=== PATIENT | male | born 1940 | race Asian ===

== ENCOUNTER → 2017-04-11 13:26 | Emergency (ER) | payer MEDICARE, OTHER ==
[~2017-04-11 13:26] MED LIST: Iohexol 300* (CONTRAST) 10 ML SDV IV ONE; Midazolam* 1 MG/ML 10 ML VIAL (10 MG) ONE; NS 0.9% 1000 ML* 2,000 ML IV ONE; fentaNYL* 50 MCG/ML 2 ML VIAL (100 MCG VIAL) ONE
[2017-04-11 14:53] LABS: Hematocrit 52 % (42-52); Hemoglobin 17.5 g/dl (14.0-18.0); Mean Corpuscular HGB Conc 34 g/dl (31-36); Mean Corpuscular Hemoglobin 32 pg (27-31); Mean Corpuscular Volume 94 fL (80-94); Mean Platelet Volume 7 um3 (7.4-10.4); Red Cell Distribution Width 14 % (10.5-15); White Blood Count 5.5 10^3/ul (3.5-10.8)
--- NOTE | 2017-04-11 15:01 | ED ---
Abdominal Pain/Male - HPI Summary HPI Summary: 76M w/ PMH of dementia present with abdominal pain today. Pain started in middle of the night in bilateral lower quadrants. He states that he had two normal BM last night. He states he felt constipated this morning and had small BM with an edema. He denies any nausea or vomiting. He denies any fever. He states feel similar to pain with constipation. He states the pain is sharp. Nothing makes it better or worst. no dysuria, hematuria, flank pain. He states he is not passing much gas. unable to give a surgical history. History is limited due to dementia. He is a resident of [facility] emergency department. He has hypertension and COPD. According to EMS note his pain started last night while lying in bed. He thought it was do to eating peanut butter last night. According to record from [facility] he take senna, miralax, simethicone. - History of Current Complaint Chief Complaint: EDAbdPain Stated Complaint: ABD PAIN Time Seen by Provider: 04/11/17 14:02 Pain Intensity: 5 - Allergies/Home Medications Allergies/Adverse Reactions: Allergies Allergy/AdvReac Type Severity Reaction Status Date / Time Penicillins Allergy Severe Rash Verified 04/11/17 13:38 Home Medications: Home Medications Acetaminophen TAB* [Tylenol TAB*] 650 mg PO Q6H PRN 04/11/17 [History Confirmed 04/11/17] Citalopram TAB* [CeleXA TAB*] 10 mg PO DAILY 04/11/17 [History Confirmed ] Cyanocobalamin INJ * [Vitamin B12 INJ *] 1,000 mcg IM MONTHLY 04/11/17 [History Confirmed 04/11/17] Fexofenadine (NF) [Rosanne (NF)] 60 mg PO DAILY 04/11/17 [History Confirmed ] Furosemide TAB* [Lasix TAB*] 40 mg PO DAILY 04/11/17 [History Confirmed 04/11/17 ] Hemorrhoidal OINT* [Preparation H*] 1 applic MO Q3HR PRN 04/11/17 [History Confirmed 04/11/17] Omeprazole CAP* [Prilosec CAP* 20 MG] 20 mg PO DAILY 04/11/17 [History Confirmed 04/11/17] Senna TAB* [Senokot TAB*] 1 tab PO DAILY 04/11/17 [History Confirmed 04/11/17] Simethicone TAB* [Mylicon TAB*] 80 mg PO AC PRN 04/11/17 [History Confirmed ] tiZANidine TAB* [Zanaflex TAB*] 1 mg PO BID PRN MDD 2mg 04/11/17 [History Confirmed 04/11/17] PMH/Surg Hx/FS Hx/Imm Hx Endocrine/Hematology History: Reports: Other Endocrine/Hematological Disorders - hypogonadism Denies: Hx Anticoagulant Therapy, Hx Blood Disorders, Hx Blood Transfusions, Hx Bone Marrow Disease, Hx Diabetes, Hx Systemic Lupus Erythematosus, Hx Sickle Cell Disease, Hx Thyroid Disease, Hx Anemia, Hx Unexplained Bleeding Cardiovascular History: Reports: Hx Hypertension Denies: Hx Aneurysm, Hx Angina, Hx Angioplasty, Hx Auto Implanted Cardiovert Defib, Hx Cardiac Arrest, Hx Cardiomegaly, Hx Congenital Heart Disease, Hx Congestive Heart Failure, Hx Coronary Artery Disease, Hx Deep Vein Thrombosis, Hx Embolism, Hx Hypercholesterolemia, Hx Hypotension, Hx Pacemaker/ICD, Hx Peripheral Vascular Disease, Hx Rheumatic Fever, Hx Syncope, Hx Valvular Heart Disease, Other Cardiovascular Problems/Disorders Respiratory History: Reports: Hx Asthma, Hx Chronic Bronchitis Denies: Hx Chronic Obstructive Pulmonary Disease (COPD), Hx Cystic Fibrosis, Hx Lung Cancer, Hx Pleural Effusion, Hx Pneumonia, Hx Pulmonary Edema, Hx Pulmonary Embolism, Hx Seasonal Allergies, Hx Sleep Apnea, Other Respiratory Problems/Disorders GI History: Reports: Other GI Disorders - constipation Denies: Hx Cirrhosis, Hx Crohn's Disease, Hx Diverticulosis, Hx Gall Bladder Disease, Hx Gastroesophageal Reflux Disease, Hx Gastrointestinal Bleed, Hx Hiatal Hernia, Hx Irritable Bowel, Hx Jaundice, Hx Obstructive Bowel, Hx Ileostomy, Hx Pyloric Stenosis, Hx Ulcer History: Reports: Hx Benign Prostatic Hyperplasia Denies: Hx Acute Renal Failure, Hx Chronic Renal Failure, Hx Dialysis, Hx Kidney Infection, Hx Kidney Stones, Hx Renal Disease, Other Problems/ Disorders Musculoskeletal History: Reports: Hx Arthritis, Other Musculoskeletal History - MUSCULAR DYSTROPHY Denies: Hx Back Problems, Hx Bursitis, Hx Congenital Bone Abnormalities, Hx Fibromyalgia, Hx Gout, Hx Orthopedic Injury, Hx Osteoporosis, Hx Scoliosis, Hx Tendonitis Sensory History: Reports: Hx Cataracts - l eye cataract, Hx Contacts or Glasses - reading glasses at home Denies: Hx Eye Injury, Hx Eye Prosthesis, Hx Glaucoma, Hx Legally Blind, Hx Macular Degeneration, Hx Vision Problem, Hx Deafness, Hx Hearing Aid, Hx Hearing Problem, Other Sensory Impairments Opthamlomology History: Reports: Hx Cataracts - l eye cataract, Hx Contacts or Glasses - reading glasses at home Denies: Hx Eye Injury, Hx Eye Prosthesis, Hx Glaucoma, Hx Legally Blind, Hx Macular Degeneration, Hx Vision Problem, Other Sensory Impairments Neurological History: Reports: Other Neuro Impairments/Disorders - parkinsons, facioscapulohum muscular dystrophy Denies: Hx Dementia, Hx Developmental Delay, Hx Headaches, Hx Migraine, Hx Nerve Disease, Hx Seizures, Hx Spinal Cord Injury, Hx Transient Ischemic Attacks (TIA) Psychiatric History: Reports: Hx Depression - suicide attempts x2, Hx Inpatient Treatment - 2010, Hx Suicide Attempt Denies: Hx Anxiety, Hx Attention Deficit Hyperactivity Disorder, Hx Eating Disorder, Hx Panic Disorder, Hx Post Traumatic Stress Disorder, Hx Community Mental Health Tx, Hx Schizophrenia, Hx Bipolar Disorder, Hx of Violent Episodes Against Others, Hx Substance Abuse, Other Psychiatric Issues/Disorders - Surgical History Surgery Procedure, Year, and Place: left eye cataract surgery Hx Anesthesia Reactions: No - Immunization History Date of Tetanus Vaccine: unknown Date of Influenza Vaccine: 2011 Infectious Disease History: No Infectious Disease History: Denies: Hx Clostridium Difficile, Hx Hepatitis, Hx Human Immunodeficiency Virus (HIV), Hx of Known/Suspected MRSA, Hx Shingles, Hx Tuberculosis, Hx Known/ Suspected VRE, Hx Known/Suspected VRSA, History Other Infectious Disease, Traveled Outside the [place] in Last 30 Days - Family History Known Family History: Positive: None - reviewed & noncontributory - Social History Alcohol Use: None Hx Substance Use: No Substance Use Type: Reports: None Hx Tobacco Use: No Smoking Status (MU): Never Smoked Tobacco Review of Systems Negative: Fever Negative: Chest Pain Negative: Shortness Of Breath Positive: Abdominal Pain, Other - constipation. Negative: Vomiting, Diarrhea, Nausea All Other Systems Reviewed And Are Negative: Yes Physical Exam Triage Information Reviewed: Yes Vital Signs On Initial Exam: Initial Vitals Temp Pulse Resp BP Pulse Ox 97.8 F 80 16 158/73 96 04/11/17 13:37 04/11/17 13:37 04/11/17 13:37 04/11/17 13:37 04/11/17 13:37 Vital Signs Reviewed: Yes Completion Of Physical Exam Limited Due To: Dementia Appearance: Positive: Well-Appearing Skin: Positive: Warm, Dry Head/Face: Positive: Normal Head/Face Inspection Eyes: Positive: Normal, EOMI, YOMI, Conjunctiva Clear ENT: Positive: Normal ENT inspection, Pharynx normal, TMs normal Respiratory/Lung Sounds: Positive: Clear to Auscultation, Breath Sounds Present Cardiovascular: Positive: Normal, RRR Abdomen Description: Positive: Distended, Other: - hyperactive bowel sounds, mild tenderness in bilateral lower quadrants Bowel Sounds: Positive: Present Musculoskeletal: Positive: Normal Psychiatric: Positive: Normal - [place] Coma Scale Coma Scale Total: 15 Diagnostics - Vital Signs Vital Signs Temp Pulse Resp BP Pulse Ox 04/11/17 14:51 78 148/75 98 04/11/17 14:09 79 98 04/11/17 13:37 97.8 F 80 16 158/73 96 - Laboratory Lab Results: Lab Results 04/11/17 Range/Units 14:29 WBC 5.5 (3.5-10.8) 10^3/ul RBC 5.50 H (4.0-5.4) 10^6/ul Hgb 17.5 (14.0-18.0) g/dl Hct 52 (42-52) % MCV 94 (80-94) fL MCH 32 H (27-31) pg MCHC 34 (31-36) g/dl RDW 14 (10.5-15) % Plt Count 195 (150-450) 10^3/ul MPV 7 L (7.4-10.4) um3 Neut % (Auto) 78.2 (38-83) % Lymph % (Auto) 12.3 L (25-47) % Green % (Auto) 7.9 (1-9) % Eos % (Auto) 1.2 (0-6) % Baso % (Auto) 0.4 (0-2) % Absolute Neuts (auto) 4.3 (1.5-7.7) 10^3/ul Absolute Lymphs (auto) 0.7 L (1.0-4.8) 10^3/ul Absolute Monos (auto) 0.4 (0-0.8) 10^3/ul Absolute Eos (auto) 0.1 (0-0.6) 10^3/ul Absolute Basos (auto) 0 (0-0.2) 10^3/ul Absolute Nucleated RBC 0.01 10^3/ul Nucleated RBC % 0.2 Result Diagrams: 04/11/17 14:29 04/11/17 14:29 Lab Statement: Any lab studies that have been ordered have been reviewed, and results considered in the medical decision making process. Abdominal Pain Fem Course/Dx - Course Course Of Treatment: 76M w/ PMH of dementia present with abdominal pain today. He states that he had two normal BM last night. He states he felt constipated this morning and had small BM with an edema. He denies any nausea or vomiting. He denies any fever. He states he has a history of this. He states the pain is sharp. Nothing makes it better or worst. no dysuria, hematuria, flank pain. He states he is not passing much gas. unable to give a surgical history. History is limited due to dementia. He is a resident of [facility] emergency department. on exam abdomen is distend. hyperactive bowel sounds, mild tenderness in bilateral lower quadrants. CT shows sigmoid volvus. dr casillas will see in ED. dr casillas scoped patient to resolve volvulus. patient will be sent back to [facility] emergency department with instruction to follow clear liquid diet for next 24 hours. - Diagnoses Differential Diagnosis/HQI/PQRI: Bowel Obstruction, Constipation, Diverticulitis Provider Diagnoses: Sigmoid volvulus - Provider Notifications Discussed Care Of Patient With: dr casillas Time Discussed With Above Provider: 17:28 - will see in ED Discharge - Discharge Plan Condition: Good Disposition: HOME Patient Education Materials: Procedural Sedation (ED) Referrals: Nahum Casillas MD [Medical Doctor] - Jonathan Parikh MD [Primary Care Provider] - Additional Instructions: Take Tylenol for pain every 6 hours Clear liquid diet for 24 hours Follow up with primary within 5 days Return to ED if develop any new or worsening symptoms
[2017-04-11 15:09] LABS: Albumin 4.6 g/dL (3.2-5.2); BUN/Creatinine Ratio 32.9 (8-20); Calcium 9.6 mg/dL (8.6-10.3); EGFR African American 128.9 (>60); EGFR Non-African American 100.3 (>60); Globulin 3.2 g/dL (2-4); Potassium 4.1 mmol/L (3.5-5.0); Total Bilirubin 0.8 mg/dL (0.2-1.0); Total Protein 7.8 g/dL (6.4-8.9)
[2017-04-11 16:43] LABS: Urine Bilirubin Negative (Negative); Urine Glucose Negative (Negative); Urine Nitrite Negative (Negative)
--- NOTE | 2017-04-11 17:06 | RAD ---
INDICATION: Bilateral lower abdominal pain. COMPARISON: No relevant prior exams available on the [facility] PACS for comparison. TECHNIQUE: Multidetector CT images were obtained from the lung bases to the ischial tuberosities with 91 mL Omnipaque 300 IV and oral contrast. Multiplanar reformation. REPORT: Images through the inferior thorax remarkable for rarefaction of interstitial markings favoring emphysema. Small hiatal hernia. Negative for cardiomegaly. Negative for CT abnormality of the liver, gallbladder, pancreas, spleen. Enteric contrast extends to the ileum but not the colon. Negative for dilated small bowel loops. Unremarkable retrocecal appendix. Moderate stool in the nondilated RIGHT, transverse, and descending colon. Sigmoid volvulus extending to the cephalad RIGHT upper quadrant with the sigmoid colon dilated up to 12 cm diameter. Negative for perienteric inflammatory change. Negative for free air. Negative for ventral or groin hernias. Normal adrenal glands. Unremarkable kidneys with symmetric nephrograms and pyelograms. Unremarkable nondilated ureters and largely decompressed urinary bladder. Symmetric seminal vesicles. Negative for lymphadenopathy. Normal diameter abdominal aorta and iliac arteries. Physiologic distention of the IVC. Lumbar sacral spine degenerative spondylosis and facet joint osteoarthritis with associated grade 1 degenerative anterolisthesis at L4-L5. Negative for suspicious focal osseous lesions. IMPRESSION: Closed loop obstruction of the sigmoid colon due to sigmoid volvulus. Results discussed with Coty Conner 04/11/2017 5:01 PM EST
[2017-04-11 22:34] VITALS: BP 140/72
--- NOTE | 2017-04-12 00:56 | CONS ---
CC: Jonathan Parikh MD * CONSULTATION REPORT: DATE OF CONSULT: 04/11/17 REQUESTING PHYSICIAN: Emergency Room. INDICATION: Sigmoid volvulus. NARRATIVE: Mr. Nava is a pleasant 76-year-old gentleman with the history of Parkinson's, hypertension, asthma, constipation, BPH, muscular dystrophy, cataracts, depression, hypogonadism, and pseudo colonic obstruction, who presents to the emergency room with worsening abdominal distention. The patient began having abdominal pain last night. He was brought in from his intermediate. He had a bowel movement today; however, his abdomen is very distended. He had a CT in the emergency room, which showed a sigmoid volvulus. The patient continues to have pain. PAST MEDICAL HISTORY: Please see the HPI. PAST SURGICAL HISTORY: Includes cataract. MEDICATIONS: Include: 1. Acetaminophen. 2. Testosterone. 3. Sinemet. 4. Tizanidine. 5. MiraLax. 6. Losartan. 7. Rosanne. 8. Celexa. 9. Advair. 10. Albuterol. 11. Symmetrel. ALLERGIES: To PENICILLIN. FAMILY HISTORY: No GI malignancies. SOCIAL HISTORY: Denies any alcohol or tobacco. He lives in a intermediate and his lives here in [place]. REVIEW OF SYSTEMS: Twelve systems are reviewed, other than that mentioned in the HPI were unremarkable. PHYSICAL EXAM: Temperature is 97.8, blood pressure is 158/73, pulse is 80. General: Elderly appearing male, lying flat in bed, alert and pleasant. HEENT : Mucous membranes are moist without lesions, ulcers or exudate. Neck: Supple. Trachea is midline. Head is normocephalic and atraumatic. Heart: Regular rate and rhythm. Lungs: Clear to auscultation bilaterally. No wheezes , rales, or rhonchi. Abdomen: Very distended. Slightly taut. Hyperactive bowel sounds with high pitched sounds. No rebound, no guarding. Diffusely tender. Skin is warm and dry. No rashes or ulcers. DIAGNOSTIC STUDIES/LAB DATA: Labs of note, white count is 5.5, hemoglobin 17.5 , platelets of 195,000. BUN is 25, creatinine is 0.76. CT shows a sigmoid volvulus. ASSESSMENT AND PLAN: This is a 76-year-old male with sigmoid volvulus. I had a long discussion with the patient and . He does need urgent colonoscopic decompression. I will make arrangements for that immediately. We discussed risk for perforation. We discussed the risk for re-volvulus. If that is the case, he will need surgery. [id number]/[facility] #: [id number] MTDD
--- NOTE | 2017-04-12 14:22 | PRO ---
PROCEDURE REPORT: DATE OF PROCEDURE: 04/11/17 - EMERGENCY DEPT PROCEDURE PERFORMED: Decompressive colonoscopy. INDICATION: Sigmoid volvulus. PROCEDURE: After the colonoscopy procedure, including the risks benefits and alternatives, not limited to perforation, surgery, and/or were explained to the patient, written consent was then obtained. IV medication was given and a rectal exam was performed; it was unremarkable. An Olympus colonoscope was then inserted into the patient's rectum. CT had revealed a previous sigmoid volvulus. Immediately, upon entering the rectum there was a large amount of liquid stool. I did suction and washed this as much as this as I could. I was able to gently and carefully advanced the scope through the lumen, into what appeared to be the distal sigmoid colon just past what I anticipated was the rectosigmoid junction. At that point, it was extremely dilated. I could not tell if I had already gone through the rectosigmoid volvulus or not. I was able to easily advance the scope. Through the remainder of the sigmoid colon, it was extremely dilated. I insufflated absolutely, no air at all, but I did suction out all of the air. I only used water for insufflation. I was able to navigate around the splenic flexure and up into the transverse colon. It again was very dilated in this area. 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 I was able to decompress the colon fairly dramatically. The scope was starting to loop at this point and I did not feel comfortable in advancing any further. I terminated the procedure in the transverse colon and then slowly withdrew the scope all the while withdrawing air, and the mucosa did not appear dusky or compromised at all. The scope was withdrawn from the patient. He tolerated the procedure well. He was returned to the care of the ED staff. IMPRESSION: 1. Decompressive colonoscopy. 2. Sigmoid volvulus. 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 [id number]/[facility] #: [id number] JOVAN
== END | disposition home or self-care (01) ==
LOC: ED 13:26
DX: K56.2 Volvulus (principal); R10.9 Unspecified abdominal pain; Z86.79 Personal history of other diseases of the circulatory system; K59.00 Constipation, unspecified
CPT/HCPCS: 36415; 74177; 80053; 81003; 83605; 83690; 85025; 86141; 96374; 99156; 99157; 99284; J2250; J3010; Q9967

== ENCOUNTER 2018-03-26 11:17 | Inpatient (IN) | payer MEDICARE, OTHER ==
--- OUTSIDE RECORDS SUMMARY | 2018-03-26 11:33 | XMS REPORT ---
:1940 External Reference #:[id number] Author Organization [facility] Address [address] [place] [address] [place] [address] Phone [phone] Care Team Providers Name Role Phone Other Physician Practices Primary Care Physician Unavailable Payers Type Date Identification Numbers Payment Provider Subscriber Medicare Primary Effective: Policy Number: [id number] Medicare [place] 2012 PayID: [id number] [address] [place] [address] Medigap Part B Policy Number: [id number] [employer] [place] PayID: [id number] [address] [place] [address] Commercial Expires: 2014 Policy Number: [id number] [employer] [place] PayID: [id number] [address] [place] [address] Medigap Part B Effective: 2016 Policy Number: [id number] Medicaid [employer] Name: 1 1 [address] PayID: [id number] [place] [address] Problems Date Description Provider Status Onset: 01/10/2011 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 Active Onset: 09/21/2011 Extrinsic asthma without status Antonio Bah M.D., FACP Active asthmaticus Onset: 03/17/2012 Secondary parkinsonism Jonathan Parikh M.D. Active Onset: 03/17/2013 Essential hypertension Jonathan Parikh M.D. Active Onset: 03/17/2013 Parkinson's disease Jonathan Parikh M.D. Active Onset: 04/19/2014 Cervical spondylosis with Foster Reyes M.D. 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 For Currently Working Cigarette Use Never Smoked Cigarettes ETOH Use 11/28/2012 Denies alcohol use Smoking Patient has never smoked Recreational Drug Use Denies Drug Use Allergies, Adverse Reactions, Alerts Date Description Reaction Status Severity Comments 02/05/2007 PCN active Medications Medication Date Status Form Strength Qnty SIG Indications Ordering Provider Cervical Collar 03/05 Active Misc use prn M47.12 Foster Koch Adjustable/Soft /2017 for neck [place], Touch/One Size discomfort M.Rick Citalopram 08/21 Active Tablets 10mg 1 by mouth Jonathan Richardson Hydrobromide /2016 every day Yani Parikh Wrist Splint 11/02 Active Misc 2unit neutral or Luz Herrera (Left And Right) /2014 s 20 chanel Schwartz M.D. wear at night for 1 month dx:354.0 Social Work 11/13 Active Luz Herrera /2012 Yani Schwartz Elevated Toilet 06/18 Active 359.21 Jonathan Richardson Seat With Arm /2011 Chen Parikh M.D. Losartan 05/14 Active Tablets 50mg 90tab Take 1 R03.0 Jonathan Richardson Potassium s Tablet Melinda Parikh M.D. Manual Wheelchair 09/12 Active 1unit use as G71.0 s directed Pachikara dx 359.1 , Yani Rollating Walker 09/12 Active 1unit use as G71.0 s directed Pachikara dx 359.1 , MWill Carbidopa/Levodop Active Tablets 25-100mg 90tab 2.5 tabs Unknown a / s by mouth once daily 2. 0 tabs three times a day Amantadine HCL Active Capsules 100mg 180ca 1 capsule Luz M. /0000 ps by mouth Stackman, twice a M.D. day Furosemide Active Tablets 40mg 1 by mouth Unknown every day Acetaminophen Active Tablets 325mg 2 tablets Unknown by mouth every 6 hours as needed for pain/fever Omeprazole Active Capsules DR 20mg 1 by mouth Unknown every day Sennosides-Docusa Active Tablets 8.6-50mg 1 by mouth Unknown te Sodium every day Polyethylene Active Granules 3350 17gm mix Unknown Glycol 3350 /0000 with 8 oz of fluids daily Artificial Tears Active Ointment one drop Unknown in each eye twice daily Cyanocobalamin Active Solution 1000mcg/M 1 Unknown L milliliter s intramuscu lar [id number] Testosterone Active Solution 200mg/ml As Unknown Cypionate / directed Tramadol HCL Active Tablets 50mg 1-2 Unknown tablets by mouth every 6 hours as needed pain Prednisone 09/03 Hx Tablets 20mg 10tab 1 by mouth 466.0 Jonathan ECat /2014 s every day Ludwig Parikh M.DCat 09/27 Benzonatate 09/03 Hx Capsules 200mg 15cap one by 466.0 Jonathan ECat /2014 s mouth Kati, - three M.D. 09/27 times daily as needed for cough Proair HFA 08/30 Hx Aerosol 108(90Bas 1unit take 1-2 465.9 Pete e) s puffs FRANCESCA Lopez - mcg/Act every 4-6 03/04 hours needed for shortness of breath. Azithromycin 08/30 Hx Tablets 250mg 6tabs 2 tabs by 465.9 Pete mouth FRANCESCA Lopez - every day 09/04 x1 day, tab by mouth every day x 4 days Advair Diskus 08/30 Hx Aerosol 100-50mcg 3unit Use One 465.9 Pete /2014 /Dose s Inhalation FRANCESCA Lopez - Two Times 09/16 A Citalopram 05/03 Hx Tablets 20mg 90tab 1 By Mouth Jonathan Wetzelbromide s Every Day Ludwig Parikh M.D. 08/21 Multi For Him 50+ 06/23 Hx Tablets 1 po qd Jonathan Richardson Ludwig Parikh M.D. 10/28 Trazodone HCL 06/23 Hx Tablets 100mg 30tab 1 tablet s at bedtime Ordering - as needed Provider 10/28 Citalopram 06/23 Hx Tablets 40mg 90tab / PO qd Jonathan Wetzelbromid s Ludwig Parikh M.D. 05/03 Xopenex HFA 11/19 Hx Aerosol 45mcg/Act 1unit 2 puffs Jonathan Richardson s qid prn Ludwig Parikh M.D. 03/17 Citalopram 01/19 Hx Tablets 40mg 90tab Take 1 Jonathan Wetzelbrodeonte s Tablet Kati, - Daily M.DCat 03/17 Advair Diskus 09/20 Hx Aerosol 100-50mcg 3unit Use One 493.00 Jonathan Richardson /2011 /Dose s Inhalation Kati, - Two Times M.D. 05/28 A Day prn Rosanne 09/17 Hx Tablets 180mg 180ta 1 po qd Antonio bs prn Ludwig Parnell M.D.,FACP 09/16 [place] 05/07 Hx Aerosol 160mcg/Ac 6.100 inhaled Jonathan Richardson t gm bid Ludwig Parikh M.D. 03/17 Hydrochlorothiazi 04/23 Hx Tablets 12.5mg 90tab 1 po qd Jonathan Richardson s Ludwig Parikh M.D. 05/14 [place] 04/09 Hx Aerosol 80mcg/Act 1mon 1 puff Jonathan Richardson inhaled Kati - bid M.DCat 05/07 Fexofenadine HCL 04/06 Hx Tablets 180mg 90tab Take 1 Jonathan Richardson s Tablet Kati, - Daily as M.DCat 05/14 Lisinopril 03/26 Hx Tablets 20mg 30tab 1 po qd 796.2 Jonathan Richardson Ludwig Saab M.D. 05/14 Prilosec 03/[address] 20mg 30cap 1 po qd . Ludwig Saab M.D. 04/23 Miralax 03/19 Hx Packet [id number] 1mon 17 gm qd . prLudwig Mullins M.D. 11/24 Medrol 01/11 Hx Tablets 4mg 21tab medrol Jonathan E. s Ludwig Sotelo as Yani 03/19 [place] 01/10 Hx Aerosol 80mcg/Act 1mon 1 puff Jonathan E. inhaled Kati - kailey Lomeli 03/19 Advair Diskus 12/08 Hx Misc 100/50 3unit 1 puff bid Ludwig Murry M.D.,[facility] 01/10 Rosanne 12/08 Hx Tablets 180mg 180ta 1 po qd bs prn Ludwig Parnell M.D.,[facility] 01/10 Citalopram 09/07 Hx Tablets 20mg 30tab 1 po qd 311 Jonathan E. Hydrobromide Ludwig Saab M.D. 01/10 Mycelex Troches 09/07 Hx 10mg 70uni dissolve 1 311 . ts tab in Kati - mouth 5 M.DCat 12/08 times daily for 2 weeks Testosterone 05/23 Hx 2.5mg/Day 30uni once daily Jonathan Richardson Patch Ludwig Hall M.D. 09/07 Androgel 05/17 Hx Gel 50mg/5GM 30day apply 5 gm [place] sup daily Pachikara Ludwig M.D. 05/23 Zolpidem Tartrate 05/08 Hx Tablets 10mg 30tab 1 tab qhs 359.1 Luz Herrera s Ludwig Mason M.D. 05/28 [place] 02/10 Hx Aerosol 160mcg/Ac 1unit 1 puff bid Jonathan E. t Ludwig Saab M.D. 09/07 [place] 01/10 Hx Aerosol 80mcg/Act 1unit 1 puff bid Jonathan ECat /2009 Ludwig Saab M.D. 02/10 Flovent HFA 07/06 Hx Aerosol 110mcg/Ac 3unit 2 puff bid Jonathan ECat /2008 t Ludwig Saab M.D. 01/10 Advair Diskus 02/02 Hx Misc 100/50 1unit 1 puff bid Jonathan Richardson /2007 Ludwig Saab M.D. 07/06 Physical Therapy 02/02 Hx PT Jonathan Richardson /2007 evaluation Kati, - - muscular Yani 02/10 dystrophy; /2009 eval. for general conditioni ng Rosanne 02/02 Hx Tablets 180mg 90tab 1 po qd Jonathan Richardson Ludwig Fletcher M.D. 09/07 Rosanne Hx Tablets 180mg 180ta 1 po qd Jonathan E. / Ludwig Burnett M.D. 02/02 Testosterone Hx Oil 100mg/ml 24ml 0.75 ml im Unknown Cypionate / q other - week code 05/31 Sinemet Hx Tablets 25-100mg 765ta 2 tabs by Luz Herrera / susie mouth Aronman, - every M.D. 09/16 morning, 2.5 tablets every noon, 2 tablets every afternoon and 2 tablets every evening as directed Celexa Hx Tablets 40mg 90tab 1 po qd Jonathan E. Ludwig Saab M.D. 01/19 Tizanidine HCL Hx Tablets 2mg 90tab 1/2 tab by Beata / s mouth Gnadt, RN [facility] - every day 09/16 and 05/28 tab PO at bedtime Advair Diskus Hx Aerosol 100-50mcg 60uni 1 Unknown /0000 /Dose ts inhalation - twice 05/14 Mineral Oil Hx Enema Enema prn Unknown /0000 - 09/16 Citalopram Hx Tablets 40mg 30tab 1 po qd Unknown Hydrobromide /0000 s - 05/14 Zolpidem Tartrate Hx Tablets 10mg 30tab 1/2 tab po Jonathan E. /0000 s qhs prn Ludwig Parikh M.D. 03/17 Metaxalone Hx Tablets 800mg 90tab 1/2 po q Unknown /0000 s hs - 05/14 Levodopa Hx Powder 50mg 2 pills Unknown /0000 qid. - 09/25 Aspirin Ec Hx Tablets DR 81mg 90tab 1 tablet Unknown Lo-Dose /0000 s daily. - 10/16 Citalopram Hx Tablets 40mg 90tab 1 po qd Jonathan ECat Hydrobromide /0000 s Ludwig Parikh M.D. 05/28 Wellbutrin Hx 1 PO qd Unknown /0000 - 06/23 [place] Hx Aerosol 80mcg/Act 180un 1 puff Jonathan E. /0000 its inhaled Kati, - twice a M.D. /2014 Mylanta Hx Suspension 200-200-2 prn Unknown /0000 0mg/5ML - 10/28 Ciprofloxacin HCL Hx Tablets 250mg 14tab one by Jonathan E. /0000 s mouth Kati, - twice a M.D. 04/30 day for days Tamsulosin HCL Hx Capsules 0.4mg 90cap 1 by mouth Unknown /0000 s every day - 08/30 Cyanocobalamin Hx Solution 1000mcg/M 1 Unknown /0000 L milliliter - s 09/16 intramuscu lar [id number] Testosterone Hx Solution 200mg/ml 1 Unknown Cypionate /0000 injection - q2 weeks 09/15 Vitamin D Hx Tablets 2000Unit 1 by mouth Unknown /0000 every day - 09/16 Vitamin B-12 Hx Liquid 1000mcg/1 inject Unknown /0000 5ML 1000 mcg - monthly 09/16 Medications Administered in Office Medication Date Status Form Strength Qnty SIG Indications Ordering Provider Testosterone Pt Administered Injection Nurse Provided Vac 016 Visit C Testosterone Pt Administered Injection Nurse Provided Vac 015 Visit C Testosterone Pt Administered Injection Nurse Provided Vac 015 Visit C Testosterone Pt Administered Injection Nurse Provided Vac 015 Visit C Testosterone Pt Administered Injection Nurse Provided Vac 015 Visit C Testosterone Pt Administered Injection Nurse Provided Vac 015 Visit C Testosterone Pt Administered Injection Nurse Provided Vac 015 Visit C Testosterone Pt Administered Injection Nurse Provided Vac 015 Visit C Immunizations CPT Code Status Date Vaccine Lot # [id number] Given 03/04/2015 Influenza Virus Vaccine, Quadrivalent, Split, [id number] Preservative Free 36244 Given 03/04/2015 Influenza Virus Vaccine, Quadrivalent, Split, [id number] Preservative Free 00499 Given 03/12/2014 Flu Vaccine Split Virus Preservative Free For Indiv 3Yr Older 53105 Given 03/12/2014 Flu Vaccine Split Virus Preservative Free For [id number] Indiv 3Yr Older 17795 Given 10/28/2013 Tdap - Tetanus/Diptheria/Acellular Pertussis [id number] 50097 Given 03/17/2013 Flu Vaccine Split Virus Preservative Free For [id number] Indiv 3Yr Older Q2037 Given 03/17/2012 Fluvirin Im 3Yrs And Older [id number] 77026 Given 03/17/2012 Pneumonia Vaccine [id number] 20251 Given 03/14/2004 Td (History By Patient) Vital Signs Date Vital Result Comment 03/05/2018 Weight 151.00 lb Heart Rate 96 /min BP Systolic 140 mmHg BP Diastolic 70 mmHg Respiratory Rate 20 /min 01/20/2018 BP Systolic Sitting 142 mmHg BP Diastolic Sitting 80 mmHg Pain Level 0 10/22/2017 BP Systolic Sitting 124 mmHg BP Diastolic Sitting 60 mmHg Pain Level 4 09/17/2017 Height 79 inches 6'7" pt in wheelchair Weight 152.00 lb Heart Rate 80 /min BP Systolic Sitting 126 mmHg BP Diastolic Sitting 58 mmHg Respiratory Rate 16 /min BMI (Body Mass Index) 17.1 kg/m2 07/01/2017 Height 79 inches 6'7" pt in wheelchair Weight 153.00 lb Heart Rate 62 /min BP Systolic Sitting 118 mmHg BP Diastolic Sitting 68 mmHg Pain Level 7 BMI (Body Mass Index) 17.2 kg/m2 06/10/2017 Height 79 inches 6'7" pt in wheelchair Heart Rate 66 /min BP Systolic Sitting 158 mmHg BP Diastolic Sitting 88 mmHg Pain Level 4 01/15/2017 Height 79 inches 6'7" pt in wheelchair Weight 153.00 lb BP Systolic Sitting 128 mmHg BP Diastolic Sitting 76 mmHg Respiratory Rate 17 /min BMI (Body Mass Index) 17.2 kg/m2 08/21/2016 Heart Rate 80 /min BP Systolic Sitting 102 mmHg BP Diastolic Sitting 62 mmHg Respiratory Rate 17 /min 04/17/2016 Heart Rate 80 /min BP Systolic Sitting 146 mmHg BP Diastolic Sitting 72 mmHg 01/12/2016 Heart Rate 68 /min BP Systolic Sitting 130 mmHg BP Diastolic Sitting 76 mmHg Respiratory Rate 14 /min 10/21/2015 Heart Rate 82 /min BP Systolic Sitting 124 mmHg BP Diastolic Sitting 82 mmHg Body Temperature 98.2 F O2 % BldC Oximetry 97 % 06/14/2015 Heart Rate 72 /min BP Systolic Sitting 138 mmHg BP Diastolic Sitting 84 mmHg Respiratory Rate 14 /min 06/14/2015 Heart Rate 68 /min Respiratory Rate 14 /min 05/02/2015 Heart Rate 76 /min BP Systolic Sitting 122 mmHg BP Diastolic Sitting 78 mmHg Pain Level 0 04/13/2015 Heart Rate 66 /min BP Systolic Sitting 130 mmHg BP Diastolic Sitting 70 mmHg Pain Level 0 03/01/2015 Heart Rate 72 /min BP Systolic Sitting 134 mmHg BP Diastolic Sitting 68 mmHg Respiratory Rate 16 /min 11/02/2014 Heart Rate 68 /min BP Systolic Sitting 122 mmHg BP Diastolic Sitting 70 mmHg Respiratory Rate 16 /min 09/27/2014 Heart Rate 98 /min BP Systolic Sitting 130 mmHg BP Diastolic Sitting 82 mmHg Respiratory Rate 12 /min Body Temperature 98.7 F O2 % BldC Oximetry 97 % 09/03/2014 Heart Rate 85 /min BP Systolic Sitting 112 mmHg BP Diastolic Sitting 64 mmHg Respiratory Rate 16 /min Body Temperature 97.6 F O2 % BldC Oximetry 96 % 08/30/2014 Height 62 inches 5'2" Weight 145.00 lb Heart Rate 80 /min BP Systolic 120 mmHg BP Diastolic 78 mmHg Body Temperature 97.6 F BMI (Body Mass Index) 26.5 kg/m2 06/01/2014 Heart Rate 76 /min BP Systolic Sitting 128 mmHg BP Diastolic Sitting 80 mmHg Respiratory Rate 16 /min 05/03/2014 Heart Rate 81 /min BP Systolic Sitting 105 mmHg BP Diastolic Sitting 57 mmHg Body Temperature 96.9 F O2 % BldC Oximetry 96 % 04/19/2014 Heart Rate 80 /min BP Systolic Sitting 140 mmHg BP Diastolic Sitting 80 mmHg Pain Level 3 neck/head 04/16/2014 Heart Rate 88 /min BP Systolic Sitting 116 mmHg BP Diastolic Sitting 68 mmHg Body Temperature 96.8 F 03/24/2014 Heart Rate 80 /min BP Systolic Sitting 130 mmHg BP Diastolic Sitting 66 mmHg 11/26/2013 Height 62 inches 5'2" Weight 144.00 lb Heart Rate 84 /min BP Systolic Sitting 146 mmHg BP Diastolic Sitting 78 mmHg Respiratory Rate 20 /min BMI (Body Mass Index) 26.3 kg/m2 10/28/2013 Height 62 inches 5'2" Weight 144.25 lb Heart Rate 92 /min BP Systolic Sitting 144 mmHg BP Diastolic Sitting 80 mmHg Body Temperature 98.1 F BMI (Body Mass Index) 26.4 kg/m2 05/28/2013 Heart Rate 82 /min BP Systolic Sitting 130 mmHg BP Diastolic Sitting 130 mmHg Respiratory Rate 17 /min 03/17/2013 Height 62.25 inches 5'2.25" Weight 156.00 lb Heart Rate 88 /min BP Systolic Sitting 138 mmHg BP Diastolic Sitting 80 mmHg BMI (Body Mass Index) 28.3 kg/m2 02/17/2013 Heart Rate 92 /min BP Systolic Sitting 124 mmHg BP Diastolic Sitting 70 mmHg Respiratory Rate 16 /min 11/28/2012 Height 66.25 inches 5'6.25" Weight 146.75 lb Heart Rate 92 /min BP Systolic Sitting 168 mmHg BP Diastolic Sitting 76 mmHg BMI (Body Mass Index) 23.5 kg/m2 11/21/2012 Weight 155.00 lb per pt Heart Rate 88 /min BP Systolic Sitting 150 mmHg BP Diastolic Sitting 82 mmHg Respiratory Rate 16 /min 09/25/2012 Heart Rate 90 /min BP Systolic Sitting 130 mmHg BP Diastolic Sitting 70 mmHg Respiratory Rate 18 /min 09/22/2012 Heart Rate 92 /min BP Systolic Sitting 128 mmHg BP Diastolic Sitting 64 mmHg 09/15/2012 Weight 150.75 lb Heart Rate 88 /min BP Systolic Sitting 148 mmHg intial BP 158/84 BP Diastolic Sitting 80 mmHg intial BP 158/84 08/19/2012 Heart Rate 77 /min BP Systolic Sitting 136 mmHg BP Diastolic Sitting 70 mmHg Respiratory Rate 15 /min 03/17/2012 Height 64 inches 5'4" unable to stand for height Weight 153.00 lb Heart Rate 80 /min BP Systolic Sitting 148 mmHg BP Diastolic Sitting 82 mmHg BMI (Body Mass Index) 26.3 kg/m2 09/17/2011 Height 64 inches 5'4" unable to stand for height Weight 152.00 lb Heart Rate 84 /min BP Systolic Sitting 148 mmHg BP Diastolic Sitting 90 mmHg BMI (Body Mass Index) 26.1 kg/m2 06/18/2011 Weight 145.00 lb Heart Rate 84 /min BP Systolic Sitting 126 mmHg BP Diastolic Sitting 70 mmHg 05/14/2011 Weight 147.00 lb Heart Rate 80 /min BP Systolic Sitting 140 mmHg BP Diastolic Sitting 84 mmHg 04/23/2011 Weight 151.00 lb Heart Rate 88 /min BP Systolic Sitting 145 mmHg BP Diastolic Sitting 88 mmHg 03/19/2011 Weight 148.00 lb Heart Rate 92 /min BP Systolic Sitting 154 mmHg BP Diastolic Sitting 88 mmHg 01/10/2011 Weight 151.00 lb Heart Rate 80 /min BP Systolic Sitting 152 mmHg 142/84 R arm BP Diastolic Sitting 98 mmHg 142/84 R arm 12/08/2010 Weight 206.00 lb Heart Rate 88 /min BP Systolic Sitting 158 mmHg BP Diastolic Sitting 78 mmHg 09/07/2010 Weight 155.00 lb Heart Rate 78 /min BP Systolic Sitting 130 mmHg BP Diastolic Sitting 68 mmHg 06/27/2010 Heart Rate 84 /min BP Systolic 130 mmHg BP Diastolic 72 mmHg Body Temperature 98.2 F 06/15/2010 Heart Rate 84 /min BP Systolic Sitting 122 mmHg BP Diastolic Sitting 74 mmHg 05/08/2010 Weight 145.00 lb Heart Rate 88 /min BP Systolic Sitting 160 mmHg BP Diastolic Sitting 84 mmHg 02/10/2010 BP Systolic Sitting 136 mmHg BP Diastolic Sitting 76 mmHg 02/10/2010 Weight 150.00 lb Heart Rate 98 /min BP Systolic Sitting 180 mmHg went down to 142/84 BP Diastolic Sitting 78 mmHg went down to 142/84 02/10/2010 BP Systolic Sitting 142 mmHg went down after 1/2 hour BP Diastolic Sitting 84 mmHg went down after 1/2 hour 01/10/2010 Weight 150.00 lb Heart Rate 82 /min BP Systolic Sitting 170 mmHg BP Diastolic Sitting 90 mmHg 07/06/2008 Weight 149.00 lb Heart Rate 84 /min BP Systolic Sitting 130 mmHg BP Diastolic Sitting 80 mmHg 02/03/2008 Height 64 inches 5'4" Weight 141.00 lb Heart Rate 92 /min BP Systolic Sitting 140 mmHg BP Diastolic Sitting 70 mmHg BMI (Body Mass Index) 24.2 kg/m2 02/05/2007 Height 65 inches 5'5" Weight 134.00 lb Heart Rate 74 /min BP Systolic Sitting 134 mmHg BP Diastolic Sitting 80 mmHg BMI (Body Mass Index) 22.3 kg/m2 Results Test Date Test Result H/L Range Note Urinalysis Profile 04/11/2017 Urine Color Straw Urine Appearance Clear Urine Specific [place] 1.011 1.010-1.030 Urine pH 5.0 5-9 Urine Urobilinogen Negative Negative Urine Ketones Negative Negative Urine Protein Negative Negative Urine Leukocytes Negative Negative Urine Blood Negative Negative Urine Nitrite Negative Negative Urine Bilirubin Negative Negative Urine Glucose Negative Negative Comp Metabolic Panel 04/11/2017 Sodium 136 mmol/L 133-145 Potassium 4.1 mmol/L 3.5-5.0 Chloride 101 mmol/L 101-111 Co2 Carbon Dioxide 30 mmol/L 22-32 Anion Gap 5 mmol/L 2-11 Glucose 101 mg/dL High 70-100 Blood Urea Nitrogen 25 mg/dL High 6-24 Creatinine 0.76 mg/dL 0.67-1.17 BUN/Creatinine Ratio 32.9 High 8-20 Calcium 9.6 mg/dL 8.6-10.3 Total Protein 7.8 g/dL 6.4-8.9 Albumin 4.6 g/dL 3.2-5.2 Globulin 3.2 g/dL 2-4 Albumin/Globulin Ratio 1.4 1-3 Total Bilirubin 0.80 mg/dL 0.2-1.0 Alkaline Phosphatase 85 U/L 34-104 Alt 3 U/L Low 7-52 Ast 24 U/L 13-39 Egfr Non- 100.3 >60 Egfr 128.9 >60 1 Laboratory test finding 04/11/2017 Lipase 20 U/L 11.0-82.0 CRP High Sensitivity 4.25 mg/L 2 Lactic Acid 1.4 mmol/L 0.5-2.0 3 CBC Auto Diff 04/11/2017 White Blood Count 5.5 10^3/uL 3.5-10.8 Red Blood Count 5.50 10^6/uL High 4.0-5.4 Hemoglobin 17.5 g/dL 14.0-18.0 Hematocrit 52 % 42-52 Mean Corpuscular Volume 94 fL 80-94 Mean Corpuscular Hemoglobin 32 pg High 27-31 Mean Corpuscular HGB Conc 34 g/dL 31-36 Red Cell Distribution Width 14 % 10.5-15 Platelet Count 195 10^3/uL 150-450 Mean Platelet Volume 7 um3 Low 7.4-10.4 Abs Neutrophils 4.3 10^3/uL 1.5-7.7 Abs Lymphocytes 0.7 10^3/uL Low 1.0-4.8 Abs Monocytes 0.4 10^3/uL 0-0.8 Abs Eosinophils 0.1 10^3/uL 0-0.6 Abs Basophils 0 10^3/uL 0-0.2 Abs Nucleated RBC 0.01 10^3/uL Granulocyte % 78.2 % 38-83 Lymphocyte % 12.3 % Low 25-47 Monocyte % 7.9 % 1-9 Eosinophil % 1.2 % 0-6 Basophil % 0.4 % 0-2 Nucleated Red Blood Cells % 0.2 Laboratory test finding 11/08/2015 Lactic Acid 0.8 mmol/L 0.5-2.0 4 Laboratory test finding 11/08/2015 Troponin-I (TnI) 0.01 ng/mL <0.03 5 Urinalysis Profile 08/15/2015 Urine Color Yellow Urine Appearance Clear Urine Specific [place] 1.024 1.010-1.030 Urine pH 5.0 5-9 Urine Urobilinogen Negative Negative Urine Ketones Trace Negative Urine Protein Negative Negative Urine Leukocytes Negative Negative Urine Blood Negative Negative Urine Nitrite Negative Negative Urine Bilirubin Negative Negative Urine Glucose Negative Negative CBC Auto Diff 08/15/2015 White Blood Count 5.5 10^3/uL 3.5-10.8 Red Blood Count 5.42 10^6/uL High 4.0-5.4 Hemoglobin 16.4 g/dL 14.0-18.0 Hematocrit 49 % 42-52 Mean Corpuscular Volume 91 fL 80-94 Mean Corpuscular Hemoglobin 30 pg 27-31 Mean Corpuscular HGB Conc 33 g/dL 31-36 Red Cell Distribution Width 14 % 10.5-15 Platelet Count 253 10^3/uL 150-450 Mean Platelet Volume 7 um3 Low 7.4-10.4 Abs Neutrophils 4.2 10^3/uL 1.5-7.7 Abs Lymphocytes 0.8 10^3/uL Low 1.0-4.8 Abs Monocytes 0.4 10^3/uL 0-0.8 Abs Eosinophils 0 10^3/uL 0-0.6 Abs Basophils 0 10^3/uL 0-0.2 Abs Nucleated RBC 0 10^3/uL Granulocyte % 76.7 % 38-83 Lymphocyte % 14.5 % Low 25-47 Monocyte % 8.0 % 1-9 Eosinophil % 0.6 % 0-6 Basophil % 0.2 % 0-2 Nucleated Red Blood Cells % 0 Laboratory test finding 08/15/2015 Lactic Acid 1.5 mmol/L 0.5-2.0 6 Troponin-I (TnI) 0.01 ng/mL <0.03 7 Comp Metabolic Panel 08/15/2015 Sodium 134 mmol/L 133-145 Potassium 4.2 mmol/L 3.5-5.0 Chloride 102 mmol/L 101-111 Co2 Carbon Dioxide 26 mmol/L 22-32 Anion Gap 6 mmol/L 2-11 Glucose 132 mg/dL High 70-100 Blood Urea Nitrogen 33 mg/dL High 6-24 Creatinine 0.76 mg/dL 0.67-1.17 BUN/Creatinine Ratio 43.4 High 8-20 Calcium 9.2 mg/dL 8.6-10.3 Total Protein 7.5 g/dL 6.4-8.9 Albumin 4.3 g/dL 3.2-5.2 Globulin 3.2 g/dL 2-4 Albumin/Globulin Ratio 1.3 1-3 Total Bilirubin 0.50 mg/dL 0.2-1.0 Alkaline Phosphatase 102 U/L 34-104 Alt 7 U/L 7-52 Ast 25 U/L 13-39 Egfr Non- 100.8 >60 Egfr 129.7 >60 8 Laboratory test finding 08/15/2015 Magnesium 2.2 mg/dL 1.9-2.7 TSH (Thyroid Stim Horm) 2.42 ?IU/mL 0.34-5.60 CBC Auto Diff 04/01/2015 White Blood Count 5.4 10^3/uL 4.8-10.8 Red Blood Count 5.06 10^6/uL 4.0-5.4 Hemoglobin 15.8 g/dL 14.0-18.0 Hematocrit 48 % 42-52 Mean Corpuscular Volume 94 fL 80-94 Mean Corpuscular Hemoglobin 31 pg 27-31 Mean Corpuscular HGB Conc 33 g/dL 31-36 Red Cell Distribution Width 14 % 10.5-15 Platelet Count 234 10^3/uL 150-450 Mean Platelet Volume 7 um3 Low 7.4-10.4 Abs Neutrophils 4.0 10^3/uL 1.5-7.7 Abs Lymphocytes 0.8 10^3/uL Low 1.0-4.8 Abs Monocytes 0.4 10^3/uL 0-0.8 Abs Eosinophils 0.1 10^3/uL 0-0.6 Abs Basophils 0 10^3/uL 0-0.2 Abs Nucleated RBC 0.01 10^3/uL Granulocyte % 75.1 % 38-83 Lymphocyte % 15.7 % Low 25-47 Monocyte % 6.9 % 1-9 Eosinophil % 1.8 % 0-6 Basophil % 0.5 % 0-2 Nucleated Red Blood Cells % 0.2 Laboratory test 04/01/2015 PSA Screening 7.107 ng/mL High 0-4.000 9 finding Laboratory test 11/15/2014 PSA Diagnostic 3.514 ng/mL 0-4.000 10 finding Laboratory test 10/01/2014 Surgical Interface SEE RESULT BELOW 11 finding Order Laboratory test 08/30/2014 Throat Culture (SEE NOTE) 12 finding Laboratory test 08/30/2014 Rapid Strep A negative finding Laboratory test 07/06/2014 PSA Diagnostic 4.744 ng/mL High 0-4.000 13 finding CBC No Diff 06/22/2014 White Blood Count 5.4 10^3/uL 4.8-10.8 Red Blood Count 4.88 10^6/uL 4.0-5.4 Hemoglobin 15.1 g/dL 14.0-18.0 Hematocrit 45 % 42-52 Mean Corpuscular Volume 92 fL 80-94 Mean Corpuscular Hemoglobin 31 pg 27-31 Mean Corpuscular HGB Conc 34 g/dL 31-36 Red Cell Distribution Width 14 % 10.5-15 Platelet Count 209 10^3/uL 150-450 Mean Platelet Volume 7 um3 Low 7.4-10.4 Laboratory test finding 06/22/2014 Testosterone 141.96 ng/dL Low 240-950 CBC No Diff 06/15/2014 White Blood Count 5.1 10^3/uL 4.8-10.8 Red Blood Count 4.96 10^6/uL 4.0-5.4 Hemoglobin 15.4 g/dL 14.0-18.0 Hematocrit 46 % 42-52 Mean Corpuscular Volume 93 fL 80-94 Mean Corpuscular Hemoglobin 31 pg 27-31 Mean Corpuscular HGB Conc 34 g/dL 31-36 Red Cell Distribution Width 14 % 10.5-15 Platelet Count 211 10^3/uL 150-450 Mean Platelet Volume 7 um3 Low 7.4-10.4 Laboratory test finding 06/15/2014 Testosterone 134.97 ng/dL Low 240-950 Laboratory test finding 05/10/2014 PSA Diagnostic 13.305 ng/mL High 0- 4.000 14 Urinalysis Profile 04/19/2014 Urine Color Yellow Urine Appearance Clear Urine Specific [place] 1.024 1.010-1.030 Urine pH 5.0 5-9 Urine Urobilinogen Negative Negative Urine Ketones Trace Negative Urine Protein Negative Negative Urine Leukocytes Negative Negative Urine Blood Negative Negative Urine Nitrite Negative Negative Urine Bilirubin Negative Negative Urine Glucose Negative Negative Laboratory test finding 04/17/2014 PSA Screening 43.784 ng/mL High 0- 4.000 15 CBC No Diff 11/20/2013 White Blood Count 6.7 10^3/uL 4.8-10.8 Red Blood Count 5.69 10^6/uL High 4.0-5.4 Hemoglobin 18.3 g/dL High 14.0-18.0 Hematocrit 53 % High 42-52 Mean Corpuscular Volume 93 fL 80-94 Mean Corpuscular Hemoglobin 32 pg High 27-31 Mean Corpuscular HGB Conc 35 g/dL 31-36 Red Cell Distribution Width 14 % 10.5-15 Platelet Count 233 10^3/uL 150-450 Mean Platelet Volume 7 um3 Low 7.4-10.4 CBC No Diff 10/30/2013 White Blood Count 5.9 10^3/uL 4.8-10.8 Red Blood Count 5.76 10^6/uL High 4.0-5.4 Hemoglobin 18.5 g/dL High 14.0-18.0 Hematocrit 53 % High 42-52 Mean Corpuscular Volume 93 fL 80-94 Mean Corpuscular Hemoglobin 32 pg High 27-31 Mean Corpuscular HGB Conc 35 g/dL 31-36 Red Cell Distribution Width 14 % 10.5-15 Platelet Count 219 10^3/uL 150-450 Mean Platelet Volume 7 um3 Low 7.4-10.4 Laboratory test finding 10/30/2013 PSA Screening 3.615 ng/mL 0-4.000 16 Testosterone Free & Total 10/30/2013 Free Testosterone ng/dl 40 ng/dL 9- 30 17 Testosterone 919 ng/dL 240-950 18 Lipid Profile (Trig/Chol/HDL) 10/26/2013 Triglycerides 76 mg/dL 19 Cholesterol 109 mg/dL 20 HDL Cholesterol 26.2 mg/dL 21 LDL Cholesterol 68 mg/dL 22 Comp Metabolic Panel 10/26/2013 Sodium 135 mmol/L 133-145 Potassium 4.7 mmol/L 3.7-5.6 Chloride 101 mmol/L 101-111 Co2 Carbon Dioxide 31 mmol/L 22-32 Anion Gap 3 mmol/L 2-11 Glucose 88 mg/dL 70-100 Blood Urea Nitrogen 29 mg/dL High 6-24 Creatinine 0.80 mg/dL 0.67-1.17 BUN/Creatinine Ratio 36.3 High 8-20 Calcium 9.3 mg/dL 8.6-10.3 Total Protein 7.3 g/dL 6.4-8.9 Albumin 4.5 g/dL 3.2-5.2 Globulin 2.8 g/dL 2-4 Albumin/Globulin Ratio 1.6 1-3 Total Bilirubin 0.90 mg/dL 0.2-1.0 Alkaline Phosphatase 87 U/L 34-104 Alt 3 U/L Low 7-52 Ast 25 U/L 13-39 Egfr Non- 95.6 >60 Egfr 122.9 >60 23 CBC No Diff 06/03/2013 White Blood Count 5.9 10^3/uL 4.8-10.8 Red Blood Count 5.95 10^6/uL High 4.0-5.4 Hemoglobin 19.0 g/dL High 14.0-18.0 Hematocrit 55 % High 42-52 Mean Corpuscular Volume 93 fL 80-94 Mean Corpuscular Hemoglobin 32 pg High 27-31 Mean Corpuscular HGB Conc 34 g/dL 31-36 Red Cell Distribution Width 14 % 10.5-15 Platelet Count 239 10^3/uL 150-450 Mean Platelet Volume 8 um3 7.4-10.4 Testosterone Free & Total 06/03/2013 Free Testosterone ng/dl 13 ng/dL 24 Testosterone 344 ng/dL 240-950 25 Testosterone Free & Total 01/23/2013 Free Testosterone ng/dl 39 ng/dL 26 Testosterone 801 ng/dL 240-950 27 Testosterone Free & Total 12/19/2012 Free Testosterone ng/dl 8.4 ng/dL 9- 30 28 Testosterone 199 ng/dL 240-950 29 Testosterone Free & Total 12/12/2012 Free Testosterone ng/dl 48 ng/dL 9- 30 30 Testosterone 918 ng/dL 240-950 31 Urinalysis W/Microscopic 11/28/2012 Urine Color Prerna Urine Appearance Clear Urine Specific [place] 1.035 High 1.010-1.030 Urine Esterase Trace Negative Urine Nitrate Negative Negative Urine Urobilinogen Negative E.U./dL Negative Urine Protein Trace mg/dL Negative Urine pH 5.5 5-9 Urine Blood Negative Negative Urine Ketones Trace mg/dL Negative Urine Bilirubin 1+ Negative Urine Glucose 1+ mg/dL Negative Urine Mucus Present /lpf Absent Urine Epithelial Cells 2+ Squamous /hpf None Seen Bacteria Urine 1+ None Seen Urine Culture And Sensitivities 11/28/2012 Urine Culture (SEE NOTE) 32 Comp Metabolic Panel 11/21/2012 Sodium 138 mmol/L 133-145 Potassium 3.8 mmol/L 3.5-5.0 Chloride 106 mmol/L 101-111 Co2 Carbon Dioxide 26.0 mmol/L 22-32 Anion Gap 6.0 mmol/L 2-11 Glucose 149 mg/dL High 70-100 Blood Urea Nitrogen 30 mg/dL High 6-24 Creatinine 0.70 mg/dL 0.50-1.40 BUN/Creatinine Ratio 42.9 High 8-20 Calcium 9.1 mg/dL 8.1-9.9 Total Protein 6.9 g/dL 6.2-8.1 Albumin 4.0 g/dL 3.2-5.2 Globulin 2.9 g/dL 2-4 Albumin/Globulin Ratio 1.4 1-3 Total Bilirubin 1.0 mg/dL 0.4-1.5 Alkaline Phosphatase 102 U/L 30-110 Alt 7 U/L Low 14-54 Ast 30 U/L 12-42 Egfr Non- 111.8 >60 Egfr 143.8 >60 33 Laboratory test finding 11/21/2012 Creatine Kinase 472 U/L High 0-200 Free T4 0.83 ng/mL 0.61-1.24 TSH (Thyroid Stimulating Horm) 1.26 miu/mL 0.34-5.60 C Reactive Protein 0.6 mg/dL High Less than 0.5 Erythrocyte Sed Rate 2 mm/Hr 0-40 Laboratory test finding 10/10/2012 Testosterone 274.6 ng/dL 175-781 CBC Auto Diff 09/19/2012 White Blood Count 9.7 10^3/uL 4.8-10.8 Red Blood Count 5.70 10^6/uL High 4.0-5.4 Hemoglobin 18.0 g/dL 14.0-18.0 Hematocrit 54 % High 42-52 Mean Corpuscular Volume 94 fL 80-94 Mean Corpuscular Hemoglobin 32 pg High 27-31 Mean Corpuscular HGB Conc 34 g/dL 31-36 Red Cell Distribution Width 14 % 10.5-15 Platelet Count 239 10^3/uL 150-450 Mean Platelet Volume 8 um3 7.4-10.4 Abs Neutrophils 7.9 10^3/uL High 1.5-7.7 Abs Lymphocytes 1.2 10^3/uL 1.0-4.8 Abs Monocytes 0.6 10^3/uL 0-0.8 Abs Eosinophils 0 10^3/uL 0-0.6 Abs Basophils 0 10^3/uL 0-0.2 Abs Nucleated RBC 0.01 10^3/uL Granulocyte % 81.6 % 38-83 Lymphocyte % 12.3 % Low 25-47 Monocyte % 5.8 % 1-9 Eosinophil % 0.1 % 0-6 Basophil % 0.2 % 0-2 Nucleated Red Blood Cells % 0.1 Comp Metabolic Panel 09/19/2012 Sodium 138 mmol/L 133-145 Potassium 4.6 mmol/L 3.5-5.0 Chloride 104 mmol/L 101-111 Co2 Carbon Dioxide 26.0 mmol/L 22-32 Anion Gap 8.0 mmol/L 2-11 Glucose 134 mg/dL High 70-100 Blood Urea Nitrogen 33 mg/dL High 6-24 Creatinine 0.90 mg/dL 0.50-1.40 BUN/Creatinine Ratio 36.7 High 8-20 Calcium 9.5 mg/dL 8.1-9.9 Total Protein 7.2 g/dL 6.2-8.1 Albumin 4.1 g/dL 3.2-5.2 Globulin 3.1 g/dL 2-4 Albumin/Globulin Ratio 1.3 1-3 Total Bilirubin 1.0 mg/dL 0.4-1.5 Alkaline Phosphatase 92 U/L 30-110 Alt 15 U/L 14-54 Ast 43 U/L High 12-42 Egfr Non- 83.7 >60 Egfr 107.6 >60 34 Laboratory test finding 09/19/2012 Troponin I 0.01 ng/mL 0-0.06 35 TSH (Thyroid Stimulating Horm) 1.76 miu/mL 0.34-5.60 Activated Partial Thrombo Time 36.5 seconds 22.18-37.18 36 D Dimer Quantitative 271 ng/mL High Less Than [address] Parikh's Lab Panel 09/10/2012 TSH (Thyroid Stimulating 2.79 miu/mL 0.34-5.60 38 Horm) Comp Metabolic Panel 09/10/2012 Sodium 139 mmol/L 133-145 Potassium 4.7 mmol/L 3.5-5.0 Chloride 103 mmol/L 101-111 Co2 Carbon Dioxide 31.0 mmol/L 22-32 Anion Gap 5.0 mmol/L 2-11 Glucose 88 mg/dL 70-100 Blood Urea Nitrogen 19 mg/dL 6-24 Creatinine 0.90 mg/dL 0.50-1.40 BUN/Creatinine Ratio 21.1 High 8-20 Calcium 9.4 mg/dL 8.1-9.9 Total Protein 6.6 g/dL 6.2-8.1 Albumin 4.2 g/dL 3.2-5.2 Globulin 2.4 g/dL 2-4 Albumin/Globulin Ratio 1.8 1-3 Total Bilirubin 1.1 mg/dL 0.4-1.5 Alkaline Phosphatase 99 U/L 30-110 Alt 7 U/L Low 14-54 Ast 35 U/L 12-42 Egfr Non- 83.7 >60 Egfr 107.6 >60 39 Lipid Profile (Trig/Chol/HDL) 09/10/2012 Triglycerides 126 mg/dL 40-200 Cholesterol 129 mg/dL Less than 200 HDL Cholesterol 28 mg/dL Low 40-60 40 Cholesterol/HDL Ratio 4.6 Average High 1-4.44 LDL Cholesterol 75.8 mg/dL Less Than 100 41 CBC Auto Diff 09/10/2012 White Blood Count 5.7 10^3/uL 4.8-10.8 Red Blood Count 5.87 10^6/uL High 4.0-5.4 Hemoglobin 18.4 g/dL High 14.0-18.0 Hematocrit 55 % High 42-52 Mean Corpuscular Volume 94 fL 80-94 Mean Corpuscular Hemoglobin 31 pg 27-31 Mean Corpuscular HGB Conc 33 g/dL 31-36 Red Cell Distribution Width 14 % 10.5-15 Platelet Count 207 10^3/uL 150-450 Mean Platelet Volume 8 um3 7.4-10.4 Abs Neutrophils 3.4 10^3/uL 1.5-7.7 Abs Lymphocytes 1.7 10^3/uL 1.0-4.8 Abs Monocytes 0.5 10^3/uL 0-0.8 Abs Eosinophils 0.1 10^3/uL 0-0.6 Abs Basophils 0 10^3/uL 0-0.2 Abs Nucleated RBC 0.01 10^3/uL Granulocyte % 59.6 % 38-83 Lymphocyte % 29.7 % 25-47 Monocyte % 8.7 % 1-9 Eosinophil % 1.6 % 0-6 Basophil % 0.4 % 0-2 Nucleated Red Blood Cells % 0.2 Laboratory test finding 06/20/2012 Testosterone 102.5 ng/dL Low 175-781 Laboratory test finding 06/12/2012 Testosterone 227.1 ng/dL 175-781 Laboratory test finding 04/22/2012 Testosterone 836.4 ng/dL High 175-781 CBC No Diff 09/17/2011 White Blood Count 5.0 CUMM 4.8-10.8 Red Cell Count 5.31 CUMM 4.6-6.2 Hemoglobin 17.5 g/dL 14.0-18.0 Hematocrit 50 % 42-52 Mean Corpuscular Volume 94 um3 80-94 Mean Corpuscular Hemoglob 33 pg High 27-31 Mean Corpuscular HGB Cone 35 g/dL 32-36 Redcell Distribution WDTH 13 % 10.5-15 Platelet Count 210 CUMM 150-450 Mean Platelet Volume 7.2 um3 Low 7.4-10.4 Laboratory test finding 09/17/2011 Testosterone Total 624.8 ng/dL 175- 781 42 Comp Metabolic Panel 06/18/2011 Sodium 136 mmol/L 135-145 Potassium 4.3 mmol/L 3.5-5.0 Chloride 99 mmol/L Low 101-111 Co2 (Carbon Dioxide) 29.0 mmol/L 22-32 Anion Gap 8.0 mmol/L 2-11 43 Glucose 125 mg/dL High 70-100 BUN 16 mg/dL 6-24 Creatinine 0.8 mg/dL 0.50-1.40 One Over Creatinine 1.25 BUN/Creatinine Ratio 20.0 8-20 Calcium 8.9 mg/dL 8.1-9.9 Total Protein 6.9 GM/DL 6.2-8.1 Albumin 4.1 GM/DL 3.2-5.2 Globulin 2.8 GM/DL 2-4 Albumin/Globulin Ratio 1.5 1-3 Bilirubin Total 0.9 mg/dL 0.4-1.5 44 Alkaline Phosphatase 110 U/L 39-117 Alt (SGPT) 20 U/L 17-63 Ast (Sgot) 33 U/L 12-42 eGFR Non- 96.1 > 60 eGFR 123.6 > 60 45 Basic Metabolic Panel 05/14/2011 Sodium 138 mmol/L 135-145 Potassium 4.6 mmol/L 3.5-5.0 Chloride 99 mmol/L Low 101-111 Co2 (Carbon Dioxide) 30.0 mmol/L 22-32 Anion Gap 9.0 mmol/L 2-11 46 Glucose 56 mg/dL Low 70-100 BUN 15 mg/dL 6-24 Creatinine 0.7 mg/dL 0.50-1.40 One Over Creatinine 1.42 BUN/Creatinine Ratio 21.4 High 8-20 Calcium 8.8 mg/dL 8.1-9.9 eGFR Non- 112.1 > 60 eGFR 144.2 > 60 47 Paraneoplastic Autoab Evaluation 03/27/2011 Ashlie-1 Negative titer <1:240 Ashlie-2 Negative titer <1:240 Ashlie-3 Negative titer <1:240 Agna-1 Negative titer <1:240 Coverage Specialist-1 Negative titer <1:240 Coverage Specialist-2 Negative titer <1:240 Coverage Specialist-Tr Negative titer <1:240 Amphiphysin AB Negative titer <1:240 [id number] Negative titer () 48 Striational AB Negative titer <1:60 49 P/Q-Type Calcium Channel AB 0.00 nmol/L <=0.02 50 N-Type Calcium Channel AB 0.00 nmol/L <=0.03 51 Ach Receptor Binding AB 0.00 nmol/L <=0.02 52 Achr Ganglionic Neuronal AB 0.00 nmol/L <=0.02 53 VGKC AB, Serum 0.00 nmol/L <=0.02 54 CBC No Diff 01/25/2011 White Blood Count 4.8 CUMM 4.8-10.8 Red Cell Count 5.05 CUMM 4.6-6.2 Hemoglobin 15.7 g/dL 14.0-18.0 Hematocrit 46 % 42-52 Mean Corpuscular Volume 91 um3 80-94 Mean Corpuscular Hemoglob 31 pg 27-31 Mean Corpuscular HGB Cone 34 g/dL 32-36 Redcell Distribution WDTH 14 % 10.5-15 Platelet Count 217 CUMM 150-450 Mean Platelet Volume 7.4 um3 7.4-10.4 Comp Metabolic Panel 01/25/2011 Sodium 136 mmol/L 135-145 Potassium 3.5 mmol/L 3.5-5.0 Chloride 105 mmol/L 101-111 Co2 (Carbon Dioxide) 26.0 mmol/L 22-32 Anion Gap 5.0 mmol/L 2-11 55 Glucose 132 mg/dL High 70-100 BUN 26 mg/dL High 6-24 Creatinine 0.7 mg/dL 0.50-1.40 One Over Creatinine 1.42 BUN/Creatinine Ratio 37.1 High 8-20 Calcium 8.2 mg/dL 8.1-9.9 Total Protein 5.5 GM/DL Low 6.2-8.1 Albumin 3.4 GM/DL 3.2-5.2 Globulin 2.1 GM/DL 2-4 Albumin/Globulin Ratio 1.6 1-3 Bilirubin Total 0.8 mg/dL 0.4-1.5 56 Alkaline Phosphatase 66 U/L 39-117 Alt (SGPT) 24 U/L 17-63 Ast (Sgot) 31 U/L 12-42 eGFR Non- 112.1 > 60 eGFR 144.2 > 60 57 Laboratory test finding 01/25/2011 Acetaminophen < 10 g/mL Low 10-30 58 Alcohol < 10.0 mg/dL None Detected 59 Salicylate < 4.0 mg/dL Less Than 30 60 Urine Drug SCR ED & 01/25/2011 Amphetamines Urine NONE DETECTED None Detect Pain Clinic Screen Barbituates Urine Screen NONE DETECTED None Detect Benzodiazepine Ur Screen NONE DETECTED None Detect Cannabinoid Urine Screen NONE DETECTED None Detect Cocaine Metabolites Urine NONE DETECTED None Detect Opiates Urine Screen NONE DETECTED None Detect PCP Urine Screen NONE DETECTED None Detect 61 Comp Metabolic Panel 01/10/2011 Sodium 139 mmol/L 135-145 Potassium 4.1 mmol/L 3.5-5.0 Chloride 107 mmol/L 101-111 Co2 (Carbon Dioxide) 26.0 mmol/L 22-32 Anion Gap 6.0 mmol/L 2-11 62 Glucose 139 mg/dL High 70-100 BUN 21 mg/dL 6-24 Creatinine 0.60 mg/dL 0.50-1.40 One Over Creatinine 1.60 BUN/Creatinine Ratio 35.0 High 8-20 Calcium 8.9 mg/dL 8.1-9.9 Total Protein 6.2 GM/DL 6.2-8.1 Albumin 4.0 GM/DL 3.2-5.2 Globulin 2.2 GM/DL 2-4 Albumin/Globulin Ratio 1.8 1-3 Bilirubin Total 0.7 mg/dL 0.4-1.5 63 Alkaline Phosphatase 69 U/L 39-117 Alt (SGPT) 22 U/L 17-63 Ast (Sgot) 30 U/L 12-42 eGFR Non- 134.0 > 60 eGFR 172.3 > 60 64 CBC Auto Diff 01/10/2011 White Blood Count 5.7 CUMM 4.8-10.8 Red Cell Count 5.34 CUMM 4.6-6.2 Hemoglobin 16.5 g/dL 14.0-18.0 Hematocrit 49 % 42-52 Mean Corpuscular Volume 91 um3 80-94 Mean Corpuscular Hemoglob 31 pg 27-31 Mean Corpuscular HGB Cone 34 g/dL 32-36 Redcell Distribution WDTH 14 % 10.5-15 Platelet Count 217 CUMM 150-450 Mean Platelet Volume 7.9 um3 7.4-10.4 Gran % 75.7 % 38-83 Lymph % 15.6 % Low 25-47 Mononuclear % 8.0 % 1-9 Eosinophil % 0.4 % 0-6 Basophil % 0.3 % 0-2 Abs Lymphs 0.9 Low 1.0-4.8 Abs Mononuclear 0.5 0-0.8 Absolute Neutrophil Count 4.3 1.5-7.7 Abs Eosinophils 0 0-0.6 Abs Basophils 0 0-0.2 65 Laboratory test finding 01/10/2011 Erythrocyte Sed Rate 2 MM/HR 0-40 C Reactive Protein 0.9 mg/dL High Less Than 0.5 CPK (Creatine Kinase) 473 U/L High 0-200 Aldolase 7.7 U/L <7.7 66 Laboratory test finding 09/12/2010 Lactic Acid 1.3 mmol/L 0.5-1.6 CBC Auto Diff 09/11/2010 White Blood Count 6.6 CUMM 4.8-10.8 Red Cell Count 5.08 CUMM 4.6-6.2 Hemoglobin 15.9 g/dL 14.0-18.0 Hematocrit 47 % 42-52 Mean Corpuscular Volume 92 um3 80-94 Mean Corpuscular Hemoglob 31 pg 27-31 Mean Corpuscular HGB Cone 34 g/dL 32-36 Redcell Distribution WDTH 13 % 10.5-15 Platelet Count 229 CUMM 150-450 Mean Platelet Volume 7.5 um3 7.4-10.4 Gran % 70.5 % 38-83 Lymph % 18.6 % Low 25-47 Mononuclear % 10.1 % High 1-9 Eosinophil % 0.6 % 0-6 Basophil % 0.2 % 0-2 Abs Lymphs 1.2 1.0-4.8 Abs Mononuclear 0.7 0-0.8 Absolute Neutrophil Count 4.7 1.5-7.7 Abs Eosinophils 0 0-0.6 Abs Basophils 0 0-0.2 Comp Metabolic Panel 09/11/2010 Sodium 137 mmol/L 135-145 Potassium 3.3 mmol/L Low 3.5-5.0 Chloride 104 mmol/L 101-111 Co2 (Carbon Dioxide) 27.0 mmol/L 22-32 Anion Gap 6.0 mmol/L 2-11 67 Glucose 114 mg/dL High 70-100 BUN 27 mg/dL High 6-24 Creatinine 0.72 mg/dL 0.50-1.40 One Over Creatinine 1.30 BUN/Creatinine Ratio 37.5 High 8-20 Calcium 8.5 mg/dL 8.1-9.9 Total Protein 7.1 GM/DL 6.2-8.1 Albumin 4.2 GM/DL 3.2-5.2 Globulin 2.9 GM/DL 2-4 Albumin/Globulin Ratio 1.4 1-3 Bilirubin Total 0.5 mg/dL 0.4-1.5 68 Alkaline Phosphatase 96 U/L 39-117 Alt (SGPT) 31 U/L 17-63 Ast (Sgot) 35 U/L 12-42 eGFR Non- 108.9 > 60 eGFR 140.0 > 60 69 Laboratory test finding 09/11/2010 CPK (Creatine Kinase) 669 U/L High 0- 200 CKMB 09/11/2010 CKMB In NG/ML 25.1 NG/ML High 0.3-4.0 % CKMB 4 %MB 0-9 70 Laboratory test 09/11/2010 Troponin-I 0.02 NG/ML 0-0.06 71 finding Laboratory test 09/11/2010 [place] C/Ins Growth 242 ng/mL 67-195 72 finding Fact Laboratory test 08/24/2010 Testosterone Total 793.6 ng/dL High 175-781 finding Comp Metabolic Panel 08/08/2010 Sodium 137 mmol/L 135-145 Potassium 3.7 mmol/L 3.5-5.0 Chloride 106 mmol/L 101-111 Co2 (Carbon Dioxide) 25.0 mmol/L 22-32 Anion Gap 6.0 mmol/L 2-11 73 Glucose 141 mg/dL High 70-100 BUN 24 mg/dL 6-24 Creatinine 0.80 mg/dL 0.50-1.40 One Over Creatinine 1.20 BUN/Creatinine Ratio 30.0 High 8-20 Calcium 9.2 mg/dL 8.1-9.9 Total Protein 6.6 GM/DL 6.2-8.1 Albumin 4.2 GM/DL 3.2-5.2 Globulin 2.4 GM/DL 2-4 Albumin/Globulin Ratio 1.8 1-3 Bilirubin Total 0.8 mg/dL 0.4-1.5 74 Alkaline Phosphatase 96 U/L 39-117 Alt (SGPT) 32 U/L 17-63 Ast (Sgot) 36 U/L 12-42 eGFR Non- 96.4 > 60 eGFR 124.0 > 60 75 Laboratory test finding 08/08/2010 Thyroxine Free 0.82 ng/dL 0.61-1.24 T3 Total 1.12 NG/ML 0.5-1.7 T3 Free 3.43 pg/mL 2.39-6.79 TSH 1.59 MIU/ML 0.34-5.60 Lutenizing Hormone 4.92 MIU/ML 76 Prolactin 13.82 NG/ML 1.0-20.0 Cortisol 15.3 g/dL 77 Acth 35 pg/mL () 78 Aldosterone <4.0 ng/dL <=21 79 Dhea Sulfate 296 g/dL 25-131 80 Growth Hormone 0.03 ng/mL 0.01-0.97 81 [place] C/Ins Growth Fact 254 ng/mL 67-195 82 Renin 0.8 ng/mL/h () 83 Sex Hormone Binding Globulin 24 nmol/L 10-57 84 Testosterone Free & Total 08/08/2010 Free Testosterone 5.4 ng/dL - 85 Total Testosterone 164 ng/dL 240-950 86 Testosterone Free & Total 06/27/2010 Free Testosterone 10.0 ng/dL 02-23 87 Total Testosterone 312 ng/dL 240-950 88 FSH And LH 05/16/2010 FSH 7.47 MIU/ML 89 Lutenizing Hormone 4.73 MIU/ML 90 CBC With Electronic Diff 05/08/2010 White Blood Count 5.3 CUMM 4.8-10.8 Red Cell Count 4.65 CUMM 4.6-6.2 Hemoglobin 14.4 g/dL 14.0-18.0 Hematocrit 43 % 42-52 Mean Corpuscular Volume 92 um3 80-94 Mean Corpuscular Hemoglob 31 pg 27-31 Mean Corpuscular HGB Cone 34 g/dL 32-36 Redcell Distribution WDTH 13 % 10.5-15 Platelet Count 247 CUMM 150-450 Mean Platelet Volume 7.2 um3 Low 7.4-10.4 Gran % 75.0 % 38-83 Lymph % 16.6 % Low 25-47 Mononuclear % 7.3 % 1-9 Eosinophil % 0.8 % 0-6 Basophil % 0.3 % 0-2 Abs Lymphs 0.9 Low 1.0-4.8 Abs Mononuclear 0.4 0-0.8 Absolute Neutrophil Count 4.0 1.5-7.7 Abs Eosinophils 0 0-0.6 Abs Basophils 0 0-0.2 91 Testosterone Free & Total 05/08/2010 Free Testosterone 8.6 ng/dL - 92 Total Testosterone 254 ng/dL 240-950 93 Comp Metabolic Panel 05/08/2010 Sodium 138 mmol/L 135-145 Potassium 3.7 mmol/L 3.5-5.0 Chloride 106 mmol/L 101-111 Co2 (Carbon Dioxide) 26.0 mmol/L 22-32 Anion Gap 6.0 mmol/L 2-11 94 Glucose 122 mg/dL High 70-100 95 BUN 33 mg/dL High 6-24 Creatinine 0.80 mg/dL 0.50-1.40 One Over Creatinine 1.20 BUN/Creatinine Ratio 41.3 High 8-20 Calcium 9.1 mg/dL 8.1-9.9 Total Protein 6.9 GM/DL 6.2-8.1 Albumin 4.2 GM/DL 3.2-5.2 Globulin 2.7 GM/DL 2-4 Albumin/Globulin Ratio 1.6 1-3 Bilirubin Total 0.9 mg/dL 0.4-1.5 96 Alkaline Phosphatase 73 U/L 39-117 Alt (SGPT) 27 U/L 17-63 Ast (Sgot) 34 U/L 12-42 eGFR Non- 102.5 > 60 eGFR 124.0 > 60 97 Laboratory test finding 05/08/2010 TSH 1.06 MIU/ML 0.34-5.60 Lipid Profile (Trig/Chol/HDL) 12/21/2009 Triglyceride 137 mg/dL 40-200 Cholesterol 143 mg/dL Less Than 200 98 High Density Lipoprotein 27 mg/dL Low 40-60 99 Cholesterol/HDL Ratio 5.30 AVERAGE High 1-4.97 Low Density Lipoprotein 89 mg/dL Less Than 100 100 CBC With Electronic Diff 12/21/2009 White Blood Count 4.7 CUMM Low 4.8- 10.8 Red Cell Count 5.01 CUMM 4.6-6.2 Hemoglobin 15.4 g/dL 14.0-18.0 Hematocrit 45 % 42-52 Mean Corpuscular Volume 89 um3 80-94 Mean Corpuscular Hemoglob 31 pg 27-31 Mean Corpuscular HGB Cone 34 g/dL 32-36 Redcell Distribution WDTH 12 % 10.5-15 Platelet Count 246 CUMM 150-450 Mean Platelet Volume 7.1 um3 Low 7.4-10.4 Gran % 64.5 % 38-83 Lymph % 26.7 % 25-47 Mononuclear % 7.3 % 1-9 Eosinophil % 1.2 % 0-6 Basophil % 0.3 % 0-2 Abs Lymphs 1.3 1.0-4.8 Abs Mononuclear 0.3 0-0.8 Absolute Neutrophil Count 3.0 1.5-7.7 Abs Eosinophils 0.1 0-0.6 Abs Basophils 0 0-0.2 Laboratory test finding 12/21/2009 PSA Screening 1.41 NG/ML 0-[address] Parikh's Lab Panel 12/21/2009 TSH 1.59 MIU/ML 0.34-5.60 Comp Metabolic Panel 12/21/2009 Sodium 138 mmol/L 135-145 Potassium 3.8 mmol/L 3.5-5.0 Chloride 103 mmol/L 101-111 Co2 (Carbon Dioxide) 27.0 mmol/L 22-32 Anion Gap 8.0 mmol/L 2-11 102 Glucose 94 mg/dL 70-100 103 BUN 18 mg/dL 6-24 Creatinine 0.80 mg/dL 0.50-1.40 One Over Creatinine 1.20 BUN/Creatinine Ratio 22.5 High 8-20 Calcium 9.3 mg/dL 8.1-9.9 104 Total Protein 7.2 GM/DL 6.2-8.1 Albumin 4.4 GM/DL 3.2-5.2 Globulin 2.8 GM/DL 2-4 Albumin/Globulin Ratio 1.6 1-3 Bilirubin Total 1.0 mg/dL 0.4-1.5 105 Alkaline Phosphatase 89 U/L 39-117 Alt (SGPT) 26 U/L 17-63 Ast (Sgot) 33 U/L 12-42 eGFR Non- 102.8 > 60 eGFR 124.4 > 60 106 Laboratory test finding 12/08/2008 Troponin-I (TnI) 0.01 NG/ML 107 Laboratory test finding 12/08/2008 Troponin-I (TnI) 0.01 NG/ML 108 CBC With Electronic Diff Stat 12/08/2008 White Blood Count 5.2 CUMM 4.8- 10.8 Red Cell Count 4.73 CUMM 4.6-6.2 Hemoglobin 14.3 g/dL 14.0-18.0 Hematocrit 42 % 42-52 Mean Corpuscular Volume 89 um3 80-94 Mean Corpuscular Hemoglob 30 pg 27-31 Mean Corpuscular HGB Cone 34 g/dL 32-36 Redcell Distribution WDTH 13 % 10.5-15 Platelet Count 253 CUMM 150-450 Mean Platelet Volume 6.4 um3 Low 7.4-10.4 Gran % 65.9 % 38-83 Lymph % 22.4 % Low 25-47 Mononuclear % 9.5 % High 1-9 Eosinophil % 1.8 % 0-6 Basophil % 0.4 % 0-2 Abs Lymphs 1.2 1.0-4.8 Abs Mononuclear 0.5 0-0.8 Absolute Neutrophil Count 3.4 1.5-7.7 Abs Eosinophils 0.1 0-0.6 Abs Basophils 0 0-0.2 Protime Stat 12/08/2008 Inr 1.10 0.86-1.13 109 Protime 13.3 SEC 10.67-13.64 110 PTT (Aptt) Stat 12/08/2008 PTT (Aptt) 27.4 20.1-28.2 111 CMP Panel Stat 12/08/2008 Sodium 137 mmol/L 135-145 Potassium 3.9 mmol/L 3.5-5.0 Chloride 103 mmol/L 101-111 Co2 (Carbon Dioxide) 29.0 mmol/L 22-32 Anion Gap 5.0 mmol/L 2-11 112 Glucose 104 mg/dL High 70-100 113 BUN 28 mg/dL High 6-24 Creatinine 0.90 mg/dL 0.50-1.40 One Over Creatinine 1.10 BUN/Creatinine Ratio 31.1 High 8-20 Calcium 9.0 mg/dL 8.1-9.9 114 Total Protein 7.1 GM/DL 6.2-8.1 Albumin 4.0 GM/DL 3.2-5.2 Globulin 3.1 GM/DL 2-4 Albumin/Globulin Ratio 1.3 1-3 Bilirubin Total 0.5 mg/dL 0.4-1.5 115 Alkaline Phosphatase 96 U/L 39-117 Alt (SGPT) 31 U/L 17-63 Ast (Sgot) 38 U/L 12-42 eGFR Non- 90.0 > 60 eGFR 108.9 > 60 116 CBC With Electronic Diff 02/10/2008 White Blood Count 4.7 CUMM Low 4.8- 10.8 Red Cell Count 4.90 CUMM 4.6-6.2 Hemoglobin 15.1 g/dL 14.0-18.0 Hematocrit 43 % 42-52 Mean Corpuscular Volume 87 um3 80-94 Mean Corpuscular Hemoglob 31 pg 27-31 Mean Corpuscular HGB Cone 35 g/dL 32-36 Redcell Distribution WDTH 13 % 10.5-15 Platelet Count 249 CUMM 150-450 Mean Platelet Volume 6.9 um3 Low 7.4-10.4 Gran % 56.3 % 38-83 Lymph % 32.8 % 20-45 Mononuclear % 8.7 % 1-9 Eosinophil % 1.8 % 0-6 Basophil % 0.4 % 0-2 Abs Lymphs 1.5 1.0-4.8 Abs Mononuclear 0.4 0-0.8 Absolute Neutrophil Count 2.6 1.5-7.7 Abs Eosinophils 0.1 0-0.6 Abs Basophils 0 0-0.2 Comp Metabolic Panel 02/10/2008 Sodium 138 mmol/L 135-145 Potassium 4.3 mmol/L 3.5-5.0 Chloride 105 mmol/L 101-111 Co2 (Carbon Dioxide) 28.0 mmol/L 22-32 Anion Gap 5.0 mmol/L 2-11 117 Glucose 95 mg/dL 70-100 118 BUN 20 mg/dL 6-24 Creatinine 0.9 mg/dL 0.5-1.4 One Over Creatinine 1.11 BUN/Creatinine Ratio 22.2 High 8-20 Calcium 9.4 mg/dL 8.1-9.9 119 Total Protein 7.2 GM/DL 6.2-8.1 Albumin 4.2 GM/DL 3.2-5.2 Globulin 3.0 GM/DL 2-4 Albumin/Globulin Ratio 1.4 1-3 Bilirubin Total 1.0 mg/dL 0.4-1.5 Alkaline Phosphatase 79 U/L 39-117 Alt (SGPT) 34 U/L 17-63 Ast (Sgot) 44 U/L High 12-42 Lipid Profile (Trig/Chol/HDL) 02/10/2008 Triglyceride 144 mg/dL 40-200 Cholesterol 153 mg/dL Less Than 200 120 High Density Lipoprotein 30 mg/dL Low 40-60 121 Cholesterol/HDL Ratio 5.10 AVERAGE High 1-4.97 Low Density Lipoprotein 94 mg/dL Less Than 100 122 Laboratory test finding 02/10/2008 TSH 2.45 MIU/ML 0.34-5.60 PSA Screening 1.35 NG/ML 0-4 123 Liver Function Panel 05/24/2007 Albumin/Globulin Ratio 1.4 1-3 Albumin 3.9 GM/DL 3.2-5.2 Alkaline Phosphatase 79 U/L 39-117 Alt (SGPT) 33 U/L 17-63 Ast (Sgot) 45 U/L High 12-42 Bilirubin Direct 0.1 mg/dL 0.1-0.5 Globulin 2.7 GM/DL 2-4 Indirect Bilirubin 0.8 mg/dL High 0.1-0.75 Bilirubin Total 0.9 mg/dL 0.4-1.5 Total Protein 6.6 GM/DL 6.2-8.1 CBC With Manual Diff 05/24/2007 RBC Morphology NORMAL White Blood Count 4.2 CUMM Low 4.8-10.8 Absolute Neutrophil Count 2.8 Atypical Lymph 1 % 0-6 Hematocrit 42 % 42-52 Hemoglobin 14.6 g/dL 14.0-18.0 Eosenophil 2 % 0-6 Lymphocyte 22 % 5-47 Mean Corpuscular HGB Cone 34 g/dL 32-36 Mean Corpuscular Hemoglob 31 pg 27-31 Mean Corpuscular Volume 89 um3 80-94 Monocyte 7 % 0-13 Mean Platelet Volume 7.2 um3 Low 7.4-10.4 Platelet Count 257 CUMM 150-450 Polysegmented Neutrophil 68 % 38-83 Red Cell Count 4.76 CUMM 4.6-6.2 Redcell Distribution WDTH 13 % 10.5-15 Hepatitis Acute Panel 05/24/2007 Hepatitis A AB Igm NEGATIVE Negative Hepatitis B Surface Ag NEGATIVE Negative Hepatitis B Core Igm NEGATIVE Negative Hepatitis C Antibody NEGATIVE Negative Liver Function Panel 04/04/2007 Albumin/Globulin Ratio 1.4 1-3 Albumin 4.0 GM/DL 3.2-5.2 Alkaline Phosphatase 79 U/L 39-117 Alt (SGPT) 37 U/L 17-63 Ast (Sgot) 47 U/L High 12-42 Bilirubin Direct 0.1 mg/dL 0.1-0.5 Globulin 2.8 GM/DL 2-4 Indirect Bilirubin 0.7 mg/dL 0.1-0.75 Bilirubin Total 0.8 mg/dL 0.4-1.5 Total Protein 6.8 GM/DL 6.2-8.1 Laboratory test finding 04/04/2007 Erythrocyte Sed Rate 3 MM/HR 0-20 Mygre 04/04/2007 Achr Binding AB < 0.25 nmol/L <0.25 124 Achr Blocking AB 19 % High <15 Achr Modulating AB < 1 % <20 125 Striational AB <1:40 TITER < 1:40 126 CBC W/ Electronic Diff 04/04/2007 White Blood Count 3.7 CUMM Low 4.8-10.8 Abs Basophils 0 0-0.2 Abs Eosinophils 0 0-0.6 Absolute Neutrophil Count 2.5 1.5-7.7 Abs Lymphs 0.8 Low 1.0-4.8 Abs Mononuclear 0.3 0-0.8 Basophil % 0.4 % 0-2 Hematocrit 43 % 42-52 Hemoglobin 14.7 g/dL 14.0-18.0 Eosinophil % 1.3 % 0-6 Gran % 67.7 % 38-83 Lymph % 21.6 % 20-45 Mean Corpuscular HGB Cone 34 g/dL 32-36 Mean Corpuscular Hemoglob 31 pg 27-31 Mean Corpuscular Volume 89 um3 80-94 Mean Platelet Volume 7.2 um3 Low 7.4-10.4 Mononuclear % 9.0 % 1-9 Platelet Count 261 CUMM 150-450 Red Cell Count 4.79 CUMM 4.6-6.2 Redcell Distribution WDTH 12 % 10.5-15 Laboratory test finding 04/04/2007 Anti Acetylcholine < 0.25 nmol/L < 0.25 127 Receptor Complement CH50 49 U/ML 22.0-60.00 128 Skeletal (Striated) Muscle AB <1:40 TITER <1:40 129 Laboratory test finding 04/04/2007 Rheumatoid Factor < 20.0 IU/mL Less Than 20 T3 Total 1.09 NG/ML 0.5-1.7 TSH 1.96 MIU/ML 0.34-5.60 Antinuclear AB NEGATIVE Negative Complement C3 86 mg/dL 82.0-235 130 Complement C4 24 mg/dL 16.0-70.0 131 Immunofixation (Electro) Serum 03/05/2007 A/G Ratio 1.1 0.9-2 Alpha 1 % 3.3 % 1.2-5.3 Alpha 1 0.22 GM/DL 0.09-0.33 Alpha 2 % 10.2 % 9-17 Alpha 2 0.67 GM/DL 0.59-1.18 Albumin % 53.2 % 46-63 Albumin 3.51 GM/DL 3.0-4.35 Beta % 11.1 % 10-16 Beta 0.73 GM/DL 0.68-1.02 Gamma % 22.3 % High 12-22 Gamma 1.47 GM/DL 0.76-1.60 Total Protein 6.6 GM/DL 6.2-8.1 Laboratory test 03/05/2007 Vitamin B12 481 pg/mL 180-914 finding Laboratory test 02/09/2007 TSH 1.76 MIU/ML 0.34-5.60 finding Laboratory test 02/09/2007 Anti Acetylcholine < 0.25 nmol/L <0.25 132 finding Receptor Comp Metabolic Panel 02/09/2007 One Over Creatinine 1.11 Anion Gap 5.0 mmol/L 2-11 133 Albumin/Globulin Ratio 1.6 1-3 Albumin 4.0 GM/DL 3.2-5.2 Alkaline Phosphatase 71 U/L 39-117 Alt (SGPT) 34 U/L 17-63 Ast (Sgot) 50 U/L High 12-42 BUN 20 mg/dL 6-24 Calcium 9.1 mg/dL 8.7-10.2 Chloride 105 mmol/L 101-111 Co2 (Carbon Dioxide) 30.0 mmol/L 22-32 Globulin 2.5 GM/DL 2-4 Glucose 84 mg/dL 70-105 Potassium 4.3 mmol/L 3.5-5.0 Sodium 140 mmol/L 135-145 Bilirubin Total 1.1 mg/dL 0.4-1.5 Total Protein 6.5 GM/DL 6.2-8.1 BUN/Creatinine Ratio 22.2 High 8-20 Creatinine 0.9 mg/dL 0.5-1.4 Lyme Screen 02/09/2007 Borrelia Burgdorferi Igg < 0.80 INDEX <0.8 Borrelia Burgdorferi Igm < 0.80 INDEX <0.8 134 Laboratory test finding 02/09/2007 CPK (Creatine Kinase) 897 U/L High 0- 200 C Reactive Protein < 0.5 mg/dL Less Than 0.5 Free Thyroxine 0.74 NG/ML 0.61-1.24 135 Laboratory test finding 02/09/2007 Erythrocyte Sed Rate 8 MM/HR 0-20 CBC With Electronic Diff 02/09/2007 White Blood Count 3.8 CUMM Low 4.8- 10.8 Abs Basophils 0 0-0.2 Abs Eosinophils 0.1 0-0.6 Absolute Neutrophil Count 2.2 1.5-7.7 Abs Lymphs 1.2 1.0-4.8 Abs Mononuclear 0.3 0-0.8 Basophil % 0.5 % 0-2 Hematocrit 43 % 42-52 Hemoglobin 14.6 g/dL 14.0-18.0 Eosinophil % 1.7 % 0-6 Gran % 57.3 % 38-83 Lymph % 31.3 % 20-45 Mean Corpuscular HGB Cone 34 g/dL 32-36 Mean Corpuscular Hemoglob 30 pg 27-31 Mean Corpuscular Volume 89 um3 80-94 Mean Platelet Volume 8.1 um3 7.4-10.4 Mononuclear % 9.2 % High 1-9 Platelet Count 245 CUMM 150-450 Red Cell Count 4.85 CUMM 4.6-6.2 Redcell Distribution WDTH 13 % 10.5-15 1 Because ethnic data is not always readily available, this report includes an eGFR for both -Americans and non- Americans. The National Kidney Disease Education Program (NKDEP) does not endorse the use of the MDRD equation for patients that are not between the ages of 18 and 70, are , have extremes of body size, muscle mass, or nutritional status, or are non- or non-. According to the National Kidney Foundation, irrespective of diagnosis, the stage of the disease is based on the level of kidney function: Stage Description GFR(mL/min/1.73 m(2)) 1 Kidney damage with normal or decreased GFR 90 2 Kidney damage with mild decrease in GFR 60-89 3 Moderate decrease in GFR 30-59 4 Severe decrease in GFR 15-29 5 Kidney failure <15 (or dialysis) 2 Low risk: <1.00 Average risk: 1.00-3.00 High risk: >3.[address] [facility] Severe Sepsis and Septic Shock Management Bundle Measure requires all lactic acids initially measuring >2.0 mmol/L be repeated. 4 [facility] Severe Sepsis and Septic Shock Management Bundle Measure requires all lactic acids initially measuring >2.0 mmol/L be repeated. 5 Reference Range and Interpretation: TnI (ng/mL) Interpretation Less Than 0.03 ng/mL Not supportive of diagnosis of AL 0.03 - 0.50 ng/mL Indeterminate: suggest serial studies if clinically indicated. Greater than 0.5 ng/mL Consistent with diagnosis of AL [address] [facility] Severe Sepsis and Septic Shock Management Bundle Measure requires all lactic acids initially measuring >2.0mmol/L be repeated. 7 Reference Range and Interpretation: TnI (ng/mL) Interpretation Less Than 0.03 ng/mL Not supportive of diagnosis of AL 0.03 - 0.50 ng/mL Indeterminate: suggest serial studies if clinically indicated. Greater than 0.5 ng/mL Consistent with diagnosis of AL 8 Because ethnic data is not always readily available, this report includes an eGFR for both -Americans and non- Americans. The National Kidney Disease Education Program (NKDEP) does not endorse the use of the MDRD equation for patients that are not between the ages of 18 and 70, are , have extremes of body size, muscle mass, or nutritional status, or are non- or non-. According to the National Kidney Foundation, irrespective of diagnosis, the stage of the disease is based on the level of kidney function: Stage Description GFR(mL/min/1.73 m(2)) 1 Kidney damage with normal or decreased GFR 90 2 Kidney damage with mild decrease in GFR 60-89 3 Moderate decrease in GFR 30-59 4 Severe decrease in GFR 15-29 5 Kidney failure <15 (or dialysis) 9 Serum levels of PSA measured using the Lauren Za DXI Hybritech immunoassay should not be interpreted as absolute evidence of the presence or absence of disease. The PSA value should be used in conjunction with other pertinent clinical diagnostic procedures. The values obtained with different assay methods or kits cannot be used interchangeably. 10 Serum levels of PSA measured using the Lauren Za DXI Hybritech immunoassay should not be interpreted as absolute evidence of the presence or absence of disease. The PSA value should be used in conjunction with other pertinent clinical diagnostic procedures. The values obtained with different assay methods or kits cannot be used interchangeably. 11 SEE RESULT BELOW Name: DEANA LÓPEZ : [address]: Dain Ram MD Acct: [id number] Unit: [id number] AGE: 73 Location: [facility] Re10/01/14 SEX: M Status: REG REF SPEC: [id number] GUILLERMO: 10/01/14-1230 [facility] DR: Dain Ram MD REQ: [id number] RECD: 10/01/14 STATUS: ZORA STEVENS DR: Jonathan Parikh III, MD _ ORDERED: LEVEL IV FINAL DIAGNOSIS Skin, upper chest lesion, excision: -- Verrucous seborrheic keratosis. PRE-OPERATIVE DIAGNOSIS Abnormal skin lesion. GROSS DESCRIPTION The specimen is received in formalin labeled, Upper Chest Lesion, and consists of a 1.2 x 0.8 cm wang-white unoriented skin ellipse with a central 0.8 x 0.7 x 0.4 cm wang friable nodule. The specimen is inked, trisected and submitted entirely in one cassette. Signed (signature on file) Ronni Garcia MD [id number] END OF REPORT * ML=Testing performed at Main Lab DEPARTMENT OF PATHOLOGY, [address] [place] [address] Ronni Garcia M.D. Director [facility] # [id number] 12 RUN DATE: 09/01/14 [facility] LAB LIVE PAGE 1 RUN TIME: [address] [place] [id number] Specimen Inquiry Name: DEANA LÓPEZ : [address]: Pete Lopez NP Acct: [id number] Unit: [id number] AGE: 73 Location: [facility] Re08/30/14 SEX: M Status: REG REF SPEC: [id number] GUILLERMO: 08/30/14-[address] [facility] [address]: Ptee Lopez NP REQ: [id number] RECD: 08/30/14 STATUS: COMP _ SOURCE: THROAT SPDESC: ORDERED: Throat Culture QUERIES: Provider Requisition # [id number] Procedure Result Verified Site Throat Culture Final 09/01/14- 0820 ML Organism 1 NORMAL RAN Quantity 2+ Throat cultures are clinically indicated to detect the presence of group A strep, arcanobacterium and yeast. In certain cases, predominating organisms will be reported. * ML - MAIN LAB ([facility]) . END OF REPORT * ML=Testing performed at Main Lab DEPARTMENT OF PATHOLOGY, [address] [place] [address] Ronni Garcia M.D. Director [facility] # [id number] 13 Serum levels of PSA measured using the Sanaexpert DXI Hybritech immunoassay should not be interpreted as absolute evidence of the presence or absence of disease. The PSA value should be used in conjunction with other pertinent clinical diagnostic procedures. The values obtained with different assay methods or kits cannot be used interchangeably. 14 Serum levels of PSA measured using the Lauren Zonder DXI Hybritech immunoassay should not be interpreted as absolute evidence of the presence or absence of disease. The PSA value should be used in conjunction with other pertinent clinical diagnostic procedures. The values obtained with different assay methods or kits cannot be used interchangeably. 15 Serum levels of PSA measured using the Lauren Za DXI Hybritech immunoassay should not be interpreted as absolute evidence of the presence or absence of disease. The PSA value should be used in conjunction with other pertinent clinical diagnostic procedures. The values obtained with different assay methods or kits cannot be used interchangeably. 16 Serum levels of PSA measured using the Lauren Za DXI Hybritech immunoassay should not be interpreted as absolute evidence of the presence or absence of disease. The PSA value should be used in conjunction with other pertinent clinical diagnostic procedures. The values obtained with different assay methods or kits cannot be used interchangeably. 17 Testing performed by [facility]. 18 Testing performed by Liquid Chromatography-Tandem Mass Spectrometry (LC-MS/MS). Test Performed by: [place] [address] Physician Surgeon: Anish Silver III, M.D. 19 Desirable <150 Borderline high 150-199 High 200-499 Very High >500 20 Desirable <200 Borderline high 200-239 High >239 21 Low <40 Desirable: 40-60 High: >60 22 Desirable <100 Near Optimal 100-129 Borderline high 130-159 High 160-189 Very High >189 23 Because ethnic data is not always readily available, this report includes an eGFR for both -Americans and non- Americans. The National Kidney Disease Education Program (NKDEP) does not endorse the use of the MDRD equation for patients that are not between the ages of 18 and 70, are , have extremes of body size, muscle mass, or nutritional status, or are non- or non-. According to the National Kidney Foundation, irrespective of diagnosis, the stage of the disease is based on the level of kidney function: Stage Description GFR(mL/min/1.73 m(2)) 1 Kidney damage with normal or decreased GFR 90 2 Kidney damage with mild decrease in GFR 60-89 3 Moderate decrease in GFR 30-59 4 Severe decrease in GFR 15-29 5 Kidney failure <15 (or dialysis) 24 Testing performed by [facility]. 25 Testing performed by Liquid Chromatography-Tandem Mass Spectrometry (LC-MS/MS). Test Performed by: [place] [address] Physician Surgeon: Anish Silver III, M.D. 26 Testing performed by [facility]. 27 Testing performed by Liquid Chromatography-Tandem Mass Spectrometry (LC-MS/MS). Test Performed by: [place] [address] Physician Surgeon: Anish Silver III, M.D. 28 Testing performed by [facility]. 29 Testing performed by Liquid Chromatography-Tandem Mass Spectrometry (LC-MS/MS). Test Performed by: [place] [address] Physician Surgeon: Anish Silver III, M.D. 30 Testing performed by [facility]. 31 Testing performed by Liquid Chromatography-Tandem Mass Spectrometry (LC-MS/MS). Test Performed by: [facility] - [address] [address] Physician Surgeon: Anish Silver III, M.D. 32 RUN DATE: 11/30/12 [facility] LAB LIVE PAGE 1 RUN TIME: [address] [place] [id number] Specimen Inquiry Name: DEANA LÓPEZ : [address]: Jonathan Parikh III, MD Acct: [id number] Unit: [id number] AGE: 71 [facility] SEX: M Status: REG REF SPEC: [id number] GUILLERMO: 11/28/12 [facility] DR: Jonathan Parikh III, MD REQ: [id number] RECD: 11/28/12 STATUS: COMP _ SOURCE: URINE SPDESC: ORDERED: Urine Culture QUERIES: Medent Number [id number] Urine Source: Clean Catch Procedure Result Verified Site Urine Culture Final 11/30/12- 0901 ML Organism 1 NORMAL RAN Gordon Count 1-10,000 (Few) CFU/ML END OF REPORT * ML=Testing performed at Main Lab DEPARTMENT OF PATHOLOGY, [address] [place] [address] Ronni Garcia M.D. Director [facility] Permit #[id number] 33 Because ethnic data is not always readily available, this report includes an eGFR for both -Americans and non- Americans. The National Kidney Disease Education Program (NKDEP) does not endorse the use of the MDRD equation for patients that are not between the ages of 18 and 70, are , have extremes of body size, muscle mass, or nutritional status, or are non- or non-. According to the National Kidney Foundation, irrespective of diagnosis, the stage of the disease is based on the level of kidney function: Stage Description GFR(mL/min/1.73 m(2)) 1 Kidney damage with normal or decreased GFR 90 2 Kidney damage with mild decrease in GFR 60-89 3 Moderate decrease in GFR 30-59 4 Severe decrease in GFR 15-29 5 Kidney failure <15 (or dialysis) 34 Because ethnic data is not always readily available, this report includes an eGFR for both -Americans and non- Americans. The National Kidney Disease Education Program (NKDEP) does not endorse the use of the MDRD equation for patients that are not between the ages of 18 and 70, are , have extremes of body size, muscle mass, or nutritional status, or are non- or non-. According to the National Kidney Foundation, irrespective of diagnosis, the stage of the disease is based on the level of kidney function: Stage Description GFR(mL/min/1.73 m(2)) 1 Kidney damage with normal or decreased GFR 90 2 Kidney damage with mild decrease in GFR 60-89 3 Moderate decrease in GFR 30-59 4 Severe decrease in GFR 15-29 5 Kidney failure <15 (or dialysis) 35 Reference Range and Interpretation: TnI (ng/ml) Interpretation Less Than 0.06 ng/mL Not supportive of diagnosis of AL 0.06 - 0.50 ng/ml Indeterminate: suggest serial studies if clinically indicated. Greater than 0.5 ng/mL Consistent with diagnosis of AL 36 Verbal to QUIANA SARGENT by [id number] at 1632 on 09/19/12. Results read back accurately. 37 Please note: The following may produce a false positive D Dimer test: - Rheumatoid factor greater than 60 IU/ml - Plasma hemoglobin greater than 0.05 gm/dl - Bilirubin greater than 50 mg/dl - Lipids greater than 1000 mg/dl - FDP greater than 20 ug/ml 38 FASTING 39 Because ethnic data is not always readily available, this report includes an eGFR for both -Americans and non- Americans. The National Kidney Disease Education Program (NKDEP) does not endorse the use of the MDRD equation for patients that are not between the ages of 18 and 70, are , have extremes of body size, muscle mass, or nutritional status, or are non- or non-. According to the National Kidney Foundation, irrespective of diagnosis, the stage of the disease is based on the level of kidney function: Stage Description GFR(mL/min/1.73 m(2)) 1 Kidney damage with normal or decreased GFR 90 2 Kidney damage with mild decrease in GFR 60-89 3 Moderate decrease in GFR 30-59 4 Severe decrease in GFR 15-29 5 Kidney failure <15 (or dialysis) 40 HDL Interpretation: Undesirable: High Risk: Less than 40 MG/DL Desirable: Low Risk: Greater than 60 MG/DL 41 LDL Interpretation: Low Risk Optimal Level: LDL Less than 100 MG/DL Near or Above Optimal: LDL 100-129 MG/DL Borderline High Risk: LDL 130-159 MG/DL High Risk: LDL 160-189 MG/DL Very High Risk: LDL Greater than 189 MG/DL 42 REFERENCE RANGE ADULT MALES 175-781 NG/DL ADULT FEMALES 10-75 NG/DL NOTE: PEDIATRIC REFERENCE RANGES HAVE NOT BEEN ESTABLISHED FOR THIS ASSAY. PLEASE REFER TO AN EXTERNAL SOURCE FOR AN ACCURATE REFERENCE RANGE. . 43 Anion gap measurement may be of limited value in the presence of any alkalosis, especially in a combined acid base disorder. . 44 A metabolite of Naproxen, O-desmethylnaproxen, has been shown to interfere with the Jendrassik-Matheus method for measuring total bilirubin. Samples from patients who have taken Naproxen have shown spurious elevation in total bilirubin levels. 45 Because ethnic data is not always readily available, this report includes an eGFR for both -Americans and non- Americans. The National Kidney Disease Education Program (NKDEP) does not endorse the use of the MDRD equation for patients that are not between the ages of 18 and 70, are , have extremes of body size, muscle mass, or nutritional status, or are non- or non-. According to the National Kidney Foundation, irrespective of diagnosis, the stage of the disease is based on the level of kidney function: Stage Description GFR(mL/min/1.73 m(2)) 1 Kidney damage with normal or decreased GFR 90 2 Kidney damage with mild decrease in GFR 60-89 3 Moderate decrease in GFR 30-59 4 Severe decrease in GFR 15-29 5 Kidney failure <15 (or dialysis) 46 Anion gap measurement may be of limited value in the presence of any alkalosis, especially in a combined acid base disorder. . 47 Because ethnic data is not always readily available, this report includes an eGFR for both -Americans and non- Americans. The National Kidney Disease Education Program (NKDEP) does not endorse the use of the MDRD equation for patients that are not between the ages of 18 and 70, are , have extremes of body size, muscle mass, or nutritional status, or are non- or non-. According to the National Kidney Foundation, irrespective of diagnosis, the stage of the disease is based on the level of kidney function: Stage Description GFR(mL/min/1.73 m(2)) 1 Kidney damage with normal or decreased GFR 90 2 Kidney damage with mild decrease in GFR 60-89 3 Moderate decrease in GFR 30-59 4 Severe decrease in GFR 15-29 5 Kidney failure <15 (or dialysis) 48 -- REFERENCE VALUE -- Negative at <1:240 Titers lower than 1:240 may be detectable by recombinant CRMP-5 western blot analysis. CRMP-5 western blot analysis will be done by request on stored serum (held 4 weeks). This supplemental testing is recommended in cases of chorea, vision loss, cranial neuropathy and myelopathy. Contact [facility] Inquiry at [phone] ([phone])to add-on CRMP-5-IgG Western Blot, S. Test Performed by: [facility] Path[facility] [address] [place] [address] Physician Surgeon: Anish Silver III, M.D. 49 Test Performed by: [facility] [address] [place] [address] Physician Surgeon: Anish Silver III, M.D. 50 Test Performed by: [facility] [address] [place] [address] Physician Surgeon: Anish Silver III, M.D. 51 Test Performed by: [facility] [address] [place] [address] Physician Surgeon: Anish Silver III, M.D. 52 Test Performed by: [facility] [address] [place] [address] Physician Surgeon: Anish Silver III, M.D. 53 Test Performed by: [facility] [address] [place] [address] Physician Surgeon: Anish Silver III, M.D. 54 Test Performed by: [facility] [address] [place] [address] Physician Surgeon: Anish Silver III, M.D. 55 Anion gap measurement may be of limited value in the presence of any alkalosis, especially in a combined acid base disorder. . 56 A metabolite of Naproxen, O-desmethylnaproxen, has been shown to interfere with the Jendrrimaik-Scenic method for measuring total bilirubin. Samples from patients who have taken Naproxen have shown spurious elevation in total bilirubin levels. 57 Because ethnic data is not always readily available, this report includes an eGFR for both -Americans and non- Americans. The National Kidney Disease Education Program (NKDEP) does not endorse the use of the MDRD equation for patients that are not between the ages of 18 and 70, are , have extremes of body size, muscle mass, or nutritional status, or are non- or non-. According to the National Kidney Foundation, irrespective of diagnosis, the stage of the disease is based on the level of kidney function: Stage Description GFR(mL/min/1.73 m(2)) 1 Kidney damage with normal or decreased GFR 90 2 Kidney damage with mild decrease in GFR 60-89 3 Moderate decrease in GFR 30-59 4 Severe decrease in GFR 15-29 5 Kidney failure <15 (or dialysis) 58 TOXIC LEVELS: GREATER THAN 150 MCG/ML @ 4HR POST INGEST GREATER THAN 50 MCG/ML @ 12HR POST INGEST The detection limit for ACETAMINOPHEN is 10.0 mcg/ml . Values less than 10.0 mcg/ml cannot be accurately measured. . 59 The detection limit for ETHANOL is 10.0 mg/dl . Values less than 10.0 mg/dl cannot be accurately measured. . 60 The detection limit for SALICYLATE is 4.0 mg/dl. Values less than 4.0 mg/dl cannot be accurately measured. . 61 THE URINE SPECIMEN WAS TESTED AT THE LISTED CUTOFFS: DRUG CLASS TEST LEVEL (NG/ML) AMPHETAMINES 300 BARBITUATES 200 BENZODIAZEPINE METABOLITES 200 COCAINE METABOLITES 300 CANNABINOIDS 25 OPIATES 200 PCP 25 THIS IS A SCREENING PROCEDURE. POSITIVE RESULTS ARE NOT CONFIRMED. SPECIMEN WAS RECEIVED WITHOUT CHAIN OF CUSTODY. RESULTS SHOULD BE USED FOR MEDICAL PURPOSES ONLY. . 62 Anion gap measurement may be of limited value in the presence of any alkalosis, especially in a combined acid base disorder. . 63 A metabolite of Naproxen, O-desmethylnaproxen, has been shown to interfere with the [place]-Scenic method for measuring total bilirubin. Samples from patients who have taken Naproxen have shown spurious elevation in total bilirubin levels. 64 Because ethnic data is not always readily available, this report includes an eGFR for both -Americans and non- Americans. The National Kidney Disease Education Program (NKDEP) does not endorse the use of the MDRD equation for patients that are not between the ages of 18 and 70, are , have extremes of body size, muscle mass, or nutritional status, or are non- or non-. According to the National Kidney Foundation, irrespective of diagnosis, the stage of the disease is based on the level of kidney function: Stage Description GFR(mL/min/1.73 m(2)) 1 Kidney damage with normal or decreased GFR 90 2 Kidney damage with mild decrease in GFR 60-89 3 Moderate decrease in GFR 30-59 4 Severe decrease in GFR 15-29 5 Kidney failure <15 (or dialysis) 65 Lymphopenia % 66 Test Performed by: [facility] [address] [place] [address] Physician Surgeon: Anish Silver III, M.D. 67 Anion gap measurement may be of limited value in the presence of any alkalosis, especially in a combined acid base disorder. . 68 A metabolite of Naproxen, O-desmethylnaproxen, has been shown to interfere with the Jendrassik-Scenic method for measuring total bilirubin. Samples from patients who have taken Naproxen have shown spurious elevation in total bilirubin levels. 69 Because ethnic data is not always readily available, this report includes an eGFR for both -Americans and non- Americans. The National Kidney Disease Education Program (NKDEP) does not endorse the use of the MDRD equation for patients that are not between the ages of 18 and 70, are , have extremes of body size, muscle mass, or nutritional status, or are non- or non-. According to the National Kidney Foundation, irrespective of diagnosis, the stage of the disease is based on the level of kidney function: Stage Description GFR(mL/min/1.73 m(2)) 1 Kidney damage with normal or decreased GFR 90 2 Kidney damage with mild decrease in GFR 60-89 3 Moderate decrease in GFR 30-59 4 Severe decrease in GFR 15-29 5 Kidney failure <15 (or dialysis) 70 INTERPRETATION %CK-MB < 5% NOT SUPPORTIVE OF DIAGNOSIS OF AL 5 - <10% INDETERMINATE; SUGGEST SERIAL STUDIES IF CLINICALLY INDICATED 10% OR > CONSISTENT WITH DIAGNOSIS OF AL . 71 New Reference Range and Interpretation effective 02/27/2002 TnI (ng/ml) INTERPRETATION Less Than 0.06 ng/mL NOT SUPPORTIVE OF DIAGNOSIS OF AL 0.06 - 0.50 ng/ml INDETERMINATE: SUGGEST SERIAL STUDIES IF CLINICALLY INDICATED. Greater than 0.5 ng/mL CONSISTENT WITH DIAGNOSIS OF AL . 72 Test Performed by: [facility] [address] [place] [address] Physician Surgeon: Anish Silver III, M.D. 73 Anion gap measurement may be of limited value in the presence of any alkalosis, especially in a combined acid base disorder. . 74 A metabolite of Naproxen, O-desmethylnaproxen, has been shown to interfere with the Jendrassik-Matheus method for measuring total bilirubin. Samples from patients who have taken Naproxen have shown spurious elevation in total bilirubin levels. 75 Because ethnic data is not always readily available, this report includes an eGFR for both -Americans and non- Americans. The National Kidney Disease Education Program (NKDEP) does not endorse the use of the MDRD equation for patients that are not between the ages of 18 and 70, are , have extremes of body size, muscle mass, or nutritional status, or are non- or non-. According to the National Kidney Foundation, irrespective of diagnosis, the stage of the disease is based on the level of kidney function: Stage Description GFR(mL/min/1.73 m(2)) 1 Kidney damage with normal or decreased GFR 90 2 Kidney damage with mild decrease in GFR 60-89 3 Moderate decrease in GFR 30-59 4 Severe decrease in GFR 15-29 5 Kidney failure <15 (or dialysis) 76 NORMAL RANGE MALES 2 - 12 NORMALLY MENSTRUATING FEMALES - Follicular Phase 1 - 18 - Mid-Cycle Peak 24 - 105 - Luteal Phase 0.6 - 20 POSTMENOPAUSAL FEMALES 15 - 62 . 77 REFERENCE RANGE: AM 8.7-22.4 PM LESS THAN 10 . 78 -- REFERENCE VALUE -- 10-60 (a.m. draw) Test Performed by: [facility] [address] [place] [address] Physician Surgeon: Anish Silver III, M.D. 79 Reference range based on upright A.M. collection from subjects on ad ag sodium uptake. Test Performed by: [facility] [address] [place] [address] Physician Surgeon: Anish Silver III, M.D. 80 Test Performed by: [facility] [address] [place] [address] Physician Surgeon: Anish Silver III, M.D. 81 Test Performed by: [facility] [address] [place] [address] Physician Surgeon: Anish Silver III, M.D. 82 Test Performed by: [facility] [address] [place] [address] Physician Surgeon: Anihs Silver III, M.D. 83 -- REFERENCE VALUE -- (Peripheral vein specimen) Na-deplete, upright: Mean: 5.9 Range: 2.9-10.8 Na-replete, upright: Mean: 1.0 Range: <=0.6-3.0 Test Performed by: [facility] [address] [place] [address] Physician Surgeon: Anish Silver III, M.D. 84 Test Performed by: [facility] [address] [place] [address] Physician Surgeon: Anish Silver III, M.D. 85 Test Performed by: [facility] [address] [place] [address] Physician Surgeon: Anish Silver III, M.D. 86 Test Performed by: [facility] [address] [place] [address] Physician Surgeon: Anish Silver III, M.D. 87 Test Performed by: [facility] [address] [place] [address] Physician Surgeon: Anish Silver III, M.D. 88 Test Performed by: [facility] [address] [place] [address] Physician Surgeon: Anish Silver III, M.D. 89 NORMAL RANGE MALES 1 - 20 NORMALLY MENSTRUATING FEMALES - Follicular Phase 3 - 9 - Mid-Cycle Peak 4 - 23 - Luteal Phase 1 - 6 POSTMENOPAUSAL FEMALES 16 - 114 . 90 NORMAL RANGE MALES 2 - 12 NORMALLY MENSTRUATING FEMALES - Follicular Phase 1 - 18 - Mid-Cycle Peak 24 - 105 - Luteal Phase 0.6 - 20 POSTMENOPAUSAL FEMALES 15 - 62 . 91 Lymphopenia % 92 Test Performed by: [facility] [address] [place] [address] Physician Surgeon: Anish Silver III, M.D. 93 Test Performed by: [facility] [address] [place] [address] Physician Surgeon: Anish Silver III, M.D. 94 Anion gap measurement may be of limited value in the presence of any alkalosis, especially in a combined acid base disorder. . 95 Note change in reference range as of 01/15/08. The change was based on recommendations from the [place] [employer]. 96 A metabolite of Naproxen, O-desmethylnaproxen, has been shown to interfere with the Jendrassik-Matheus method for measuring total bilirubin. Samples from patients who have taken Naproxen have shown spurious elevation in total bilirubin levels. 97 Because ethnic data is not always readily available, this report includes an eGFR for both -Americans and non- Americans. The National Kidney Disease Education Program (NKDEP) does not endorse the use of the MDRD equation for patients that are not between the ages of 18 and 70, are , have extremes of body size, muscle mass, or nutritional status, or are non- or non-. According to the National Kidney Foundation, irrespective of diagnosis, the stage of the disease is based on the level of kidney function: Stage Description GFR(mL/min/1.73 m(2)) 1 Kidney damage with normal or decreased GFR 90 2 Kidney damage with mild decrease in GFR 60-89 3 Moderate decrease in GFR 30-59 4 Severe decrease in GFR 15-29 5 Kidney failure <15 (or dialysis) 98 CHOLESTEROL INTERPRETATION: Desirable: Less than 200 MG/DL Borderline-High Risk: 200-239 MG/DL High-Risk: 240 MG/DL and over 99 HDL INTERPRETATION: Undesirable: High Risk: Less than 40 MG/DL Desirable: Low Risk: Greater than 60 MG/DL 100 LDL INTERPRETATION: Low Risk Optimal Level: LDL Less than 100 MG/DL Near or Above Optimal: LDL 100-129 MG/DL Borderline High Risk: LDL 130-159 MG/DL High Risk: LDL 160-189 MG/DL Very High Risk: LDL Greater than 189 MG/DL 101 * SERUM LEVELS OF PSA MEASURED USING THE [employer] ACCESS HYBRITECH IMMUNOASSAY SHOULD NOT BE INTERPRETED ABSOLUTE EVIDENCE OF THE PRESENCE OR ABSENCE OF DISEASE. THE PSA VALUE SHOULD BE USED IN CONJUNCTION WITH OTHER PERTINENT CLINICAL DIAGNOSTIC PROCEDURES. 102 Anion gap measurement may be of limited value in the presence of any alkalosis, especially in a combined acid base disorder. . 103 Note change in reference range as of 01/15/08. The change was based on recommendations from the [place]. 104 Please note change in reference range effective 07 . 105 A metabolite of Naproxen, O-desmethylnaproxen, has been shown to interfere with the Jendrassik-Scenic method for measuring total bilirubin. Samples from patients who have taken Naproxen have shown spurious elevation in total bilirubin levels. 106 Because ethnic data is not always readily available, this report includes an eGFR for both -Americans and non- Americans. The National Kidney Disease Education Program (NKDEP) does not endorse the use of the MDRD equation for patients that are not between the ages of 18 and 70, are , have extremes of body size, muscle mass, or nutritional status, or are non- or non-. According to the National Kidney Foundation, irrespective of diagnosis, the stage of the disease is based on the level of kidney function: Stage Description GFR(mL/min/1.73 m(2)) 1 Kidney damage with normal or decreased GFR 90 2 Kidney damage with mild decrease in GFR 60-89 3 Moderate decrease in GFR 30-59 4 Severe decrease in GFR 15-29 5 Kidney failure <15 (or dialysis) 107 New Reference Range and Interpretation effective 02/27/2002 TnI (ng/ml) INTERPRETATION Less Than 0.06 ng/mL NOT SUPPORTIVE OF DIAGNOSIS OF AL 0.06 - 0.50 ng/ml INDETERMINATE: SUGGEST SERIAL STUDIES IF CLINICALLY INDICATED. Greater than 0.5 ng/mL CONSISTENT WITH DIAGNOSIS OF AL . 108 New Reference Range and Interpretation effective 02/27/2002 TnI (ng/ml) INTERPRETATION Less Than 0.06 ng/mL NOT SUPPORTIVE OF DIAGNOSIS OF AL 0.06 - 0.50 ng/ml INDETERMINATE: SUGGEST SERIAL STUDIES IF CLINICALLY INDICATED. Greater than 0.5 ng/mL CONSISTENT WITH DIAGNOSIS OF AL . 109 Recommended INR for Patients on Oral Anticoagulants Prophylaxis 2.0 - 3.0 Treatment of thrombosis 2.0 - 3.0 Prevention of embolism 2.0 - 3.0 Prevention of embolism from prosthetic heart valves 2.5 - 3.5 110 ATTENTION EFFECTIVE 10/06/08, THE IMPLEMENTATION OF NEW COAGULATION ANLAYZERS HAS CAUSED A SIGNIFICANT DIFFERENCE FOR PROTIME RESULTS IN SECONDS. THEREFORE, DIAGNOSIS,TREATMENT,AND THERAPY MUST BE BASED ON THE INR VALUE ONLY. 111 PLEASE NOTE NEW REFERENCE RANGE EFFECTIVE 07. 112 Anion gap measurement may be of limited value in the presence of any alkalosis, especially in a combined acid base disorder. . 113 Note change in reference range as of 01/15/08. The change was based on recommendations from the [place] [employer]. 114 Please note change in reference range effective 07 . 115 A metabolite of Naproxen, O-desmethylnaproxen, has been shown to interfere with the Jendrassik-Scenic method for measuring total bilirubin. Samples from patients who have taken Naproxen have shown spurious elevation in total bilirubin levels. 116 Because ethnic data is not always readily available, this report includes an eGFR for both -Americans and non- Americans. The National Kidney Disease Education Program (NKDEP) does not endorse the use of the MDRD equation for patients that are not between the ages of 18 and 70, are , have extremes of body size, muscle mass, or nutritional status, or are non- or non-. According to the National Kidney Foundation, irrespective of diagnosis, the stage of the disease is based on the level of kidney function: Stage Description GFR(mL/min/1.73 m(2)) 1 Kidney damage with normal or decreased GFR 90 2 Kidney damage with mild decrease in GFR 60-89 3 Moderate decrease in GFR 30-59 4 Severe decrease in GFR 15-29 5 Kidney failure <15 (or dialysis) 117 Anion gap measurement may be of limited value in the presence of any alkalosis, especially in a combined acid base disorder. . 118 Note change in reference range as of 01/15/08. The change was based on recommendations from the [place] [employer]. 119 Please note change in reference range effective 07 . 120 CHOLESTEROL INTERPRETATION: Desirable: Less than 200 MG/DL Borderline-High Risk: 200-239 MG/DL High-Risk: 240 MG/DL and over 121 HDL INTERPRETATION: Undesirable: High Risk: Less than 40 MG/DL Desirable: Low Risk: Greater than 60 MG/DL 122 LDL INTERPRETATION: Low Risk Optimal Level: LDL Less than 100 MG/DL Near or Above Optimal: LDL 100-129 MG/DL Borderline High Risk: LDL 130-159 MG/DL High Risk: LDL 160-189 MG/DL Very High Risk: LDL Greater than 189 MG/DL 123 * SERUM LEVELS OF PSA MEASURED USING THE [place] ACCESS HYBRITECH IMMUNOASSAY SHOULD NOT BE INTERPRETED ABSOLUTE EVIDENCE OF THE PRESENCE OR ABSENCE OF DISEASE. THE PSA VALUE SHOULD BE USED IN CONJUNCTION WITH OTHER PERTINENT CLINICAL DIAGNOSTIC PROCEDURES. 124 REFERENCE RANGE FOR ACHR BINDING AUTOABS: LESS THAN 0.25 NMOL/L . . . . NEGATIVE 0.25 - 0.4 NMOL/L . . . . . EQUIVOCAL GREATER THAN 0.4 NMOL/L . . POSITIVE 125 REFERENCE RANGES FOR ACHR MODULATING AUTOABS: LESS THAN 20% . . . . . NEGATIVE 20 - 40% . . . . . . . INDETERMINATE GREATER THAN 40% . . . POSITIVE; SUGGESTIVE OF MYASTHENIA GRAVIS. 126 THE PERFORMANCE CHARACTERISTICS OF ONE OR MORE OF THE ASSAYS IN THIS PANEL WERE ESTABLISHED THROUGH VALIDATION BY [employer], AND NO APPROVAL IS REQUIRED BY THE U.S. FOOD AND DRUG ADMINISTRATION (FDA). THESE TESTS ARE USED FOR CLINICAL PURPOSES. THEY SHOULD NOT BE REGARDED INVESTIGATIONAL OR FOR RESEARCH. [employer] IS REGULATED UNDER THE CLINICAL LABORATORY IMPROVEMENT AMENDMENTS OF 1988 ( CLIA ) QUALIFIED TO PERFORM HIGH COMPLEXITY CLINICAL TESTING. TEST PERFORMED BY: [employer] [address] [place] [phone] 127 REFERENCE RANGE FOR ACHR BINDING AUTOABS: LESS THAN 0.25 NMOL/L . . . . NEGATIVE 0.25 - 0.4 NMOL/L . . . . . EQUIVOCAL GREATER THAN 0.4 NMOL/L . . POSITIVE TEST PERFORMED BY: [employer] [address] [place] [phone] 128 TEST PERFORMED BY: [employer] [address] [place] [phone] 129 THE PERFORMANCE CHARACTERISTICS OF THIS TEST WERE ESTABLISHED THROUGH VALIDATION BY [employer], AND NO APPROVAL IS REQUIRED BY THE U.S. FOOD AND DRUG ADMINISTRATION (FDA). [employer] IS REGULATED UNDER THE CLINICAL LABORATORY IMPROVEMENT AMENDMENTS OF 1988 ( CLIA ) QUALIFIED TO PERFORM HIGH COMPLEXITY CLINICAL TESTING. TEST PERFORMED BY: [employer] [address] [place], [place] [phone] TEST PERFORMED BY: [employer] [address] [place] [phone] 131 TEST PERFORMED BY: [employer] [address] [place] [phone] 132 REFERENCE RANGE FOR ACHR BINDING AUTOABS: LESS THAN 0.25 NMOL/L . . . . NEGATIVE 0.25 - 0.4 NMOL/L . . . . . EQUIVOCAL GREATER THAN 0.4 NMOL/L . . POSITIVE THIS TEST WAS DEVELOPED UTILIZING A COMMERCIAL PRODUCT OR KIT LABELED INVESTIGATIONAL USE ONLY . THE KIT OR PRODUCT HAS NOT BEEN CLEARED OR APPROVED BY THE U.S. FOOD AND DRUG ADMINISTRATION (FDA). THE PERFORMANCE CHARACTERISTICS OF THE TEST WERE ESTABLISHED THROUGH VALIDATION BY [employer], [address] [place] [address]. THIS TEST SHOULD NOT BE USED FOR DIAGNOSIS WITHOUT CONFIRMATION BY OTHER MEDICALLY ESTABLISHED MEANS. TEST PERFORMED BY: [employer]. [address] [place] [phone] 133 Anion gap measurement may be of limited value in the presence of any alkalosis, especially in a combined acid base disorder. . 134 REFERENCE RANGE FOR B. BURGDORFERI IGG IGM ABS: LESS THAN 0.80 INDEX . . . NEGATIVE 0.80 - 1.19 INDEX . . . . . EQUIVOCAL GREATER THAN 1.19 INDEX . . POSITIVE ALL LYME SEROLOGY RESULTS MUST BE INTERPRETED IN CONJUNCTION WITH THE CLINICAL PRESENTATION OF THE PATIENT SINCE ANTIBODIES TO A VARIETY OF MICROORGANISMS ARE KNOWN TO CROSS REACT. TEST PERFORMED BY: [employer]. [address] [place] [phone] 135 PLEASE NOTE NEW REFERENCE RANGES. Procedures Date CPT Code Description Status 11/11/2015 42223 EKG, Interpretation Only Completed 05/30/2015 84961 Admin Of Inj Completed 04/29/2015 68812 Admin Of Inj Completed 04/15/2015 58112 Admin Of Inj Completed 04/01/2015 20257 Admin Of Inj Completed 03/04/2015 28732 Admin Of Inj Completed 02/18/2015 01259 Admin Of Inj Completed 02/04/2015 04553 Admin Of Inj Completed 01/21/2015 82786 Admin Of Inj Completed 11/02/2014 75148 Nerve Conduction 07-08 Studies Completed 04/13/2014 99165 Admin Of Inj Completed 03/12/2014 83300 Admin Of Inj Completed 02/12/2014 58301 Admin Of Inj Completed 01/01/2014 57623 Admin Of Inj Completed 12/18/2013 05300 Admin Of Inj Completed 12/04/2013 14004 Admin Of Inj Completed 11/06/2013 22204 Admin Of Inj Completed 10/09/2013 49102 Admin Of Inj Completed 09/25/2013 78443 Admin Of Inj Completed 08/28/2013 26306 Admin Of Inj Completed 07/31/2013 28242 Admin Of Inj Completed 07/06/2013 28043 Admin Of Inj Completed 03/27/2013 69586 Admin Of Inj Completed 09/11/2010 Colonoscopy Completed 08/18/2008 82225 Color Doppler Completed 08/18/2008 87305 Pulse Doppler & Continuous Wave Completed 08/18/2008 04087 Echocardiogram Completed 08/18/2008 77400 ECHO Transthoracic, Real-Time 2D With Doppler And Color Completed Flow 02/03/2008 58667 EKG Tracing & Interpretation Completed Encounters Type Date Location Provider CPT E/M Dx Office Visit 01/20/2018 [facility] Foster Reyes M.D. 49591 M47.12 10:40a [facility] Office Visit 10/22/2017 [facility] Vassilios 49572 M47.12 2:00p Of [facility] MD Hamida G20 G71.0 Office Visit 09/17/2017 10:45a [facility] Foster Pena 03202 M47.12 Services Of [employer] Specialist M.DCat G20 G71.0 Office Visit 07/01/2017 11:00a [facility] Foster Reyes 59339 M47.12 Of [employer] [facility]ist M.D. Office Visit 06/10/2017 10:40a [facility] Foster Reyes 69205 M47.12 Of [employer] [facility]ist M.D. Office Visit 01/15/2017 11:15a [facility] Luz Schwartz, 25573 G20 Services Of [employer] [facility]ist M.DCat F32.9 G71.0 Office Visit 08/21/2016 10:45a [facility] Luz Schwartz 50104 G71.0 Services Of [employer] Specialist M.D. G20 F32.9 Office Visit 04/17/2016 11:00a [facility] Luz Schwartz 07280 G71.0 Services Of [employer] [facility]ist M.D. G20 Office Visit 01/12/2016 1:45p [facility] Luz Schwartz 55322 G71.0 Services Of [employer] Specialist M.D. G21.8 Office Visit 11/14/2015 8:10a [facility] Kate Evans, 66378 N39.0 Assoc,pc RN [facility] K56.60 R53.1 G20 Office Visit 11/13/2015 8:07a [facility] Bella Drew, RN [facility] 11768 N39.0 Hospitalists K56.60 R53.1 G20 Office Visit 11/12/2015 8:06a [facility] Bella Drew, RN [facility] 53701 N39.0 Hospitalists K56.60 R53.1 G20 Office Visit 11/11/2015 8:06a [facility] Bella Drew, RN [facility] 85732 N39.0 Hospitalists R53.1 G20 K56.60 Office Visit 11/10/2015 8:03a [facility] Bella Drew, RN [facility] 98708 N39.0 Hospitalists R53.1 G20 Office Visit 11/09/2015 8:03a [facility] Bella Drew, RN [facility] 17093 N39.0 Hospitalists R53.1 G20 Office Visit 11/08/2015 8:02a [facility] Kate Evans, 34906 N39.0 Assoc,pc RN [facility] R53.1 G20 Office Visit 10/21/2015 4:40p [facility] Internal Medicine - Zari Figueroa M.D. 72968 A09 Flako Office Visit 06/14/2015 11:00a [facility] Luz Schwartz, 30162 G71.0 Services Of [facility] M.D. G20 G56.01 G56.02 Office Visit 05/02/2015 2:45p [facility] Foster Reyes 35582 M47.12 Of [employer] [facility]ist M.D. Office Visit 04/13/2015 4:00p [facility] Foster Reyes 11241 M47.12 Of [employer] [facility]ist M.D. Office Visit 03/01/2015 11:15a [facility] Luz Schwartz, 82955 G71.0 Services Of [facility] M.D. G20 G56.01 G56.02 Office Visit 09/27/2014 2:40p [facility] Internal Medicine Jonathan Parikh, 47119 709.9 - Falko Lomeli 702.19 Office Visit 09/03/2014 9:40a [facility] Internal Medicine Jonathan Parikh, 28797 466.0 - Flako Lomeli Office Visit 08/30/2014 1:30p [facility] Internal [facility] Pete Lopez, RN [facility] 96528 784.1 - [place] 465.9 Office Visit 06/01/2014 10:45a [facility] Luz Schwartz, 93278 332.1 Services Of [employer] Specialist M.D. 359.1 728.87 Office Visit 05/03/2014 10:40a [facility] Internal Medicine - Jonathan Parikh, 18877 601.0 [place] M.D. Office Visit 04/19/2014 1:30p [facility] Of Foster Reyes, 90572 721.1 [employer] [facility] M.D. Office Visit 04/16/2014 10:00a [facility] Internal Medicine - Jonathan Parikh, 66469 788.1 [place] M.DCat Office Visit 03/24/2014 11:00a [facility] Internal Medicine - Jonathan Parikh, 08073 569.3 [place] M.Rick 723.1 Office Visit 11/26/2013 10:45a [facility] Luz Schwartz, 22831 359.0 Services Of [employer] Specialist M.D. 332.0 Office Visit 05/28/2013 8:30a [facility] Luz Schwartz, 50936 359.0 Services Of [employer] Specialist M.D. 332.0 Office Visit 04/07/2013 1:29p [facility] Jose Juan Benítez, 95705 332.0 Services Of [employer] Specialist M.D. Office Visit 04/06/2013 2:11p [facility], Carrington Casper, 48815 969.79 Hospitalists MWill 332.0 359.0 Office Visit 04/06/2013 1:25p [facility] Jose Juan Benítez M.D. 63204 332.0 Services Of [employer] Specialist 311 E950.2 Office Visit 04/05/2013 2:11p [facility],basilia Lemus M.D. 47216 969.79 Hospitalists 332.0 359.0 Office Visit 03/17/2013 3:40p [facility] Internal Medicine Jonathan Parikh, 64258 401.9 - Flako Lomeli 359.21 332.0 v04.81 Office Visit 02/17/2013 11:45a [facility] Luz Schwartz, 94725 359.21 Services Of [employer] Specialist M.D. 332.0 Office Visit 11/28/2012 11:20a [facility] Internal Medicine Jonathan Parikh, 65833 359.21 - Flako Lomeli 359.21 788.1 788.1 600.20 600.20 401.9 401.9 Office Visit 11/21/2012 12:45p [facility] Luz Schwartz, 28482 359.21 Services Of [employer] Specialist M.D. 332.0 Office Visit 09/25/2012 1:00p [facility] Luz Schwartz, 17998 332.0 Services Of [employer] Specialist M.D. 359.21 780.2 Office Visit 09/22/2012 3:40p [facility] Internal Medicine - Jonathan Parikh, 27856 780.2 Flako Lomeli Office Visit 09/21/2012 1:36p [facility], 42138 780.2 Hospitalists N.P. 401.9 332.0 359.21 Office Visit 09/19/2012 1:33p [facility], 20240 780.2 Hospitalists N.P. 401.9 332.0 359.21 Office Visit 08/19/2012 11:45a [facility] Luz Schwartz, 59495 359.1 Services Of [employer] Specialist M.D. 332.0 Office Visit 06/12/2012 8:30a [facility] Luz Schwartz, 23920 332.0 Services Of [employer] Specialist M.D. 359.1 Office Visit 04/22/2012 3:30p [facility] Luz Schwartz, 83025 332.0 Services Of [employer] Specialist M.D. 359.1 Office Visit 03/17/2012 10:00a [facility] Internal Medicine Jonathan Parikh, 28935 401.1 - Flako Lomeli 493.00 359.1 332.1 V03.82 V04.81 Office Visit 09/17/2011 11:20a [facility] Internal Medicine Jonathan Parikh, 10549 401.1 - Flako Lomeli 311 359.1 Office Visit 06/18/2011 11:20a [facility] Internal Medicine Jonathan Parikh, 48126 401.1 - Flako Lomeli 359.21 Office Visit 05/14/2011 3:40p DO Not Use [employer] [facility] AT [facility], 02048 401.1 Toni Parra.Rick Office Visit 04/23/2011 11:40a DO Not Use [employer] [facility]ist AT [facility], 89569 401.1 Toni Parra.Rick 359.21 Office Visit 03/19/2011 11:40a DO Not Use [employer] Specialist AT [facility], 16434 311 Toni Parra.Rick 359.1 796.2 Office Visit 01/10/2011 2:00p DO Not Use [employer] [facility]ist AT [facility], 76430 359.1 Toni Parra.Rick Office Visit 12/08/2010 1:45p DO Not Use [employer] Specialist AT [facility], N.P. 17704 311 [facility] 359.1 Office Visit 09/07/2010 4:00p DO Not Use [employer] [facility]ist AT [facility], 37315 311 Toni M.Rick Office Visit 06/27/2010 2:00p DO Not Use [employer] [facility]ist AT Zari Figueroa M.D. 72632 461.9 [facility] 462 Office Visit 06/15/2010 4:00p DO Not Use [employer] [facility] AT [facility], 21766 780.79 Toni Lomeli Office Visit 05/08/2010 1:20p DO Not Use [employer] [facility]ist AT [facility], 92791 359.1 Toni Parra.Rick 780.79 796.2 Office Visit 02/10/2010 9:40a DO Not Use [employer] [facility]ist AT [facility], 51579 796.2 Toni Lomeli 493.90 Office Visit 01/10/2010 2:20p DO Not Use [employer] Specialist AT [facility], 64499 359.1 Toni Lomeli 796.2 Office Visit 12/08/2008 2:15a [facility] [facility] Aline Hernández, [address] 780.2 Hospitalists Yani 785.1 Office Visit 07/06/2008 10:00a [facility], [phone] [facility] Yani 493.90 Office Visit 02/03/2008 9:30a [facility], [phone] [facility] V70.0 Office Visit 02/05/2007 11:00a [facility], [phone] [facility] Plan of Care Future Appointment(s):09/03/2018 10:45 am - Foster Pena M.D. at [facility]04/22/2018 9:00 am - Dano Mei MD at [facility]03/05/2018 - Foster Pena M.D.M47.12 Other spondylosis with myelopathy, cervical regionNew Medication:Cervical Collar Adjustable/Soft Touch/One SizeG20 Parkinson's [id number] Facioscapulohumeral muscular dystrophyNew Therapy:Occupational TherapyFollow up:6 MONTHS
--- NOTE | 2018-03-26 11:42 | ED ---
Abdominal Pain/Male - HPI Summary HPI Summary: This patient is a 77 year old M brought in by ambulance from [facility] to ED with a chief complaint of suprapubic abdominal pain since 2 days ago. The patient rates the pain 8/10 in severity. Symptoms aggravated by nothing. Symptoms alleviated by nothing. [facility] staff reports that he had a small BM this morning. His abdomen is belly and firm. [facility] staff denies vomiting and fever. - History of Current Complaint Chief Complaint: EDAbdPain Stated Complaint: ABD PAIN Time Seen by Provider: 03/26/18 11:24 Hx Obtained From: Patient Onset/Duration: Sudden Onset, Lasting Days, Still Present Timing: Constant, Lasting Days Severity Initially: Severe Severity Currently: Severe Pain Intensity: 8 Pain Scale Used: 0-10 Numeric Location: Suprapubic Aggravating Factor(s): Nothing Alleviating Factor(s): Nothing Associated Signs And Symptoms: Positive: Other - small BM this morning. Negative: Fever, Vomiting - Allergies/Home Medications Allergies/Adverse Reactions: Allergies Allergy/AdvReac Type Severity Reaction Status Date / Time lactose Allergy Unknown Verified 03/26/18 15:33 Reaction Details oxycodone Allergy Unknown Verified 03/26/18 15:33 Reaction Details Penicillins Allergy Unknown Verified 03/26/18 15:33 Reaction Details sildenafil Allergy Unknown Verified 03/26/18 15:33 Reaction Details tamsulosin [From Flomax] Allergy Unknown Verified 03/26/18 15:33 Reaction Details Home Medications: Home Medications Artificial Tears* 15 ML BTL [Polyvinyl Alcohol 1.4% OPTH*] 2 drop BOTH EYES Q2H PRN 03/26/18 [History Confirmed 03/26/18] Testosterone Cypionate (NF) 200 mg IM Q14D 03/26/18 [History Confirmed 03/26/18] traMADol TAB* [Ultram*] 50 mg PO BID 03/26/18 [History Confirmed 03/26/18] PMH/Surg Hx/FS Hx/Imm Hx Endocrine/Hematology History: Reports: Other Endocrine/Hematological Disorders - hypogonadism Denies: Hx Anticoagulant Therapy, Hx Blood Disorders, Hx Blood Transfusions, Hx Bone Marrow Disease, Hx Diabetes, Hx Systemic Lupus Erythematosus, Hx Sickle Cell Disease, Hx Thyroid Disease, Hx Anemia, Hx Unexplained Bleeding Cardiovascular History: Reports: Hx Hypertension Denies: Hx Aneurysm, Hx Angina, Hx Angioplasty, Hx Auto Implanted Cardiovert Defib, Hx Cardiac Arrest, Hx Cardiomegaly, Hx Congenital Heart Disease, Hx Congestive Heart Failure, Hx Coronary Artery Disease, Hx Deep Vein Thrombosis, Hx Embolism, Hx Hypercholesterolemia, Hx Hypotension, Hx Pacemaker/ICD, Hx Peripheral Vascular Disease, Hx Rheumatic Fever, Hx Syncope, Hx Valvular Heart Disease, Other Cardiovascular Problems/Disorders Respiratory History: Reports: Hx Asthma, Hx Chronic Bronchitis Denies: Hx Chronic Obstructive Pulmonary Disease (COPD), Hx Cystic Fibrosis, Hx Lung Cancer, Hx Pleural Effusion, Hx Pneumonia, Hx Pulmonary Edema, Hx Pulmonary Embolism, Hx Seasonal Allergies, Hx Sleep Apnea, Other Respiratory Problems/Disorders GI History: Reports: Other GI Disorders - constipation Denies: Hx Cirrhosis, Hx Crohn's Disease, Hx Diverticulosis, Hx Gall Bladder Disease, Hx Gastroesophageal Reflux Disease, Hx Gastrointestinal Bleed, Hx Hiatal Hernia, Hx Irritable Bowel, Hx Jaundice, Hx Obstructive Bowel, Hx Ileostomy, Hx Pyloric Stenosis, Hx Ulcer History: Reports: Hx Benign Prostatic Hyperplasia Denies: Hx Acute Renal Failure, Hx Chronic Renal Failure, Hx Dialysis, Hx Kidney Infection, Hx Kidney Stones, Hx Renal Disease, Other Problems/ Disorders Musculoskeletal History: Reports: Hx Arthritis, Other Musculoskeletal History - MUSCULAR DYSTROPHY Denies: Hx Back Problems, Hx Bursitis, Hx Congenital Bone Abnormalities, Hx Fibromyalgia, Hx Gout, Hx Orthopedic Injury, Hx Osteoporosis, Hx Scoliosis, Hx Tendonitis Sensory History: Reports: Hx Cataracts - l eye cataract, Hx Contacts or Glasses - reading glasses at home Denies: Hx Eye Injury, Hx Eye Prosthesis, Hx Glaucoma, Hx Legally Blind, Hx Macular Degeneration, Hx Vision Problem, Hx Deafness, Hx Hearing Aid, Hx Hearing Problem, Other Sensory Impairments Opthamlomology History: Reports: Hx Cataracts - l eye cataract, Hx Contacts or Glasses - reading glasses at home Denies: Hx Eye Injury, Hx Eye Prosthesis, Hx Glaucoma, Hx Legally Blind, Hx Macular Degeneration, Hx Vision Problem, Other Sensory Impairments Neurological History: Reports: Other Neuro Impairments/Disorders - parkinsons, facioscapulohum muscular dystrophy Denies: Hx Dementia, Hx Developmental Delay, Hx Headaches, Hx Migraine, Hx Nerve Disease, Hx Seizures, Hx Spinal Cord Injury, Hx Transient Ischemic Attacks (TIA) Psychiatric History: Reports: Hx Depression - suicide attempts x2, Hx Inpatient Treatment - 2010, Hx Suicide Attempt Denies: Hx Anxiety, Hx Attention Deficit Hyperactivity Disorder, Hx Eating Disorder, Hx Panic Disorder, Hx Post Traumatic Stress Disorder, Hx Community Mental Health Tx, Hx Schizophrenia, Hx Bipolar Disorder, Hx of Violent Episodes Against Others, Hx Substance Abuse, Other Psychiatric Issues/Disorders - Surgical History Surgery Procedure, Year, and Place: left eye cataract surgery Hx Anesthesia Reactions: No - Immunization History Date of Tetanus Vaccine: unknown Date of Influenza Vaccine: 2011 Infectious Disease History: No Infectious Disease History: Denies: Hx Clostridium Difficile, Hx Hepatitis, Hx Human Immunodeficiency Virus (HIV), Hx of Known/Suspected MRSA, Hx Shingles, Hx Tuberculosis, Hx Known/ Suspected VRE, Hx Known/Suspected VRSA, History Other Infectious Disease, Traveled Outside the [place] in Last 30 Days - Family History Known Family History: Negative: Cardiac Disease, Hypertension - Social History Alcohol Use: None Hx Substance Use: No Substance Use Type: Reports: None Hx Tobacco Use: No Smoking Status (MU): Never Smoked Tobacco Review of Systems Negative: Fever Positive: Abdominal Pain - suprapubic abdomen is belly and firm, Other - had small BM this morning. Negative: Vomiting All Other Systems Reviewed And Are Negative: Yes Physical Exam - Summary Physical Exam Summary: GENERAL: Patient is a well-developed and nourished M who is lying comfortable in the stretcher. Patient is not in any acute respiratory distress. HEAD AND FACE: Normocephalic EYES: PERRLA, EOMI x 2. EARS: Hearing grossly intact. MOUTH: Oropharynx within normal limits. NECK: Supple, trachea is midline, no adenopathy, no JVD, no carotid bruit. CHEST: Symmetric, no tenderness at palpation LUNGS: Clear to auscultation bilaterally. No wheezing or crackles. CVS: Regular rate and rhythm, S1 and S2 present, no murmurs or gallops appreciated. ABDOMEN: Tense and distended. EXTREMITIES: Full ROM in all major joints, no edema, no cyanosis or clubbing. NEURO: Alert and oriented x 3. No acute neurological deficits. Speech is normal and follows commands. SKIN: Dry and warm Triage Information Reviewed: Yes Vital Signs On Initial Exam: Initial Vitals Temp Pulse Resp BP Pulse Ox 98.2 F 107 32 134/76 91 03/26/18 11:29 03/26/18 11:29 03/26/18 11:29 03/26/18 11:29 03/26/18 11:29 Vital Signs Reviewed: Yes Diagnostics - Vital Signs Vital Signs Temp Pulse Resp BP Pulse Ox 03/26/18 11:29 98.2 F 107 32 134/76 91 - Laboratory Result Diagrams: 03/27/18 05:10 03/27/18 05:10 Lab Statement: Any lab studies that have been ordered have been reviewed, and results considered in the medical decision making process. - Radiology Abdomen XR Radiology Interpretation Completed By: Radiologist - LIMITED STUDY. DIFFUSE GASEOUS DISTENTION OF THE COLON WITH LARGE AMOUNT OF STOOL WITHIN THE COLON, SIMILAR TO APRIL 11, 2017 EXAMINATION. THE DIFFERENTIAL INCLUDES CONSTIPATION , ATONIC COLON, OR DISTAL COLONIC OBSTRUCTION, INCLUDING DUE TO VOLVULUS. RECOMMEND CONSIDERATION OF CROSS-SECTIONAL IMAGING OF THE ABDOMEN. Dr. Hubbard has reviewed this radiology report. CXR Radiology Interpretation Completed By: Radiologist - NO ACTIVE CARDIOPULMONARY DISEASE. Dr. Hubbard has reviewed this radiology report. - CT Abd/Pel CT CT Interpretation Completed By: Radiologist - Bowel obstruction secondary to sigmoid volvulus. Closed loop obstruction of the sigmoid colon with the sigmoid colon dilated up to 14 cm diameter. High probability for prerenal acute renal failure. Hepatosteatosis. Small dependent RIGHT pleural effusion and mild bibasilar atelectasis. Results discussed with Dr. Hubbard 03/26/2018 1: [address] Hubbard has reviewed this radiology report. - EKG 1156 Cardiac Rate: Tachycardia - 107 BPM EKG Rhythm: Sinus Tachycardia Summary of EKG Findings: borderline prolonged QT, LVH, minimal ST elevation in the anterior leads, and not much change from 11/11/2015. Abdominal Pain Fem Course/Dx - Course Assessment/Plan: This patient is a 77 year old M brought in by ambulance from [facility] to ED with a chief complaint of suprapubic abdominal pain since 2 days ago. Abdomen XR reveals LIMITED STUDY. DIFFUSE GASEOUS DISTENTION OF THE COLON WITH LARGE AMOUNT OF STOOL WITHIN THE COLON, SIMILAR TO APRIL 11, 2017 EXAMINATION. THE DIFFERENTIAL INCLUDES CONSTIPATION, ATONIC COLON, OR DISTAL COLONIC OBSTRUCTION, INCLUDING DUE TO VOLVULUS. RECOMMEND CONSIDERATION OF CROSS -SECTIONAL IMAGING OF THE ABDOMEN. CXR reveals NO ACTIVE CARDIOPULMONARY DISEASE. EKG reveals sinus tachy at 107 BPM with borderline prolonged QT, LVH, minimal ST elevation in the anterior leads, and not much change from EKG done on 11/11/2015. In the ED course, the patient was given Reglan, Zofran, Morphine , and fluids. CT abd/pel reveals Bowel obstruction secondary to sigmoid volvulus. Closed loop obstruction of the sigmoid colon with the sigmoid colon dilated up to 14 cm diameter. High probability for prerenal acute renal failure. Hepatosteatosis. Small dependent RIGHT pleural effusion and mild bibasilar atelectasis. I was unable to talk to the GI doctor, and Carole, the staff of [facility], said that it is not an endoscopy case and to talk to a surgeon. Consulted Dr. Escalona at 1319 who said that GI needs to see the patient before he can get involved. Spoke with Carole, in the office of Dr. Donell Fitzpatrick at 1324 who said they will talk to Dr. Marquez about the patient. Spoke with Carole at [address] Marquez will come down to see the patient in the ED. Dr. Marquez was initial misinformed about the patient 's hemodynamics and thats why she initially thought it was a surgical case. Dr. Marquez saw the patient in the ED and wants an NG tube. The patient will be admitted. Case discussed with hospitalist. I discussed results with patient. The patient agrees with this plan. - Diagnoses Provider Diagnoses: Bowel obstruction, Volvulus - Provider Notifications Discussed Care Of Patient With: Ld Escalona Time Discussed With Above Provider: 13:19 Instructed by Provider To: Other - Consulted Dr. Escalona about the patient's case and he says GI needs to see the patient before he can get involved. Consulted Dr. Marquez in the ED at 1410 about the patient's case and wants him to have an NG tube. Consulted Dr. Cooper about the patient's case at 1443 and she accepts the patient for admission. - Critical Care Time Critical Care Time: 30-74 min Discharge - Sign-Out/Discharge Documenting (check all that apply): Patient Departure - admit - Discharge Plan Condition: Stable Disposition: ADMITTED TO [facility] - Billing Disposition and Condition Condition: STABLE Disposition: Admitted to [facility] - Attestation Statements Document Initiated by Scribe: Yes Documenting Scribe: Del Hall Provider For Whom Scribe is Documenting (Include Credential): Patricio Hubbard MD Scribe Attestation: I, Del Hall, scribed for Patricio Hubbard MD on 03/28/18 at 0359. Scribe Documentation Reviewed: Yes Provider Attestation: The documentation as recorded by the scribe, Del Hall accurately reflects the service I personally performed and the decisions made by me, Patricio Hubbard MD
[2018-03-26] MEDS ORDERED: Ondansetron INJ* 2 MG/ML VIAL IV ONE (11:45)
--- NOTE | 2018-03-26 12:06 | RAD ---
HISTORY: abdominal distention COMPARISONS: November 08, 2015 VIEWS: 1: frontal AP view of the chest at 11:52 AM FINDINGS: LINES AND TUBES: None. CARDIOMEDIASTINAL SILHOUETTE: The cardiomediastinal silhouette is normal for portable technique. PLEURA: The costophrenic angles are sharp. No pleural abnormalities are noted. LUNG PARENCHYMA: The lungs are clear. ABDOMEN: There is gaseous distention of the colon. There is no subphrenic gas. BONES AND SOFT TISSUES: No bone or soft tissue abnormalities are noted. IMPRESSION: NO ACTIVE CARDIOPULMONARY DISEASE.
--- NOTE | 2018-03-26 12:06 | RAD ---
HISTORY: r/o free air in abdomen COMPARISONS: CT dated April 11, 2017. VIEWS: Frontal views of the abdomen. The left hemiabdomen is not completely included within the [id number] the current examination. FINDINGS: BOWEL: There is diffuse gaseous distention of the large bowel with large amount of stool within the distal colon. The appearance is similar to the CT of April 11, 2017. CALCULI: There are no abnormal calculi. BONES AND SOFT TISSUES: There are no osseous abnormalities. OTHER FINDINGS: The lung bases are clear. There is no subphrenic gas. IMPRESSION: LIMITED STUDY. DIFFUSE GASEOUS DISTENTION OF THE COLON WITH LARGE AMOUNT OF STOOL WITHIN THE COLON, SIMILAR TO APRIL 11, 2017 EXAMINATION. THE DIFFERENTIAL INCLUDES CONSTIPATION, ATONIC COLON, OR DISTAL COLONIC OBSTRUCTION, INCLUDING DUE TO VOLVULUS. RECOMMEND CONSIDERATION OF CROSS-SECTIONAL IMAGING OF THE ABDOMEN
[2018-03-26] MEDS ORDERED: Ondansetron INJ* 2 MG/ML VIAL ONE (12:17)
[2018-03-26] MEDS ORDERED: Metoclopramide IV* 5 MG/ML 2 ML VIAL IV ONE (12:19)
[2018-03-26] MEDS ORDERED: Morphine VIAL* 10 MG/ML 1 ML VIAL IV ONE ×2 (12:19→13:29)
[2018-03-26] MEDS ORDERED: Iodixanol* (CONTRAST) 320 MG/ML 100 ML SDV IV ONE (12:22)
[2018-03-26] MEDS: NS 0.9% 1000 ML* 1,000 ML IV ONE ×2 (12:23→12:24)
[2018-03-26 12:25] LABS: ABS Basophils 0 10^3/ul (0-0.2); ABS Eosinophils 0 10^3/ul (0-0.6); ABS Lymphocytes 0.5 10^3/ul (1.0-4.8); ABS Monocytes 0.8 10^3/ul (0-0.8); ABS Neutrophils 14.6 10^3/ul (1.5-7.7); ABS Nucleated RBC 0 10^3/ul; Eosinophil % 0.1 % (0-6); Hematocrit 54 % (42-52); Lymphocyte % 3.1 % (25-47); Mean Corpuscular HGB Conc 33 g/dl (31-36); Mean Corpuscular Hemoglobin 31 pg (27-31); Mean Corpuscular Volume 93 fL (80-94); Mean Platelet Volume 7.2 um3 (7.4-10.4); Nucleated Red Blood Cells % 0.1; Platelet Count 335 10^3/ul (150-450); Red Blood Count 5.88 10^6/ul (4.00-5.40); Red Cell Distribution Width 15 % (10.5-15); White Blood Count 15.9 10^3/ul (3.5-10.8)
[2018-03-26 12:33] LABS: INR 0.96 (0.77-1.02)
[2018-03-26 12:43] LABS: EGFR Non-African American 63.9 (>60)
[2018-03-26] MEDS ORDERED: Morphine INJ* 4 MG/ML 1 ML SYRINGE (NEW SYRINGE VERSION) ONE ×2 (12:56→13:53)
--- NOTE | 2018-03-26 13:15 | RAD ---
INDICATION: Abdominal distention. Assess for bowel obstruction. COMPARISON: April 11, 2017 CT TECHNIQUE: Multidetector CT images were obtained from the lung bases to the ischial tuberosities with 85 mL Visipaque 320 IV contrast. No oral contrast administered.. Multiplanar reformation. REPORT: VISUALIZED INFERIOR THORAX: Small dependent RIGHT pleural effusion. Mild bibasilar atelectasis. LIVER / GALLBLADDER / PANCREAS / SPLEEN: Decreased density of the liver consistent with fatty infiltration with wandy hepatis and subcapsular sparing. No suspicious focal liver lesions. Largely decompressed gallbladder limiting assessment without suspicious CT finding. Negative for biliary dilatation. Moderately atrophic pancreas without suspicious finding. Unremarkable spleen. ALIMENTARY TRACT: Severe distention of the visualized distal esophagus, stomach, and long segment dilatation of the small bowel is attributable to sigmoid volvulus. Closed loop obstruction of the sigmoid colon with the sigmoid colon dilated up to 14 cm diameter. No pneumatosis or portal venous gas evident. Negative for ascites, free air, or hernias. MESENTERIC: Unremarkable. ADRENAL / GENITOURINARY: Normal adrenal glands. Symmetric delayed nephrograms and pyelograms. Negative for hydronephrosis. Unremarkable nondilated ureters and largely decompressed urinary bladder. Enlarged prostate. Symmetric seminal vesicles. RETROPERITONEAL: Negative for lymphadenopathy. VASCULAR: Negative for aortoiliac aneurysm. Decompressed IVC consistent with low volume state. BONES: Negative for suspicious osseous lesions. Degenerative grade 2 L4-L5 anterolisthesis without change. SOFT TISSUE: Unremarkable. IMPRESSION: #. Bowel obstruction secondary to sigmoid volvulus. Closed loop obstruction of the sigmoid colon with the sigmoid colon dilated up to 14 cm diameter. #. High probability for prerenal acute renal failure. #. Hepatosteatosis. #. Small dependent RIGHT pleural effusion and mild bibasilar atelectasis. #. Results discussed with Dr. Hubbard 03/26/2018 1:10 PM EDT
[2018-03-26] MEDS ORDERED: NS 0.9% 1000 ML* 1,000 ML IV ONE ×2 (13:31→16:56)
[2018-03-26] MEDS ORDERED: fentaNYL* 50 MCG/ML 2 ML VIAL (100 MCG VIAL) ONE (14:35)
[2018-03-26] MEDS ORDERED: Midazolam* 1 MG/ML 10 ML VIAL (10 MG) ONE (14:35)
[2018-03-26] MEDS ORDERED: Acetaminophen TAB* 325 MG PO PRN (15:23)
[2018-03-26] MEDS ORDERED: Ondansetron INJ* 2 MG/ML VIAL IV PRN (15:23)
[2018-03-26] MEDS ORDERED: Artificial Tears* 15 ML BTL BOTH EYES PRN (15:39)
--- NOTE | 2018-03-26 16:08 | PN ---
Hospitalist Progress Note Date of Service: 03/26/18 HOSPITALIST ADDENDUM Case reviewed and d/w Eden Méndez NP. Mr Nava is a 77yo M with PMH of Parkinson, GERD, HTN, depression, [facility] resident, referred to ED with c/o abdominal pain and distention. W/u in ED showed sigmoid volvulus, awaiting GI for reduction. As this is a recurrence, we're going to get General surgery involved. I agree with current management.
[2018-03-26] MEDS ORDERED: Cefepime 1 GM in Dextrose(*) 1 GM/50 ML BAG IV SCH (17:00)
[2018-03-26] MEDS ORDERED: Vancomycin(*) 1,000 MG in NS 0.9% 250 ML* 250 ML IVPB ONE (17:37)
--- NOTE | 2018-03-26 17:45 | CONS ---
GASTROENTEROLOGY CONSULT DATE OF CONSULT: 03/26/18 REQUESTING PHYSICIAN: Emergency room. INDICATION: Sigmoid volvulus. HISTORY OF PRESENT ILLNESS: Mr. Nava is a 77-year-old gentleman with a history of Parkinson's, hypertension, asthma, constipation, BPH, muscular dystrophy, cataracts, depression, hypogonadism, pseudo-colonic obstruction, and two prior episodes of sigmoid volvulus (2016, 2017), who was admitted to the emergency room with abdominal distention and pain. Mr. Nava is able to communicate in Lithuanian, although it is difficult to understand him due to his underlying Parkinson's disease. Patient states that the pain began yesterday. He reports feeling significantly uncomfortable due to pain and distention. He denies any nausea or vomiting. He is not passing any flatus or having bowel movements. Brought into the ER from [facility]. Of note, Mr. Nava presented in March of 2017 with a sigmoid volvulus. He underwent a flex-sig with detorsion. Patient apparently also had sigmoid volvulus in 2016, per patient's . PAST MEDICAL HISTORY: 1. Parkinson's disease. 2. Hypertension. 3. Asthma. 4. Constipation. 5. BPH. 6. Muscular dystrophy. 7. Cataracts. 8. Depression. 9. Hypogonadism. 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 MEDICATIONS: 1. Amantadine. 2. Carbidopa and levodopa. 3. Citalopram. 4. Vitamin B12 injections. 5. Furosemide. 6. Losartan. 7. Omeprazole. 8. Tramadol. 9. Testosterone injections. ALLERGIES: To PENICILLIN. FAMILY HISTORY: No GI malignancies per chart. SOCIAL HISTORY: [place] lives in a [place] No report of alcohol, or tobacco in the chart. REVIEW OF SYSTEMS: Twelve systems reviewed. Negative except as above, although patient is not particularly conversant given discomfort. PHYSICAL EXAM: Vital Signs: Temp 100.1, HR 110 to 115, blood pressure 121/68, and 91% to 94% on 4L. General: Elderly, gentleman, lying flat in bed. He appears quite uncomfortable. HEENT: Dry mucous membranes. Cardiovascular: Tachycardic Lungs: Wearing fack mask for O2. Clear to auscultation. No increased work of breathing. Abdomen: Very distended and tight. Hyperactive bowel sounds with high-pitch sounds. No rebound or guarding. Diffusely tender. Skin: Warm and dry. DIAGNOSTIC STUDIES/LAB DATA: Labs notable for a white count of 15.9, hematocrit of 54, platelet count of 335. INR is normal at 0.96. His chemistry panel demonstrates a BUN of 43, creatinine of 1.12, lactic acid is elevated at 3.9. IMAGING: CT abdomen and pelvis performed and notable for a bowel obstruction secondary to sigmoid volvulus. Sigmoid colon noted to be dilated up to 14 cm. Severe distention in the esophagus, stomach, and small bowel is also noted and felt to be secondary to sigmoid volvulus. IMPRESSION AND PLAN: Mr. Nava is a 77-year-old gentleman with a complicated medical history including Parkinson's disease and prior episodes of sigmoid volvulus, who is admitted with recurrent sigmoid volvulus. Clinical presentation concerning for developing sepsis (febrile, tachycardic, hypoxic, leukocytosis, elevated lactate) and possible evolving bowel ischemia. Exam is notable for markedly distended and firm abdomen without peritoneal signs. CT abdomen and pelvis confirms sigmoid volvulus with proximal dilation. No evidence of perforation on imaging. - Recommend IV fluids - Strongly consider antibiotics and admission to ICU - Recommend NG tube to attempt decompression of at least proximal GI tract - Will plan for urgent flex-sig for attempted detorsion. Patient and indicate patient will be full code at least emiliano-procedurally. - Dr. Escalona from Surgery made aware of the case, particularly given concerns about evolving sepsis +/- bowel ischemia given clinical and lab findings. Thank you for this consult. [id number]/[facility] #: [id number] [facility]
[2018-03-26] MEDS: NS 0.9% 1000 ML* 1,000 ML IV SCH (18:09)
--- NOTE | 2018-03-26 18:18 | CONSULT ---
Consult Consult: Consultation Note -- Critical Care Requesting Physician: Dr Lupe Marquez Reason for consult: volvulus, obstruction Limitations in history/physical: parkinsons disease limiting speech; history from and chart Date of consult: 03/26/2018 HPI: 77y M w/pmhx of Parksinsons Disease, HTN, Asthma, BPH, Muscular dystrophy, h/o volvulus x2 episodes with last 03/2017 req colonoscopy, pesudocolonic obstruction, hypogonadism; comes to ER from [place] brought in by for increasing abd distension x2 days, associated with constipation. Mild pain+. No nausea/vom/fever/chills. In ER, CT abd demonstrated a sigmoid volvulus with obstruction. He had an NGT placed with output a total of 600-800cc of dark bilious/feculent like material. GI was consulted, he was taken for a sigmoidoscopy which demonstrated a volvulus at ~25cm which appeared purplish and dusky, so procedure was aborted and further advancement of probe was not done due to likelihood of perforation. Surgical consult called, Dr Escalona. Current condition discussed with at bedside with Dr Escalona also, re-eval after a few hours of medical therapy, IVF hydration will determine need for surgery. ROS: limited ROS due to advanced parkinsons so verbalization is limited PMHx: Parksinsons Disease, HTN, Asthma, BPH, Muscular dystrophy, h/o volvulus x2 episodes with last 03/2017 req colonoscopy, pesudocolonic obstruction, hypogonadism PSHx: cataracts surgery; colonoscopy for volvulus in 03/2017 Family History: none significant Social History: Alcohol-none, Smoking-none, Drug use-none; in [place] now Allergies: Allergies Allergy/AdvReac Type Severity Reaction Status Date / Time lactose Allergy Unknown Verified 03/26/18 15:33 Reaction Details oxycodone Allergy Unknown Verified 03/26/18 15:33 Reaction Details Penicillins Allergy Unknown Verified 03/26/18 15:33 Reaction Details sildenafil Allergy Unknown Verified 03/26/18 15:33 Reaction Details tamsulosin [From Flomax] Allergy Unknown Verified 03/26/18 15:33 Reaction Details Home Medications: Amantadine CAP* [Symmetrel CAP*] 100 mg PO 0800,1700 11/08/15 [History Confirmed 03/26/18] Carbidopa/Levodop 25/100 MG(*) [Sinemet 25/100 TAB(*)] 2 tab PO 0800,1700,2000 11/08/15 [History Confirmed 03/26/18] Carbidopa/Levodop 25/100 MG(*) [Sinemet 25/100 TAB(*)] 2.5 tab PO DAILY [History Confirmed 03/26/18] Losartan TAB* [Cozaar TAB*] 50 mg PO DAILY 11/08/15 [History Confirmed 03/26/18] Citalopram TAB* [CeleXA TAB*] 10 mg PO DAILY 04/11/17 [History Confirmed ] Cyanocobalamin INJ * [Vitamin B12 INJ *] 1,000 mcg IM MONTHLY 04/11/17 [History Confirmed 03/26/18] Furosemide TAB* [Lasix TAB*] 40 mg PO DAILY 04/11/17 [History Confirmed 03/26/18 ] Omeprazole CAP* [Prilosec CAP* 20 MG] 20 mg PO DAILY 04/11/17 [History Confirmed 03/26/18] Artificial Tears* 15 ML BTL [Polyvinyl Alcohol 1.4% OPTH*] 2 drop BOTH EYES Q2H PRN 03/26/18 [History Confirmed 03/26/18] Testosterone Cypionate (NF) 200 mg IM Q14D 03/26/18 [History Confirmed 03/26/18] traMADol TAB* [Ultram*] 50 mg PO BID 03/26/18 [History Confirmed 03/26/18] Tele: Sinus tachy Vitals: Vital Signs Temp 98.8 F 03/26/18 17:50 Pulse 98 03/26/18 18:01 Resp 13 03/26/18 18:01 BP 127/72 03/26/18 18:01 Pulse Ox 99 03/26/18 18:01 Intake & Output 03/25/18 03/26/18 03/26/18 18:59 06:59 18:59 Intake Total 3000 Balance 3000 Weight 67.8 kg Intake: IV Fluids 3000 Oral 0 O2/Vent: 15L oximask Infusions: NS 150cc/hr Current Medications: Acetaminophen (Tylenol Tab*) 650 mg PO Q4H PRN PRN Reason: FEVER/PAIN Heparin Sodium (Porcine) (Heparin Vial(*)) 5,000 units SUBCUT Q8HR [facility] Sodium Chloride (Ns 0.9% 1000 Ml*) 1,000 mls @ 150 mls/hr IV PER RATE APPLE Last Admin: 03/26/18 18:09 Dose: 150 mls/hr Metronidazole/Sodium Chloride (Flagyl 500 Mg Ivpb*) 500 mg in 100 mls @ 100 mls /hr IVPB Q8H [facility] Vancomycin HCl 1,000 mg/ (Sodium Chloride) 250 mls @ 166.667 mls/hr IVPB ONCE ONE Stop: 03/26/18 19:06 Morphine Sulfate (Morphine Vial*) 2 mg IV Q4H PRN PRN Reason: PAIN Ondansetron HCl (Zofran Inj*) 4 mg IV Q4H PRN PRN Reason: NAUSEA/VOMITING Pantoprazole Sodium (Protonix Iv*) 40 mg IV DAILY [facility] Polyvinyl Alcohol (Polyvinyl Alcohol 1.4% Opth*) 2 drop BOTH EYES Q2H PRN PRN Reason: DRY EYE Physical Exam: General: awake, alert, no distress, no diaphoresis Head: normocephalic, atraumatic HEENT: no pallor, no icterus, DRY mucous membranes Neck: soft, supple, no jvd, no stridor CVS: mild tachy, regular, no murmur Resp: bilateral air entry, no rhales, no wheeze, no rhonchi, no acc muscle use Abdomen: soft, distended, minimal tenderness on palpation, BS diminished Ext: pulses+, warm, no edema Skin: intact Neuro: awake, alert, orientation difficult to assess given parkinsons/language verbalization. Noted tremors in UE. Moving all ext. Labs: Laboratory Results - last 24 hr 03/26/18 03/26/18 03/26/18 12:11 12:11 12:11 WBC 15.9 H RBC 5.88 H Hgb 18.0 Hct 54 H MCV 93 MCH 31 MCHC 33 RDW 15 Plt Count 335 MPV 7.2 L Neut % (Auto) 91.7 H Lymph % (Auto) 3.1 L [place] % (Auto) 4.8 Eos % (Auto) 0.1 Baso % (Auto) 0.3 Absolute Neuts (auto) 14.6 H Absolute Lymphs (auto) 0.5 L Absolute Monos (auto) 0.8 Absolute Eos (auto) 0 Absolute Basos (auto) 0 Absolute Nucleated RBC 0 Nucleated RBC % 0.1 INR (Anticoag Therapy) 0.96 APTT 30.5 Sodium 136 Potassium 4.3 Chloride 103 Carbon Dioxide 20 L Anion Gap 13 H BUN 43 H Creatinine 1.12 Est GFR ( Amer) 77.3 Est GFR (Non-Af Amer) 63.9 BUN/Creatinine Ratio 38.4 H Glucose 246 H Lactic Acid Calcium 9.7 Total Bilirubin 1.70 H AST 25 ALT 7 Alkaline Phosphatase 109 H Ammonia Troponin I 0.01 C-Reactive Protein 5.66 Total Protein 8.1 Albumin 4.7 Globulin 3.4 Albumin/Globulin Ratio 1.4 Lipase 10 L 03/26/18 03/26/18 03/26/18 12:11 12:11 15:29 WBC RBC Hgb Hct MCV MCH MCHC RDW Plt Count MPV Neut % (Auto) Lymph % (Auto) [place] % (Auto) Eos % (Auto) Baso % (Auto) Absolute Neuts (auto) Absolute Lymphs (auto) Absolute Monos (auto) Absolute Eos (auto) Absolute Basos (auto) Absolute Nucleated RBC Nucleated RBC % INR (Anticoag Therapy) APTT Sodium Potassium Chloride Carbon Dioxide Anion Gap BUN Creatinine Est GFR ( Amer) Est GFR (Non-Af Amer) BUN/Creatinine Ratio Glucose Lactic Acid 3.9 H* 4.2 H* Calcium Total Bilirubin AST ALT Alkaline Phosphatase Ammonia 73 H Troponin I C-Reactive Protein Total Protein Albumin Globulin Albumin/Globulin Ratio Lipase Imaging: CT abd/pelvis 03/26 obstruction 2/2 to sig volvulus+; small pleural effusions ( report reviewed) Assessment: 77y M w/pmhx of Parksinsons Disease, HTN, Asthma, BPH, Muscular dystrophy, h/o volvulus x2 episodes with last 03/2017 req colonoscopy, pesudocolonic obstruction, hypogonadism; comes to ER from [place] brought in by for increasing abd distension x2 days, associated with constipation. Mild pain+ . No nausea/vom/fever/chills. In ER, CT abd demonstrated a sigmoid volvulus with obstruction. He had an NGT placed with output a total of 600-800cc of dark bilious/feculent like material. GI was consulted, he was taken for a sigmoidoscopy which demonstrated a volvulus at ~25cm which appeared purplish and dusky, so procedure was aborted and further advancement of probe was not done due to likelihood of perforation. Surgical consult called, Dr Escalona. Current condition discussed with at bedside with Dr Escalona also, re-eval after a few hours of medical therapy, IVF hydration will determine need for surgery. -Large bowel obstruction 2/2 to acute sigmoid volvulus, suspected strangulated -Acute hypoxic respiratory failure likely from atelectasis -Pre-renal azotemia -Lactic Acidosis 2/2 to bowel ischemia suspected vs volume depletion Plan: Neuro- awake, alert; baseline parkinsons, poor verbalization. Delirium prec. No sedation. CVS- BP stable, tachycardia better now. Cont IVF hydration; s/p 3 L NS. Labs noted with elevated BUN and elevated counts likely from volume depletion. Elevated LA, low grade temp. may have underlying SIRS response from tissue ischemia. Trend LA. IV abx empirically for abd coverage. El for abd pressure monitoring, watch for signs of comparent syndrome, but I feel abd is softer now. Resp- on 15L, not hypoxic. Will wean down. May be low volumes secondary to poor inspiratory effort/volumes from abd distension. Avoid NIV due to obstruction and potential to aspirate. Intubation for further hypoxia may be needed. CXR reviewed. ID- tmax 100, wbc 16. Sigmoid volvulus on CT with Colonoscopy demonstrated some early ischemia/strangulation likely. LA elevated. For now may not be septic but SIRS response evident. Will start empric IV abx for abdominal coverage, Cefepime and Flagyl IV, Vanco 1gm x1. GI- CT with volvulus. s/p Colonoscopy with areas of dusky colon, possible ischemia. NPO. NGT to suction. PPI IV. Repeat LA, cont IVF hydration. IV abx. KUB now, repeat after 9. Surgical re-eval tonight, if worsening clinical signs, hemodynamics, metabolic parameters, then surgical intervention would have to be an option. Renal- BUN elevated, Cr 1.1, seems pre-renal azotemia, elevated hg and wbc. Lactic acidosis+. s/p 3L IVF administration NS +LR. Cont NS 150cc/hr. Insert el. May need intraabd pressure monitoring if abd size worsened. Heme- hg elevated, possible concentration. Plt stable. Recheck after IVF. DVT proph with heparin sq and SCDs. Endo- fingerstick q6h, maintain BG<200 Musculsk- pressure ulcer prophylaxis. Bedrest. Wounds- none Nutrition- NPO. DVT prophylaxis: Heparin sq, SCDs GI prophylaxis: PPI Central Line: - Arterial Line: - El Cathetor: yes Disposition: ICU Code Status: full code Total Critical Care time is 45 minutes, excluding procedures/teaching Munir Guerra MD Bar Manager (Electronically Signed)
--- NOTE | 2018-03-26 18:22 | PN ---
Progress Note - Progress Note Date of Service: 03/26/18 Note: BRIEF GI NOTE Formal procedure note to follow. Patient febrile in endo unit to 101F and HR in 110's. NG tube placed prior to transfer to endo unit and ~700 cc dark/feculent material in canister. Supplemental O2 increased to 15L pre-procedure. Decision made to attempt flex sig without sedation given high O2 needs. Scope slowly advanced with water immersion technique (NO air insufflation). Water/fluid was suctioned. Scope advanced to ~20 cm at which point narrowed area encountered, which is likely location of volvulus. At this part of the exam , the colonic mucosa was noted to have a dusky purple color with portions of the wall appearing white/black. Dr Escalona was called into the endo unit to see the endoscopic findings. Given concern for ischemic changes and high suspicion for evolving gangrenous process, the decision was made to abort the procedure. Patient's abdomen remained distended post-procedure, although to a lesser degree. Findings reviewed with patient and patient's . Endoscopic de-torsion unable to be completed/pursued further given clinical and endoscopic findings concerning for ischemic/evolving gangrenous bowel. This places patient at an unacceptably high risk for perforation. Dr Guerra (ICU) present during discussion. Will transfer patient to ICU for IV fluids, antibiotics, and close monitoring. Dr Escalona from Surgery to evaluate patient and consider surgical management at this point. Lupe Marquez MD Gastroenterology
[2018-03-26] MEDS: metroNIDAZOLE IV 500 MG/100ML* 500 MG/100 ML BAG IVPB SCH (18:28)
[2018-03-26] MEDS: Pantoprazole IV* 40 MG IV SCH (18:34)
--- NOTE | 2018-03-26 19:23 | PRO ---
PROCEDURE REPORT: DATE OF PROCEDURE: 03/26/18 PROCEDURE: Flex sig. MEDICATIONS GIVEN: None. INDICATION: Sigmoid volvulus on CT scan. 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 He is quite ill today with a very distended abdomen. He is tachycardic and febrile. Labs notable for leukocytosis and mildly elevated lactate. Plan for attempted endoscopic detorsion. PROCEDURE IN DETAIL: Full disclosure of risks was reviewed with the patient and the patient's as detailed on the consent form. The patient was placed in left lateral decubitus position and monitored with continuous pulse oximetry , interval blood pressure monitoring, and direct observation. After anorectal examination was performed, the pediatric colonoscope was inserted into the rectum and advanced for 20 cm. Findings are described below. FINDINGS: Anorectal exam unremarkable. The scope was slowly advanced with water immersion technique (no air insufflation) to around 20 cm. Water fluid was suctioned while scope was advanced. At approximately 20 cm a narrowed area was encountered. This area felt to be the location of the volvulus. At this part of the exam, the colonic mucosa was noted to have dusky purple color with portions of the wall appearing white/black. Dr. Escalona was called into the endo unit to see the endoscopic findings. Given concern for ischemic changes and high suspicion for evolving gangrenous process, the decision was made to abort the procedure. The patient's abdomen remained distended postprocedure, although to a lesser degree. IMPRESSION: 1. Sigmoid volvulus. Colonic wall at area of suspected volvulus appeared dusky purple with white/black portions of the wall. Unable to continue scope to attempt detorsion given these worrisome findings and high perforation risk. Discussed findings with the patient and the patient's , Zuly. Case discussed with Dr. Guerra from ICU and Dr Escalona from Surgery. Endoscopic detorsion is not feasible given the high risk of perforation based on the endoscopic findings concerning for ischemia and evolving gangrenous bowel. The patient will be transferred to the ICU for fluids and antibiotics. Will defer further decision making regarding management to our surgical colleagues. [id number] #: [id number]
[2018-03-26 21:03] LABS: Hematocrit 49 % (42-52); Hemoglobin 16.3 g/dl (14.0-18.0); Mean Corpuscular HGB Conc 33 g/dl (31-36); Mean Corpuscular Hemoglobin 31 pg (27-31); Mean Corpuscular Volume 93 fL (80-94); Mean Platelet Volume 6.9 um3 (7.4-10.4); Platelet Count 225 10^3/ul (150-450); Red Blood Count 5.29 10^6/ul (4.00-5.40); Red Cell Distribution Width 15 % (10.5-15); White Blood Count 11.2 10^3/ul (3.5-10.8)
[2018-03-26 21:17] LABS: Urine Appearance Cloudy; Urine Blood 3+ (Negative); Urine Color Yellow; Urine Ketones Trace (Negative); Urine Protein 1+(30 mg/dL) (Negative); Urine Red Blood Cell 3+(>10/hpf) (Absent); Urine Specific Gravity 1.038 (1.010-1.030); Urine Urobilinogen Negative (Negative); Urine White Blood Cell 1+(6-10/hpf) (Absent)
--- NOTE | 2018-03-26 21:17 | HP ---
AMENDED REPORT NOW INCLUDES DESIGNATED COSIGNER CC: [facility] * HISTORY AND PHYSICAL: DATE OF ADMISSION: 03/26/18 PRIMARY CARE PROVIDER: [facility]. ATTENDING PHYSICIAN: Dr. Jayashree Cortez * (dictated by Matt Méndez NP). CHIEF COMPLAINT: 1. Abdominal pain. 2. Abdominal distention. HISTORY OF PRESENT ILLNESS: Mr. Nava is a 77-year-old male, residing at [facility] , with a past medical history of Parkinson's, GERD, hypertension, depression and chronic pain, who presents to the emergency room today with complaints of abdominal pain. I will note that the patient has advanced Parkinson's with a severe stutter and it is difficult to get much of any information out of the patient. He is mostly able to answer with one word, so it is difficult to obtain a history from him, though he does appear to be in significant pain and diaphoretic on my exam. After reading the notes from [facility], it appears as though the patient had a bowel movement yesterday and the day before. Those bowel movements were both small. Today, the patient had been complaining of abdominal pain in the morning. Nursing assessment noted a firm distended abdomen , no tenderness on palpation. The patient was complaining particularly of right lower quadrant pain. Nursing notes noted hypoactive bowel sounds on the left and absent bowel sounds on the right. The patient reported that he had not been passing any gas recently. He does have a history of obstruction of the sigmoid colon due to sigmoid volvulus in March 2017, so there was a concern for recurrence. In the emergency room, the patient had labs remarkable for an elevated white blood count and elevated lactic acid. The patient had a low-grade temperature. He was tachycardic, tachypneic, and was requiring oxygen to maintain a saturation above 90%. Blood pressure remains stable. He was noted to be particularly distended, and an abdomen and pelvis CT was done, which showed a bowel obstruction secondary to sigmoid volvulus. Gastroenterology was immediately consulted. Gastroenterology attempted to perform a reduction in the emergency room, though it was determined that the patient needed to go upstairs to the endo suite to have that performed. Because of this bowel obstruction and elevated lactic along with tachycardia and tachypnea, the hospitalist service was asked to evaluate for admission. PAST MEDICAL HISTORY: 1. Parkinson's. 2. GERD. 3. Hypertension. 4. Depression. 5. Chronic pain. 6. Sigmoid volvulus. PAST SURGICAL HISTORY: 1. Left cataract extraction. HOME MEDICATIONS: 1. Amantadine 100 mg p.o. b.i.d. 2. Artificial Tears 2 drops both eyes q.2 hours p.r.n. 3. Sinemet 200/100 two tabs p.o. at 0800, 1700 and 2000. 4. Sinemet 25/100, 2.5 tabs p.o. daily. 5. Citalopram 10 mg p.o. daily. 6. Vitamin B12 injection 1000 mcg IM monthly. 7. Furosemide 40 mg p.o. daily. 8. Losartan 50 mg p.o. daily. 9. Omeprazole 20 mg p.o. daily. 10. Testosterone cypionate 200 mg IM q.14 days. 11. Tramadol 50 mg p.o. b.i.d. ALLERGIES: LACTOSE, OXYCODONE, PENICILLINS, SILDENAFIL, and TAMSULOSIN. FAMILY HISTORY: Reportedly, the patient is adopted and does not know his family history. SOCIAL HISTORY: Reportedly, the patient has no history of tobacco, alcohol, or recreational drug use. He resides at [facility]. The patient's , Zuly, is his surrogate decision maker in the event he is unable to make his own decisions , per [facility]. REVIEW OF SYSTEMS: An 11-point review of systems was performed and all the pertinent positive and negative findings are in the HPI. All other systems are negative. PHYSICAL EXAMINATION GENERAL: Mr. Nava is a well-developed, well-nourished male, lying in bed. He is diaphoretic and appears to be in significant pain. VITAL SIGNS: Temp 100.1, heart rate 114, respiratory rate 33, oxygen saturation 94% on 4 L, blood pressure 121/68. HEENT: Head is atraumatic, normocephalic. Pupils are equal, round, and reactive to light and accommodation. Extraocular movements intact. Oral mucous membranes are dry without lesions. NECK: Thyroid not palpable. Trachea at midline. No lymphadenopathy. RESPIRATORY: Symmetrical chest expansion. No chest wall deformities. Lungs are clear to auscultation throughout. No rhonchi, wheezes, or rales. CARDIOVASCULAR: Tachycardic, but regular. S1, S2 present. No murmurs, rubs, or gallops. No JVD. ABDOMEN: Large, distended, and very firm. Bowel sounds are hypoactive throughout. EXTREMITIES: Skin warm and smooth bilaterally. No edema. No clubbing or cyanosis. Pedal pulses 2+ bilaterally. MUSCULOSKELETAL: Full range motion to upper and lower extremities bilaterally. NEURO: He is awake, alert. Difficult to determine orientation. Cranial nerves II through XII are grossly intact. Follows commands. Moves all extremities. SKIN: Grossly intact without lesions. DIAGNOSTIC STUDIES/LAB DATA: WBC 15.9, RBC 5.88, hemoglobin 18.0, hematocrit 54 , platelets 333. INR 0.96. Sodium 136, potassium 4.3, chloride 103, carbon dioxide 20, BUN 43, creatinine 1.12, glucose 246, lactic acid 3.9. Total bili 1.7, alk phos 109. Ammonia 73. Troponin 0.01. Chest x-ray reads as no active cardiopulmonary disease. This was personally reviewed. Abdomen x-ray reads as limited study with diffuse gaseous distention of the colon with large amount of stool within the colon similar to 04/11/17 examination. The differential includes constipation, atonic colon, or distal colonic obstruction including due to volvulus. Abdomen and pelvis CT reads as bowel obstruction secondary to sigmoid volvulus, closed loop obstruction of the sigmoid colon with the sigmoid colon dilated up to 14 cm in diameter, high probability for prerenal or acute renal failure, hepatosteatosis, small dependent right pleural effusion, and mild bibasilar atelectasis. EKG shows sinus tachycardia with a rate of 107. This was personally reviewed. ASSESSMENT AND PLAN: Mr. Nava is a 77-year-old male with past medical history of Parkinson's, gastroesophageal reflux disease, hypertension, depression and chronic pain, who presents to the emergency room today with abdominal pain and was found to have sigmoid volvulus. The patient will be admitted inpatient for: 1. Bowel obstruction secondary to sigmoid volvulus. The patient has already been seen in consultation by Dr. Marquez. She plans on doing an endoscopic reduction via sigmoidoscope. I will defer further management to her. I will place the patient on IV fluids for hydration as he does look dry on exam. I will keep him n.p.o. until further instructed from GI. I will note that the patient does meet sepsis criteria with an elevated lactic, tachycardia, tachypnea, and an elevated white count, though I do not believe as though he has an active infection or severe sepsis. I believe these findings are likely secondary to dehydration and hypovolemia. We will give fluids and continue to trend these labs. I will place him empirically on cefepime to cover any infectious process, though I think that there is a low likelihood of this. 2. Acute kidney injury. The patient's creatinine is at 1.2, which is within normal limits, though I will note that his baseline appears to be 0.6 to 0.7, so he is nearly double his baseline. This is secondary to hypovolemia. We will rehydrate him, continue to trend his BMP. 3. Parkinson's. I will hold the patient's Sinemet and amantadine at this time as he is n.p.o., though he should have these medications as soon as he is cleared for p.o. intake by GI. 4. Gastroesophageal reflux disease. I will hold his pantoprazole at this time. 5. Hypertension. He is not currently hypertensive. He normally takes furosemide and losartan. I will hold both of these due to his acute kidney injury and acute illness. 6. Depression. Hold citalopram. 7. Chronic pain. Hold tramadol. I have ordered morphine IV p.r.n. 8. Fluids, electrolytes, and nutrition: Fluids as noted above. The patient's electrolytes are within normal limits. Again, he will be n.p.o. pending GI consult. 9. Code status: The patient will be a DNR. He comes with a completed MOLST form from [facility]. 10. DVT prophylaxis: According to the DVT Risk Assessment, the patient scores a 4 putting him at high risk. I will place him on heparin. TIME SPENT: Approximately 60 minutes were spent on this admission, greater than half of that spent with the patient obtaining my history, performing my physical exam, and reviewing the plan of care. This case has been reviewed with my attending, Dr. Cortez, who is in agreement with the plan of care. MATT MÉNDEZ, PEARL MAKER [id number] #: [id number] [facility]
[2018-03-26] MEDS: Heparin VIAL(*) 5000 UNITS/ML VIAL (FIVE THOUSAND) SUBCUT SCH (23:46)
[2018-03-27] MEDS: Morphine VIAL* 4 MG/ML VIAL (1 ml vial) IV PRN ×3 (00:22→11:43)
[2018-03-27] MEDS: NS 0.9% 1000 ML* 1,000 ML IV SCH (01:06)
[2018-03-27] MEDS: metroNIDAZOLE IV 500 MG/100ML* 500 MG/100 ML BAG IVPB SCH ×3 (02:53→18:55)
[2018-03-27] MEDS: Heparin VIAL(*) 5000 UNITS/ML VIAL (FIVE THOUSAND) SUBCUT SCH ×3 (05:18→21:37)
[2018-03-27 05:26] LABS: Hematocrit 43 % (42-52); Hemoglobin 14.1 g/dl (14.0-18.0); Mean Corpuscular HGB Conc 33 g/dl (31-36); Mean Corpuscular Hemoglobin 31 pg (27-31); Mean Corpuscular Volume 92 fL (80-94); Mean Platelet Volume 6.8 um3 (7.4-10.4); Platelet Count 204 10^3/ul (150-450); Red Blood Count 4.61 10^6/ul (4.00-5.40); Red Cell Distribution Width 15 % (10.5-15); White Blood Count 9.3 10^3/ul (3.5-10.8)
[2018-03-27 05:29] LABS: INR 1.03 (0.77-1.02)
[2018-03-27 05:45] LABS: EGFR Non-African American 119.8 (>60)
--- NOTE | 2018-03-27 08:00 | RAD ---
HISTORY: volvulus, s/p colonoscopy COMPARISONS: CT dated March 26, 2018 VIEWS: Frontal views of the abdomen. FINDINGS: BOWEL: There are dilated loops of small bowel within the right lower abdomen. There is gaseous distention of the colon with dilatation of the sigmoid colon with the typical appearance of a sigmoid volvulus. CALCULI: There are no abnormal calculi. BONES AND SOFT TISSUES: There are no osseous abnormalities. OTHER FINDINGS: The lung bases are clear. There is no subphrenic gas. IMPRESSION: SIGMOID VOLVULUS PATTERN WITH DILATED SMALL BOWEL CONSISTENT WITH SECONDARY SMALL BOWEL OBSTRUCTION, SIMILAR TO THE PREVIOUS CT EXAMINATION
--- NOTE | 2018-03-27 08:18 | RAD ---
Indication: Evaluate for volvulus. Flat and upright views of the abdomen demonstrates no free air. Again noted is a dilated sigmoid colon consistent with sigmoid volvulus not significantly changed since March 26, 2018. IMPRESSION: Dilated sigmoid colon consistent with sigmoid volvulus. Findings are unchanged from March 26, 2018.
[2018-03-27] MEDS: Pantoprazole IV* 40 MG IV SCH (09:17)
[2018-03-27] MEDS: KCL 20 MEQ/100 ML IVPREMIX* 20 MEQ/100 ML BAG IV SCH ×2 (10:24→13:26)
--- NOTE | 2018-03-27 14:56 | PN ---
Progress Note - Progress Note Date of Service: 03/27/18 Note: Progress Note -- Critical Care 24 hour events -no sig overnight events noted; on RA, abd unchanged. had a bowel movemeent. -awake/alert, no distress. states some mild abd pain in lower abd. -tmax 99 -labs reviewed; improved overnight; surgeon reviewed overnight last night and deferred any emergent surgery. - at bedside today, discussed with her along with Dr Escalona Tele: NSR Vitals: Vital Signs Temp 98.6 F 03/27/18 14:30 Pulse 90 03/27/18 14:30 Resp 17 03/27/18 15:00 BP 154/79 03/27/18 14:30 Pulse Ox 96 03/27/18 14:30 Intake & Output 03/26/18 03/27/18 03/27/18 18:59 06:59 18:59 Intake Total 3000 2163 Output Total 1545 380 Balance 3000 618 -380 Weight 67.8 kg 70.8 kg Intake: IV Fluids 3000 1713 NS (0.9%) 1713 IVPB 450 NS (0.9%) 450 Oral 0 Output: NG Tube Drainage Amount 380 Urine 225 45 El 940 335 Other: Date of Last Bowel 03/26/18 Movement # Bowel Movements 1 1 Estimated Stool Amount Medium Medium O2/Vent: RA,/NC Infusions: NS Current Medications: Acetaminophen (Tylenol Tab*) 650 mg PO Q4H PRN PRN Reason: FEVER/PAIN Heparin Sodium (Porcine) (Heparin Vial(*)) 5,000 units SUBCUT Q8HR [facility] Last Admin: 03/27/18 13:27 Dose: 5,000 units Metronidazole/Sodium Chloride (Flagyl 500 Mg Ivpb*) 500 mg in 100 mls @ 100 mls /hr IVPB Q8H [facility] Last Admin: 03/27/18 09:17 Dose: 100 mls/hr Lactated Ringer's (Lactated Ringers 1000 Ml Bag*) 1,000 mls @ 75 mls/hr IV PER RATE [facility] Last Admin: 03/27/18 10:24 Dose: 75 mls/hr Morphine Sulfate (Morphine Vial*) 2 mg IV Q4H PRN PRN Reason: PAIN Last Admin: 03/27/18 11:43 Dose: 2 mg Ondansetron HCl (Zofran Inj*) 4 mg IV Q4H PRN PRN Reason: NAUSEA/VOMITING Pantoprazole Sodium (Protonix Iv*) 40 mg IV DAILY [facility] Last Admin: 03/27/18 09:17 Dose: 40 mg Polyvinyl Alcohol (Polyvinyl Alcohol 1.4% Opth*) 2 drop BOTH EYES Q2H PRN PRN Reason: DRY EYE Physical Exam: General: awake, alert, no distress, no diaphoresis Head: normocephalic, atraumatic HEENT: no pallor, no icterus, moist mucous membranes Neck: soft, supple, no jvd, no stridor CVS: normal rate, regular, no murmur Resp: bilateral air entry, no rhales, no wheeze, no rhonchi, no acc muscle use Abdomen: soft, distended, tympanic, minimal tenderness on palpation in lower quad (unchanged), BS diminished Ext: pulses+, warm, no edema Skin: intact Neuro: awake, alert, orientation difficult to assess given parkinsons/language verbalization. Noted tremors in UE. Moving all ext. Labs: Laboratory Results - last 24 hr 03/26/18 03/26/18 03/26/18 15:29 20:45 20:45 WBC RBC Hgb Hct MCV MCH MCHC RDW Plt Count MPV INR (Anticoag Therapy) Sodium 140 Potassium 4.3 Chloride 108 Carbon Dioxide 27 Anion Gap 5 BUN 49 H Creatinine 1.01 Est GFR ( Amer) 87.1 Est GFR (Non-Af Amer) 72.0 BUN/Creatinine Ratio 48.5 H Glucose 114 H Lactic Acid 4.2 H* Calcium 8.2 L Magnesium Urine Color Yellow Urine Appearance Cloudy Urine pH 5.0 Ur Specific [place] 1.038 H Urine Protein 1+(30 mg/dl) A Urine Ketones Trace A Urine Blood 3+ A Urine Nitrate Negative Urine Bilirubin Negative Urine Urobilinogen Negative Ur Leukocyte Esterase Trace A Urine WBC (Auto) 1+(6-10/hpf) A Urine RBC (Auto) 3+(>10/hpf) A Ur Squamous Epith Cells Present A Urine Bacteria Absent Hyaline Casts Present A Urine Glucose Negative Blood Type Antibody Screen 03/26/18 03/26/18 03/26/18 20:45 20:45 20:45 WBC 11.2 H RBC 5.29 Hgb 16.3 Hct 49 MCV 93 MCH 31 MCHC 33 RDW 15 Plt Count 225 MPV 6.9 L INR (Anticoag Therapy) Sodium Potassium Chloride Carbon Dioxide Anion Gap BUN Creatinine Est GFR ( Amer) Est GFR (Non-Af Amer) BUN/Creatinine Ratio Glucose Lactic Acid 1.7 Calcium Magnesium Urine Color Urine Appearance Urine pH Ur Specific [place] Urine Protein Urine Ketones Urine Blood Urine Nitrate Urine Bilirubin Urine Urobilinogen Ur Leukocyte Esterase Urine WBC (Auto) Urine RBC (Auto) Ur Squamous Epith Cells Urine Bacteria Hyaline Casts Urine Glucose Blood Type O Positive Antibody Screen Negative 03/27/18 03/27/18 03/27/18 05:10 05:10 05:10 WBC 9.3 RBC 4.61 Hgb 14.1 Hct 43 MCV 92 MCH 31 MCHC 33 RDW 15 Plt Count 204 MPV 6.8 L INR (Anticoag Therapy) 1.03 H Sodium 140 Potassium 3.5 Chloride 112 H Carbon Dioxide 23 Anion Gap 5 BUN 38 H Creatinine 0.65 L Est GFR ( Amer) 144.9 Est GFR (Non-Af Amer) 119.8 BUN/Creatinine Ratio 58.5 H Glucose 112 H Lactic Acid Calcium 7.7 L Magnesium 2.0 Urine Color Urine Appearance Urine pH Ur Specific [place] Urine Protein Urine Ketones Urine Blood Urine Nitrate Urine Bilirubin Urine Urobilinogen Ur Leukocyte Esterase Urine WBC (Auto) Urine RBC (Auto) Ur Squamous Epith Cells Urine Bacteria Hyaline Casts Urine Glucose Blood Type Antibody Screen 03/27/18 03/27/18 05:10 13:30 WBC RBC Hgb Hct MCV MCH MCHC RDW Plt Count MPV INR (Anticoag Therapy) Sodium Potassium Chloride Carbon Dioxide Anion Gap BUN Creatinine Est GFR ( Amer) Est GFR (Non-Af Amer) BUN/Creatinine Ratio Glucose Lactic Acid 0.8 0.7 Calcium Magnesium Urine Color Urine Appearance Urine pH Ur Specific [place] Urine Protein Urine Ketones Urine Blood Urine Nitrate Urine Bilirubin Urine Urobilinogen Ur Leukocyte Esterase Urine WBC (Auto) Urine RBC (Auto) Ur Squamous Epith Cells Urine Bacteria Hyaline Casts Urine Glucose Blood Type Antibody Screen Imaging: CT abd/pelvis 03/26 obstruction 2/2 to sig volvulus+; small pleural effusions ( report reviewed) KUB 03/26- distended loops KUB 03/27 - unchanged, distended loops Assessment: 77y M w/pmhx of Parksinsons Disease, HTN, Asthma, BPH, Muscular dystrophy, h/o volvulus x2 episodes with last 03/2017 req colonoscopy, pesudocolonic obstruction, hypogonadism; comes to ER from [place] brought in by for increasing abd distension x2 days, associated with constipation. Mild pain+ . No nausea/vom/fever/chills. In ER, CT abd demonstrated a sigmoid volvulus with obstruction. He had an NGT placed with output a total of 600-800cc of dark bilious/feculent like material. GI was consulted, he was taken for a sigmoidoscopy which demonstrated a volvulus at ~25cm which appeared purplish and dusky, so procedure was aborted and further advancement of probe was not done due to likelihood of perforation. Surgical consult called, Dr Escalona. Current condition discussed with at bedside with Dr Escalona also, re-eval after a few hours of medical therapy, IVF hydration will determine need for surgery. -Large bowel obstruction 2/2 to acute sigmoid volvulus, suspected strangulated -Acute hypoxic respiratory failure likely from atelectasis; resolved -Pre-renal azotemia -Lactic Acidosis 2/2 to bowel ischemia suspected vs volume depletion Plan: Neuro- awake, alert; baseline parkinsons, poor verbalization. Delirium prec. No sedation. CVS- BP stable, tachycardia better. Mkaing urine. LA normalized. Afebrile. No clear infection, likey was SIRS/volume depletion. change IVF to LR 75cc/hr. Resp- on RA/NC. no distress. ID- tmax 99, wbc normalized. Sigmoid volvulus on CT with Colonoscopy demonstrated some early ischemia/strangulation. KUB unchanged, distended loops. some bowel movement overnight. Unchange clinical exam, no increased peritoneal signs. No plan for repeat colonoscopy. Surgery onboard, looks better today; plan for colectomy/colostomy once family decides. Will need OR for permanent solution to repeat volvulus. Plan for OR today or tomorrow. Cont Cefepim/Flagyl IV empirically. GI- CT with volvulus. KUB unchanged. s/p Colonoscopy with areas of dusky colon, possible ischemia. -NPO. NGT to suction, more bilious output noted now, less dark/fecal like. Cont PPI IV. Unchange abd exam, no increased pain. no plan for repeat colonoscopy. Surgery discussed with family about colostomy as permanent solution, they are deciding. Plan for OR today or tomorrow. Renal- BUN improved, Cr lower. likely some component of volume depletion and low flow state. change IVF to LR 75cc/hr. Lactic acidosis improved. el. Heme- hg stable. plt stable. DVT proph with heparin sq and SCDs. Endo- fingerstick q6h, maintain BG<200 Musculsk- pressure ulcer prophylaxis. Bedrest. Wounds- none Nutrition- NPO. DVT prophylaxis: Heparin sq, SCDs GI prophylaxis: PPI Central Line: - Arterial Line: - El Cathetor: yes Disposition: ICU Code Status: full code Total Critical Care time is 30 minutes, excluding procedures/teaching Munir Guerra MD Telecommunications Repairer (Electronically Signed)
[2018-03-27] MEDS: Cefepime 1 GM in Dextrose(*) 1 GM/50 ML BAG IV SCH (16:08)
[2018-03-27] MEDS ORDERED: fentaNYL* 50 MCG/ML 2 ML VIAL (100 MCG VIAL) ONE (17:37)
[2018-03-27] MEDS ORDERED: Midazolam* 1 MG/ML 10 ML VIAL (10 MG) ONE (17:38)
[2018-03-28] MEDS: metroNIDAZOLE IV 500 MG/100ML* 500 MG/100 ML BAG IVPB SCH ×2 (02:11→08:46)
[2018-03-28] MEDS: Cefepime 1 GM in Dextrose(*) 1 GM/50 ML BAG IV SCH (05:11)
[2018-03-28] MEDS: Heparin VIAL(*) 5000 UNITS/ML VIAL (FIVE THOUSAND) SUBCUT SCH ×3 (05:11→22:23)
[2018-03-28 05:36] LABS: Hematocrit 41 % (42-52); Hemoglobin 13.6 g/dl (14.0-18.0); Mean Corpuscular HGB Conc 33 g/dl (31-36); Mean Corpuscular Hemoglobin 31 pg (27-31); Mean Corpuscular Volume 93 fL (80-94); Mean Platelet Volume 6.9 um3 (7.4-10.4); Platelet Count 175 10^3/ul (150-450); Red Blood Count 4.42 10^6/ul (4.00-5.40); Red Cell Distribution Width 15 % (10.5-15); White Blood Count 5.5 10^3/ul (3.5-10.8)
[2018-03-28 05:42] LABS: INR 1.06 (0.77-1.02)
[2018-03-28 06:11] LABS: EGFR Non-African American 158.4 (>60)
[2018-03-28] MEDS: Pantoprazole IV* 40 MG IV SCH (07:50)
--- NOTE | 2018-03-28 09:07 | RAD ---
Indication: Follow-up volvulus. Flat plate of the abdomen demonstrates rectal tube in place. Previously identified dilated loop of colon consistent with sigmoid volvulus is no longer present. IMPRESSION: Rectal tube in place. Dilated colon is no longer present.
[2018-03-28] MEDS ORDERED: KCL 20 MEQ/100 ML IVPREMIX* 20 MEQ/100 ML BAG IV ONE (11:53)
--- NOTE | 2018-03-28 11:53 | PN ---
Progress Note - Progress Note Date of Service: 03/28/18 Note: Progress Note -- Critical Care 24 hour events -s/p decompression yesterday with colonoscopy, volvulus resolved -abd soft, flat today; rectual tube in place; had bowel movement -ngt in place -no pain/sob/n/v; afebrile -LR infusing -family at bedside Tele: NSR Vitals: Vital Signs Temp 98.4 F 03/28/18 11:00 Pulse 82 03/28/18 11:00 Resp 22 03/28/18 11:00 BP 147/75 03/28/18 11:00 Pulse Ox 96 03/28/18 11:00 Intake & Output 03/27/18 03/28/18 03/28/18 18:59 06:59 18:59 Intake Total 905 1162 Output Total 1235 910 360 Balance -330 252 -360 Weight 71.4 kg Intake: IV Fluids 905 839 LR 905 839 IVPB 298 LR 298 Oral 0 NG Tube Irrigate Amount 25 Output: NG Tube Drainage Amount 25 Urine 45 El 1165 910 360 Other: # Bowel Movements 1 Estimated Stool Amount Medium Small O2/Vent: RA Infusions: 1/2 NS Current Medications: Acetaminophen (Tylenol Tab*) 650 mg PO Q4H PRN PRN Reason: FEVER/PAIN Amantadine HCl (Symmetrel Cap*) 100 mg PO 0800,1700 [facility] Carbidopa/Levodopa (Sinemet 25/100 Tab(*)) 2 tab PO 0800,1700,2000 [facility] Citalopram Hydrobromide (Celexa Tab*) 10 mg PO DAILY [facility] Heparin Sodium (Porcine) (Heparin Vial(*)) 5,000 units SUBCUT Q8HR [facility] Last Admin: 03/28/18 05:11 Dose: 5,000 units Metronidazole/Sodium Chloride (Flagyl 500 Mg Ivpb*) 500 mg in 100 mls @ 100 mls /hr IVPB Q8H [facility] Last Admin: 03/28/18 08:46 Dose: 100 mls/hr Lactated Ringer's (Lactated Ringers 1000 Ml Bag*) 1,000 mls @ 75 mls/hr IV PER RATE [facility] Last Admin: 03/28/18 02:12 Dose: 75 mls/hr Cefepime HCl (Maxipime 1 Gm In Dextrose Duplex (*)) 1 gm in 50 mls @ 100 mls/ hr IV Q12H [facility] Last Admin: 03/28/18 05:11 Dose: 100 mls/hr Morphine Sulfate (Morphine Vial*) 2 mg IV Q4H PRN PRN Reason: PAIN Last Admin: 03/27/18 11:43 Dose: 2 mg Ondansetron HCl (Zofran Inj*) 4 mg IV Q4H PRN PRN Reason: NAUSEA/VOMITING Pantoprazole Sodium (Protonix Iv*) 40 mg IV DAILY [facility] Last Admin: 03/28/18 07:50 Dose: 40 mg Polyvinyl Alcohol (Polyvinyl Alcohol 1.4% Opth*) 2 drop BOTH EYES Q2H PRN PRN Reason: DRY EYE Physical Exam: General: awake, alert, no distress, no diaphoresis Head: normocephalic, atraumatic HEENT: no pallor, no icterus, moist mucous membranes Neck: soft, supple, no jvd, no stridor CVS: normal rate, regular, no murmur Resp: bilateral air entry, no rhales, no wheeze, no rhonchi, no acc muscle use Abdomen: soft, flat/nondistended, BS+, nontender Ext: pulses+, warm, no edema Skin: intact Neuro: awake, alert, orientation difficult to assess given parkinsons/language verbalization. Noted tremors in UE. Moving all ext. Labs: Laboratory Results - last 24 hr 03/27/18 03/28/18 03/28/18 13:30 05:18 05:18 WBC 5.5 RBC 4.42 Hgb 13.6 L Hct 41 L MCV 93 MCH 31 MCHC 33 RDW 15 Plt Count 175 MPV 6.9 L INR (Anticoag Therapy) Sodium 139 Potassium 3.7 Chloride 109 Carbon Dioxide 23 Anion Gap 7 BUN 21 Creatinine 0.51 L Est GFR ( Amer) 191.7 Est GFR (Non-Af Amer) 158.4 BUN/Creatinine Ratio 41.2 H Glucose 78 Lactic Acid 0.7 Calcium 7.8 L Magnesium 2.0 Total Bilirubin 1.10 H Direct Bilirubin 0.20 H Indirect Bilirubin 0.9 AST 23 ALT 17 Alkaline Phosphatase 70 Total Protein 5.4 L Albumin 3.1 L Globulin 2.3 Albumin/Globulin Ratio 1.3 03/28/18 05:18 WBC RBC Hgb Hct MCV MCH MCHC RDW Plt Count MPV INR (Anticoag Therapy) 1.06 H Sodium Potassium Chloride Carbon Dioxide Anion Gap BUN Creatinine Est GFR ( Amer) Est GFR (Non-Af Amer) BUN/Creatinine Ratio Glucose Lactic Acid Calcium Magnesium Total Bilirubin Direct Bilirubin Indirect Bilirubin AST ALT Alkaline Phosphatase Total Protein Albumin Globulin Albumin/Globulin Ratio Imaging: CT abd/pelvis 03/26 obstruction 2/2 to sig volvulus+; small pleural effusions ( report reviewed) KUB 03/26- distended loops KUB 03/27 - unchanged, distended loops Assessment: 77y M w/pmhx of Parksinsons Disease, HTN, Asthma, BPH, Muscular dystrophy, h/o volvulus x2 episodes with last 03/2017 req colonoscopy, pesudocolonic obstruction, hypogonadism; comes to ER from [place] brought in by for increasing abd distension x2 days, associated with constipation. Mild pain+ . No nausea/vom/fever/chills. In ER, CT abd demonstrated a sigmoid volvulus with obstruction. He had an NGT placed with output a total of 600-800cc of dark bilious/feculent like material. GI was consulted, he was taken for a sigmoidoscopy which demonstrated a volvulus at ~25cm which appeared purplish and dusky, so procedure was aborted and further advancement of probe was not done due to likelihood of perforation. Surgical consult called, Dr Escalona. Current condition discussed with at bedside with Dr Escalona also, re-eval after a few hours of medical therapy, IVF hydration will determine need for surgery. -Large bowel obstruction 2/2 to acute sigmoid volvulus, suspected strangulated; improved -Acute hypoxic respiratory failure likely from atelectasis; resolved -Pre-renal azotemia -Lactic Acidosis 2/2 to bowel ischemia suspected vs volume depletion Plan: Neuro- awake, alert; baseline parkinsons, poor verbalization. restart oral antiparkinson medications if able to swallow. Delirium prec. CVS- BP stable, tachycardia better. Mkaing urine. Afebrile. cont LR 50cc/hr for now till able to take po. Resp- on RA. no distress. ID- tmax 99, wbc normalized. No acitive infection, culture neg, c.diff neg. will d/c cefepime/flagyl today. likely was SIRS from volvulus. GI- VOlvulus imrpoved s/p colonoscopy. abd soft, bowel movements+. NGT in place. Surgery followup; if no plan for surgery today, will trial liquid diet and advance as tolerated. Renal- Cr stable/normal. GOod urine output. Dec LR to 50cc/hr. KCL IV 20meq x1 repletion. No el. Heme- hg stable. plt stable. DVT proph with heparin sq and SCDs. Endo- fingerstick q6h, maintain BG<200 Musculsk- pressure ulcer prophylaxis. oob to chair today. Wounds- none Nutrition- NPO, swallow screen. DVT prophylaxis: Heparin sq, SCDs GI prophylaxis: PPI Central Line: - Arterial Line: - El Cathetor: yes Disposition: likely for downgrade to medical floor today Code Status: full code Munir Guerra MD Trial Management Associate (Electronically Signed)
[2018-03-28] MEDS ORDERED: Testosterone Cypionate (NF) 200 MG/ML VIAL IM SCH (12:00)
--- NOTE | 2018-03-28 12:41 | PRO ---
CC: Dr. Toney; Dr. Guerra; Dr. Escalona * FLEXIBLE SIGMOIDOSCOPY REPORT: DATE OF PROCEDURE: 03/27/18 - ROOM #402 INDICATION FOR PROCEDURE: Sigmoid volvulus, emergent. PROCEDURE PERFORMED: Decompression of sigmoid volvulus with detorsion. MEDICATIONS GIVEN: Include Midazolam 2 mg IV, Fentanyl 25 mcg IV. HISTORY OF PRESENT ILLNESS: This is a 77-year-old male who presented with sigmoid volvulus. Initial decompression yesterday was unsuccessful. The patient was hydrated and hemodynamics improved and a repeat request was done today after discussion with surgery. We discussed that there may be an increased risk of perforation for this procedure with both the family and the surgical team and they prepared to help this if surgery is needed. He would need surgery regardless. The goal here is to hopefully decompress and to allow the mucosa some time to heal. After discussing this with both the surgical team and the patient's and him, they have agreed to proceed with endoscopic decompression. After the flexible sigmoidoscopy procedure including the risks, benefits, and alternatives with the risk not limited to perforation, infection, , and/or surgery with permanent ostomy were explained to the patient and . Informed consent was obtained from both the patient and his translating. After this was obtained, opportunity was presented for questions. All questions were answered and at that point, IV medication was given. The patient was turned on his side. A rectal exam was performed and revealed gross stool. Initially an EGD scope was inserted into the rectum. The first torsion was encountered roughly about 15 cm from the rectal canal. I was able to advance the EGD scope with some gentle pressure through this area. The mucosa looked pretty good. There was some mild erythema to the area but did not look dusky in appearance. I was able to enter the volvulus cavity and decompress this and then advance to the second torsion, which was roughly 20 to 25 cm beyond here and passed this. I encountered significant looping upon going past this area. At this point, I decided to switch through a pediatric colonoscope and was able to advance through those two torsions to the mid transverse colon. Multiple reductions and telescoping were done with myself rotating his sigmoid loop as much as possible clock harrell on multiple reductions. This did have good effect and I was able to suction beyond this. I did encounter solid stool in the mid transverse colon and was unable to advance beyond that area. At this point, I advanced a Jag ERCP guidewire through the pediatric colonoscope and withdrew slowly. Once I had the scope completely out of the patient, I then advanced a rectal tube and then removed the guidewire at that time. The rectal tube was then taped to the patient and the procedure was complete. Post procedure, his abdomen was incredibly soft without any signs of perforation and he tolerated the procedure extremely well and stayed in the ICU in stable condition. IMPRESSION: 1. Successful decompression and some detorsion of the sigmoid volvulus. 2. Successful placement of rectal tube through the sigmoid volvulus via ERCP Jag guidewire. RECOMMENDATIONS: At this time, I have informed the surgical team. Hopefully this will buy him some time. He will ultimately need surgery, this will keep repeating. Defer further management to surgical team at this point but will be available if needed for other concerns. [id number]/CPS #: [id number] MTDD
--- NOTE | 2018-03-28 13:57 | PN ---
Progress Note - Progress Note Date of Service: 03/28/18 SOAP: Subjective: Pt seen and examined. Chart reviewed. Case d/w CCM team and with pt's family. resolution of sigmoid volvulus. No abdo pain. Pt feels he does not want surgery , but wants his family's input Objective: Temp Pulse Resp BP Pulse Ox 98.8 F 81 26 163/86 96 03/28/18 13:00 03/28/18 13:00 03/28/18 13:00 03/28/18 13:00 03/28/18 13:00 abdo: soft/ ND/ NT Assessment: resolved sigmoid volvulus that was complicated with dehydration and a concern for gangrene. Pt is now HD stable Plan: I recommend a sigmoid colectomy later this month. Please see my consult regarding this. Pt and pt's family are considering strongly this plan. NGT out when 8hr output less that 150cc. Advance diet per primary team. medical risk assessment prior to surgery SACMA to cover this weekend- please call on-call surgeon if pt needs surgical reevaluation.
[2018-03-28] MEDS: Carbidopa/Levodop 25/100 MG TAB(*) PO SCH ×2 (17:54→22:23)
[2018-03-28] MEDS: Amantadine CAP* 100 MG PO SCH (18:00)
[2018-03-28] MEDS ORDERED: Docusate CAP* 100 MG PO PRN (21:00)
--- NOTE | 2018-03-28 21:40 | CONS ---
CC: [facility]; Jonathan Parikh MD CONSULTATION REPORT: DATE OF CONSULT: 03/27/18 HISTORY OF PRESENT ILLNESS: I was contacted by the gastroenterology group on 03/26/18 for evaluation of Mr. Nava, a 77-year-old patient with Parkinson's, [facility] resident who presented to the emerge ncy room with abdominal distension and abdominal pain for close to 2 days. Workup in the emergency r oom included a CAT scan which showed a sigmoid volvulus. The patient was noted to be dehydrated. He had beginnings of rehydration and went urgently to endoscopy where the patient underwent a partial s igmoidoscopy with flexible colonoscope by the ledger poster. The mucosa appeared some what viol aceous and the concern that there was harboring gangrene and the procedure was aborted. I was able t o see the images as the procedure was occurring and discussed the care with both the gastroenterologi st in the ICU attending, whom the patient got admitted to. The patient in the meantime during this workup had an NG tube placed and had a significant amount of output and had small amount of stool removed during the endoscopy. The patient received multiple lit ers of fluid and improved from a hemodynamic standpoint while in the ICU. I did examine the patient on 03/26/18 while in the endoscopy suite but he had recently been under some minimal sedation. His ab domen was distended and somewhat soft. Decision at this point was for watchful waiting. If the adrien ent who showed improvement overall from a hemodynamic stand point as the family members decided what their plan would be for this 77-year- old gentleman who was a DNR at that time. On 03/27/18, I saw the patient early in the morning. He was examined at that time. His metabolics as well as vitals had improved significantly from his initial arrival to the emergency room. He remain ed distended. He did not complain of pain. He had required minimal narcotics. PAST MEDICAL HISTORY: 1. Parkinson's. 2. Gastroesophageal reflux. 3. Hypertension. 4. Hypertension. 5. Chronic pain. 6. History of sigmoid volvulus approximately 1 year ago. The patient was hospitalized for this. He did undergo endoscopy for detorsion, was not followed by a surgeon. According to the patient's , she feels that it also happened an other time when in less clinical aspect where the patient was no t treated with any intervention. PAST SURGICAL HISTORY: Cataract surgery. No abdominal surgeries. MEDICATIONS: Home medication list reviewed and does not include any blood thinners. ALLERGIES: List reviewed. SOCIAL HISTORY: The patient denies tobacco or alcohol use. He resides at [facility]. The patient's sees him regularly. He has 2 children. REVIEW OF SYSTEMS: No significant weight loss or weight gain, worsening ability to communicate. Pa funmi's as described. History of chronic constipation. No bleeding or clotting disorders. No car diac disease. No pulmonary disease. History of depression. PHYSICAL EXAM: The patient was afebrile. Vital Signs: Stable with heart rate in the 70s. It had b een in the 110s in the initial arrival time. He was making good urine. He did have a bowel movement recorded from the overnight period after the initial colonoscopy. He was awake, alert, could nod hi s head but I could not communicate with him other than through his . Abdomen was soft, distended , minimally tender on deep palpation, hypoactive bowel sounds. No hernias or masses noted. Tympany appreciated. Rectal exam not performed. DIAGNOSTIC STUDIES/LAB DATA: X-ray reviewed which was consistent with dilated sigmoid colon and sigm oid volvulus mostly unchanged from he previous CAT scan. The CAT scan was reviewed the previous day, which showed volvulus but no evidence of free air, free fluid or pneumatosis. Labs reviewed including patient's course of lactic acid during his hospital stay. ADDITIONAL HOSPITAL COURSE: The patient underwent additional colonoscopy in the evening of 03/27/18 for attempted decompression volvulus of the sigmoid colon. This was successful and a rectal tube plac ed. According to the report, the mucosa appeared pink and intact without ischemic changes. IMPRESSION: A 77-year-old gentleman, Parkinson's, [facility] resident with recurrent sigmoid volvu lv treated after second attempt with colonoscopic decompression, now improving with most recent x-ra y consistent with resolution of sigmoid volvulus. This does represent a significant admission with p atient with dehydration, elevated lactate and a concern a necrotic bowel. I do believe he is at sign ificant risk going forward of having recurrent volvulus and recommended to the family a sigmoid colec franklin with primary anastomosis. I spoke to the son on the phone on 03/27/18, as well as the daughter the day before and the . It is unclear at this point if the patient can make his own decisions b ut the family clearly wants him involved and I think that is reasonable. The patient does not need a ny emergent intervention at this time but I strongly recommend sigmoid colectomy. I discussed the pr ocedure itself as well as going over the alternatives and watchful waiting and being careful with reg ards to constipation and recurrent episodes and time to treat but overall I am concerned that this wi ll occur again and will represent a significant risk and the possible need for emergent sigmoid colec franklin and colostomy. The patient's family's questions were answered. They would like to also go forw lamonte with this intervention. RECOMMENDATION: My recommendation is to advance his diet somewhat rapidly going over the next few da ys with the intent of taking to the OR in the next 10 days. The patient will be in the hospital. The y understand that I am not going to be covering over the weekend. He is under the care of the ICU at [facility], who will be looking towards the possible transfer to the floor in coming days. Hopefully hi s NG tube will be able to be removed and his diet advanced. For prevention of additional volvulus, s urgery remains the main stay. The family will have discussion with the patient. I believe that the family will ultimately make the decision, but want to have deep discussion with Mr. Nava regarding surg ical intervention. [id number]/[facility] #: [id number]
[2018-03-29] MEDS: Heparin VIAL(*) 5000 UNITS/ML VIAL (FIVE THOUSAND) SUBCUT SCH ×3 (05:49→20:31)
[2018-03-29] MEDS: Omeprazole CAP* 20 MG PO SCH (05:49)
[2018-03-29 08:22] LABS: Hematocrit 41 % (42-52); Hemoglobin 14.3 g/dl (14.0-18.0); Mean Corpuscular HGB Conc 35 g/dl (31-36); Mean Corpuscular Hemoglobin 32 pg (27-31); Mean Corpuscular Volume 91 fL (80-94); Mean Platelet Volume 6.7 fL (7.4-10.4); Platelet Count 184 10^3/ul (150-450); Red Blood Count 4.54 10^6/ul (4.00-5.40); Red Cell Distribution Width 14 % (10.5-15); White Blood Count 4.6 10^3/ul (3.5-10.8)
[2018-03-29 08:33] LABS: INR 1.07 (0.77-1.02)
[2018-03-29 08:38] LABS: EGFR Non-African American 165.9 (>60)
[2018-03-29] MEDS: Carbidopa/Levodop 25/100 MG TAB(*) PO SCH ×3 (08:48→20:30)
[2018-03-29] MEDS: Amantadine CAP* 100 MG PO SCH ×2 (08:48→18:25)
[2018-03-29] MEDS: Citalopram TAB* 10 MG PO SCH (08:48)
[2018-03-29] MEDS: Morphine VIAL* 4 MG/ML VIAL (1 ml vial) IV PRN (08:48)
--- NOTE | 2018-03-29 09:46 | PN ---
Subjective Date of Service: 03/29/18 Interval History: NG clamped Eating breakfast with assistance - mechanical ground Denies pain No BM x 2 days Objective Active Medications: Acetaminophen (Tylenol Tab*) 650 mg PO Q4H PRN PRN Reason: FEVER/PAIN Amantadine HCl (Symmetrel Cap*) 100 mg PO 0800,1700 [facility] Last Admin: 03/29/18 08:48 Dose: 100 mg Carbidopa/Levodopa (Sinemet 25/100 Tab(*)) 2 tab PO 0800,1700,2000 [facility] Last Admin: 03/29/18 08:48 Dose: 2 tab Citalopram Hydrobromide (Celexa Tab*) 10 mg PO DAILY [facility] Last Admin: 03/29/18 08:48 Dose: 10 mg Docusate Sodium (Colace Cap*) 100 mg PO BID PRN PRN Reason: CONSTIPATION Last Admin: 03/29/18 08:48 Dose: 100 mg Heparin Sodium (Porcine) (Heparin Vial(*)) 5,000 units SUBCUT Q8HR [facility] Last Admin: 03/29/18 05:49 Dose: 5,000 units Lactated Ringer's (Lactated Ringers 1000 Ml Bag*) 1,000 mls @ 50 mls/hr IV PER RATE [facility] Last Admin: 03/28/18 17:50 Dose: 50 mls/hr Morphine Sulfate (Morphine Vial*) 2 mg IV Q4H PRN PRN Reason: PAIN Last Admin: 03/29/18 08:48 Dose: 2 mg Omeprazole (Prilosec Cap*) 20 mg PO DAILY@0600 [facility] Last Admin: 03/29/18 05:49 Dose: 20 mg Ondansetron HCl (Zofran Inj*) 4 mg IV Q4H PRN PRN Reason: NAUSEA/VOMITING Polyvinyl Alcohol (Polyvinyl Alcohol 1.4% Opth*) 2 drop BOTH EYES Q2H PRN PRN Reason: DRY EYE Last Admin: 03/29/18 05:50 Dose: 2 drp Testosterone Cypionate (Testosterone Cypionate (Nf)) 200 mg IM Q14D [facility] Vital Signs - 8 hr 03/29/18 03/29/18 03:19 08:48 Temperature 98.1 F Pulse Rate 74 Respiratory 17 18 Rate Blood Pressure 144/62 (mmHg) O2 Sat by Pulse 98 Oximetry Oxygen Devices in Use Now: None Appearance: sitting up in bed, NAD Eyes: No Scleral Icterus, PERRLA Ears/Nose/Mouth/Throat: NL Teeth, Lips, Gums, Clear Oropharnyx Neck: NL Appearance and Movements; NL JVP, Trachea Midline Respiratory: Symmetrical Chest Expansion and Respiratory Effort, - - rales in bases Cardiovascular: RRR Abdominal: - - mild distention, +bs 4q, NTTP, no rebound or gaurding (unlike recording from nursing note belly is not firm) Lymphatic: No Cervical Adenopathy Extremities: No Edema Skin: No Rash or Ulcers Neurological: Alert and Oriented x 3, - - oriented to name, [facility] and 2018 but speech is difficult to hear and conversation is muted, slow speech Result Diagrams: 03/29/18 08:12 03/29/18 08:12 Microbiology and Other Data: Microbiology 03/26/18 11:44 Aerobic Blood Culture - Preliminary Blood Venous No Growth Day 2 Anaerobic Blood Culture - Preliminary No Growth Day 2 03/26/18 12:11 Aerobic Blood Culture - Preliminary Blood Venous No Growth Day 2 Anaerobic Blood Culture - Preliminary No Growth Day 2 03/26/18 20:45 Urine Culture - Final Urine No Growth (<1,000 CFU/mL) 03/26/18 16:10 Nasal Screen MRSA (PCR) - Final Nasal Mrsa Not Detected Assess/Plan/Problems-Billing Assessment: 77 yo M h/p parkinsons, muscular distrophy, h/o volvulus, hypogonadism p/w abdominal distention found with sigmoid volvulus resolved with colonoscopy decompression - Patient Problems (1) Volvulus Comment: Suspected strangulation on presentation Decompressed with 2nd GI procedure Surgery recommending non-emergent sigmoidectomy Family considering but per surgery notes pt uninterested yesterday NG in place but clamped. Maintain since no BM x 2 days and diet restarted at 2AM last night c/w current diet c/w rectal tube Repeat abdominal film today Minimize narcotics (2) Hypogonadism Comment: testosterone q14 d (3) Parkinson disease Comment: sinimet (4) DVT prophylaxis Comment: HSQ
--- NOTE | 2018-03-29 11:55 | RAD ---
INDICATION: Follow-up sigmoid volvulus. COMPARISON: Most recent comparison radiograph is dated March 28, 2018 TECHNIQUE: 5 views of the abdomen were obtained. FINDINGS: Stable iatrogenic findings include a gastric tube with the tip terminating at the gastric fundus. At the midline pelvis there is what appears to be a rectal probe and a larger tube that extends over the right lower quadrant. There are dilated loops of colon that do not exhibit pathologic dilatation. There is a paucity of gas overlying the rectosigmoid colon. There is no definite appearance consistent with free intraperitoneal gas. IMPRESSION: There is no pathologically dilated loops of small bowel large bowel though the distal colon appears to have lost some of this normal haustral folds. There is no definite free air.
[2018-03-30] MEDS: Omeprazole CAP* 20 MG PO SCH (05:26)
[2018-03-30] MEDS: Heparin VIAL(*) 5000 UNITS/ML VIAL (FIVE THOUSAND) SUBCUT SCH ×3 (05:26→20:58)
[2018-03-30 07:46] LABS: Hematocrit 44 % (42-52); Hemoglobin 14.9 g/dl (14.0-18.0); Mean Corpuscular HGB Conc 34 g/dl (31-36); Mean Corpuscular Hemoglobin 31 pg (27-31); Mean Corpuscular Volume 92 fL (80-94); Mean Platelet Volume 7.2 fL (7.4-10.4); Platelet Count 188 10^3/ul (150-450); Red Blood Count 4.76 10^6/ul (4.00-5.40); Red Cell Distribution Width 15 % (10.5-15); White Blood Count 3.7 10^3/ul (3.5-10.8)
[2018-03-30 08:07] LABS: EGFR Non-African American 154.9 (>60)
[2018-03-30] MEDS: Amantadine CAP* 100 MG PO SCH ×2 (09:14→17:50)
[2018-03-30] MEDS: Carbidopa/Levodop 25/100 MG TAB(*) PO SCH ×3 (09:14→20:58)
[2018-03-30] MEDS: Citalopram TAB* 10 MG PO SCH (09:14)
--- NOTE | 2018-03-30 17:34 | PN ---
Subjective Date of Service: 03/30/18 Interval History: Seen with at bedside Pt now agreeable to surgery Small st5ool "smear" per RN since yesterday No pain Objective Active Medications: Acetaminophen (Tylenol Tab*) 650 mg PO Q4H PRN PRN Reason: FEVER/PAIN Amantadine HCl (Symmetrel Cap*) 100 mg PO 0800,1700 [facility] Last Admin: 03/30/18 09:14 Dose: 100 mg Carbidopa/Levodopa (Sinemet 25/100 Tab(*)) 2 tab PO 0800,1700,2000 [facility] Last Admin: 03/30/18 09:14 Dose: 2 tab Citalopram Hydrobromide (Celexa Tab*) 10 mg PO DAILY [facility] Last Admin: 03/30/18 09:14 Dose: 10 mg Docusate Sodium (Colace Cap*) 100 mg PO BID PRN PRN Reason: CONSTIPATION Last Admin: 03/29/18 08:48 Dose: 100 mg Heparin Sodium (Porcine) (Heparin Vial(*)) 5,000 units SUBCUT Q8HR [facility] Last Admin: 03/30/18 13:29 Dose: 5,000 units Omeprazole (Prilosec Cap*) 20 mg PO DAILY@0600 [facility] Last Admin: 03/30/18 05:26 Dose: 20 mg Ondansetron HCl (Zofran Inj*) 4 mg IV Q4H PRN PRN Reason: NAUSEA/VOMITING Polyvinyl Alcohol (Polyvinyl Alcohol 1.4% Opth*) 2 drop BOTH EYES Q2H PRN PRN Reason: DRY EYE Last Admin: 03/29/18 05:50 Dose: 2 drp Testosterone Cypionate (Testosterone Cypionate (Nf)) 200 mg IM Q14D [facility] Vital Signs - 8 hr 03/30/18 11:55 Temperature 98.3 F Pulse Rate 71 Respiratory 16 Rate Blood Pressure 134/57 (mmHg) O2 Sat by Pulse 97 Oximetry Oxygen Devices in Use Now: None Appearance: NAD Eyes: No Scleral Icterus, PERRLA Ears/Nose/Mouth/Throat: NL Teeth, Lips, Gums, Clear Oropharnyx Neck: NL Appearance and Movements; NL JVP, Trachea Midline Respiratory: Symmetrical Chest Expansion and Respiratory Effort, Clear to Auscultation Cardiovascular: RRR Abdominal: - - soft, mild distention, NTTP, +bs Lymphatic: No Cervical Adenopathy Extremities: No Edema Skin: No Rash or Ulcers Neurological: Alert and Oriented x 3, - - difficult garbled speech Result Diagrams: 03/30/18 07:13 03/30/18 07:13 Microbiology and Other Data: Microbiology 03/26/18 11:44 Aerobic Blood Culture - Preliminary Blood Venous No Growth Day 2 Anaerobic Blood Culture - Preliminary No Growth Day 2 03/26/18 12:11 Aerobic Blood Culture - Preliminary Blood Venous No Growth Day 2 Anaerobic Blood Culture - Preliminary No Growth Day 2 03/26/18 20:45 Urine Culture - Final Urine No Growth (<1,000 CFU/mL) 03/26/18 16:10 Nasal Screen MRSA (PCR) - Final Nasal Mrsa Not Detected Assess/Plan/Problems-Billing Assessment: 77 yo M h/p parkinsons, muscular distrophy, h/o volvulus, hypogonadism p/w abdominal distention found with sigmoid volvulus resolved with colonoscopy decompression - Patient Problems (1) Volvulus Comment: Suspected strangulation on presentation Decompressed with 2nd GI procedure Surgery recommending non-emergent sigmoidectomy NG out yesterday 03/29 when pt pulled it Rectal tube out now c/w current diet Minimize narcotics (2) Hypogonadism Comment: testosterone q14 d (3) Parkinson disease Comment: sinimet (4) DVT prophylaxis Comment: HSQ
[2018-03-31] MEDS: Heparin VIAL(*) 5000 UNITS/ML VIAL (FIVE THOUSAND) SUBCUT SCH ×3 (05:32→21:25)
[2018-03-31] MEDS: Omeprazole CAP* 20 MG PO SCH (05:32)
[2018-03-31 06:23] LABS: Hematocrit 42 % (42-52); Hemoglobin 14.4 g/dl (14.0-18.0); Mean Corpuscular HGB Conc 34 g/dl (31-36); Mean Corpuscular Hemoglobin 31 pg (27-31); Mean Corpuscular Volume 92 fL (80-94); Mean Platelet Volume 7.1 fL (7.4-10.4); Platelet Count 212 10^3/ul (150-450); Red Blood Count 4.59 10^6/ul (4.00-5.40); Red Cell Distribution Width 14 % (10.5-15); White Blood Count 4.7 10^3/ul (3.5-10.8)
[2018-03-31 06:45] LABS: EGFR Non-African American 128.9 (>60)
[2018-03-31] MEDS ORDERED: Albuterol 2.5 MG/3 ML NEB.SOL* (0.083%) INH ONE (08:38)
[2018-03-31] MEDS: Citalopram TAB* 10 MG PO SCH (08:55)
[2018-03-31] MEDS: Amantadine CAP* 100 MG PO SCH ×2 (08:55→17:07)
[2018-03-31] MEDS: Carbidopa/Levodop 25/100 MG TAB(*) PO SCH ×3 (08:58→20:16)
--- NOTE | 2018-03-31 10:05 | PN ---
Subjective Date of Service: 03/31/18 Interval History: Patient denies pain Medium and small BM recorded in last 24 hrs Rectal tube out yesterday Still amendable to surgery but is scared Objective Active Medications: Acetaminophen (Tylenol Tab*) 650 mg PO Q4H PRN PRN Reason: FEVER/PAIN Amantadine HCl (Symmetrel Cap*) 100 mg PO 0800,1700 [facility] Last Admin: 03/31/18 08:55 Dose: 100 mg Carbidopa/Levodopa (Sinemet 25/100 Tab(*)) 2 tab PO 0800,1700,2000 [facility] Last Admin: 03/31/18 08:58 Dose: 2 tab Citalopram Hydrobromide (Celexa Tab*) 10 mg PO DAILY [facility] Last Admin: 03/31/18 08:55 Dose: 10 mg Docusate Sodium (Colace Cap*) 100 mg PO BID PRN PRN Reason: CONSTIPATION Last Admin: 03/29/18 08:48 Dose: 100 mg Heparin Sodium (Porcine) (Heparin Vial(*)) 5,000 units SUBCUT Q8HR [facility] Last Admin: 03/31/18 05:32 Dose: 5,000 units Omeprazole (Prilosec Cap*) 20 mg PO DAILY@0600 [facility] Last Admin: 03/31/18 05:32 Dose: 20 mg Ondansetron HCl (Zofran Inj*) 4 mg IV Q4H PRN PRN Reason: NAUSEA/VOMITING Polyvinyl Alcohol (Polyvinyl Alcohol 1.4% Opth*) 2 drop BOTH EYES Q2H PRN PRN Reason: DRY EYE Last Admin: 03/29/18 05:50 Dose: 2 drp Testosterone Cypionate (Testosterone Cypionate (Nf)) 200 mg IM Q14D [facility] Vital Signs - 8 hr 03/31/18 03/31/18 03:45 08:27 Temperature 96.9 F 97.9 F Pulse Rate 70 73 Respiratory 16 19 Rate Blood Pressure 111/53 143/67 (mmHg) O2 Sat by Pulse 92 96 Oximetry Oxygen Devices in Use Now: None Appearance: lying 20 deg, NAD Eyes: No Scleral Icterus, PERRLA Ears/Nose/Mouth/Throat: NL Teeth, Lips, Gums, Clear Oropharnyx, - - dry MM Neck: NL Appearance and Movements; NL JVP, Trachea Midline Respiratory: Symmetrical Chest Expansion and Respiratory Effort, - - end expiratory wheeze Cardiovascular: RRR Abdominal: - - soft, mild distention, NTTP, hypoactive BS Extremities: No Edema Skin: No Rash or Ulcers Neurological: - - very difficult to produce speech/borderline aphasia 2/2 garbled speech Result Diagrams: 03/31/18 05:50 03/31/18 05:50 Microbiology and Other Data: Microbiology 03/26/18 11:44 Aerobic Blood Culture - Preliminary Blood Venous No Growth Day 2 Anaerobic Blood Culture - Preliminary No Growth Day 2 03/26/18 12:11 Aerobic Blood Culture - Preliminary Blood Venous No Growth Day 2 Anaerobic Blood Culture - Preliminary No Growth Day 2 03/26/18 20:45 Urine Culture - Final Urine No Growth (<1,000 CFU/mL) 03/26/18 16:10 Nasal Screen MRSA (PCR) - Final Nasal Mrsa Not Detected Assess/Plan/Problems-Billing Assessment: 77 yo M h/p parkinsons, muscular distrophy, h/o volvulus, hypogonadism p/w abdominal distention found with sigmoid volvulus resolved with colonoscopy decompression - Patient Problems (1) Volvulus Comment: Suspected strangulation on presentation Decompressed with 2nd GI procedure Surgery recommending non-emergent sigmoidectomy - d/w Dr. Escalona will plan on (he will schedule o/p follow up prior to procedure if needed) NG 03/29 when pt pulled it Rectal tube out 03/31 c/w current diet Minimize narcotics d/w Dr. Alcantara - concern for volvulus recurring. Recommends monitoring for safetey prior to d/c. Will keep in hospital until tomorrow and if continues to tolerate diet and belly benign can then be discharged to f/u for surgery (2) Hypogonadism Comment: testosterone q14 d (3) Parkinson disease Comment: sinimet (4) DVT prophylaxis Comment: HSQ
[2018-03-31] MEDS ORDERED: TESTOSTERONE CYPIONATE 200 MG/ML IM SCH (12:00)
[2018-04-01 05:51] LABS: Hematocrit 42 % (42-52); Hemoglobin 14.1 g/dl (14.0-18.0); Mean Corpuscular HGB Conc 34 g/dl (31-36); Mean Corpuscular Hemoglobin 31 pg (27-31); Mean Corpuscular Volume 92 fL (80-94); Mean Platelet Volume 7.3 fL (7.4-10.4); Platelet Count 211 10^3/ul (150-450); Red Blood Count 4.53 10^6/ul (4.00-5.40); Red Cell Distribution Width 15 % (10.5-15); White Blood Count 4.6 10^3/ul (3.5-10.8)
[2018-04-01 06:11] LABS: EGFR Non-African American 142.2 (>60)
[2018-04-01] MEDS: Heparin VIAL(*) 5000 UNITS/ML VIAL (FIVE THOUSAND) SUBCUT SCH (06:43)
[2018-04-01] MEDS: Omeprazole CAP* 20 MG PO SCH (06:43)
[2018-04-01] MEDS ORDERED: Potassium Chlor TAB* 20 MEQ TAB.ER PO ONE (07:21)
[2018-04-01] MEDS: Carbidopa/Levodop 25/100 MG TAB(*) PO SCH (08:27)
[2018-04-01] MEDS: Citalopram TAB* 10 MG PO SCH (08:27)
[2018-04-01] MEDS: Amantadine CAP* 100 MG PO SCH (08:27)
[2018-04-01 10:01] VITALS: BP 144/70
--- NOTE | 2018-04-01 10:39 | PN ---
Progress Note - Progress Note Date of Service: 04/01/18 SOAP: Subjective: Pt seen and examined. Feeling better, tolerating diet Objective: Temp Pulse Resp BP Pulse Ox 97.9 F 83 16 144/70 96 04/01/18 08:35 04/01/18 08:35 04/01/18 08:35 04/01/18 08:35 04/01/18 08:35 abdo: soft/ distended/ NT Assessment: resolved sigmoid volvulus at risk for recurrence. Plan: scheduled for sigmoid colectomy next week F/u in surg associated office Saturday 04/07 case d/w hospitalist. Family called but no voicemail
--- NOTE | 2018-04-01 13:18 | DS ---
CC: [facility]; Dr. Escaloan; Dr. Marquez; Dr. Alcantara; Dr. Parikh* DISCHARGE SUMMARY: DATE OF ADMISSION: 03/26/18 DATE OF DISCHARGE: 04/01/18 PRIMARY CARE PROVIDER: Physician at [facility]. DISCHARGE DIAGNOSES: 1. Volvulus and likely intestinal strangulation status post decompression of the sigmoid volvulus during sigmoidoscopy performed by Dr. Alcantara on 03/27/18. 2. Acute kidney injury. 3. Acute hypoxemic respiratory failure due to volvulus. SECONDARY DIAGNOSES: 1. History of severe Parkinson's. 2. History of hypertension. 3. Gastroesophageal reflux disease. 4. History of depression. 5. History of chronic pain. MEDICATIONS AT DISCHARGE: Include: 1. Amantadine 100 mg p.o. b.i.d. 2. Artificial tears 2 drops both eyes every 2 hours p.r.n. 3. Sinemet 100/25 two and a half tablets daily, 2 tablets at 8 a.m., 1700 and 2000. 4. Celexa 10 mg daily. 5. Vitamin B12 injections 1000 mcg injection IM monthly. 6. Furosemide 40 mg daily. 7. Omeprazole 20 mg daily. 8. Testosterone injections 200 mg IM every 14 days. 9. Ultram 50 mg b.i.d. p.r.n. The patient's losartan was held due to the patient being normotensive without this medication being on board. LABORATORY DATA AND STUDIES PERFORMED DURING THE HOSPITAL STAY: Included: On 04/01/18, white blood cell count of 4.6, hemoglobin of 14.1, hematocrit of 42 and platelets of 211. Sodium was 139, potassium 3.6, chloride 107, carbon dioxide 25, BUN 15, creatinine 0.56. CONSULTANTS DURING THE HOSPITAL STAY: Included Dr. Escalona from Surgery, Dr. Alcantara and Dr. Marquez from Gastroenterology. PROCEDURES PERFORMED DURING THE HOSPITAL STAY: Included: On 03/26/18, flexible sigmoidoscopy performed by Dr. Marquez. That showed "sigmoid volvulus with colonic wall at the area of suspected volvulus appeared dusky purple with white/black portions of the wall. Unable to continue scope to attempt detorsion given those worrisome findings and high perforation risk." On 03/27/18, Dr. Alcantara performed another sigmoidoscopy, impression: "Successful decompression and some detorsion of the sigmoid volvulus. Successful placement of rectal tube to the sigmoid volvulus via ERCP Jag guidewire." CT of the abdomen and pelvis obtained on admission, impression: "Bowel obstruction secondary to sigmoid volvulus. Closed loop obstruction of the sigmoid colon with sigmoid colon dilated up to 14 cm in diameter. Hypermobility for prerenal, acute renal failure. Hepatic steatosis. Small dependent right pleural effusion and mild bibasilar atelectasis." Abdominal x-ray last documented on 03/29/18, impression: "There are no pathologically dilated loops of small bowel or large bowel through the distal colon, appears to have lost some of its normal haustral folds. There is no definite free air." HOSPITALIZATION COURSE: Bj Nava is a 77-year-old male with a history of severe Parkinson's, who is a long term resident at [facility] [place] who presented to the hospital with marked abdominal distention. The patient had markedly elevated lactic acid at 3.[address] of the abdomen showed sigmoid volvulus. Dr. Marquez attempted decompression of the bowel without resolution of the volvulus. The bowel was noted to be dusky appearing and there was a question of bowel ischemia and possibility of perforation. Dr. Escalona from Surgery was asked to see the patient in consultation. The very next day on 03/27/18, the patient underwent another sigmoidoscopy and at that point, the volvulus was able to be decompressed by Dr. Alcantara. Postprocedure, the patient did well. His acute respiratory failure that he suffered from at the beginning of the hospital stay gradually resolved. His diet was reintroduced and the patient currently is on regular diet, modified to mechanical ground and nectar-thickened liquids. The surgery service followed with the patient throughout his hospital stay and the patient is scheduled for a followup with Dr. Escalona on 04/07/18 and likely surgery on 04/09/18. The patient is being transferred back to [facility] for the time being. PHYSICAL EXAM AT THE TIME OF DISCHARGE: Blood pressure of 144/70, heart rate of 83 and regular, respiratory rate 15, oxygen saturation 96% on room air, temperature 97.9. General: The patient is a very pleasant 77-year-old male who is in no acute distress. The patient is difficult to communicate with due to very slurred and stuttered speech due to his Parkinson's. The patient is alert and oriented x2. HEENT: Head: Atraumatic, normocephalic. Eyes: Pupils are equal, reactive to light and accommodation. Oropharynx is clear. Mucosa moist. Neck: Supple. No JVD. No bruits bilaterally. Cardiovascular: Regular rate and rhythm. No murmur. Respiratory: Crackles at bilateral bases, scant, otherwise clear. Abdomen: Distended, tympanic, soft, nontender. Bowel sounds are present in all 4 quadrants. Extremities: There is no edema. Pulses are +2 bilaterally. No clubbing or cyanosis. On neuro evaluation, the patient has no focal neuro deficits. He has generalized weakness and increased tonicity due to his Parkinson's. Speech is garbled at baseline. Please note that this is a short summary of the patient's hospital stay. Please refer to further medical records for details. TIME SPENT: Approximately 50 minutes was spent on the patient's discharge. [id number]/[facility] #: [id number] [facility]ENTERSuzanne
== END 2018-04-01 13:50 | DRG 344 ==
LOC: ED 11:17 → ICU 17:41 → MED 03-28 15:52
PROVIDERS: ADMIT Internal Medicine Critical Care Medicine; ATTEND Internal Medicine
PROC: 0D9670Z Drainage of Stomach with Drainage Device, Via Natural or Artificial Opening (ICD-10-PCS; 2018-03-26)
PROC: 0DJD8ZZ Inspection of Lower Intestinal Tract, Via Natural or Artificial Opening Endoscopic (ICD-10-PCS; 2018-03-26)
PROC: 0DSN8ZZ Reposition Sigmoid Colon, Via Natural or Artificial Opening Endoscopic (ICD-10-PCS; principal; 2018-03-27)
PROC: 0D9N80Z Drainage of Sigmoid Colon with Drainage Device, Via Natural or Artificial Opening Endoscopic (ICD-10-PCS; 2018-03-27)
DX: K56.2 Volvulus (principal); J96.01 Acute respiratory failure with hypoxia; K55.031 Focal (segmental) acute (reversible) ischemia of large intestine; N17.9 Acute kidney failure, unspecified; E87.2 Acidosis; R65.10 Systemic inflammatory response syndrome (SIRS) of non-infectious origin without acute organ dysfunction; J98.11 Atelectasis; G71.00 Muscular dystrophy, unspecified; G20 Parkinson's disease; E86.0 Dehydration; K76.0 Fatty (change of) liver, not elsewhere classified; K21.9 Gastro-esophageal reflux disease without esophagitis; J42 Unspecified chronic bronchitis; F32.9 Major depressive disorder, single episode, unspecified; J45.909 Unspecified asthma, uncomplicated; I10 Essential (primary) hypertension; G89.29 Other chronic pain; E29.1 Testicular hypofunction; N40.0 Benign prostatic hyperplasia without lower urinary tract symptoms; Z79.890 Hormone replacement therapy; Z79.899 Other long term (current) drug therapy; Z88.5 Allergy status to narcotic agent; Z88.8 Allergy status to other drugs, medicaments and biological substances; Z91.011 Allergy to milk products; Z88.0 Allergy status to penicillin
CPT/HCPCS: 36415; 71045; 74018; 74019; 74177; 80048; 80053; 80076; 81003; 81015; 82140; 83605; 83690; 83735; 84484; 85025; 85027; 85610; 85730; 86140; 86850; 86900; 86901; 87040; 87086; 87641; 93005; 94640; 99156; 99157; 99285; A9270-GY; J0692; J1071; J1644; J2250; J2270; J2405; J2765; J3010; J3370; J3480; J3490; Q9967

== ENCOUNTER 2018-04-02 16:28 | Inpatient (IN) | payer MEDICARE, OTHER ==
[2018-04-02] MEDS ORDERED: fentaNYL* 50 MCG/ML 2 ML VIAL (100 MCG VIAL) IV SLOW PU ONE (17:45)
[2018-04-02] MEDS ORDERED: NS 0.9% 1000 ML* 1,000 ML IV ONE (17:45)
--- NOTE | 2018-04-02 18:32 | ED ---
GI/ HPI - HPI Summary HPI Summary: Patient is a 77 y/o M brought in by ambulance from [facility] for abdominal pain. In the room, patient has difficulty expressing himself, level 5 caveat. [facility] was called, they stated that last night patient had three episodes of clear "jelly" from his rectum. 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 He was recently discharged from [facility] after abdominal surgery. On triage, pain is denied. Home medications and allergies are reviewed. - History of Current Complaint Chief Complaint: EDAbdPain Stated Complaint: ABD PAIN Hx Obtained From: Medical Records, Other: - [facility] Hx From Patient Unobtainable Due To: Other - patient is incapable of expressing himself Timing: Intermittent, Lasting Days - clear "jelly" from rectum Current Severity: None - on triage, pain denied Pain Intensity: 0 Associated Signs and Symptoms: Positive: Abdominal Pain, Other: - clear "jelly" from rectum Aggravating Factor(s): Nothing Alleviating Factor(s): Nothing - Additional Pertinent History Primary Care Physician: LONG - Allergy/Home Medications Allergies/Adverse Reactions: Allergies Allergy/AdvReac Type Severity Reaction Status Date / Time lactose Allergy Unknown Verified 03/26/18 15:33 Reaction Details oxycodone Allergy Unknown Verified 03/26/18 15:33 Reaction Details Penicillins Allergy Unknown Verified 03/26/18 15:33 Reaction Details sildenafil Allergy Unknown Verified 03/26/18 15:33 Reaction Details tamsulosin [From Flomax] Allergy Unknown Verified 03/26/18 15:33 Reaction Details PMH/Surg Hx/FS Hx/Imm Hx Endocrine/Hematology History: Reports: Other Endocrine/Hematological Disorders - hypogonadism Denies: Hx Anticoagulant Therapy, Hx Blood Disorders, Hx Blood Transfusions, Hx Bone Marrow Disease, Hx Diabetes, Hx Systemic Lupus Erythematosus, Hx Sickle Cell Disease, Hx Thyroid Disease, Hx Anemia, Hx Unexplained Bleeding Cardiovascular History: Reports: Hx Hypertension Denies: Hx Aneurysm, Hx Angina, Hx Angioplasty, Hx Auto Implanted Cardiovert Defib, Hx Cardiac Arrest, Hx Cardiomegaly, Hx Congenital Heart Disease, Hx Congestive Heart Failure, Hx Coronary Artery Disease, Hx Deep Vein Thrombosis, Hx Embolism, Hx Hypercholesterolemia, Hx Hypotension, Hx Pacemaker/ICD, Hx Peripheral Vascular Disease, Hx Rheumatic Fever, Hx Syncope, Hx Valvular Heart Disease, Other Cardiovascular Problems/Disorders Respiratory History: Reports: Hx Asthma, Hx Chronic Bronchitis Denies: Hx Chronic Obstructive Pulmonary Disease (COPD), Hx Cystic Fibrosis, Hx Lung Cancer, Hx Pleural Effusion, Hx Pneumonia, Hx Pulmonary Edema, Hx Pulmonary Embolism, Hx Seasonal Allergies, Hx Sleep Apnea, Other Respiratory Problems/Disorders GI History: Reports: Other GI Disorders - constipation Denies: Hx Cirrhosis, Hx Crohn's Disease, Hx Diverticulosis, Hx Gall Bladder Disease, Hx Gastroesophageal Reflux Disease, Hx Gastrointestinal Bleed, Hx Hiatal Hernia, Hx Irritable Bowel, Hx Jaundice, Hx Obstructive Bowel, Hx Ileostomy, Hx Pyloric Stenosis, Hx Ulcer History: Reports: Hx Benign Prostatic Hyperplasia Denies: Hx Acute Renal Failure, Hx Chronic Renal Failure, Hx Dialysis, Hx Kidney Infection, Hx Kidney Stones, Hx Renal Disease, Other Problems/ Disorders Musculoskeletal History: Reports: Hx Arthritis, Other Musculoskeletal History - MUSCULAR DYSTROPHY Denies: Hx Back Problems, Hx Bursitis, Hx Congenital Bone Abnormalities, Hx Fibromyalgia, Hx Gout, Hx Orthopedic Injury, Hx Osteoporosis, Hx Scoliosis, Hx Tendonitis Sensory History: Reports: Hx Cataracts - l eye cataract, Hx Contacts or Glasses - reading glasses at home Denies: Hx Eye Injury, Hx Eye Prosthesis, Hx Glaucoma, Hx Legally Blind, Hx Macular Degeneration, Hx Vision Problem, Hx Deafness, Hx Hearing Aid, Hx Hearing Problem, Other Sensory Impairments Opthamlomology History: Reports: Hx Cataracts - l eye cataract, Hx Contacts or Glasses - reading glasses at home Denies: Hx Eye Injury, Hx Eye Prosthesis, Hx Glaucoma, Hx Legally Blind, Hx Macular Degeneration, Hx Vision Problem, Other Sensory Impairments Neurological History: Reports: Other Neuro Impairments/Disorders - parkinsons, facioscapulohum muscular dystrophy Denies: Hx Dementia, Hx Developmental Delay, Hx Headaches, Hx Migraine, Hx Nerve Disease, Hx Seizures, Hx Spinal Cord Injury, Hx Transient Ischemic Attacks (TIA) Psychiatric History: Reports: Hx Depression - suicide attempts x2, Hx Inpatient Treatment - 2010, Hx Suicide Attempt Denies: Hx Anxiety, Hx Attention Deficit Hyperactivity Disorder, Hx Eating Disorder, Hx Panic Disorder, Hx Post Traumatic Stress Disorder, Hx Community Mental Health Tx, Hx Schizophrenia, Hx Bipolar Disorder, Hx of Violent Episodes Against Others, Hx Substance Abuse, Other Psychiatric Issues/Disorders - Surgical History Surgery Procedure, Year, and Place: left eye cataract surgery Hx Anesthesia Reactions: No - Immunization History Date of Tetanus Vaccine: unknown Date of Influenza Vaccine: 2011 Infectious Disease History: Unable to Obtain/Confirm Infectious Disease History: Denies: Hx Clostridium Difficile, Hx Hepatitis, Hx Human Immunodeficiency Virus (HIV), Hx of Known/Suspected MRSA, Hx Shingles, Hx Tuberculosis, Hx Known/ Suspected VRE, Hx Known/Suspected VR[facility], History Other Infectious Disease, Traveled Outside the [place] in Last 30 Days - Family History Known Family History: Negative: Cardiac Disease, Hypertension - Social History Alcohol Use: None Hx Substance Use: No Substance Use Type: Reports: None Hx Tobacco Use: No Smoking Status (MU): Never Smoked Tobacco Review of Systems - ROS Summary Review of Systems Summary: level 5 caveat - patient is incapable of expressing himself Positive: Abdominal Pain, Other - clear "jelly" from rectum All Other Systems Reviewed And Are Negative: No Physical Exam - Summary Physical Exam Summary: Appearance: Alert, conversive, nontoxic appearing Skin: Warm, dry, no mottling, no rashes, no contusions HEENT: EOMI, PERRL, moist mucous membranes Neck: No masses on the neck, supple Respiratory: Clear to auscultation, breath sounds present, no rales, no rhonchi , no wheezes Cardiovascular: RRR, pulses are symmetrical in both lower and upper extremities Abdomen: Soft, non-tender; abdomen is distended Bowel Sounds: Present Musculoskeletal: No CVA tenderness, no obvious deformity, moving all extremities in a grossly normal manner Neurological: A&Ox3, CN II-XII Intact, moving all extremities symmetrically Psychiatric: Normal affect and mood Triage Information Reviewed: Yes Vital Signs On Initial Exam: Initial Vitals Temp Pulse Resp BP Pulse Ox 98.1 F 75 24 173/93 98 04/02/18 16:37 04/02/18 16:37 04/02/18 16:37 04/02/18 16:37 04/02/18 16:37 Vital Signs Reviewed: Yes Diagnostics - Vital Signs Vital Signs Temp Pulse Resp BP Pulse Ox 04/02/18 16:37 98.1 F 75 24 173/93 98 - Laboratory Result Diagrams: 04/03/18 09:02 04/03/18 09:02 Lab Statement: Any lab studies that have been ordered have been reviewed, and results considered in the medical decision making process. Re-Evaluation - Re-Evaluation First Eval Re-Evaluation Time: 18:13 Comment: Nurse reports that patient is refusing medications and IV GIGU Course/Dx - Course Course Of Treatment: Patient is a 77 y/o M brought in by ambulance from [facility] for abdominal pain. In the room, patient has difficulty expressing himself, level 5 caveat. [facility], they stated that last night patient had three episodes of clear "jelly" from his rectum. 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 He was recently discharged from [facility] after abdominal surgery. Physical exam showed distended abdomen. Labs showed ALT 6, glucose 115, WBC 6.7. Patient's case was discussed with Dr. Marquez at 182. She states that abdominal x-ray should be performed on patient and that patient may need surgery depending on results. 1837 - Dr. Escalona was in room to evaluate patient. He states if x-ray is normal, then patient can be discharged. If it is questionable, patient should receive CT abd/pel. 1847 - tech states that Dr. Escalona saw x-ray and states it will be sent to [facility] for reading. Patient is signed-out to Dr. Montejo pending x-ray results. Dx of abdominal pain. - Diagnoses Provider Diagnoses: Sigmoid volvulus - Physician Notifications Discussed Care Of Patient With: Lupe Marquez Time Discussed With Above Provider: 18:22 Instructed by Provider To: Other - Patient's case was discussed with Dr. Debbie Suero at 1821. She states that abdominal x-ray should be performed on patient and that patient may need surgery depending on results. 1837 - Dr. Escalona was in room to evaluate patient. He states if x-ray is normal, then patient can be discharged. If it is questionable, patient should receive CT abd/pel. 1847 - tech states that Dr. Escalona saw x-ray and states it will be sent to [facility] for reading. Discharge - Sign-Out/Discharge Documenting (check all that apply): Sign-Out Patient Signing out patient TO: Ankush Montejo Receiving patient FROM: Celena Haile - Discharge Plan Condition: Fair Disposition: ADMITTED TO [facility] - Billing Disposition and Condition Condition: FAIR Disposition: Admitted to [facility] - Attestation Statements Document Initiated by Scribe: Yes Documenting Scribe: Armando Jovel Provider For Whom Scribe is Documenting (Include Credential): Celena Haile MD Scribe Attestation: I, Armando Jovel , scribed for Celena Haile MD on 04/03/18 at 1211. Scribe Documentation Reviewed: Yes Provider Attestation: The documentation as recorded by the scribeArmando accurately reflects the service I personally performed and the decisions made by me, Celena Haile MD
--- NOTE | 2018-04-02 19:08 | ED ---
Progress - Progress Note Progress Note: Pt signed out from Dr. Haile to Dr. Montejo pending abd x-ray. Her abdomen X-ray revealed: constipation mild small ileus without significant change. ED physician has reviewed this imaging report. Abdomen/pelvis CT showed: CT findings concerning for recurring sigmoid volvulus. ED physician has reviewed this imaging report. The pt will be [facility] to [facility]. - EKG/XRAY/CT EKG: NSR - 77 bpm Comments: First degree AV block XRAY: abdomen - constipation mild small ileus without significant change. ED physician has reviewed this imaging report. Re-Evaluation - Re-Evaluation First Eval Re-Evaluation Time: 23:50 Change: Unchanged Comment: Informed pt about his volvulus. Course/Dx - Course Course Of Treatment: Pt signed out from Dr. Haile to Dr. Montejo pending abd x- ray. Her abdomen X-ray revealed: constipation mild small ileus without significant change. Per Dr. Escalona, surgery, he would like the pt to get an abdomen/pelvis CT. The abdomen/pelvis CT showed sigmoid volvulus. Dx: sigmoid volvulus. Dr. Olson, surgery, would like the pt to be admitted to [facility]. Dr. Chaidez requested an EKG before admission. The EKG showed NSR at 77 bpm with a first degree AV block. Pt will be admitted to Dr. Chaidez. - Diagnoses Provider Diagnoses: Sigmoid volvulus - Provider Notifications Discussed Care Of Patient With: Ld Escalona Time Discussed With Above Provider: 21:30 Instructed by Provider To: Other - would like pt to get a CT to check for volvulus. The abdomen/pelvis CT was Dr. Olson, surgery, would like the pt to be admitted to [facility]. Dr. Chaidez was paged at 23:50. Dr. Chaidez requested and EKG, which was obtained, before admission. Discharge - Sign-Out/Discharge Documenting (check all that apply): Patient Departure - Admit - Discharge Plan Condition: Fair Disposition: ADMITTED TO [facility] Referrals: Jonathan Parikh MD [Primary Care Provider] - (1-2 days) Additional Instructions: RETURN TO THE EMERGENCY DEPARTMENT FOR CHANGING OR WORSENING SYMPTOMS. FOLLOW UP WITH PCP IN 1-2 DAYS. - Attestation Statements Document Initiated by Scribe: Yes Documenting Scribe: Vicente Vallecillo Provider For Whom Scribe is Documenting (Include Credential): Ankush Montejo MD Scribe Attestation: I, Vicente Vallecillo, scribed for Ankush Montejo MD on 04/03/18 at 0100.
[2018-04-02 19:15] LABS: ABS Basophils 0 10^3/ul (0-0.2); ABS Eosinophils 0.2 10^3/ul (0-0.6); ABS Lymphocytes 0.8 10^3/ul (1.0-4.8); ABS Monocytes 0.4 10^3/ul (0-0.8); ABS Neutrophils 5.3 10^3/ul (1.5-7.7); ABS Nucleated RBC 0 10^3/ul; Eosinophil % 2.9 % (0-6); Hematocrit 44 % (42-52); Hemoglobin 14.5 g/dl (14.0-18.0); Lymphocyte % 11.3 % (25-47); Mean Corpuscular HGB Conc 33 g/dl (31-36); Mean Corpuscular Hemoglobin 31 pg (27-31); Mean Corpuscular Volume 93 fL (80-94); Mean Platelet Volume 6.9 fL (7.4-10.4); Nucleated Red Blood Cells % 0; Platelet Count 250 10^3/ul (150-450); Red Blood Count 4.71 10^6/ul (4.00-5.40); Red Cell Distribution Width 15 % (10.5-15); White Blood Count 6.7 10^3/ul (3.5-10.8)
[2018-04-02 19:26] LABS: EGFR Non-African American 104.7 (>60)
[2018-04-02] MEDS ORDERED: Magnesium CITRATE* 300 ML BTL PO ONE (20:34)
[2018-04-02] MEDS ORDERED: Bisacodyl SUPP* 10 MG SUPP PR ONE (20:34)
[2018-04-03] MEDS ORDERED: Artificial Tears* 15 ML BTL BOTH EYES PRN (01:02)
--- NOTE | 2018-04-03 01:27 | ADMNOTE ---
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 able to get further hx due to his overall medical problem ie parkinson. ct showed he has recurrent sig vovulus size is 6 cm dilation. 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 procedure ( not sure what kind ) pt is medically optimized for procedure since he just had it one week ago. repeat ekg did not show any acute st t change phx/pshx advanced parkinson dz for 13 yrs ago htn hx of asthma hx of bph muscular dystrophy recurrent sig volvulus hx of acute hypoxic respiratory failure hx of renal failure due to volume depletion hx of lactic acidosis due to volume depletion related to suspected bowel ischemia social hx a resident from [facility] snf no cig no etoh fhx parkinson in family hx Review of Systems - Measurements Intake and Output: Intake and Output Last 24 Hours 03/31/18 04/01/18 04/02/18 04/03/18 06:59 06:59 06:59 06:59 Weight 150 lb - Review of Systems General Comments: pertinent as per hpi Objective Active Medications: Amantadine HCl (Symmetrel Cap*) 100 mg PO 0800,1700 [facility] Carbidopa/Levodopa (Sinemet 25/100 Tab(*)) 2 tab PO 0800,1700,2000 [facility] Carbidopa/Levodopa (Sinemet 25/100 Tab(*)) 2.5 tab PO DAILY [facility] Sodium Chloride (Ns 0.9% 1000 Ml*) 1,000 mls @ 100 mls/hr IV PER RATE [facility] Piperacillin Sod/Tazobactam (Sod 3.375 gm/ Sodium Chloride) 100 mls @ 25 mls/ hr IVPB Q8H [facility] Pantoprazole Sodium (Protonix Iv*) 40 mg IV Q24H [facility] Polyvinyl Alcohol (Polyvinyl Alcohol 1.4% Opth*) 2 drop BOTH EYES Q2H PRN PRN Reason: DRY EYE Vital Signs - 8 hr 04/02/18 04/02/18 04/02/18 17:36 18:00 18:06 Pulse Rate 75 75 78 Respiratory 17 18 25 Rate Blood Pressure 157/85 152/97 (mmHg) O2 Sat by Pulse 97 97 96 Oximetry 04/02/18 04/02/18 04/02/18 18:36 19:00 19:06 Pulse Rate 79 79 76 Respiratory 28 19 17 Rate Blood Pressure 168/90 159/78 (mmHg) O2 Sat by Pulse 97 97 96 Oximetry 04/02/18 04/02/18 04/02/18 19:36 20:00 20:06 Pulse Rate 80 81 80 Respiratory 17 16 17 Rate Blood Pressure 162/87 161/84 (mmHg) O2 Sat by Pulse 97 97 96 Oximetry 04/02/18 04/02/18 04/02/18 20:36 21:00 21:02 Pulse Rate 79 86 Respiratory 16 18 18 Rate Blood Pressure 157/83 (mmHg) O2 Sat by Pulse 96 96 Oximetry 04/02/18 04/02/18 04/02/18 21:06 21:36 22:00 Pulse Rate 83 82 82 Respiratory 15 18 21 Rate Blood Pressure 157/79 174/92 (mmHg) O2 Sat by Pulse 97 96 96 Oximetry 04/02/18 04/02/18 04/02/18 22:06 22:36 23:00 Pulse Rate 85 83 84 Respiratory 18 19 18 Rate Blood Pressure 160/89 164/88 (mmHg) O2 Sat by Pulse 97 96 94 Oximetry 04/02/18 04/02/18 04/02/18 23:06 23:10 23:36 Pulse Rate 84 84 83 Respiratory 18 19 13 Rate Blood Pressure 166/84 158/83 (mmHg) O2 Sat by Pulse 94 95 96 Oximetry 04/03/18 04/03/18 04/03/18 00:00 00:06 00:36 Pulse Rate 85 81 78 Respiratory 18 18 17 Rate Blood Pressure 161/80 144/76 (mmHg) O2 Sat by Pulse 96 96 95 Oximetry 04/03/18 04/03/18 01:00 01:06 Pulse Rate 80 77 Respiratory 16 18 Rate Blood Pressure 140/70 (mmHg) O2 Sat by Pulse 95 95 Oximetry Oxygen Devices in Use Now: None Appearance: nad Eyes: No Scleral Icterus, PERRLA Ears/Nose/Mouth/Throat: - - oral mucosa dry open but does not follow commands to be examed Neck: NL Appearance and Movements; NL JVP, Trachea Midline, No Thyroid Enlargement, Masses Respiratory: Symmetrical Chest Expansion and Respiratory Effort, Clear to Auscultation Cardiovascular: NL Sounds; No Murmurs; No JVD, RRR Abdominal: NL Sounds; No Tenderness; No Distention, - - decreased b/s at base Extremities: - - trace pedal edema unable to test his motor strength due to his overall ms Skin: No Rash or Ulcers Neurological: - - arousable but otherwise does not follow commands to be examed neurologically Result Diagrams: 04/04/18 05:17 04/04/18 05:17 EKG Data: ekg ns no acute st t changes Assess/Plan/Problems-Billing Assessment: this is a 77 yr old male with hx of advanced parkinson and muscular dystrophy hx of recurrnt sig volvulus wich required colonosocpy to decompress -- -> last procedure was done one week ago presented to er with abd pain repea ct scan of abd showed sig volvulus size 6 cm ---> will be seen by surg in am who will decide what procedure pt will need this time - Patient Problems (1) Distended abdomen Current Visit: No Status: Acute Code(s): R14.0 - ABDOMINAL DISTENSION ( GASEOUS) SNOMED Code(s): 41236710 (2) Sigmoid volvulus Current Visit: Yes Status: Acute Comment: - Dr. Escalona consul and input appreciated. - I did explain to patient and family that since this is the second episode in the past week I agree with surgical decompression and Sarah procedure. I did explain to family benefit/rational. Surgery as well did provide benefit, risk and surgical steps. - NPO ; IVF; GI prophylactic - On Cipro/flagyl. We may discontinue 24-48 hrs post op (3) Parkinson disease Current Visit: Yes Status: Acute Code(s): G20 - PARKINSON'S DISEASE SNOMED Code(s): 39938734 Comment: continue Carbidopa/Levodopa and amantidine - may take them with sip of water while NPO (4) Depression Current Visit: No Status: Acute Code(s): F32.9 - MAJOR DEPRESSIVE DISORDER, SINGLE EPISODE, UNSPECIFIED SNOMED Code(s): 49461123 Comment: Hold Celexa while NPO
[2018-04-03] MEDS ORDERED: Piperacillin/Tazobac ADVAN(*) 3.375 GM in NS 0.9% 100 ML* 100 ML IVPB SCH (02:00)
[2018-04-03] MEDS: Pantoprazole IV* 40 MG IV SCH (03:24)
[2018-04-03] MEDS: metroNIDAZOLE IV 500 MG/100ML* 500 MG/100 ML BAG IVPB SCH ×3 (03:39→19:26)
[2018-04-03] MEDS: Ciprofloxacin 400MG IVPREMIX(* 400 MG/200 ML BAG IVPB SCH ×2 (03:39→14:19)
[2018-04-03] MEDS: NS 0.9% 1000 ML* 1,000 ML IV SCH ×2 (03:39→15:05)
[2018-04-03] MEDS: Carbidopa/Levodop 25/100 MG TAB(*) PO SCH ×5 (03:41→19:36)
[2018-04-03] MEDS: Amantadine CAP* 100 MG PO SCH ×3 (03:45→16:04)
--- NOTE | 2018-04-03 09:05 | PN ---
Subjective Date of Service: 04/03/18 Interval History: Patient admitted overnight for sigmoid volvulus. at the bedside. Patient denying any pain. States he is passing gas. Last BM they think was on 03/29. States his belly was very big but did not have any pain. Nursing staff was concerned because he needs to have surgery so he was brought here. Very minimal PO since his discharge two days ago. No CP or SOB. Objective Active Medications: Amantadine HCl (Symmetrel Cap*) 100 mg PO 0800,1700 [facility] Last Admin: 04/03/18 08:23 Dose: Not Given Carbidopa/Levodopa (Sinemet 25/100 Tab(*)) 2 tab PO 0800,1700,2000 [facility] Last Admin: 04/03/18 08:23 Dose: Not Given Carbidopa/Levodopa (Sinemet 25/100 Tab(*)) 2.5 tab PO 1200 [facility] Sodium Chloride (Ns 0.9% 1000 Ml*) 1,000 mls @ 100 mls/hr IV PER RATE [facility] Last Admin: 04/03/18 03:39 Dose: 100 mls/hr Ciprofloxacin/Dextrose (Cipro 400 Mg Ivpremix(*)) 400 mg in 200 mls @ 200 mls/ hr IVPB Q12H [facility] Last Admin: 04/03/18 03:39 Dose: 200 mls/hr Metronidazole/Sodium Chloride (Flagyl 500 Mg Ivpb*) 500 mg in 100 mls @ 100 mls /hr IVPB Q8H [facility] Last Admin: 04/03/18 03:39 Dose: 100 mls/hr Pantoprazole Sodium (Protonix Iv*) 40 mg IV Q24H [facility] Last Admin: 04/03/18 03:24 Dose: 40 mg Polyvinyl Alcohol (Polyvinyl Alcohol 1.4% Opth*) 2 drop BOTH EYES Q2H PRN PRN Reason: DRY EYE Vital Signs - 8 hr 04/03/18 04/03/18 04/03/18 01:06 02:15 04:01 Temperature 98.3 F 98.5 F Pulse Rate 77 85 77 Respiratory 18 18 Rate Blood Pressure 140/70 156/63 140/70 (mmHg) O2 Sat by Pulse 95 96 95 Oximetry 04/03/18 04/03/18 04/03/18 04:56 07:37 08:00 Temperature 98.4 F 98.7 F Pulse Rate 72 78 Respiratory 18 16 16 Rate Blood Pressure 149/69 126/56 (mmHg) O2 Sat by Pulse 98 96 Oximetry Oxygen Devices in Use Now: None Ears/Nose/Mouth/Throat: Mucous Membranes Moist Neck: Trachea Midline Respiratory: Symmetrical Chest Expansion and Respiratory Effort, Clear to Auscultation Cardiovascular: NL Sounds; No Murmurs; No JVD, - - soft systolic murmur Abdominal: - - absent bowel sounds, distended, soft, nontender Extremities: - - trace edema Neurological: Alert and Oriented x 3, - - flat affect, stuttering Result Diagrams: 04/02/18 18:56 04/02/18 18:56 EKG Data: ekg ns no acute st t changes Assess/Plan/Problems-Billing Assessment: This is a 77 yr old with a PMHx of advanced parkinson's and muscular dystrophy who was discharged on 04/01 for sigmoid volvulus s/p decompression, returns with abdominal distention found to have recurrent volvulus - Patient Problems (1) Sigmoid volvulus Current Visit: Yes Status: Acute Comment: Howard Escalona consulted - second episode in the past week. Was planning for surgery with Dr. Escalona on 04/[address] Escalona's recommendations Repeat Labs NPO, IVFs GI also involved if decompression is appropriate however was a difficult decompression the first time. (2) Parkinson disease Current Visit: Yes Status: Acute Code(s): G20 - PARKINSON'S DISEASE SNOMED Code(s): 21319072 Comment: continue Carbidopa/Levodopa and amantidine - hold while he is NPO (3) Depression Current Visit: No Status: Acute Code(s): F32.9 - MAJOR DEPRESSIVE DISORDER, SINGLE EPISODE, UNSPECIFIED SNOMED Code(s): 28294674 Comment: Hold Celexa while NPO (4) Muscular dystrophy Current Visit: No Status: Acute Code(s): G71.0 - MUSCULAR DYSTROPHY * DO NOT USE * SNOMED Code(s): 14987243 Comment: A/P - Stable (5) DVT prophylaxis Current Visit: No Status: Acute Code(s): [id number] - SNOMED Code(s): 861947295 Comment: Heparin SQ TID (6) Full code status Current Visit: No Status: Acute Code(s): Z78.9 - OTHER SPECIFIED HEALTH STATUS SNOMED Code(s): 875064377 Comment: Recommend readdressing once the patient's children arrive. Was a DNR /DNI in the past on [facility]
[2018-04-03 09:28] LABS: ABS Basophils 0 10^3/ul (0-0.2); ABS Eosinophils 0.2 10^3/ul (0-0.6); ABS Monocytes 0.4 10^3/ul (0-0.8); ABS Neutrophils 3.9 10^3/ul (1.5-7.7); ABS Nucleated RBC 0 10^3/ul; Eosinophil % 3.4 % (0-6); Hematocrit 41 % (42-52); Lymphocyte % 18.2 % (25-47); Mean Corpuscular HGB Conc 34 g/dl (31-36); Mean Corpuscular Hemoglobin 32 pg (27-31); Mean Corpuscular Volume 92 fL (80-94); Mean Platelet Volume 6.9 fL (7.4-10.4); Nucleated Red Blood Cells % 0; Platelet Count 260 10^3/ul (150-450); Red Blood Count 4.46 10^6/ul (4.00-5.40); Red Cell Distribution Width 15 % (10.5-15); White Blood Count 5.6 10^3/ul (3.5-10.8)
[2018-04-03 09:46] LABS: EGFR Non-African American 142.2 (>60)
[2018-04-03 10:06] LABS: INR 0.98 (0.77-1.02)
--- NOTE | 2018-04-03 11:22 | CONS ---
CC: Primary care doctor, Dr. Parikh; [facility] CONSULTATION REPORT: DATE OF CONSULT: 04/03/18 LOCATION: Patient seen in room 444. HISTORY OF PRESENT ILLNESS: I was aware of Mr. Nava's arrival to the emergency room yesterday and discussed his case with his as well as with him. He presented with mucusy stools and had a workup including an x-ray that led to a CAT scan with questionable recurrence of sigmoid volvulus. His images were reviewed and patient was admitted to the hospitalist service on n.p.o. status and patient was seen today. Patient has no complaints. He has no abdominal pain. He claims he is passing flatus, it is unclear. No bowel movements. PAST MEDICAL HISTORY: Unchanged. PAST SURGICAL HISTORY: Unchanged. PHYSICAL EXAM: On physical exam today, he is afebrile. Vital Signs: Stable. He is awake, he is alert. It is unclear with language barrier as to what complaints he may have. He is lying in bed comfortably. Abdomen is soft, distended, tympanitic, nontender with normoactive bowel sounds in the lower abdomen and hyperactive in the upper. Rectal exam was not performed. DIAGNOSTIC STUDIES/LAB DATA: Labs reviewed now within normal limits. CT scan reviewed with findings concerning for recurrent sigmoid volvulus with no obstruction, no dilation of the cecum. 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 I think given the patient is a poor historian with his Parkinson's and language barriers that he would be best served with a Sarah's procedure. I have recommended Sarah's procedure today to the patient and the patient's . He is concerned about having a colostomy bag and at first disagreed. After our discussion through his , patient is willing to undergo this procedure, but according to the , the decisions do fall onto her son. She is also stating that she wants to wait until the son arrives approximately midnight tonight and wants wait for surgery until tomorrow. I discussed with her the possibility of worsening issues including perforation, sepsis, and even and she is adamant about waiting until the family arrive as this is very important to her and her customs. We will look towards scheduling him for colectomy with colostomy tomorrow, when family members are around. I believe given patient's physical exam and this questionable flatus passage that this is not entirely unreasonable. I do not feel that patient needs to necessarily undergo a colonoscopy at this point as I do not feel that I need any additional air entry into the colon and the possibility of perforation proximally. I believe this patient will just simply benefit from Sarah's procedure with colostomy and supportive care at this point. Patient's and he are aware and they agree with the plan of waiting until family members arrive. I cannot disagree with this as per their customs and we will follow closely along and have taken them onto my service. [id number]/[facility] #: [id number] JOVAN
[2018-04-03] MEDS ORDERED: Heparin VIAL(*) 5000 UNITS/ML VIAL (FIVE THOUSAND) SUBCUT SCH (14:00)
[2018-04-04] MEDS: Pantoprazole IV* 40 MG IV SCH (02:33)
[2018-04-04] MEDS: NS 0.9% 1000 ML* 1,000 ML IV SCH (02:33)
[2018-04-04] MEDS: Ciprofloxacin 400MG IVPREMIX(* 400 MG/200 ML BAG IVPB SCH ×3 (02:33→23:30)
[2018-04-04] MEDS: metroNIDAZOLE IV 500 MG/100ML* 500 MG/100 ML BAG IVPB SCH ×3 (03:48→19:27)
[2018-04-04] MEDS: Heparin VIAL(*) 5000 UNITS/ML VIAL (FIVE THOUSAND) SUBCUT SCH ×3 (05:04→22:00)
[2018-04-04 05:24] LABS: ABS Basophils 0.1 10^3/ul (0-0.2); ABS Eosinophils 0.2 10^3/ul (0-0.6); ABS Lymphocytes 0.7 10^3/ul (1.0-4.8); ABS Monocytes 0.3 10^3/ul (0-0.8); ABS Nucleated RBC 0 10^3/ul; Eosinophil % 3.7 % (0-6); Hematocrit 42 % (42-52); Hemoglobin 14.1 g/dl (14.0-18.0); Lymphocyte % 15.8 % (25-47); Mean Corpuscular HGB Conc 34 g/dl (31-36); Mean Corpuscular Hemoglobin 31 pg (27-31); Mean Corpuscular Volume 92 fL (80-94); Mean Platelet Volume 6.6 fL (7.4-10.4); Nucleated Red Blood Cells % 0.2; Platelet Count 229 10^3/ul (150-450); Red Blood Count 4.56 10^6/ul (4.00-5.40); Red Cell Distribution Width 15 % (10.5-15); White Blood Count 4.2 10^3/ul (3.5-10.8)
[2018-04-04 05:31] LABS: INR 1.06 (0.77-1.02)
[2018-04-04 05:40] LABS: EGFR Non-African American 162.1 (>60)
[2018-04-04] MEDS: Citalopram TAB* 10 MG PO SCH (08:29)
[2018-04-04] MEDS: Carbidopa/Levodop 25/100 MG TAB(*) PO SCH ×4 (08:29→19:36)
[2018-04-04] MEDS: Amantadine CAP* 100 MG PO SCH ×2 (08:29→19:29)
[2018-04-04] MEDS ORDERED: Midazolam* 1 MG/ML 2 ML VIAL (2 MG) ONE (11:42)
[2018-04-04] MEDS ORDERED: Morphine PF AMP (0.5MG/ML)* 5 MG/10 ML AMP ONE (11:42)
[2018-04-04] MEDS ORDERED: Morphine VIAL* 4 MG/ML VIAL (1 ml vial) IV ONE (11:47)
[2018-04-04] MEDS ORDERED: HYDROmorphone INJ1* 1 MG/ML SYRINGE ONE (11:48)
--- NOTE | 2018-04-04 12:37 | PN ---
Subjective Date of Service: 04/04/18 Interval History: Patient was seen this morning for my initial visit. Family at bedside included his and son. The patient, the and the son had several questions to providers regarding his diagnosis and the rationale behind the surgery. I did meet with them and I re-emphasized what was most likely been explained previously to them by both medicine and surgery providers. However; since it was my first encounter, I did explain and confirmed with them that since it is a recurrence of volvulus there is a chance of perforations if it keeps on reoccurring. There is no way to guarantee that if it was treated conservatively that it will not re-occur again. The patient did understand and his son did assist with translations. He did consent for the surgery and surgery in the room to answer the risk and surgical procedure ... Past Medical History: Unchanged from Admission Objective Active Medications: Amantadine HCl (Symmetrel Cap*) 100 mg PO 0800,1700 [facility] Last Admin: 04/04/18 08:29 Dose: 100 mg Carbidopa/Levodopa (Sinemet 25/100 Tab(*)) 2 tab PO 0800,1700,2000 [facility] Last Admin: 04/04/18 08:29 Dose: 2 tab Carbidopa/Levodopa (Sinemet 25/100 Tab(*)) 2.5 tab PO 1200 [facility] Last Admin: 04/03/18 11:37 Dose: Not Given Citalopram Hydrobromide (Celexa Tab*) 10 mg PO DAILY [facility] Last Admin: 04/04/18 08:29 Dose: 10 mg Heparin Sodium (Porcine) (Heparin Vial(*)) 5,000 units SUBCUT Q8HR [facility] Last Admin: 04/04/18 05:04 Dose: Not Given Sodium Chloride (Ns 0.9% 1000 Ml*) 1,000 mls @ 100 mls/hr IV PER RATE [facility] Last Admin: 04/04/18 02:33 Dose: 100 mls/hr Ciprofloxacin/Dextrose (Cipro 400 Mg Ivpremix(*)) 400 mg in 200 mls @ 200 mls/ hr IVPB Q12H [facility] Last Admin: 04/04/18 02:33 Dose: 200 mls/hr Metronidazole/Sodium Chloride (Flagyl 500 Mg Ivpb*) 500 mg in 100 mls @ 100 mls /hr IVPB Q8H [facility] Last Admin: 04/04/18 03:48 Dose: 100 mls/hr Pantoprazole Sodium (Protonix Iv*) 40 mg IV Q24H [facility] Last Admin: 04/04/18 02:33 Dose: 40 mg Polyvinyl Alcohol (Polyvinyl Alcohol 1.4% Opth*) 2 drop BOTH EYES Q2H PRN PRN Reason: DRY EYE Vital Signs - 8 hr 04/04/18 04/04/18 07:17 08:00 Temperature 97.3 F Pulse Rate 83 Respiratory 16 16 Rate Blood Pressure 128/66 (mmHg) O2 Sat by Pulse 98 Oximetry Oxygen Devices in Use Now: None Appearance: no acute distress; parkinosim mask like facial feature Eyes: No Scleral Icterus, - - dry oral mucosa Ears/Nose/Mouth/Throat: - - dry oral mucosa Neck: NL Appearance and Movements; NL JVP, Trachea Midline Respiratory: Symmetrical Chest Expansion and Respiratory Effort, Clear to Auscultation Cardiovascular: NL Sounds; No Murmurs; No JVD, RRR Abdominal: - - distended. soft. non tender Skin: No Rash or Ulcers Neurological: Alert and Oriented x 3 Result Diagrams: 04/04/18 05:17 04/04/18 05:17 EKG Data: ekg ns no acute st t changes Assess/Plan/Problems-Billing Assessment: This is a 77 yr old with a PMHx of advanced parkinson's and muscular dystrophy who was discharged on 04/01 for sigmoid volvulus s/p decompression, returns with abdominal distention found to have recurrent volvulus - Patient Problems (1) Sigmoid volvulus Current Visit: Yes Status: Acute Comment: - Dr. Escalona consul and input appreciated. - I did explain to patient and family that since this is the second episode in the past week I agree with surgical decompression and Sarah procedure. I did explain to family benefit/rational. Surgery as well did provide benefit, risk and surgical steps. - NPO ; IVF; GI prophylactic - On Cipro/flagyl. We may discontinue 24-48 hrs post op (2) Parkinson disease Current Visit: Yes Status: Acute Code(s): G20 - PARKINSON'S DISEASE SNOMED Code(s): 59905515 Comment: continue Carbidopa/Levodopa and amantidine - may take them with sip of water while NPO (3) HTN (hypertension) Current Visit: No Status: Acute Code(s): I10 - ESSENTIAL (PRIMARY) HYPERTENSION SNOMED Code(s): 41297941 Comment: Controlled. continue losartan (4) DVT prophylaxis Current Visit: No Status: Acute Code(s): THI7175 - SNOMED Code(s): 013439217 Comment: - Continue Heparin SubQ, to be held 8 hrs before surgery
[2018-04-04] MEDS ORDERED: Phenylephrine IV* 40 MCG/ML 10 ML SYRINGE ONE (12:53)
[2018-04-04] MEDS ORDERED: Phenylephrine INJ* 10 MG/ML 1 ML VIAL (10 MG) ONE (12:53)
[2018-04-04] MEDS ORDERED: Chloroprocaine 3%* 20 ML VIAL ONE (13:07)
[2018-04-04] MEDS ORDERED: Propofol* 10 MG/ML 20 ML BTL IV PUSH ONE (13:33)
[2018-04-04] MEDS ORDERED: Lidocaine 2% PF * 5 ML VIAL ONE (13:33)
[2018-04-04] MEDS ORDERED: Ropivacaine (OR use only) 2 MG/ML 10 ML ONE (13:42)
[2018-04-04] MEDS ORDERED: Bupivacaine 0.5% SDV PF* 30ML VIAL ONE (13:51)
[2018-04-04] MEDS ORDERED: Naloxone* 0.4 MG/ML 1 ML VIAL IV PRN ×2 (13:55→16:25)
[2018-04-04] MEDS ORDERED: Ropivacaine* 300 MG in NS 0.9% 250 ML* 240 ML EPIDURAL SCH (14:00)
[2018-04-04] MEDS ORDERED: fentaNYL* 50 MCG/ML 2 ML VIAL (100 MCG VIAL) ONE ×2 (14:23→14:39)
[2018-04-04] MEDS: fentaNYL* 50 MCG/ML 2 ML VIAL (100 MCG VIAL) IV PRN ×3 (14:26→15:54)
[2018-04-04] MEDS ORDERED: diPHENhydraMINE IV* 50 MG/ML 1 ml VIAL (BENADRYL) IV PRN (16:25)
[2018-04-04] MEDS ORDERED: diPHENhydraMINE IV* 50 MG/ML 1 ml VIAL (BENADRYL) ONE (16:32)
[2018-04-04] MEDS ORDERED: Ondansetron INJ* 2 MG/ML VIAL IV PRN (17:46)
[2018-04-04] MEDS ORDERED: Acetaminophen TAB* 325 MG PO PRN (17:50)
[2018-04-05] MEDS: Pantoprazole IV* 40 MG IV SCH (01:51)
[2018-04-05] MEDS: metroNIDAZOLE IV 500 MG/100ML* 500 MG/100 ML BAG IVPB SCH (03:46)
[2018-04-05] MEDS: Heparin VIAL(*) 5000 UNITS/ML VIAL (FIVE THOUSAND) SUBCUT SCH ×3 (05:57→21:08)
[2018-04-05] MEDS: NS 0.9% 1000 ML* 1,000 ML IV SCH ×2 (06:44→18:14)
[2018-04-05 08:25] LABS: ABS Basophils 0 10^3/ul (0-0.2); ABS Eosinophils 0 10^3/ul (0-0.6); ABS Lymphocytes 0.8 10^3/ul (1.0-4.8); ABS Monocytes 0.6 10^3/ul (0-0.8); ABS Neutrophils 7.2 10^3/ul (1.5-7.7); ABS Nucleated RBC 0 10^3/ul; Eosinophil % 0.4 % (0-6); Hematocrit 43 % (42-52); Hemoglobin 14.5 g/dl (14.0-18.0); Lymphocyte % 9.3 % (25-47); Mean Corpuscular HGB Conc 34 g/dl (31-36); Mean Corpuscular Hemoglobin 31 pg (27-31); Mean Corpuscular Volume 93 fL (80-94); Mean Platelet Volume 6.3 fL (7.4-10.4); Nucleated Red Blood Cells % 0; Platelet Count 246 10^3/ul (150-450); Red Blood Count 4.63 10^6/ul (4.00-5.40); Red Cell Distribution Width 15 % (10.5-15); White Blood Count 8.7 10^3/ul (3.5-10.8)
[2018-04-05 08:42] LABS: EGFR Non-African American 77.3 (>60)
--- NOTE | 2018-04-05 08:44 | PN ---
Progress Note - Progress Note Date of Service: 04/05/18 SOAP: Subjective: Pt seen and examined. Sitting up. No complaints. epidural in place Objective: Temp Pulse Resp BP Pulse Ox 97.7 F 93 16 118/53 97 04/05/18 07:10 04/05/18 07:10 04/05/18 07:10 04/05/18 07:10 04/05/18 07:10 Intake & Output 04/04/18 04/05/18 04/05/18 22:59 06:59 14:59 Intake Total 100 1778 Output Total 550 175 Balance -450 1603 a and o lungs poor insp effort abdo: soft/ mild distension stool in ostomy midline dressing changed due to soilage no calf tenderness Laboratory Last Values WBC 8.7 10^3/ul (3.5-10.8) 04/05/18 08:17 RBC 4.63 10^6/ul (4.00-5.40) 04/05/18 08:17 Hgb 14.5 g/dl (14.0-18.0) 04/05/18 08:17 Hct 43 % (42-52) 04/05/18 08:17 MCV 93 fL (80-94) 04/05/18 08:17 MCH 31 pg (27-31) 04/05/18 08:17 MCHC 34 g/dl (31-36) 04/05/18 08:17 RDW 15 % (10.5-15) 04/05/18 08:17 Plt Count 246 10^3/ul (150-450) 04/05/18 08:17 MPV 6.3 fL (7.4-10.4) L 04/05/18 08:17 Neut % (Auto) 82.4 % (38-83) 04/05/18 08:17 Lymph % (Auto) 9.3 % (25-47) L 04/05/18 08:17 Cataño % (Auto) 7.3 % (0-7) H 04/05/18 08:17 Eos % (Auto) 0.4 % (0-6) 04/05/18 08:17 Baso % (Auto) 0.6 % (0-2) 04/05/18 08:17 Absolute Neuts (auto) 7.2 10^3/ul (1.5-7.7) 04/05/18 08:17 Absolute Lymphs (auto) 0.8 10^3/ul (1.0-4.8) L 04/05/18 08:17 Absolute Monos (auto) 0.6 10^3/ul (0-0.8) 04/05/18 08:17 Absolute Eos (auto) 0 10^3/ul (0-0.6) 04/05/18 08:17 Absolute Basos (auto) 0 10^3/ul (0-0.2) 04/05/18 08:17 Absolute Nucleated RBC 0 10^3/ul 04/05/18 08:17 Nucleated RBC % 0 04/05/18 08:17 INR (Anticoag Therapy) 1.06 (0.77-1.02) H 04/04/18 05:17 APTT 33.8 seconds (26.0-36.3) 04/03/18 09:02 Sodium 138 mmol/L (135-145) 04/05/18 08:17 Potassium 4.0 mmol/L (3.5-5.0) 04/05/18 08:17 Chloride 107 mmol/L (101-111) 04/05/18 08:17 Carbon Dioxide 20 mmol/L (22-32) L 04/05/18 08:17 Anion Gap 11 mmol/L (2-11) 04/05/18 08:17 BUN 17 mg/dL (6-24) 04/05/18 08:17 Creatinine 0.95 mg/dL (0.67-1.17) 04/05/18 08:17 Est GFR ( Amer) 93.5 (>60) 04/05/18 08:17 Est GFR (Non-Af Amer) 77.3 (>60) 04/05/18 08:17 BUN/Creatinine Ratio 17.9 (8-20) 04/05/18 08:17 Glucose 63 mg/dL (70-100) L 04/05/18 08:17 Lactic Acid 0.6 mmol/L (0.5-2.0) 04/04/18 05:17 Calcium 8.1 mg/dL (8.6-10.3) L 04/05/18 08:17 Magnesium 1.8 mg/dL (1.9-2.7) L 04/05/18 08:17 Total Bilirubin 0.50 mg/dL (0.2-1.0) 04/02/18 18:56 AST 29 U/L (13-39) 04/02/18 18:56 ALT 6 U/L (7-52) L 04/02/18 18:56 Alkaline Phosphatase 75 U/L (34-104) 04/02/18 18:56 Total Protein 6.8 g/dL (6.4-8.9) 04/02/18 18:56 Albumin 3.8 g/dL (3.2-5.2) 04/02/18 18:56 Globulin 3.0 g/dL (2-4) 04/02/18 18:56 Albumin/Globulin Ratio 1.3 (1-3) 04/02/18 18:56 Assessment: POD 1 Sarah's procedure Plan: advance diet ostomy care physical testing supervisor pulm toilet
[2018-04-05] MEDS: Amantadine CAP* 100 MG PO SCH ×2 (08:45→17:44)
[2018-04-05] MEDS: Citalopram TAB* 10 MG PO SCH (08:47)
[2018-04-05] MEDS: Carbidopa/Levodop 25/100 MG TAB(*) PO SCH ×4 (08:47→21:04)
[2018-04-05] MEDS ORDERED: Magnesium Sulfate 1 GM IV* 1 GM/100 ML BAG IV ONE (08:57)
--- NOTE | 2018-04-05 09:28 | PN ---
Progress Note - Progress Note Date of Service: 04/05/18 Note: Continuous Epidural Infusion Day #1 Patient is alert. BP = 118/53. P = 68. SPO2 = 97% on RA. He reports no pain at the present. Patient is able to move feet and bend knees. Epidural currently infusing at 12 ml/hr. If patient remains pain-free, will decrease CEI to 10 this afternoon. Satisfactory course.
--- NOTE | 2018-04-05 09:56 | OP ---
CC: Dr. Jonathan Parikh; [facility]; [facility] OPERATIVE REPORT: DATE OF OPERATION: DATE OF : 44 SURGEON: Ld Escalona MD DRIVER LICENSE AGENT: Hipolito. ANESTHESIOLOGIST: Dr. Carvalho. ANESTHESIA: Epidural anesthesia and general anesthesia with LMA. PRE-OP DIAGNOSIS: Sigmoid volvulus. POST-OP DIAGNOSIS: Sigmoid volvulus. OPERATIVE PROCEDURE: Sigmoid colectomy and end colostomy. ESTIMATED BLOOD LOSS: Minimal blood loss. FLUIDS: Less than 1 L of crystalloid fluid given. SPECIMEN: Sigmoid colon. DRAINS: None. COUNTS: Lap pad count and instrument count correct at the end of the procedure. INDICATIONS: Mr. Nava is a 77-year-old gentleman who presented less than 1 week following discharge wi th a sigmoid volvulus that had been reduced a week prior. Decision was made, after I recommended to t he family, for this [facility] patient that a sigmoid colectomy with end colostomy would be th e best route forward for this patient with what seemed to be obstruction. He did improve a little bi t only to worsen again over the course of this stay here. I outlined the details of the sigmoid eileen ctomy and end colostomy to the family members including the son and daughter who wanted to be in town before I took him to the operating room, and consent was signed by . We spoke the possible comp lications which include not limited to bleeding, infection, leak, intraabdominal infection, hernia fo rmation, parastomal hernia formation, prolonged hospitalization, stroke, pneumonia, and even . The patient was marked and consented. DESCRIPTION OF PROCEDURE: Brought to the operating room and placed on the operating table in the sea jason position where an epidural catheter was inserted. Please see separate report for details. He was then placed in the supine position. Sequential devices were placed on bilateral lower extremities. General anesthesia was induced. The patient's abdomen was prepped and draped in the standard surgica l fashion. Time-out was performed. An incision was made starting at the umbilicus and extending inferiorly. This was deepened through a ll layers of the abdominal wall until I entered into the abdomen. Bowel was pink and viable and there was no free fluid or air upon entry. Next, the large sigmoid colon was eviscerated. This was significantly dilated and air filled with a minimal fluid filling. There were no adhesions. The small bowel was packed superiorly and we identi fied an area on the rectum where we would choose our transection point, briefly thought of performing a primary anastomosis given the viability of the bowel and the appearance but felt that this was not safe in the unprepped bowel, this gentleman who had been on and off n.p.o. for over a week now. A window was made through the mesentery that had been somewhat scarred in after using both sharp diss ection as well as electrocautery and then LigaSure device to get a good area of the distal sigmoid co erik. This was transected with an 80-mm blue NAHEED stapling device. Edge of the staple line had some b leeding and this was controlled with 2-0 Vicryl suture. Next, we chose the point on the proximal sigmoid colon very close to the descending colon. We took s ome of the peritoneum laterally off this as well as medially, and this would become the new colostomy . We transected this again with another 80-mm blue NAHEED stapling device. Next, the mesentery was aubrey en on the sigmoid colon with LigaSure device and it was passed off as specimen. Hemostasis was assur ed and we addressed the proximal sigmoid. Additional sharp dissection was carried out so that we wou ld free this from the scarring of the sigmoid mesentery as well as the lateral side wall. This gave it ability to be brought up better. Next, a point was chosen on the abdominal wall at the left lower quadrant. A disc of skin was taken along the subcutaneous fascia right down to the fascia overlying the rectus muscle. We incised the f ascia and then split the muscle and brought our colon up through this area. Next, attention was turned to the abdomen. We irrigated and cleaned out the irrigant. Hemostasis wa s achieved and then we closed the fascia with interrupted #1 Vicryl suture in a [id number] fashi on. Wound was then irrigated and the skin edges approximated with skin uri. Sterile dressing wa s applied. Next, the colostomy was matured in a typical fashion with 2-0 and 3-0 Vicryl sutures and a colostomy appliance was placed. The patient was awoken up and transferred to the PACU in stable condition. [id number]/[facility] #: [id number]
[2018-04-05] MEDS: Ciprofloxacin 400MG IVPREMIX(* 400 MG/200 ML BAG IVPB SCH (10:43)
[2018-04-05] MEDS ORDERED: NS 0.9% 250 ML* 250 ML ONE (14:05)
[2018-04-05] MEDS: Ondansetron INJ* 2 MG/ML VIAL IV PRN (14:41)
--- NOTE | 2018-04-05 14:48 | PN ---
Subjective Date of Service: 04/05/18 Interval History: Patient seen today around lunch time. He was up in his chair having clear liquid diet. He report minimal pain but he was still on the Continuous epidural anesthesia. No events overnight. Surgery did see the patient this morning and cleared for activity, PT and clear liquid diet Past Medical History: Unchanged from Admission Objective Active Medications: Acetaminophen (Tylenol Tab*) 650 mg PO Q4H PRN PRN Reason: MILD PAIN OR T >=101 Hydrocodone Bitart/Acetaminophen ([place] 5-325 Tab*) 1 tab PO Q4H PRN PRN Reason: PAIN - SEVERE Amantadine HCl (Symmetrel Cap*) 100 mg PO 0800,1700 [facility] Last Admin: 04/05/18 08:45 Dose: 100 mg Carbidopa/Levodopa (Sinemet 25/100 Tab(*)) 2 tab PO 0800,1700,2000 [facility] Last Admin: 04/05/18 08:47 Dose: 2 tab Carbidopa/Levodopa (Sinemet 25/100 Tab(*)) 2.5 tab PO 1200 [facility] Last Admin: 04/05/18 12:19 Dose: 2.5 tab Citalopram Hydrobromide (Celexa Tab*) 10 mg PO DAILY [facility] Last Admin: 04/05/18 08:47 Dose: 10 mg Heparin Sodium (Porcine) (Heparin Vial(*)) 5,000 units SUBCUT Q8HR [facility] Last Admin: 04/05/18 05:57 Dose: 5,000 units Sodium Chloride (Ns 0.9% 1000 Ml*) 1,000 mls @ 100 mls/hr IV PER RATE [facility] Last Admin: 04/05/18 06:44 Dose: 100 mls/hr Lactated Ringer's (Lactated Ringers 500 Ml Bag*) 500 mls @ 2,000 mls/hr IV ONCE PRN PRN Reason: FOR SBP < 90 Ropivacaine 300 mg/ Sodium (Chloride) 300 mls @ 0 mls/hr EPIDURAL PER RATE [facility] ; Protocol Last Admin: 04/05/18 14:36 Dose: 10 mls/hr Ondansetron HCl (Zofran Inj*) 4 mg IV Q6H PRN PRN Reason: NAUSEA Pantoprazole Sodium (Protonix Iv*) 40 mg IV Q24H [facility] Last Admin: 04/05/18 01:51 Dose: 40 mg Polyvinyl Alcohol (Polyvinyl Alcohol 1.4% Opth*) 2 drop BOTH EYES Q2H PRN PRN Reason: DRY EYE Vital Signs - 8 hr 04/05/18 04/05/18 04/05/18 07:10 08:00 11:20 Temperature 97.7 F 97.7 F Pulse Rate 93 90 Respiratory 16 18 18 Rate Blood Pressure 118/53 117/64 (mmHg) O2 Sat by Pulse 97 98 98 Oximetry Oxygen Devices in Use Now: None Appearance: Awake, Alert.. no distress. parkinosim mask like facial feature Eyes: No Scleral Icterus Ears/Nose/Mouth/Throat: Mucous Membranes Moist Neck: NL Appearance and Movements; NL JVP Respiratory: Symmetrical Chest Expansion and Respiratory Effort, - - bibasilar crakles Cardiovascular: NL Sounds; No Murmurs; No JVD Abdominal: - - mildly distended. right Lower quadrant colostomy bag Extremities: No Edema Neurological: - - contracted, poor muscular tone Result Diagrams: 04/05/18 08:17 04/05/18 08:17 EKG Data: ekg ns no acute st t changes Assess/Plan/Problems-Billing Assessment: this is a 77 yr old male with hx of advanced Parkinson and muscular dystrophy hx of recurrent sig volvulus wich required colonoscopy to decompress - --> last procedure was done last admission (early March) presented to ER with abdominal pain. Repeat CT scan of abdomen showed sigmoid volvulus size 6 cm ---> He was seen by surgery and underwent Aguilar Procedure on 04/04/18 - Patient Problems (1) Sigmoid volvulus Current Visit: Yes Status: Acute Comment: - Dr. Escalona consult and input appreciated. - S/p Aguilar 04/04/18 POD # 1 - S/P Cipro/flagyl Briana-op - Diet, activity as per surgery (2) Parkinson disease Current Visit: Yes Status: Acute Code(s): G20 - PARKINSON'S DISEASE SNOMED Code(s): 07873036 Comment: continue Carbidopa/Levodopa and amantidine - (3) HTN (hypertension) Current Visit: No Status: Acute Code(s): I10 - ESSENTIAL (PRIMARY) HYPERTENSION SNOMED Code(s): 07442075 Comment: Controlled. continue losartan (4) DVT prophylaxis Current Visit: No Status: Acute Code(s): ZSZ9419 - SNOMED Code(s): 186661674 Comment: - Continue Heparin SubQ, to be held 8 hrs before surgery
[2018-04-06] MEDS: Pantoprazole IV* 40 MG IV SCH (01:25)
[2018-04-06] MEDS: NS 0.9% 1000 ML* 1,000 ML IV SCH ×3 (04:09→14:52)
[2018-04-06] MEDS: Heparin VIAL(*) 5000 UNITS/ML VIAL (FIVE THOUSAND) SUBCUT SCH ×3 (05:18→21:20)
[2018-04-06 06:13] LABS: ABS Basophils 0.1 10^3/ul (0-0.2); ABS Eosinophils 0 10^3/ul (0-0.6); ABS Lymphocytes 0.6 10^3/ul (1.0-4.8); ABS Monocytes 0.7 10^3/ul (0-0.8); ABS Nucleated RBC 0 10^3/ul; Eosinophil % 0.6 % (0-6); Hematocrit 38 % (42-52); Hemoglobin 12.7 g/dl (14.0-18.0); Lymphocyte % 7.8 % (25-47); Mean Corpuscular HGB Conc 34 g/dl (31-36); Mean Corpuscular Hemoglobin 31 pg (27-31); Mean Corpuscular Volume 93 fL (80-94); Mean Platelet Volume 6.4 fL (7.4-10.4); Nucleated Red Blood Cells % 0; Platelet Count 227 10^3/ul (150-450); Red Blood Count 4.11 10^6/ul (4.00-5.40); Red Cell Distribution Width 15 % (10.5-15); White Blood Count 7.3 10^3/ul (3.5-10.8)
[2018-04-06 06:33] LABS: EGFR Non-African American 73.7 (>60)
[2018-04-06] MEDS: Citalopram TAB* 10 MG PO SCH (08:25)
[2018-04-06] MEDS: Amantadine CAP* 100 MG PO SCH ×2 (08:25→17:45)
[2018-04-06] MEDS: Carbidopa/Levodop 25/100 MG TAB(*) PO SCH ×4 (08:25→21:20)
[2018-04-06] MEDS: Potassium & Sodium Phos 250MG* = 1 PACKET PO SCH ×2 (09:00→21:19)
[2018-04-06] MEDS: HYDROcodone/ACETAMIN 5-325 MG* 1 TAB PO PRN (10:40)
--- NOTE | 2018-04-06 12:46 | PN ---
Progress Note - Progress Note Date of Service: 04/06/18 Note: POD#2 s/p colectomy Afeb, VS noted UO large Taking some po's No stool in bag Seems comfortable Abd--soft, distended, mild tenderness, still w/ tympany stoma digital exam normal, patent to beneath fascia Await GI function Decrease IVF Electrolytes per hospitalist
[2018-04-06] MEDS ORDERED: Morphine VIAL* 4 MG/ML VIAL (1 ml vial) IV PRN (12:51)
--- NOTE | 2018-04-06 13:39 | PN ---
Subjective Date of Service: 04/06/18 Interval History: Awake, no distress. taking full liquid well. no events overnight. Past Medical History: Unchanged from Admission Objective Active Medications: Acetaminophen (Tylenol Tab*) 650 mg PO Q4H PRN PRN Reason: MILD PAIN OR T >=101 Hydrocodone Bitart/Acetaminophen ([place] 5-325 Tab*) 1 tab PO Q4H PRN PRN Reason: PAIN - SEVERE Last Admin: 04/06/18 10:40 Dose: 1 tab Amantadine HCl (Symmetrel Cap*) 100 mg PO 0800,1700 [facility] Last Admin: 04/06/18 08:25 Dose: 100 mg Carbidopa/Levodopa (Sinemet 25/100 Tab(*)) 2 tab PO 0800,1700,2000 [facility] Last Admin: 04/06/18 08:25 Dose: 2 tab Carbidopa/Levodopa (Sinemet 25/100 Tab(*)) 2.5 tab PO 1200 [facility] Last Admin: 04/06/18 12:42 Dose: 2.5 tab Citalopram Hydrobromide (Celexa Tab*) 10 mg PO DAILY [facility] Last Admin: 04/06/18 08:25 Dose: 10 mg Heparin Sodium (Porcine) (Heparin Vial(*)) 5,000 units SUBCUT Q8HR [facility] Last Admin: 04/06/18 05:18 Dose: 5,000 units Lactated Ringer's (Lactated Ringers 500 Ml Bag*) 500 mls @ 2,000 mls/hr IV ONCE PRN PRN Reason: FOR SBP < 90 Ropivacaine 300 mg/ Sodium (Chloride) 300 mls @ 0 mls/hr EPIDURAL PER RATE [facility] ; Protocol Last Admin: 04/05/18 14:36 Dose: 10 mls/hr Sodium Chloride (Ns 0.9% 1000 Ml*) 1,000 mls @ 60 mls/hr IV PER RATE [facility] Last Admin: 04/06/18 12:46 Dose: 60 mls/hr Morphine Sulfate (Morphine Vial*) 2 mg IV Q1H PRN PRN Reason: PAIN Ondansetron HCl (Zofran Inj*) 4 mg IV Q6H PRN PRN Reason: NAUSEA Last Admin: 04/05/18 14:41 Dose: 4 mg Pantoprazole Sodium (Protonix Iv*) 40 mg IV Q24H [facility] Last Admin: 04/06/18 01:25 Dose: 40 mg Polyvinyl Alcohol (Polyvinyl Alcohol 1.4% Opth*) 2 drop BOTH EYES Q2H PRN PRN Reason: DRY EYE Potassium Phos/Sodium Phos (Neutra Phos 250 Mg Yang*) 250 mg PO BID [facility] Stop: 04/08/18 08:59 Last Admin: 04/06/18 09:00 Dose: 250 mg Vital Signs - 8 hr 04/06/18 04/06/18 04/06/18 07:36 08:00 10:40 Temperature 99.0 F Pulse Rate 93 Respiratory 18 18 18 Rate Blood Pressure 141/69 (mmHg) O2 Sat by Pulse 92 92 Oximetry 04/06/18 04/06/18 11:41 13:27 Temperature 99.1 F Pulse Rate 89 Respiratory 18 18 Rate Blood Pressure 145/73 (mmHg) O2 Sat by Pulse 98 Oximetry Oxygen Devices in Use Now: None Appearance: no distress.parkinosim mask like facial feature Eyes: No Scleral Icterus, - - EOMi Ears/Nose/Mouth/Throat: NL Teeth, Lips, Gums, Clear Oropharnyx Neck: NL Appearance and Movements; NL JVP, Trachea Midline Respiratory: Symmetrical Chest Expansion and Respiratory Effort, Clear to Auscultation Cardiovascular: NL Sounds; No Murmurs; No JVD, RRR Abdominal: - - good bowel sounds. Colostomy bag, recently emptied. Extremities: No Edema Result Diagrams: 04/06/18 06:02 04/06/18 06:02 EKG Data: ekg ns no acute st t changes Assess/Plan/Problems-Billing Assessment: this is a 77 yr old male with hx of advanced Parkinson and muscular dystrophy hx of recurrent sig volvulus wich required colonoscopy to decompress - --> last procedure was done last admission (early March) presented to ER with abdominal pain. Repeat CT scan of abdomen showed sigmoid volvulus size 6 cm ---> He was seen by surgery and underwent Aguilar Procedure on 04/04/18 - Patient Problems (1) Sigmoid volvulus Current Visit: Yes Status: Acute Comment: - S/p Aguilar 04/04/18 POD # 2 - S/P Cipro/flagyl Briana-op - Diet increased to full liquid, activity as per surgery - Decreased IVF to 60 ml (2) Parkinson disease Current Visit: Yes Status: Acute Code(s): G20 - PARKINSON'S DISEASE SNOMED Code(s): 52365609 Comment: continue Carbidopa/Levodopa and amantidine - (3) HTN (hypertension) Current Visit: No Status: Acute Code(s): I10 - ESSENTIAL (PRIMARY) HYPERTENSION SNOMED Code(s): 13834394 Comment: Controlled. continue losartan (4) DVT prophylaxis Current Visit: No Status: Acute Code(s): XXE1120 - SNOMED Code(s): 496344404 Comment: - Continue Heparin SubQ,
--- NOTE | 2018-04-06 13:41 | PN ---
Progress Note - Progress Note Date of Service: 04/06/18 Note: Continuous Epidural Infusion day #2 Patient is alert, BP = 145/73, HR = 89, SPO2 = 98% on RA. Patient's pain has been minimal since tapering Epidural to off. He has not required supplementary oral analgesics. I removed Epidural Catheter; tip intact; site benign-appearing. Satisfactory course after Continuous Epidural Analgesia.
[2018-04-07] MEDS: Pantoprazole IV* 40 MG IV SCH (01:37)
[2018-04-07] MEDS: Heparin VIAL(*) 5000 UNITS/ML VIAL (FIVE THOUSAND) SUBCUT SCH ×3 (05:25→21:39)
[2018-04-07 05:28] LABS: EGFR Non-African American 83.3 (>60)
[2018-04-07] MEDS: Amantadine CAP* 100 MG PO SCH ×2 (08:16→17:34)
[2018-04-07] MEDS: Carbidopa/Levodop 25/100 MG TAB(*) PO SCH ×4 (08:16→19:22)
[2018-04-07] MEDS: HYDROcodone/ACETAMIN 5-325 MG* 1 TAB PO PRN ×3 (08:16→23:53)
[2018-04-07] MEDS: Citalopram TAB* 10 MG PO SCH (08:16)
[2018-04-07] MEDS: guaiFENesin ER TAB 600 MG PO SCH ×2 (08:16→19:23)
[2018-04-07] MEDS: NS 0.9% 1000 ML* 1,000 ML IV SCH (08:16)
[2018-04-07] MEDS: Potassium & Sodium Phos 250MG* = 1 PACKET PO SCH ×3 (08:16→19:23)
--- NOTE | 2018-04-07 11:21 | PN ---
Progress Note - Progress Note Date of Service: 04/07/18 SOAP: Subjective: Pt seen and examined. Feeling better, sitting up in bed on computer. Tolerating liquids and wants solids Objective: Temp Pulse Resp BP Pulse Ox 97.7 F 84 18 137/64 97 04/07/18 03:31 04/07/18 03:31 04/07/18 10:57 04/07/18 03:31 04/07/18 08:00 Intake & Output 04/06/18 04/07/18 04/07/18 22:59 06:59 14:59 Intake Total 570 440 986 Output Total 250 650 Balance 320 -210 986 a and o x3, nad lungs clear abdo: soft/ mild distension ostomy pink with liquid and gas output staple line intact with mild surrounding erythema ext nontender- pt refusing scds Laboratory Last Values WBC 7.3 10^3/ul (3.5-10.8) 04/06/18 06:02 RBC 4.11 10^6/ul (4.00-5.40) 04/06/18 06:02 Hgb 12.7 g/dl (14.0-18.0) L 04/06/18 06:02 Hct 38 % (42-52) L 04/06/18 06:02 MCV 93 fL (80-94) 04/06/18 06:02 MCH 31 pg (27-31) 04/06/18 06:02 MCHC 34 g/dl (31-36) 04/06/18 06:02 RDW 15 % (10.5-15) 04/06/18 06:02 Plt Count 227 10^3/ul (150-450) 04/06/18 06:02 MPV 6.4 fL (7.4-10.4) L 04/06/18 06:02 Neut % (Auto) 81.8 % (38-83) 04/06/18 06:02 Lymph % (Auto) 7.8 % (25-47) L 04/06/18 06:02 [place] % (Auto) 8.9 % (0-7) H 04/06/18 06:02 Eos % (Auto) 0.6 % (0-6) 04/06/18 06:02 Baso % (Auto) 0.9 % (0-2) 04/06/18 06:02 Absolute Neuts (auto) 6.0 10^3/ul (1.5-7.7) 04/06/18 06:02 Absolute Lymphs (auto) 0.6 10^3/ul (1.0-4.8) L 04/06/18 06:02 Absolute Monos (auto) 0.7 10^3/ul (0-0.8) 04/06/18 06:02 Absolute Eos (auto) 0 10^3/ul (0-0.6) 04/06/18 06:02 Absolute Basos (auto) 0.1 10^3/ul (0-0.2) 04/06/18 06:02 Absolute Nucleated RBC 0 10^3/ul 04/06/18 06:02 Nucleated RBC % 0 04/06/18 06:02 INR (Anticoag Therapy) 1.06 (0.77-1.02) H 04/04/18 05:17 APTT 33.8 seconds (26.0-36.3) 04/03/18 09:02 Sodium 136 mmol/L (135-145) 04/07/18 04:31 Potassium 3.7 mmol/L (3.5-5.0) 04/07/18 04:31 Chloride 108 mmol/L (101-111) 04/07/18 04:31 Carbon Dioxide 23 mmol/L (22-32) 04/07/18 04:31 Anion Gap 5 mmol/L (2-11) 04/07/18 04:31 BUN 12 mg/dL (6-24) 04/07/18 04:31 Creatinine 0.89 mg/dL (0.67-1.17) 04/07/18 04:31 Est GFR ( Amer) 100.8 (>60) 04/07/18 04:31 Est GFR (Non-Af Amer) 83.3 (>60) 04/07/18 04:31 BUN/Creatinine Ratio 13.5 (8-20) 04/07/18 04:31 Glucose 95 mg/dL (70-100) 04/07/18 04:31 Lactic Acid 0.6 mmol/L (0.5-2.0) 04/04/18 05:17 Calcium 7.9 mg/dL (8.6-10.3) L 04/07/18 04:31 Phosphorus 2.0 mg/dL (2.5-5.0) L 04/07/18 04:31 Magnesium 1.8 mg/dL (1.9-2.7) L 04/07/18 04:31 Total Bilirubin 0.50 mg/dL (0.2-1.0) 04/02/18 18:56 AST 29 U/L (13-39) 04/02/18 18:56 ALT 6 U/L (7-52) L 04/02/18 18:56 Alkaline Phosphatase 75 U/L (34-104) 04/02/18 18:56 Total Protein 6.8 g/dL (6.4-8.9) 04/02/18 18:56 Albumin 3.8 g/dL (3.2-5.2) 04/02/18 18:56 Globulin 3.0 g/dL (2-4) 04/02/18 18:56 Albumin/Globulin Ratio 1.3 (1-3) 04/02/18 18:56 Assessment: POD 3 Sarah's, HD stable, concern for wound infection Plan: wound probed, serous drainage- non-foul smelling pain control liquids for now d/c ivf
--- NOTE | 2018-04-07 11:26 | PN ---
Subjective Date of Service: 04/07/18 Interval History: Sitting in chair. denies acute pain, minimal discomfort. tolerating his current liquid diet. colostomy bag positive liquid stool output. Past Medical History: Unchanged from Admission Objective Active Medications: Acetaminophen (Tylenol Tab*) 650 mg PO Q4H PRN PRN Reason: MILD PAIN OR T >=101 Hydrocodone Bitart/Acetaminophen ([place] 5-325 Tab*) 1 tab PO Q4H PRN PRN Reason: PAIN - SEVERE Last Admin: 04/07/18 08:16 Dose: 1 tab Amantadine HCl (Symmetrel Cap*) 100 mg PO 0800,1700 [facility] Last Admin: 04/07/18 08:16 Dose: 100 mg Carbidopa/Levodopa (Sinemet 25/100 Tab(*)) 2 tab PO 0800,1700,2000 [facility] Last Admin: 04/07/18 08:16 Dose: 2 tab Carbidopa/Levodopa (Sinemet 25/100 Tab(*)) 2.5 tab PO 1200 [facility] Last Admin: 04/06/18 12:42 Dose: 2.5 tab Citalopram Hydrobromide (Celexa Tab*) 10 mg PO DAILY [facility] Last Admin: 04/07/18 08:16 Dose: 10 mg Guaifenesin (Mucinex*) 600 mg PO BID [facility] Last Admin: 04/07/18 08:16 Dose: 600 mg Heparin Sodium (Porcine) (Heparin Vial(*)) 5,000 units SUBCUT Q8HR [facility] Last Admin: 04/07/18 05:25 Dose: 5,000 units Lactated Ringer's (Lactated Ringers 500 Ml Bag*) 500 mls @ 2,000 mls/hr IV ONCE PRN PRN Reason: FOR SBP < 90 Ropivacaine 300 mg/ Sodium (Chloride) 300 mls @ 0 mls/hr EPIDURAL PER RATE [facility] ; Protocol Last Admin: 04/05/18 14:36 Dose: 10 mls/hr Sodium Chloride (Ns 0.9% 1000 Ml*) 1,000 mls @ 60 mls/hr IV PER RATE [facility] Last Admin: 04/07/18 08:16 Dose: 60 mls/hr Magnesium Oxide (Magox 400 Tab*) 400 mg PO BID [facility] Morphine Sulfate (Morphine Vial*) 2 mg IV Q1H PRN PRN Reason: PAIN Ondansetron HCl (Zofran Inj*) 4 mg IV Q6H PRN PRN Reason: NAUSEA Last Admin: 04/05/18 14:41 Dose: 4 mg Pantoprazole Sodium (Protonix Iv*) 40 mg IV Q24H [facility] Last Admin: 04/07/18 01:37 Dose: 40 mg Polyvinyl Alcohol (Polyvinyl Alcohol 1.4% Opth*) 2 drop BOTH EYES Q2H PRN PRN Reason: DRY EYE Potassium Phos/Sodium Phos (Neutra Phos 250 Mg Yang*) 250 mg PO TID [facility] Stop: 04/09/18 13:59 Vital Signs - 8 hr 04/07/18 04/07/18 04/07/18 03:31 08:00 08:16 Temperature 97.7 F Pulse Rate 84 Respiratory 16 18 18 Rate Blood Pressure 137/64 (mmHg) O2 Sat by Pulse 97 97 Oximetry 04/07/18 10:57 Temperature Pulse Rate Respiratory 18 Rate Blood Pressure (mmHg) O2 Sat by Pulse Oximetry Oxygen Devices in Use Now: None Appearance: in chair, no distress. taking liquid diet well. parkinosim mask like facial feature Eyes: - - EOMI Ears/Nose/Mouth/Throat: Mucous Membranes Moist Neck: Trachea Midline Respiratory: Symmetrical Chest Expansion and Respiratory Effort, Clear to Auscultation Cardiovascular: NL Sounds; No Murmurs; No JVD, RRR Abdominal: - - distended, colostomy with liquid stool output. mild surrounding erythema Extremities: No Edema Skin: - - mild surrounding erythema surrouding the ostomy bag Result Diagrams: 04/06/18 06:02 04/07/18 04:31 EKG Data: ekg ns no acute st t changes Assess/Plan/Problems-Billing Assessment: this is a 77 yr old male with hx of advanced Parkinson and muscular dystrophy hx of recurrent sig volvulus wich required colonoscopy to decompress - --> last procedure was done last admission (early March) presented to ER with abdominal pain. Repeat CT scan of abdomen showed sigmoid volvulus size 6 cm ---> He was seen by surgery and underwent Aguilar Procedure on 04/04/18 - Patient Problems (1) Sigmoid volvulus Current Visit: Yes Status: Acute Comment: - S/p Aguilar 04/04/18 POD # 3 - S/P Cipro/flagyl Briana-op - Diet increased to full liquid (maintained on full liquid as per surgery note) - Activity as per surgery - Agree with off IVF - there is mild surrounding erythema,surgery aware. monitor if progress or WBC may need antibiotics but not at present as it may still be reactive changes and not infective (2) Parkinson disease Current Visit: Yes Status: Acute Code(s): G20 - PARKINSON'S DISEASE SNOMED Code(s): 76736879 Comment: - Continue Carbidopa/Levodopa and amantidine (3) HTN (hypertension) Current Visit: No Status: Acute Code(s): I10 - ESSENTIAL (PRIMARY) HYPERTENSION SNOMED Code(s): 93157156 Comment: Controlled. continue losartan (4) Electrolyte abnormality Current Visit: Yes Status: Acute Code(s): E87.8 - OTH DISORDERS OF ELECTROLYTE AND FLUID BALANCE, NEC SNOMED Code(s): 390623816 Comment: Mag and Phos supplemented (5) DVT prophylaxis Current Visit: No Status: Acute Code(s): WCC2958 - SNOMED Code(s): 539643496 Comment: - Continue Heparin SubQ, Status and Disposition: Medically stable for Discharge pending surgical clearance
[2018-04-07] MEDS: Magnesium Oxide TAB* 400 MG PO SCH ×2 (12:18→19:22)
[2018-04-08] MEDS: Pantoprazole IV* 40 MG IV SCH (02:01)
[2018-04-08 05:13] LABS: ABS Basophils 0 10^3/ul (0-0.2); ABS Eosinophils 0 10^3/ul (0-0.6); ABS Lymphocytes 0.7 10^3/ul (1.0-4.8); ABS Monocytes 0.4 10^3/ul (0-0.8); ABS Neutrophils 5.8 10^3/ul (1.5-7.7); ABS Nucleated RBC 0 10^3/ul; Eosinophil % 0.5 % (0-6); Hematocrit 41 % (42-52); Hemoglobin 13.6 g/dl (14.0-18.0); Lymphocyte % 9.6 % (25-47); Mean Corpuscular HGB Conc 34 g/dl (31-36); Mean Corpuscular Hemoglobin 31 pg (27-31); Mean Corpuscular Volume 93 fL (80-94); Mean Platelet Volume 6.8 fL (7.4-10.4); Nucleated Red Blood Cells % 0; Platelet Count 261 10^3/ul (150-450); Red Blood Count 4.37 10^6/ul (4.00-5.40); Red Cell Distribution Width 14 % (10.5-15)
[2018-04-08] MEDS: HYDROcodone/ACETAMIN 5-325 MG* 1 TAB PO PRN ×3 (05:23→20:02)
[2018-04-08] MEDS: Heparin VIAL(*) 5000 UNITS/ML VIAL (FIVE THOUSAND) SUBCUT SCH ×3 (05:25→21:35)
[2018-04-08 05:31] LABS: EGFR Non-African American 91.6 (>60)
[2018-04-08] MEDS: Ondansetron INJ* 2 MG/ML VIAL IV PRN (09:31)
[2018-04-08] MEDS: Carbidopa/Levodop 25/100 MG TAB(*) PO SCH ×4 (09:32→20:01)
[2018-04-08] MEDS: Potassium & Sodium Phos 250MG* = 1 PACKET PO SCH ×3 (09:33→20:06)
[2018-04-08] MEDS: Citalopram TAB* 10 MG PO SCH (09:33)
[2018-04-08] MEDS: guaiFENesin ER TAB 600 MG PO SCH ×2 (09:34→20:02)
[2018-04-08] MEDS: Magnesium Oxide TAB* 400 MG PO SCH ×2 (09:34→20:02)
[2018-04-08] MEDS: Amantadine CAP* 100 MG PO SCH ×2 (09:34→17:05)
[2018-04-08] MEDS: Lisinopril TAB* 10 MG PO SCH (11:45)
--- NOTE | 2018-04-08 13:41 | PN ---
Subjective Date of Service: 04/08/18 Interval History: Patient seen in bed. had breakfast. No acute medical events. Surgery on board. Awaiting surgical clearance for discharge. Past Medical History: Unchanged from Admission Objective Active Medications: Acetaminophen (Tylenol Tab*) 650 mg PO Q4H PRN PRN Reason: MILD PAIN OR T >=101 Hydrocodone Bitart/Acetaminophen ([place] 5-325 Tab*) 1 tab PO Q4H PRN PRN Reason: PAIN - SEVERE Last Admin: 04/08/18 13:14 Dose: 1 tab Amantadine HCl (Symmetrel Cap*) 100 mg PO 0800,1700 [facility] Last Admin: 04/08/18 09:34 Dose: 100 mg Carbidopa/Levodopa (Sinemet 25/100 Tab(*)) 2 tab PO 0800,1700,2000 [facility] Last Admin: 04/08/18 09:32 Dose: 2 tab Carbidopa/Levodopa (Sinemet 25/100 Tab(*)) 2.5 tab PO 1200 [facility] Last Admin: 04/08/18 11:44 Dose: 2.5 tab Citalopram Hydrobromide (Celexa Tab*) 10 mg PO DAILY [facility] Last Admin: 04/08/18 09:33 Dose: 10 mg Guaifenesin (Mucinex*) 600 mg PO BID [facility] Last Admin: 04/08/18 09:34 Dose: 600 mg Heparin Sodium (Porcine) (Heparin Vial(*)) 5,000 units SUBCUT Q8HR [facility] Last Admin: 04/08/18 05:25 Dose: 5,000 units Lactated Ringer's (Lactated Ringers 500 Ml Bag*) 500 mls @ 2,000 mls/hr IV ONCE PRN PRN Reason: FOR SBP < 90 Ropivacaine 300 mg/ Sodium (Chloride) 300 mls @ 0 mls/hr EPIDURAL PER RATE [facility] ; Protocol Last Admin: 04/05/18 14:36 Dose: 10 mls/hr Lisinopril (Prinivil Tab*) 10 mg PO DAILY [facility] Last Admin: 04/08/18 11:45 Dose: 10 mg Magnesium Oxide (Magox 400 Tab*) 400 mg PO BID [facility] Last Admin: 04/08/18 09:34 Dose: 400 mg Morphine Sulfate (Morphine Vial*) 2 mg IV Q1H PRN PRN Reason: PAIN Last Admin: 04/08/18 01:26 Dose: 2 mg Ondansetron HCl (Zofran Inj*) 4 mg IV Q6H PRN PRN Reason: NAUSEA Last Admin: 04/08/18 09:31 Dose: 4 mg Pantoprazole Sodium (Protonix Iv*) 40 mg IV Q24H [facility] Last Admin: 04/08/18 02:01 Dose: 40 mg Polyvinyl Alcohol (Polyvinyl Alcohol 1.4% Opth*) 2 drop BOTH EYES Q2H PRN PRN Reason: DRY EYE Potassium Phos/Sodium Phos (Neutra Phos 250 Mg Yang*) 250 mg PO TID [facility] Stop: 04/09/18 13:59 Last Admin: 04/08/18 09:33 Dose: 250 mg Vital Signs - 8 hr 04/08/18 04/08/18 04/08/18 07:45 08:00 11:31 Temperature 98.5 F 97.4 F Pulse Rate 82 90 Respiratory 18 18 18 Rate Blood Pressure 166/71 183/87 (mmHg) O2 Sat by Pulse 97 97 97 Oximetry 04/08/18 13:14 Temperature Pulse Rate Respiratory 18 Rate Blood Pressure (mmHg) O2 Sat by Pulse Oximetry Oxygen Devices in Use Now: None Appearance: in bed, no distress. parkinosim mask like facial feature Eyes: No Scleral Icterus, - - EOMI Ears/Nose/Mouth/Throat: NL Teeth, Lips, Gums Neck: NL Appearance and Movements; NL JVP, Trachea Midline Respiratory: Symmetrical Chest Expansion and Respiratory Effort, Clear to Auscultation Cardiovascular: NL Sounds; No Murmurs; No JVD, RRR Abdominal: - - distended, colostomy with liquid stool output. Result Diagrams: 04/08/18 04:38 04/08/18 04:38 EKG Data: ekg ns no acute st t changes Assess/Plan/Problems-Billing Assessment: this is a 77 yr old male with hx of advanced Parkinson and muscular dystrophy hx of recurrent sig volvulus wich required colonoscopy to decompress - --> last procedure was done last admission (early March) presented to ER with abdominal pain. Repeat CT scan of abdomen showed sigmoid volvulus size 6 cm ---> He was seen by surgery and underwent Aguilar Procedure on 04/04/18 - Patient Problems (1) Sigmoid volvulus Current Visit: Yes Status: Acute Comment: - S/p Aguilar 04/04/18 POD # 4 - S/P Cipro/flagyl Briana-op - Diet increased to full liquid (maintained on full liquid as per surgery note) - Activity as per surgery - Agree with off IVF - there is mild surrounding erythema,surgery aware. monitor if progress or WBC may need antibiotics but not at present as it may still be reactive changes and not infective (2) Parkinson disease Current Visit: Yes Status: Acute Code(s): G20 - PARKINSON'S DISEASE SNOMED Code(s): 23718166 Comment: - Continue Carbidopa/Levodopa and amantidine (3) HTN (hypertension) Current Visit: No Status: Acute Code(s): I10 - ESSENTIAL (PRIMARY) HYPERTENSION SNOMED Code(s): 25168839 Comment: Controlled. continue losartan (4) Electrolyte abnormality Current Visit: Yes Status: Acute Code(s): E87.8 - OTH DISORDERS OF ELECTROLYTE AND FLUID BALANCE, NEC SNOMED Code(s): 278258594 Comment: Mag and Phos supplemented (5) DVT prophylaxis Current Visit: No Status: Acute Code(s): OPF7165 - SNOMED Code(s): 674254658 Comment: - Continue Heparin SubQ, Status and Disposition: Medically stable for Discharge pending surgical clearance
--- NOTE | 2018-04-08 15:14 | PN ---
Progress Note - Progress Note Date of Service: 04/08/18 SOAP: Subjective: Pt seen and examined. Feeling better. no nausea Objective: Temp Pulse Resp BP Pulse Ox 97.4 F 90 18 183/87 97 04/08/18 11:31 04/08/18 11:31 04/08/18 13:14 04/08/18 11:31 04/08/18 11:31 a and o x3 lungs clear abdo: soft/ ND/ NT ostomy pink, positive flatus, pos. stool ext wnl labs noted Assessment: POD4 Sarah's Plan: advance diet d/c planning
[2018-04-09] MEDS: Ondansetron INJ* 2 MG/ML VIAL IV PRN ×2 (00:24→07:32)
[2018-04-09] MEDS: Pantoprazole IV* 40 MG IV SCH (02:18)
[2018-04-09] MEDS: Heparin VIAL(*) 5000 UNITS/ML VIAL (FIVE THOUSAND) SUBCUT SCH ×3 (05:54→23:17)
[2018-04-09 09:22] LABS: ABS Basophils 0 10^3/ul (0-0.2); ABS Eosinophils 0 10^3/ul (0-0.6); ABS Lymphocytes 0.8 10^3/ul (1.0-4.8); ABS Monocytes 0.9 10^3/ul (0-0.8); ABS Neutrophils 8.9 10^3/ul (1.5-7.7); ABS Nucleated RBC 0 10^3/ul; Eosinophil % 0 % (0-6); Hematocrit 42 % (42-52); Hemoglobin 13.9 g/dl (14.0-18.0); Lymphocyte % 7.8 % (25-47); Mean Corpuscular HGB Conc 34 g/dl (31-36); Mean Corpuscular Hemoglobin 31 pg (27-31); Mean Corpuscular Volume 93 fL (80-94); Mean Platelet Volume 7.1 fL (7.4-10.4); Nucleated Red Blood Cells % 0; Platelet Count 326 10^3/ul (150-450); Red Blood Count 4.47 10^6/ul (4.00-5.40); Red Cell Distribution Width 15 % (10.5-15); White Blood Count 10.7 10^3/ul (3.5-10.8)
--- NOTE | 2018-04-09 10:33 | PN ---
Progress Note - Progress Note Date of Service: 04/09/18 SOAP: Subjective: Pt seen and examined. Overnight eevents noted. no nausea, no appetite. no abdo pain Objective: Intake & Output 04/08/18 04/09/18 04/09/18 22:59 06:59 14:59 Intake Total 360 0 Output Total 150 570 Balance 210 -570 Temp Pulse Resp BP Pulse Ox 97.8 F 103 16 130/53 93 04/09/18 07:32 04/09/18 07:32 04/09/18 07:32 04/09/18 07:32 04/09/18 07:32 abdo: soft/ distended, NT, tympanic staple line intact with decre redness Laboratory Last Values WBC 10.7 10^3/ul (3.5-10.8) 04/09/18 08:46 RBC 4.47 10^6/ul (4.00-5.40) 04/09/18 08:46 Hgb 13.9 g/dl (14.0-18.0) L 04/09/18 08:46 Hct 42 % (42-52) 04/09/18 08:46 MCV 93 fL (80-94) 04/09/18 08:46 MCH 31 pg (27-31) 04/09/18 08:46 MCHC 34 g/dl (31-36) 04/09/18 08:46 RDW 15 % (10.5-15) 04/09/18 08:46 Plt Count 326 10^3/ul (150-450) 04/09/18 08:46 MPV 7.1 fL (7.4-10.4) L 04/09/18 08:46 Neut % (Auto) 83.6 % (38-83) H 04/09/18 08:46 Lymph % (Auto) 7.8 % (25-47) L 04/09/18 08:46 [place] % (Auto) 8.4 % (0-7) H 04/09/18 08:46 Eos % (Auto) 0 % (0-6) 04/09/18 08:46 Baso % (Auto) 0.2 % (0-2) 04/09/18 08:46 Absolute Neuts (auto) 8.9 10^3/ul (1.5-7.7) H 04/09/18 08:46 Absolute Lymphs (auto) 0.8 10^3/ul (1.0-4.8) L 04/09/18 08:46 Absolute Monos (auto) 0.9 10^3/ul (0-0.8) H 04/09/18 08:46 Absolute Eos (auto) 0 10^3/ul (0-0.6) 04/09/18 08:46 Absolute Basos (auto) 0 10^3/ul (0-0.2) 04/09/18 08:46 Absolute Nucleated RBC 0 10^3/ul 04/09/18 08:46 Nucleated RBC % 0 04/09/18 08:46 INR (Anticoag Therapy) 1.06 (0.77-1.02) H 04/04/18 05:17 APTT 33.8 seconds (26.0-36.3) 04/03/18 09:02 Sodium 136 mmol/L (135-145) 04/08/18 04:38 Potassium 3.6 mmol/L (3.5-5.0) 04/08/18 04:38 Chloride 104 mmol/L (101-111) 04/08/18 04:38 Carbon Dioxide 23 mmol/L (22-32) 04/08/18 04:38 Anion Gap 9 mmol/L (2-11) 04/08/18 04:38 BUN 10 mg/dL (6-24) 04/08/18 04:38 Creatinine 0.82 mg/dL (0.67-1.17) 04/08/18 04:38 Est GFR ( Amer) 110.8 (>60) 04/08/18 04:38 Est GFR (Non-Af Amer) 91.6 (>60) 04/08/18 04:38 BUN/Creatinine Ratio 12.2 (8-20) 04/08/18 04:38 Glucose 87 mg/dL (70-100) 04/08/18 04:38 Lactic Acid 0.6 mmol/L (0.5-2.0) 04/04/18 05:17 Calcium 8.3 mg/dL (8.6-10.3) L 04/08/18 04:38 Phosphorus 2.6 mg/dL (2.5-5.0) 04/08/18 04:38 Magnesium 1.9 mg/dL (1.9-2.7) 04/08/18 04:38 Total Bilirubin 0.50 mg/dL (0.2-1.0) 04/02/18 18:56 AST 29 U/L (13-39) 04/02/18 18:56 ALT 6 U/L (7-52) L 04/02/18 18:56 Alkaline Phosphatase 75 U/L (34-104) 04/02/18 18:56 Total Protein 6.8 g/dL (6.4-8.9) 04/02/18 18:56 Albumin 3.8 g/dL (3.2-5.2) 04/02/18 18:56 Globulin 3.0 g/dL (2-4) 04/02/18 18:56 Albumin/Globulin Ratio 1.3 (1-3) 04/02/18 18:56 AXR c/w ileus Assessment: POD 5 Sarah's procedure, post op ileus, WBC increasing Plan: NPO IVF OOB to chair, PT incentive spirometer
[2018-04-09] MEDS: Amantadine CAP* 100 MG PO SCH ×2 (10:41→17:11)
[2018-04-09] MEDS: Carbidopa/Levodop 25/100 MG TAB(*) PO SCH ×4 (10:41→20:46)
[2018-04-09] MEDS: guaiFENesin ER TAB 600 MG PO SCH ×2 (10:41→20:46)
[2018-04-09] MEDS: Citalopram TAB* 10 MG PO SCH (10:41)
[2018-04-09] MEDS: Potassium & Sodium Phos 250MG* = 1 PACKET PO SCH (10:42)
[2018-04-09] MEDS: Lisinopril TAB* 10 MG PO SCH (10:42)
[2018-04-09] MEDS: Magnesium Oxide TAB* 400 MG PO SCH ×2 (10:42→20:46)
--- NOTE | 2018-04-09 14:33 | PN ---
Subjective Date of Service: 04/09/18 Interval History: Patient reports significant residual nausea. Patient had several episodes of vomiting overnight with dark consistency without coffee grounds character. Patient has CP he relates to his vomiting last night. Patient denies F/C, N/V, dizziness, SOB. Patient states his tremors are at baseline and his abdominal pain is no worse. Past Medical History: Unchanged from Admission Objective Active Medications: Acetaminophen (Tylenol Tab*) 650 mg PO Q4H PRN PRN Reason: MILD PAIN OR T >=101 Hydrocodone Bitart/Acetaminophen ([place] 5-325 Tab*) 1 tab PO Q4H PRN PRN Reason: PAIN - SEVERE Last Admin: 04/08/18 20:02 Dose: 1 tab Amantadine HCl (Symmetrel Cap*) 100 mg PO 0800,1700 [facility] Last Admin: 04/09/18 10:41 Dose: Not Given Carbidopa/Levodopa (Sinemet 25/100 Tab(*)) 2 tab PO 0800,1700,2000 [facility] Last Admin: 04/09/18 10:41 Dose: Not Given Carbidopa/Levodopa (Sinemet 25/100 Tab(*)) 2.5 tab PO 1200 [facility] Last Admin: 04/09/18 12:35 Dose: Not Given Citalopram Hydrobromide (Celexa Tab*) 10 mg PO DAILY [facility] Last Admin: 04/09/18 10:41 Dose: Not Given Guaifenesin (Mucinex*) 600 mg PO BID [facility] Last Admin: 04/09/18 10:41 Dose: Not Given Heparin Sodium (Porcine) (Heparin Vial(*)) 5,000 units SUBCUT Q8HR [facility] Last Admin: 04/09/18 05:54 Dose: 5,000 units Lactated Ringer's (Lactated Ringers 500 Ml Bag*) 500 mls @ 2,000 mls/hr IV ONCE PRN PRN Reason: FOR SBP < 90 Ropivacaine 300 mg/ Sodium (Chloride) 300 mls @ 0 mls/hr EPIDURAL PER RATE [facility] ; Protocol Last Admin: 04/05/18 14:36 Dose: 10 mls/hr Lactated Ringer's (Lactated Ringers 1000 Ml Bag*) 1,000 mls @ 125 mls/hr IV PER RATE [facility] Last Admin: 04/09/18 05:55 Dose: 125 mls/hr Lisinopril (Prinivil Tab*) 10 mg PO DAILY [facility] Last Admin: 04/09/18 10:42 Dose: Not Given Magnesium Oxide (Magox 400 Tab*) 400 mg PO BID [facility] Last Admin: 04/09/18 10:42 Dose: Not Given Morphine Sulfate (Morphine Vial*) 2 mg IV Q1H PRN PRN Reason: PAIN Last Admin: 04/08/18 01:26 Dose: 2 mg Ondansetron HCl (Zofran Inj*) 4 mg IV Q6H PRN PRN Reason: NAUSEA Last Admin: 04/09/18 07:32 Dose: 4 mg Pantoprazole Sodium (Protonix Iv*) 40 mg IV Q24H [facility] Last Admin: 04/09/18 02:18 Dose: 40 mg Polyvinyl Alcohol (Polyvinyl Alcohol 1.4% Opth*) 2 drop BOTH EYES Q2H PRN PRN Reason: DRY EYE Vital Signs - 8 hr 04/09/18 04/09/18 04/09/18 07:32 10:00 11:15 Temperature 97.8 F 98.6 F 98.6 F Pulse Rate 103 96 109 Respiratory 16 16 20 Rate Blood Pressure 130/53 110/62 112/61 (mmHg) O2 Sat by Pulse 93 95 92 Oximetry Oxygen Devices in Use Now: None Appearance: Patient is a 77yo male with mask-like facies and is sitting in the bed in [facility]. Eyes: No Scleral Icterus, PERRLA Ears/Nose/Mouth/Throat: NL Teeth, Lips, Gums, Clear Oropharnyx, Mucous Membranes Moist Neck: NL Appearance and Movements; NL JVP, Trachea Midline Respiratory: Symmetrical Chest Expansion and Respiratory Effort, Clear to Auscultation Cardiovascular: NL Sounds; No Murmurs; No JVD, RRR, No Edema Abdominal: No Hepatosplenomegaly, - - Tender diffusely. Beefy Red ostomy without bleeding, melena, or signs of ischemia. Lymphatic: No Cervical Adenopathy Extremities: No Edema, No Clubbing, Cyanosis Skin: No Nodules or Sclerosis, - - Stoma present. Neurological: Alert and Oriented x 3, - - Tremor, rigidity. Result Diagrams: 04/09/18 08:46 04/08/18 04:38 EKG Data: ekg ns no acute st t changes Assess/Plan/Problems-Billing Assessment: this is a 77 yr old male with hx of advanced Parkinson and muscular dystrophy hx of recurrent sig volvulus wich required colonoscopy to decompress - --> last procedure was done last admission (early March) presented to ER with abdominal pain. Repeat CT scan of abdomen showed sigmoid volvulus size 6 cm ---> He was seen by surgery and underwent Aguilar Procedure on 04/04/18 and was improving slowly until he developed significant vomiting on 04/09/18 with imaging consistent with ileus. - Patient Problems (1) Sigmoid volvulus Current Visit: Yes Status: Acute Comment: - S/p Aguilar 04/04/18 POD # 5 - S/P Cipro/flagyl Briana-op - Vomiting overnight. NPO status resumed. - Activity as per surgery - Restart IVF for tachycardia and vomiting. - Stable erythema, no signs of complications with stoma. (2) Ileus Current Visit: Yes Status: Acute Code(s): K56.7 - ILEUS, UNSPECIFIED SNOMED Code(s): 405657039 Comment: - Vomiting overnight. Imaging consistent with ileus. Vomiting resolved - Re-advance diet as tolerated. - No indication for NG without continued vomiting. (3) Parkinson disease Current Visit: Yes Status: Acute Code(s): G20 - PARKINSON'S DISEASE SNOMED Code(s): 14713187 Comment: - Continue Carbidopa/Levodopa and amantidine when able - Currently NPO and not receiving meds - Resume when tolerated. (4) HTN (hypertension) Current Visit: No Status: Acute Code(s): I10 - ESSENTIAL (PRIMARY) HYPERTENSION SNOMED Code(s): 16402424 Comment: - Normotensive. - Medications held for NPO status (5) DVT prophylaxis Current Visit: No Status: Acute Code(s): HVO8228 - SNOMED Code(s): 270234956 Comment: - Continue Heparin SubQ, Status and Disposition: Discharge to [facility] pending ileus resolution.
[2018-04-09] MEDS ORDERED: NS 0.9% 500 ML* 500 ML IV ONE (17:00)
[2018-04-10] MEDS: Pantoprazole IV* 40 MG IV SCH (02:09)
[2018-04-10] MEDS: Heparin VIAL(*) 5000 UNITS/ML VIAL (FIVE THOUSAND) SUBCUT SCH ×3 (05:19→22:21)
[2018-04-10 05:56] LABS: ABS Basophils 0 10^3/ul (0-0.2); ABS Eosinophils 0 10^3/ul (0-0.6); ABS Lymphocytes 0.6 10^3/ul (1.0-4.8); ABS Monocytes 0.4 10^3/ul (0-0.8); ABS Neutrophils 3.7 10^3/ul (1.5-7.7); ABS Nucleated RBC 0 10^3/ul; Eosinophil % 0.7 % (0-6); Hematocrit 32 % (42-52); Hemoglobin 10.9 g/dl (14.0-18.0); Lymphocyte % 12.9 % (25-47); Mean Corpuscular HGB Conc 34 g/dl (31-36); Mean Corpuscular Hemoglobin 31 pg (27-31); Mean Corpuscular Volume 93 fL (80-94); Mean Platelet Volume 6.8 fL (7.4-10.4); Nucleated Red Blood Cells % 0; Platelet Count 220 10^3/ul (150-450); Red Blood Count 3.48 10^6/ul (4.00-5.40); Red Cell Distribution Width 15 % (10.5-15); White Blood Count 4.8 10^3/ul (3.5-10.8)
[2018-04-10 06:09] LABS: EGFR Non-African American 95.6 (>60)
--- NOTE | 2018-04-10 08:20 | PN ---
Progress Note - Progress Note Date of Service: 04/10/18 SOAP: Subjective: Pt seen and examined. Feeling well. No more vominting. positive appetite Objective: Temp Pulse Resp BP Pulse Ox 97.5 F 91 16 131/60 99 04/10/18 03:32 04/10/18 03:32 04/10/18 03:32 04/10/18 03:32 04/10/18 03:32 Intake & Output 04/09/18 04/10/18 04/10/18 22:59 06:59 14:59 Intake Total 526 1244 Output Total 450 550 Balance 76 694 a adn ox3 lungs clear abdo: soft/ ND/ NT mild erythema at incision, ostomy pink pos. stool, flatus no calf tenderness labs noted Assessment: POD6 [place], resolving ileus Plan: advance diet d/c el ivl replete electrolytes d/c planning
[2018-04-10] MEDS ORDERED: Citalopram TAB* 10 MG PO SCH (09:00)
[2018-04-10] MEDS ORDERED: Magnesium Sulfate 1 GM IV* 1 GM/100 ML BAG IV ONE (09:00)
[2018-04-10] MEDS ORDERED: KCL 20 MEQ/100 ML IVPREMIX* 20 MEQ/100 ML BAG IV SCH (09:00)
[2018-04-10] MEDS ORDERED: Potassium Phosphate IV* 15 MMOLE in NS 0.9% 250 ML* 250 ML IVPB ONE (09:00)
[2018-04-10] MEDS: Amantadine CAP* 100 MG PO SCH ×2 (10:06→18:40)
[2018-04-10] MEDS: Omeprazole CAP* 20 MG PO SCH (10:06)
[2018-04-10] MEDS: Lisinopril TAB* 10 MG PO SCH (10:06)
[2018-04-10] MEDS: guaiFENesin ER TAB 600 MG PO SCH ×2 (10:06→22:16)
[2018-04-10] MEDS: Carbidopa/Levodop 25/100 MG TAB(*) PO SCH ×4 (10:06→22:16)
[2018-04-10] MEDS: Citalopram TAB* 10 MG PO SCH (10:06)
[2018-04-10] MEDS: Magnesium Oxide TAB* 400 MG PO SCH ×2 (10:07→22:15)
--- NOTE | 2018-04-10 13:24 | PN ---
Subjective Date of Service: 04/10/18 Interval History: HOSPITALIST PROGRESS NOTE Patient seen and examined at bedside. Care reviewed and d/w Lupe Mancini RN. He offers no new complaints. Evaluated with Dr Escalona at bedside, who saw patient yesterday and thinks his abdome is less distended and softer. Also thinks surgical incision erythema is less intense. Family History: Unchanged from Admission Social History: Unchanged from Admission Past Medical History: Unchanged from Admission Objective Active Medications: Acetaminophen (Tylenol Tab*) 650 mg PO Q4H PRN PRN Reason: MILD PAIN OR T >=101 Hydrocodone Bitart/Acetaminophen ([place] 5-325 Tab*) 1 tab PO Q4H PRN PRN Reason: PAIN - SEVERE Last Admin: 04/08/18 20:02 Dose: 1 tab Amantadine HCl (Symmetrel Cap*) 100 mg PO 0800,1700 [facility] Last Admin: 04/10/18 10:06 Dose: 100 mg Carbidopa/Levodopa (Sinemet 25/100 Tab(*)) 2 tab PO 0800,1700,2000 [facility] Last Admin: 04/10/18 10:06 Dose: 2 tab Carbidopa/Levodopa (Sinemet 25/100 Tab(*)) 2.5 tab PO 1200 [facility] Last Admin: 04/10/18 13:02 Dose: 2.5 tab Citalopram Hydrobromide (Celexa Tab*) 10 mg PO DAILY [facility] Last Admin: 04/10/18 10:06 Dose: 10 mg Guaifenesin (Mucinex*) 600 mg PO BID [facility] Last Admin: 04/10/18 10:06 Dose: 600 mg Heparin Sodium (Porcine) (Heparin Vial(*)) 5,000 units SUBCUT Q8HR [facility] Last Admin: 04/10/18 05:19 Dose: 5,000 units Potassium Phosphate 15 mmole/ (Sodium Chloride) 255 mls @ 42 mls/hr IVPB ONCE ONE Stop: 04/10/18 15:04 Last Admin: 04/10/18 11:40 Dose: 42 mls/hr Lisinopril (Prinivil Tab*) 10 mg PO DAILY [facility] Last Admin: 04/10/18 10:06 Dose: 10 mg Magnesium Oxide (Magox 400 Tab*) 400 mg PO BID [facility] Last Admin: 04/10/18 10:07 Dose: 400 mg Morphine Sulfate (Morphine Vial*) 2 mg IV Q1H PRN PRN Reason: PAIN Last Admin: 04/08/18 01:26 Dose: 2 mg Omeprazole (Prilosec Cap*) 20 mg PO DAILY [facility] Last Admin: 04/10/18 10:06 Dose: 20 mg Ondansetron HCl (Zofran Inj*) 4 mg IV Q6H PRN PRN Reason: NAUSEA Last Admin: 04/09/18 07:32 Dose: 4 mg Polyvinyl Alcohol (Polyvinyl Alcohol 1.4% Opth*) 2 drop BOTH EYES Q2H PRN PRN Reason: DRY EYE Vital Signs - 8 hr 04/10/18 04/10/18 04/10/18 07:33 10:00 11:28 Temperature 98.4 F 98.7 F Pulse Rate 89 85 Respiratory 16 16 18 Rate Blood Pressure 131/62 139/60 (mmHg) O2 Sat by Pulse 96 96 98 Oximetry Oxygen Devices in Use Now: None Appearance: Elderly gentleman lying in bed in NAD. Eyes: No Scleral Icterus Ears/Nose/Mouth/Throat: Mucous Membranes Moist Neck: Trachea Midline Respiratory: Symmetrical Chest Expansion and Respiratory Effort, Clear to Auscultation Cardiovascular: RRR - Normal S1 and S2 Abdominal: - - Soft, NT, ND, mild incision erythema, uri in place, dry, no drainage. LLQ ostomy functioning well with stool and gas in the bag. Extremities: No Edema Neurological: Alert and Oriented x 3, - - COLON, but with tremor and rigidity Result Diagrams: 04/10/18 05:12 04/10/18 05:12 Assess/Plan/Problems-Billing Assessment: Mr Nava is a 77yo M with PMH of advanced Parkinson and muscular dystrophy, recurrent sigmoid volvulus which required colonoscopy to decompress (last procedure was done early March) who presented to ER with abdominal pain. Repeat CT scan of abdomen showed sigmoid volvulus - underwent Aguilar Procedure on 04/04/18 and was improving slowly until he developed significant vomiting on 04/09/18 with imaging consistent with ileus. - Patient Problems (1) Sigmoid volvulus Comment: - S/p Aguilar 04/04/18 POD #6 - Received Cipro/flagyl Briana-op and now not on antibiotics. - Stable incision erythema, no signs of complications with stoma. (2) Ileus Comment: - Improved. - Surgery will resume full liquid diet and monitor. (3) Tachycardia Comment: - Likely secondary to dehydration - resolved. - No signs of infection at this time. - CxR shows no infiltrate. - D/c IVF. - D/c Schultz catheter. (4) Parkinson disease Comment: - Resume Carbidopa/Levodopa and amantidine. (5) HTN (hypertension) Comment: - Controlled. - Continue Lisinopril. (6) DVT prophylaxis Comment: - SQ Heparin. Status and Disposition: Inpatient for management of volvulus/ s/p Aguilar's procedure. Anticipate return to [facility] when stable.
[2018-04-11 05:11] LABS: ABS Basophils 0 10^3/ul (0-0.2); ABS Eosinophils 0.1 10^3/ul (0-0.6); ABS Lymphocytes 0.6 10^3/ul (1.0-4.8); ABS Monocytes 0.4 10^3/ul (0-0.8); ABS Neutrophils 3.9 10^3/ul (1.5-7.7); ABS Nucleated RBC 0 10^3/ul; Eosinophil % 1.5 % (0-6); Hematocrit 33 % (42-52); Hemoglobin 10.9 g/dl (14.0-18.0); Lymphocyte % 12.6 % (25-47); Mean Corpuscular HGB Conc 33 g/dl (31-36); Mean Corpuscular Hemoglobin 31 pg (27-31); Mean Corpuscular Volume 93 fL (80-94); Mean Platelet Volume 6.7 fL (7.4-10.4); Nucleated Red Blood Cells % 0; Platelet Count 221 10^3/ul (150-450); Red Blood Count 3.52 10^6/ul (4.00-5.40); Red Cell Distribution Width 15 % (10.5-15)
[2018-04-11 05:35] LABS: EGFR Non-African American 121.9 (>60)
[2018-04-11] MEDS: Heparin VIAL(*) 5000 UNITS/ML VIAL (FIVE THOUSAND) SUBCUT SCH ×3 (05:56→22:48)
[2018-04-11] MEDS ORDERED: Magnesium Sulfate 2 GM IV* 2 GM/50 ML BAG IVPB ONE (07:18)
[2018-04-11] MEDS: guaiFENesin ER TAB 600 MG PO SCH ×2 (08:33→20:02)
[2018-04-11] MEDS: Amantadine CAP* 100 MG PO SCH ×2 (08:33→17:37)
[2018-04-11] MEDS: Omeprazole CAP* 20 MG PO SCH (08:34)
[2018-04-11] MEDS: Magnesium Oxide TAB* 400 MG PO SCH ×2 (08:34→20:01)
[2018-04-11] MEDS: Lisinopril TAB* 10 MG PO SCH (08:34)
[2018-04-11] MEDS: Citalopram TAB* 10 MG PO SCH (08:34)
[2018-04-11] MEDS: Carbidopa/Levodop 25/100 MG TAB(*) PO SCH ×4 (08:49→20:03)
--- NOTE | 2018-04-11 10:36 | PN ---
Progress Note - Progress Note Date of Service: 04/11/18 SOAP: Subjective: Pt seen and examined. sitting up in bed. No complaints other than gas in ostomy bag Objective: Temp Pulse Resp BP Pulse Ox 98.1 F 77 18 128/64 98 04/11/18 04:25 04/11/18 04:25 04/11/18 04:25 04/11/18 04:25 04/11/18 04:25 Intake & Output 04/10/18 04/11/18 04/11/18 22:59 06:59 14:59 Intake Total 1697 1250 Output Total 550 500 Balance 1147 750 lungs clear b/l abdo: soft/ distended, NT mild erythema at R side of incision labs noted Assessment: POD 7 MELANIA Ramírez stable, resolving ileus Plan: advance diet d/c planning- possibly today SACMA to cover me this weekend
[2018-04-11] MEDS: Furosemide TAB* 40 MG PO SCH (10:55)
[2018-04-11] MEDS: HYDROcodone/ACETAMIN 5-325 MG* 1 TAB PO PRN (10:56)
--- NOTE | 2018-04-11 16:29 | PN ---
Subjective Date of Service: 04/11/18 Interval History: HOSPITALIST PROGRESS NOTE Patient seen and examined at bedside. Care reviewed and d/w Patrick San RN. He offers no complaints, tolerating diet well. Family History: Unchanged from Admission Social History: Unchanged from Admission Past Medical History: Unchanged from Admission Objective Active Medications: Acetaminophen (Tylenol Tab*) 650 mg PO Q4H PRN PRN Reason: MILD PAIN OR T >=101 Hydrocodone Bitart/Acetaminophen ([place] 5-325 Tab*) 1 tab PO Q4H PRN PRN Reason: PAIN - SEVERE Last Admin: 04/11/18 10:56 Dose: 1 tab Amantadine HCl (Symmetrel Cap*) 100 mg PO 0800,1700 [facility] Last Admin: 04/11/18 08:33 Dose: 100 mg Carbidopa/Levodopa (Sinemet 25/100 Tab(*)) 2 tab PO 0800,1700,2000 [facility] Last Admin: 04/11/18 08:49 Dose: 2 tab Carbidopa/Levodopa (Sinemet 25/100 Tab(*)) 2.5 tab PO 1200 [facility] Last Admin: 04/11/18 10:55 Dose: 2.5 tab Citalopram Hydrobromide (Celexa Tab*) 10 mg PO DAILY [facility] Last Admin: 04/11/18 08:34 Dose: 10 mg Furosemide (Lasix Tab*) 40 mg PO DAILY [facility] Last Admin: 04/11/18 10:55 Dose: 40 mg Guaifenesin (Mucinex*) 600 mg PO BID [facility] Last Admin: 04/11/18 08:33 Dose: 600 mg Heparin Sodium (Porcine) (Heparin Vial(*)) 5,000 units SUBCUT Q8HR [facility] Last Admin: 04/11/18 15:51 Dose: 5,000 units Lisinopril (Prinivil Tab*) 10 mg PO DAILY [facility] Last Admin: 04/11/18 08:34 Dose: 10 mg Magnesium Oxide (Magox 400 Tab*) 400 mg PO BID [facility] Last Admin: 04/11/18 08:34 Dose: 400 mg Morphine Sulfate (Morphine Vial*) 2 mg IV Q1H PRN PRN Reason: PAIN Last Admin: 04/08/18 01:26 Dose: 2 mg Omeprazole (Prilosec Cap*) 20 mg PO DAILY [facility] Last Admin: 04/11/18 08:34 Dose: 20 mg Ondansetron HCl (Zofran Inj*) 4 mg IV Q6H PRN PRN Reason: NAUSEA Last Admin: 04/09/18 07:32 Dose: 4 mg Polyvinyl Alcohol (Polyvinyl Alcohol 1.4% Opth*) 2 drop BOTH EYES Q2H PRN PRN Reason: DRY EYE Vital Signs - 8 hr 04/11/18 04/11/18 04/11/18 10:56 11:24 15:25 Temperature 98.0 F 98.6 F Pulse Rate 82 77 Respiratory 18 18 16 Rate Blood Pressure 123/60 123/52 (mmHg) O2 Sat by Pulse 96 94 Oximetry Oxygen Devices in Use Now: None Appearance: Elderly gentleman sitting up in bed in NAD. Eyes: No Scleral Icterus Ears/Nose/Mouth/Throat: Mucous Membranes Moist Neck: Trachea Midline Respiratory: Symmetrical Chest Expansion and Respiratory Effort, Clear to Auscultation Cardiovascular: RRR - Normal S1 and S2 Abdominal: NL Sounds; No Tenderness; No Distention, - - working colostomy. Incision has mild erythema, no drainage Neurological: - - AAOx2 (self and place), extremities tremor and rigidity Result Diagrams: 04/11/18 04:47 04/11/18 04:47 Assess/Plan/Problems-Billing Assessment: Mr Nava is a 77yo M with PMH of advanced Parkinson and muscular dystrophy, recurrent sigmoid volvulus which required colonoscopy to decompress (last procedure was done early March) who presented to ER with abdominal pain. Repeat CT scan of abdomen showed sigmoid volvulus - underwent Aguilar Procedure on 04/04/18 and was improving slowly until he developed significant vomiting on 04/09/18 with imaging consistent with ileus. - Patient Problems (1) Sigmoid volvulus Comment: - S/p Aguilar 04/04/18 POD #7 - Received Cipro/flagyl Briana-op and now not on antibiotics. - Stable incision erythema, no signs of complications with stoma. (2) Ileus Comment: - Resolved. - Advanced to regular diet by Surgery. (3) Tachycardia Comment: - Likely secondary to dehydration - resolved. - No signs of infection at this time. - CxR shows no infiltrate. (4) Parkinson disease Comment: - Continue Carbidopa/Levodopa and amantidine. (5) HTN (hypertension) Comment: - Controlled. - Continue Lisinopril. (6) DVT prophylaxis Comment: - SQ Heparin. (7) Full code status Comment: Was a DNR/DNI in the past on [facility]. Clarified with - patient is now full code. Status and Disposition: Inpatient for management of volvulus/ s/p Aguilar's procedure. Anticipate return to [facility] in AM.
[2018-04-12] MEDS: Heparin VIAL(*) 5000 UNITS/ML VIAL (FIVE THOUSAND) SUBCUT SCH (06:21)
[2018-04-12] MEDS: Carbidopa/Levodop 25/100 MG TAB(*) PO SCH (08:11)
[2018-04-12] MEDS: Omeprazole CAP* 20 MG PO SCH (08:12)
[2018-04-12] MEDS: Furosemide TAB* 40 MG PO SCH (08:12)
[2018-04-12] MEDS: Citalopram TAB* 10 MG PO SCH (08:12)
[2018-04-12] MEDS: Magnesium Oxide TAB* 400 MG PO SCH (08:12)
[2018-04-12] MEDS: guaiFENesin ER TAB 600 MG PO SCH (08:12)
[2018-04-12] MEDS: Lisinopril TAB* 10 MG PO SCH (08:12)
[2018-04-12] MEDS: Amantadine CAP* 100 MG PO SCH (08:12)
--- NOTE | 2018-04-12 10:44 | DS ---
CC: Dr. Parikh; Dr. Escalona.* DISCHARGE SUMMARY: DATE OF ADMISSION: 04/03/18 DATE OF DISCHARGE: 04/11/18 PRIMARY CARE PROVIDER: Dr. Parikh, with the patient upon his transfer to [facility]. GENERAL SURGEON: Dr. Escalona. DISCHARGE DIAGNOSES: 1. Sigmoid volvulus, status post sigmoid colectomy and end colostomy on . 2. Postop ileus. 3. Tachycardia secondary to dehydration. 4. Hypomagnesemia. SECONDARY DIAGNOSES: 1. Parkinson's disease. 2. Hypertension. 3. Gastroesophageal reflux disease. 4. Depression. 5. Chronic pain. 6. Recurrent sigmoid volvulus. MEDICATION LIST: 1. Amantadine 100 mg p.o. at 8 a.m. and 5 p.m. 2. Artificial tears 2 drops both eyes q.2 hours p.r.n. dry eye. 3. Carbidopa and levodopa 25/100 two tablets at 8 a.m., 5 p.m., 8 p.m., and 2.5 tablets daily. 4. Citalopram 10 mg p.o. daily. 5. Vitamin B12 1000 mcg intramuscular monthly. 6. Furosemide 40 mg p.o. daily. 7. Guaifenesin 600 mg p.o. b.i.d. 8. Hydrocodone/acetaminophen 5/325 mg 1 tablet p.o. q.4 hours p.r.n. severe pain. 9. Lisinopril 10 mg p.o. daily. 10. Magnesium oxide 400 mg p.o. daily. 11. Omeprazole 20 mg p.o. daily. 12. Testosterone cypionate 200 mg intramuscular every 14 days. 13. Tramadol 50 mg p.o. b.i.d. HOSPITAL COURSE: Mr. Nava is a 77-year-old male with a past medical history as stated above that was initially admitted to [facility] from 03/26/18 to 04/01/18 with volvulus and likely intestinal strangulation, status post decompression during sigmoidoscopy, acute kidney injury, acute hypoxemic respiratory failure. The patient underwent initial conservative treatment with sigmoid volvulus and the bowel was noted to be dusky appearing and there was a question of bowel ischemia and possible perforation. He responded to the sigmoidoscopy performed and the initial plan was for him to be discharged to [facility] to recover and to follow up with Dr. Escalona as an outpatient on 04/07/18 for possible surgery on 04/09/18. He returned to the emergency room on 04/03/18 with complaints of abdominal pain and at that point, he was found to have recurrent volvulus. The patient was seen in consultation once again by General Surgery (Dr. Escalona) and after discussing with family, the plan was for a Sarah's procedure and he underwent the procedure on 04/04/18. In the postop period, the patient had ileus that has improved and he is able to tolerate diet. His Schultz catheter was removed and he was able to void spontaneously. He was tachycardic and there was some concern for possible infection, but this responded to IV fluids only and was thought to be secondary to dehydration. The patient does have some mild erythema to his surgical incision, but Dr. Escalona has been following it closely and feels that at this time antibiotics are not indicated, but he will need close followup as an outpatient next week. The patient is able to tolerate a regular diet and oral meds, and he was felt to be medically stable. He should be discharged back to [facility] to continue his rehabilitation process. PHYSICAL EXAMINATION: Vital Signs: Temperature 98.6, heart rate is 77, respiratory rate is 16, oxygen saturation 94% on room air, blood pressure is 123 /52. General: The patient is an elderly gentleman, lying in bed in no acute distress. CVS: S1, S2, regular rate and rhythm. Chest: Breath sounds bilaterally, no added sounds. Abdomen is soft, nontender, nondistended. Bowel sounds are present. There is a working colostomy in the left lower quadrant. The surgical incision has uri in place with mild erythema, but no drainage. Neuro: He is alert, awake, and oriented to self and place. He is able to move all 4 extremities, but with significant rigidity and tremors. DIET: Regular diet. ACTIVITY: As tolerated. DISPOSITION: To [facility]. STATUS WHILE IN THE HOSPITAL: Inpatient. Please keep in mind this is a summarized version of this patient's hospital stay. If you need more information, please feel free to call me at [phone] or please obtain the full medical records. TIME SPENT: Approximately, 45 minutes was spent to complete this discharge. [id number]/[facility] #: [id number] [facility] HOSPITALSuzanne
[2018-04-12 13:12] VITALS: BP 143/66
--- NOTE | 2018-04-12 13:47 | PN ---
Progress Note - Progress Note Date of Service: 04/12/18 Note: Surgery Progress Note S: Patient is a 77 yo M POD 8 from Aguilar's procedure for sigmoid volvulus. Eating well. Plan for discharge back to SNF. Objective: Vital Signs - 24 hr 04/11/18 04/11/18 04/11/18 15:25 19:47 20:00 Temperature 98.6 F 98.1 F Pulse Rate 77 85 Respiratory 16 16 16 Rate Blood Pressure 123/52 109/51 (mmHg) O2 Sat by Pulse 94 96 Oximetry 04/11/18 04/12/18 04/12/18 23:36 01:09 04:03 Temperature 97.5 F 98.5 F Pulse Rate 76 80 Respiratory 16 16 Rate Blood Pressure 150/70 138/61 (mmHg) O2 Sat by Pulse 98 98 97 Oximetry 04/12/18 04/12/18 04/12/18 07:26 08:00 11:51 Temperature 98.2 F 97.8 F Pulse Rate 81 81 Respiratory 17 17 18 Rate Blood Pressure 149/70 143/66 (mmHg) O2 Sat by Pulse 95 95 98 Oximetry Intake & Output 04/11/18 04/12/18 04/12/18 22:59 06:59 14:59 Intake Total 480 75 360 Output Total 1155 1450 1450 Balance -675 1375 -1090 Intake: Oral 480 75 360 Output: Urine 1125 Schultz 1450 1450 Colostomy 30 Physical exam: Abdomen- soft, minimal distension of upper abdomen, incision with uri, mild erythema, ostomy in place with stool output A/P: 77 M POD 8 from Aguilar's, doing well - DC today to nursing facility - Wound appears to have mild erythema, patient afebrile, nothing expressed from wound. Wound to continue to be monitored
--- NOTE | 2018-04-13 02:05 | DS ---
DISCHARGE SUMMARY: ADDENDUM: This is an addendum to the discharge summary dictated by Dr. Cortez yesterday. Please refer to her discharge summary for complete details. The patient seen and examined at bedside and noted to be stable for discharge to [facility] today. PHYSICAL EXAMINATION: General: The patient is an elderly gentleman lying in bed, in no acute distre ss. Cardiovascular: S1, S2 present. Regular at the time of exam. Lungs: Clear to auscultation bi laterally. Abdomen: Soft, nontender. Bowel sounds present. Working colostomy in the left lower yanick drant. Surgical incision with uri and mild erythema. No drainage. Neuro: Alert and oriented x 3. Able to move all 4 extremities. Noted to have some tremors consistent with his history of [place] son's disease and occasionally has some stuttering prior to expressing himself. This appears baselin e for the patient. The patient was given an opportunity to ask any question and only wants to make sure that his is called and is aware of his discharge, otherwise doing well. Please refer to the discharge summary di ctated by Dr. Cortez for full details. [id number]/[facility] #: [id number]
== END 2018-04-12 13:00 | DRG 331 ==
LOC: ED 16:28 → MEDTELE 04-03 00:54 → SSU 04-04 13:40
PROVIDERS: ADMIT Internal Medicine; ATTEND Internal Medicine
PROC: 0DBN0ZZ Excision of Sigmoid Colon, Open Approach (ICD-10-PCS; 2018-04-04)
PROC: 0D1N0Z4 Bypass Sigmoid Colon to Cutaneous, Open Approach (ICD-10-PCS; principal; 2018-04-04 11:30)
DX: K56.2 Volvulus (principal); G71.02 Facioscapulohumeral muscular dystrophy; G20 Parkinson's disease; F32.9 Major depressive disorder, single episode, unspecified; E29.1 Testicular hypofunction; I10 Essential (primary) hypertension; K21.9 Gastro-esophageal reflux disease without esophagitis; J45.909 Unspecified asthma, uncomplicated; N40.0 Benign prostatic hyperplasia without lower urinary tract symptoms; G89.29 Other chronic pain; M19.90 Unspecified osteoarthritis, unspecified site; R11.2 Nausea with vomiting, unspecified; K56.7 Ileus, unspecified; R00.0 Tachycardia, unspecified; E86.0 Dehydration; E83.42 Hypomagnesemia; L53.9 Erythematous condition, unspecified; Z82.0 Family history of epilepsy and other diseases of the nervous system; Z88.6 Allergy status to analgesic agent; Z88.8 Allergy status to other drugs, medicaments and biological substances; Z88.0 Allergy status to penicillin; Z98.42 Cataract extraction status, left eye; Z91.5 Personal history of self-harm; Z99.3 Dependence on wheelchair
CPT/HCPCS: 36415; 71045; 74018; 74176; 80048; 80053; 83605; 83735; 84100; 85025; 85610; 85730; 88307; 93005; 99285; A9270-GY; C1776; G8978-GP-CM; G8979-GP-CL; J0744; J1170; J1200; J1644; J2250; J2270; J2400; J2405; J2543; J2704; J2795; J3010; J3475; J3480; J3490

== ENCOUNTER 2020-11-13 10:15 | Inpatient (IN) ==
[2020-11-13 10:28] LABS: ABS Lymphocytes 0.2 10^3/ul (1.0-4.8); ABS Monocytes 0.6 10^3/ul (0-0.8); ABS Neutrophils 11.8 10^3/ul (1.5-7.7); Eosinophil % 0.2 %; Hematocrit 33 % (42-52); Lymphocyte % 1.4 %; Mean Corpuscular HGB Conc 33 g/dL (31-36); Mean Corpuscular Hemoglobin 30 pg (27-31); Mean Corpuscular Volume 90 fL (80-94); Mean Platelet Volume 6.7 fL (7.4-10.4); Platelet Count 141 10^3/uL (150-450); Red Blood Count 3.66 10^6 /uL (4.18-5.48); Red Cell Distribution Width 14 % (10-15); White Blood Count 12.6 10^3/uL (3.5-10.8)
[2020-11-13 10:38] LABS: PCO2 Arterial 24 mmHg (35-45); PO2 Arterial 178 mmHg (80-100)
[2020-11-13 10:49] LABS: ALT 11 U/L (7-52); AST 44 U/L (13-39); Albumin 3.1 g/dL (3.2-5.2); Albumin/Globulin Ratio 1.1 (1-3); Alkaline Phosphatase 113 U/L (35-149); Anion Gap 11 mmol/L (2-11); Blood Urea Nitrogen 43 mg/dL (6-24); CO2 Carbon Dioxide 20 mmol/L (22-32); Calcium 8.2 mg/dL (8.6-10.3); Chloride 107 mmol/L (101-111); EGFR African American 49.9 (>60); EGFR Non-African American 41.2 (>60); Globulin 2.8 g/dL (2-4); Glucose 91 mg/dL (70-100); Magnesium 1.7 mg/dL (1.9-2.7); Potassium 3.9 mmol/L (3.5-5.0); Sodium 138 mmol/L (135-145); Total Protein 5.9 g/dL (6.4-8.9)
[2020-11-13] MEDS ORDERED: NS 0.9% 1000 ml BAG 1,000 ML IV ONE ×2 (10:49→10:50)
[2020-11-13] MEDS ORDERED: Naloxone Nasal Spray 4 MG/0.1 ML NASAL.SPR INTRANASAL ONE (10:49)
[2020-11-13 10:53] LABS: Troponin I 0.13 ng/mL (<0.03)
[2020-11-13] MEDS ORDERED: Magnesium Sulfate IV 1GM/100ML 1 GM/100 ML BAG IV ONE (10:53)
[2020-11-13] MEDS ORDERED: Ciprofloxacin 400mg IVPREMIX 400 MG/200 ML BAG IVPB ONE (11:02)
[2020-11-13] MEDS ORDERED: metroNIDAZOLE IV 500 MG/100ML 500 MG/100 ML BAG IVPB ONE (11:02)
[2020-11-13] MEDS ORDERED: Vancomycin 750 MG in NS 0.9% 250 ml 250 ML IVPB ONE (12:00)
[2020-11-13] MEDS ORDERED: Norepinephrine 16MCG/ML IVPRE 4,000 MCG/250 ML BAG IV SCH (12:00)
[2020-11-13 12:56] LABS: Urine Appearance Cloudy; Urine Bilirubin Negative (Negative); Urine Blood Negative (Negative); Urine Color Amber; Urine Glucose 1+(50 mg/dL) (Negative); Urine Ketones Trace (Negative); Urine Nitrite Negative (Negative); Urine Protein 2+(100 mg/dL) (Negative); Urine Specific Gravity 1.023 (1.002-1.030); Urine Urobilinogen Positive (Negative)
[2020-11-13] MEDS ORDERED: Hydrocortisone INJ 250 MG VIAL IV ONE (13:03)
[2020-11-13 13:08] LABS: Urine Bacteria Absent (Absent); Urine Red Blood Cell 1+(3-5/hpf) (Absent); Urine White Blood Cell 1+(6-10/hpf) (Absent)
[2020-11-13] MEDS ORDERED: Vancomycin per Pharmacy 1 EA NOTE FOLLOW UP PRN (13:18)
[2020-11-13] MEDS ORDERED: Hydrocortisone INJ 100 MG/2ML 2 ML VIAL IV ONE (13:30)
[2020-11-13] MEDS ORDERED: NORMOSOL-R pH 7.4 1000 mL BAG 1,000 ML IV SCH (14:00)
[2020-11-13] MEDS ORDERED: Cefepime ADVAN 1 GM in NS 0.9% 50 ML 50 ML IVPB SCH (14:00)
[2020-11-13] MEDS: Cefepime 1 GM in Dextrose 1 GM/50 ML BAG IV SCH (15:47)
[2020-11-13] MEDS: Heparin 5000 UNITS/ML 1 mL VIAL SUBCUT SCH (21:32)
[2020-11-13] MEDS: Hydrocortisone INJ 100 MG/2ML 2 ML VIAL IV SCH (21:32)
[2020-11-14] MEDS: Cefepime 1 GM in Dextrose 1 GM/50 ML BAG IV SCH (01:55)
[2020-11-14 04:19] LABS: Hematocrit 32 % (42-52); Hemoglobin 10.8 g/dL (14.0-18.0); Mean Corpuscular HGB Conc 34 g/dL (31-36); Mean Corpuscular Hemoglobin 30 pg (27-31); Mean Corpuscular Volume 89 fL (80-94); Red Blood Count 3.58 10^6 /uL (4.18-5.48); Red Cell Distribution Width 14 % (10-15); White Blood Count 16.8 10^3/uL (3.5-10.8)
[2020-11-14 04:22] LABS: EGFR African American 88.7 (>60); EGFR Non-African American 73.3 (>60); Magnesium 2.2 mg/dL (1.9-2.7); Phosphorus 2.6 mg/dL (2.5-5.0); Potassium 3.5 mmol/L (3.5-5.0)
[2020-11-14 04:42] LABS: ABS Basophils 0.1 10^3/ul (0-0.2); ABS Lymphocytes 0.5 10^3/ul (1.0-4.8); ABS Monocytes 0.5 10^3/ul (0-0.8); ABS Neutrophils 15.6 10^3/ul (1.5-7.7); Eosinophil % 0.2 %; Lymphocyte % 2.9 %; Mean Platelet Volume 7.6 fL (7.4-10.4); Platelet Count 96 10^3/uL (150-450)
[2020-11-14] MEDS ORDERED: Acetaminophen IV 1 GM/100ML 100 ML IVPB ONE (05:42)
[2020-11-14] MEDS: Hydrocortisone INJ 100 MG/2ML 2 ML VIAL IV SCH ×3 (05:49→21:19)
[2020-11-14] MEDS: Heparin 5000 UNITS/ML 1 mL VIAL SUBCUT SCH ×3 (05:49→21:19)
[2020-11-14] MEDS: Meropenem 1 GM PREMIX(*) 1 GM/50 ML BAG IV SCH ×2 (07:51→15:33)
[2020-11-14] MEDS: Polyethylene Glycol 3350 17 GM PACKET PO SCH (10:57)
[2020-11-14] MEDS: Magnesium Hydroxide LIQ 30 ML UDC PO PRN ×2 (10:57→16:53)
[2020-11-14] MEDS ORDERED: Vancomycin 750 MG in NS 0.9% 250 ML IVPB SCH (12:00)
[2020-11-15] MEDS: Meropenem 1 GM PREMIX(*) 1 GM/50 ML BAG IV SCH ×3 (00:05→15:38)
[2020-11-15] MEDS: Hydrocortisone INJ 100 MG/2ML 2 ML VIAL IV SCH ×3 (06:18→21:08)
[2020-11-15] MEDS: Heparin 5000 UNITS/ML 1 mL VIAL SUBCUT SCH ×2 (06:18→14:08)
[2020-11-15 07:02] LABS: Hematocrit 32 % (42-52); Hemoglobin 10.9 g/dL (14.0-18.0); Mean Corpuscular HGB Conc 34 g/dL (31-36); Mean Corpuscular Hemoglobin 30 pg (27-31); Mean Corpuscular Volume 88 fL (80-94); Mean Platelet Volume 8.4 fL (7.4-10.4); Platelet Count 49 10^3/uL (150-450); Red Blood Count 3.59 10^6 /uL (4.18-5.48); Red Cell Distribution Width 15 % (10-15)
[2020-11-15 07:07] LABS: Blood Urea Nitrogen 51 mg/dL (6-24); CO2 Carbon Dioxide 23 mmol/L (22-32); Calcium 8.1 mg/dL (8.6-10.3); EGFR African American 97.8 (>60); EGFR Non-African American 80.8 (>60); Glucose 242 mg/dL (70-100); Magnesium 2.6 mg/dL (1.9-2.7); Potassium 3.4 mmol/L (3.5-5.0); Sodium 143 mmol/L (135-145)
[2020-11-15] MEDS: Polyethylene Glycol 3350 17 GM PACKET PO SCH (07:20)
[2020-11-15] MEDS ORDERED: Potassium Chloride LIQUID 20 MEQ/15 ML LIQUID PO ONE (07:34)
[2020-11-15 07:51] LABS: Anion Gap 7 mmol/L (2-11); Chloride 113 mmol/L (101-111); Phosphorus < 1.0 mg/dL (2.5-5.0)
[2020-11-15 08:05] LABS: ABS Eosinophils 0.7 10^3/ul (0-0.6); ABS Lymphocytes 0.3 10^3/ul (1.0-4.8); ABS Monocytes 0.1 10^3/ul (0-0.8); Eosinophil % 4.9 %; Nucleated Red Blood Cells % 0.1
[2020-11-15 08:22] LABS: RBC Morphology Normal (Normal)
[2020-11-15] MEDS: Pantoprazole VIAL 40 MG VIAL IV SCH (08:24)
[2020-11-15] MEDS ORDERED: Norepinephrine 16MCG/ML IVPRE 4,000 MCG/250 ML BAG IV SCH (08:31)
[2020-11-15] MEDS ORDERED: Potassium Phosphate IV 15 MMOLE in NS 0.9% 250 ml 250 ML IVPB ONE (09:00)
[2020-11-15] MEDS ORDERED: NORMOSOL-R pH 7.4 1000 mL BAG 1,000 ML IV SCH (09:00)
[2020-11-15] MEDS: Carbidopa/Levodop 25/100 MG TAB PO SCH ×3 (11:59→21:09)
[2020-11-15] MEDS ORDERED: Albuterol/Ipratropium NEB.SOL (2.5/0.5 MG) 3 ML NEB.SOLN INH PRN (16:34)
[2020-11-15] MEDS: Amantadine SOLN ORALSYR 10 mg/ml PO SCH (21:09)
[2020-11-16] MEDS: Meropenem 1 GM PREMIX(*) 1 GM/50 ML BAG IV SCH ×3 (00:04→16:51)
[2020-11-16 05:34] LABS: Hematocrit 32 % (42-52); Hemoglobin 10.8 g/dL (14.0-18.0); Mean Corpuscular HGB Conc 33 g/dL (31-36); Mean Corpuscular Hemoglobin 30 pg (27-31); Mean Corpuscular Volume 89 fL (80-94); Mean Platelet Volume 8.9 fL (7.4-10.4); Platelet Count 46 10^3/uL (150-450); Red Blood Count 3.63 10^6 /uL (4.18-5.48); Red Cell Distribution Width 15 % (10-15); White Blood Count 13.5 10^3/uL (3.5-10.8)
[2020-11-16 05:47] LABS: Blood Urea Nitrogen 60 mg/dL (6-24); CO2 Carbon Dioxide 25 mmol/L (22-32); Calcium 7.8 mg/dL (8.6-10.3); EGFR African American 122.2 (>60); Glucose 259 mg/dL (70-100); Magnesium 2.7 mg/dL (1.9-2.7); Potassium 4.4 mmol/L (3.5-5.0); Sodium 143 mmol/L (135-145)
[2020-11-16 05:51] LABS: Anion Gap 3 mmol/L (2-11); Chloride 115 mmol/L (101-111)
[2020-11-16 05:52] LABS: ABS Lymphocytes 0.6 10^3/ul (1.0-4.8); ABS Monocytes 0.4 10^3/ul (0-0.8); ABS Neutrophils 12.4 10^3/ul (1.5-7.7); Eosinophil % 0.3 %; Lymphocyte % 4.8 %; Phosphorus < 1.0 mg/dL (2.5-5.0)
[2020-11-16] MEDS ORDERED: Potassium Phosphate IV 30 MMOLE in NS 0.9% 250 ml 250 ML IVPB ONE (05:58)
[2020-11-16] MEDS ORDERED: NS 0.9% 250 ml 250 ML ONE (06:07)
[2020-11-16] MEDS ORDERED: Sodium Phosphate IV 30 MMOLE in NS 0.9% 250 ml 250 ML IVPB ONE ×2 (06:18→06:20)
[2020-11-16] MEDS: Hydrocortisone INJ 100 MG/2ML 2 ML VIAL IV SCH ×2 (06:20→16:52)
[2020-11-16] MEDS ORDERED: Furosemide 20 mg/2 ml IV VIAL IV ONE ×2 (07:52→23:30)
[2020-11-16] MEDS: Pantoprazole VIAL 40 MG VIAL IV SCH (08:36)
[2020-11-16] MEDS: Amantadine SOLN ORALSYR 10 mg/ml PO SCH ×3 (08:36→21:49)
[2020-11-16] MEDS: Polyethylene Glycol 3350 17 GM PACKET PO SCH (08:36)
[2020-11-16] MEDS: Carbidopa/Levodop 25/100 MG TAB PO SCH ×4 (08:39→20:08)
[2020-11-16] MEDS ORDERED: Vancomycin Trough Check NOTE FOLLOW UP ONE (11:30)
[2020-11-16] MEDS ORDERED: Albuterol 2.5mg/3 ml (0.083%) NEB.SOLN INH ONE (13:16)
[2020-11-16] MEDS ORDERED: Albuterol/Ipratropium NEB.SOL (2.5/0.5 MG) 3 ML NEB.SOLN INH PRN (13:16)
[2020-11-16 18:10] LABS: Calcium 7.6 mg/dL (8.6-10.3); EGFR African American 134.5 (>60); EGFR Non-African American 111.2 (>60); Magnesium 2.4 mg/dL (1.9-2.7); Phosphorus 2.1 mg/dL (2.5-5.0)
[2020-11-16 18:12] LABS: Potassium 3.7 mmol/L (3.5-5.0)
[2020-11-16] MEDS ORDERED: Potassium Chloride LIQUID 20 MEQ/15 ML LIQUID PO ONE ×2 (18:15→21:27)
[2020-11-16] MEDS ORDERED: Potassium Phosphate IV 15 MMOLE in NS 0.9% 250 ml 250 ML IVPB ONE (18:45)
[2020-11-16 20:48] LABS: HIT ELISA 0.176 OD (<0.400); Heparin PF4 Antibody Interp Negative (Negative)
[2020-11-17] MEDS: Meropenem 1 GM PREMIX(*) 1 GM/50 ML BAG IV SCH ×4 (01:08→23:52)
[2020-11-17] MEDS: Hydrocortisone INJ 100 MG/2ML 2 ML VIAL IV SCH ×2 (04:57→17:29)
[2020-11-17 05:52] LABS: Calcium 7.7 mg/dL (8.6-10.3); EGFR African American 146.7 (>60); EGFR Non-African American 121.3 (>60); Magnesium 2.4 mg/dL (1.9-2.7); Phosphorus 2.3 mg/dL (2.5-5.0)
[2020-11-17 06:05] LABS: Potassium 4.2 mmol/L (3.5-5.0)
[2020-11-17] MEDS ORDERED: Furosemide 40 mg/4 ml IV VIAL IV ONE (07:59)
[2020-11-17] MEDS ORDERED: Polyethylene Glycol 3350 17 GM PACKET PO PRN (08:25)
[2020-11-17] MEDS: Polyethylene Glycol 3350 17 GM PACKET PO SCH (08:26)
[2020-11-17] MEDS: Pantoprazole VIAL 40 MG VIAL IV SCH (08:41)
[2020-11-17] MEDS: Carbidopa/Levodop 25/100 MG TAB PO SCH ×4 (08:42→20:34)
[2020-11-17] MEDS: Potassium & Sodium Phos 250 mg = 1 PACKET PO SCH ×2 (08:42→20:34)
[2020-11-17] MEDS: Amantadine SOLN ORALSYR 10 mg/ml PO SCH ×2 (08:42→20:34)
[2020-11-17 11:51] LABS: EGFR African American 130.2 (>60); EGFR Non-African American 107.6 (>60)
[2020-11-17 12:29] LABS: Potassium 3.9 mmol/L (3.5-5.0)
[2020-11-17 14:14] LABS: Magnesium 2.3 mg/dL (1.9-2.7); Phosphorus 2.3 mg/dL (2.5-5.0)
[2020-11-18] MEDS: Hydrocortisone INJ 100 MG/2ML 2 ML VIAL IV SCH (05:33)
[2020-11-18 05:45] LABS: EGFR African American 136.8 (>60); EGFR Non-African American 113.1 (>60); Magnesium 2.2 mg/dL (1.9-2.7); Phosphorus 2.3 mg/dL (2.5-5.0); Potassium 3.8 mmol/L (3.5-5.0)
[2020-11-18 06:18] LABS: Hematocrit 33 % (42-52); Hemoglobin 11.4 g/dL (14.0-18.0); Mean Corpuscular HGB Conc 34 g/dL (31-36); Mean Corpuscular Hemoglobin 30 pg (27-31); Mean Corpuscular Volume 88 fL (80-94); Mean Platelet Volume 9.4 fL (7.4-10.4); Platelet Count 79 10^3/uL (150-450); Red Blood Count 3.77 10^6 /uL (4.18-5.48); Red Cell Distribution Width 14 % (10-15); White Blood Count 10.3 10^3/uL (3.5-10.8)
[2020-11-18 07:13] LABS: ABS Lymphocytes 0.9 10^3/ul (1.0-4.8); ABS Monocytes 0.7 10^3/ul (0-0.8); ABS Neutrophils 8.7 10^3/ul (1.5-7.7); Eosinophil % 0.3 %; Lymphocyte % 9.2 %; RBC Morphology Normal (Normal)
[2020-11-18] MEDS: Amantadine SOLN ORALSYR 10 mg/ml PO SCH ×2 (09:07→21:12)
[2020-11-18] MEDS: Meropenem 1 GM PREMIX(*) 1 GM/50 ML BAG IV SCH ×2 (09:07→16:34)
[2020-11-18] MEDS: Potassium & Sodium Phos 250 mg = 1 PACKET PO SCH (09:08)
[2020-11-18] MEDS: Carbidopa/Levodop 25/100 MG TAB PO SCH ×4 (09:34→21:13)
[2020-11-18] MEDS ORDERED: Hydrocortisone INJ 100 MG/2ML 2 ML VIAL IV SCH (16:00)
[2020-11-19] MEDS: Meropenem 1 GM PREMIX(*) 1 GM/50 ML BAG IV SCH ×4 (00:01→23:44)
[2020-11-19] MEDS: Hydrocortisone INJ 100 MG/2ML 2 ML VIAL IV SCH ×2 (08:33→20:54)
[2020-11-19] MEDS: Amantadine SOLN ORALSYR 10 mg/ml PO SCH ×2 (08:37→20:53)
[2020-11-19] MEDS: Carbidopa/Levodop 25/100 MG TAB PO SCH ×4 (10:02→20:53)
[2020-11-19] MEDS: Chlorhexidine MOUTHWASH 0.12% 15 ML UDC TOPICAL SCH ×4 (13:28→23:46)
[2020-11-20] MEDS: Chlorhexidine MOUTHWASH 0.12% 15 ML UDC TOPICAL SCH ×5 (04:13→22:08)
[2020-11-20 05:02] LABS: Hematocrit 33 % (42-52); Hemoglobin 11.1 g/dL (14.0-18.0); Mean Corpuscular HGB Conc 34 g/dL (31-36); Mean Corpuscular Hemoglobin 30 pg (27-31); Mean Corpuscular Volume 89 fL (80-94); Mean Platelet Volume 9.2 fL (7.4-10.4); Platelet Count 136 10^3/uL (150-450); Red Blood Count 3.66 10^6 /uL (4.18-5.48); Red Cell Distribution Width 14 % (10-15); White Blood Count 9.3 10^3/uL (3.5-10.8)
[2020-11-20 05:26] LABS: Calcium 8.4 mg/dL (8.6-10.3); EGFR African American 195.1 (>60); EGFR Non-African American 161.2 (>60); Magnesium 2.2 mg/dL (1.9-2.7); Phosphorus 2.8 mg/dL (2.5-5.0)
[2020-11-20] MEDS: Meropenem 1 GM PREMIX(*) 1 GM/50 ML BAG IV SCH ×3 (08:07→22:13)
[2020-11-20] MEDS: Hydrocortisone INJ 100 MG/2ML 2 ML VIAL IV SCH ×2 (08:07→22:22)
[2020-11-20] MEDS: Amantadine SOLN ORALSYR 10 mg/ml PO SCH ×2 (08:08→22:29)
[2020-11-20] MEDS: Carbidopa/Levodop 25/100 MG TAB PO SCH ×4 (08:17→23:32)
[2020-11-21] MEDS: Chlorhexidine MOUTHWASH 0.12% 15 ML UDC TOPICAL SCH ×5 (00:25→17:46)
[2020-11-21 06:02] LABS: Hematocrit 33 % (42-52); Hemoglobin 11.1 g/dL (14.0-18.0); Mean Corpuscular HGB Conc 34 g/dL (31-36); Mean Corpuscular Hemoglobin 30 pg (27-31); Mean Corpuscular Volume 89 fL (80-94); Mean Platelet Volume 8.7 fL (7.4-10.4); Platelet Count 175 10^3/uL (150-450); Red Blood Count 3.66 10^6 /uL (4.18-5.48); Red Cell Distribution Width 14 % (10-15)
[2020-11-21 06:19] LABS: Calcium 8.4 mg/dL (8.6-10.3); EGFR African American 178.5 (>60); EGFR Non-African American 147.5 (>60); Magnesium 2.2 mg/dL (1.9-2.7); Phosphorus 3.1 mg/dL (2.5-5.0); Potassium 4.2 mmol/L (3.5-5.0)
[2020-11-21 08:24] LABS: ABS Basophils 0.1 10^3/ul (0-0.2); ABS Lymphocytes 0.9 10^3/ul (1.0-4.8); ABS Monocytes 0.3 10^3/ul (0-0.8); ABS Neutrophils 7.7 10^3/ul (1.5-7.7); Eosinophil % 0.3 %; Lymphocyte % 9.8 %
[2020-11-21 08:27] LABS: Polychromasia 1+
[2020-11-21] MEDS: Hydrocortisone INJ 100 MG/2ML 2 ML VIAL IV SCH (09:36)
[2020-11-21] MEDS: Carbidopa/Levodop 25/100 MG TAB PO SCH ×4 (09:36→22:20)
[2020-11-21] MEDS: Amantadine SOLN ORALSYR 10 mg/ml PO SCH ×2 (09:36→22:22)
[2020-11-21] MEDS: Meropenem 1 GM PREMIX(*) 1 GM/50 ML BAG IV SCH ×2 (10:02→16:23)
[2020-11-21] MEDS: Heparin 5000 UNITS/ML 1 mL VIAL SUBCUT SCH ×2 (14:00→22:16)
[2020-11-22] MEDS: Chlorhexidine MOUTHWASH 0.12% 15 ML UDC TOPICAL SCH (00:11)
[2020-11-22] MEDS: Meropenem 1 GM PREMIX(*) 1 GM/50 ML BAG IV SCH ×4 (00:26→23:54)
[2020-11-22] MEDS: Heparin 5000 UNITS/ML 1 mL VIAL SUBCUT SCH ×3 (05:45→21:53)
[2020-11-22 06:01] LABS: Hematocrit 33 % (42-52); Mean Corpuscular HGB Conc 34 g/dL (31-36); Mean Corpuscular Hemoglobin 30 pg (27-31); Mean Corpuscular Volume 90 fL (80-94); Mean Platelet Volume 8.4 fL (7.4-10.4); Platelet Count 192 10^3/uL (150-450); Red Blood Count 3.67 10^6 /uL (4.18-5.48); Red Cell Distribution Width 14 % (10-15); White Blood Count 6.1 10^3/uL (3.5-10.8)
[2020-11-22 06:21] LABS: Calcium 8.3 mg/dL (8.6-10.3); EGFR African American 186.5 (>60); EGFR Non-African American 154.1 (>60); Potassium 3.8 mmol/L (3.5-5.0)
[2020-11-22] MEDS: Carbidopa/Levodop 25/100 MG TAB PO SCH ×4 (09:21→21:58)
[2020-11-22] MEDS: Amantadine SOLN ORALSYR 10 mg/ml PO SCH ×2 (09:22→22:02)
[2020-11-22] MEDS: Hydrocortisone INJ 100 MG/2ML 2 ML VIAL IV SCH (09:22)
[2020-11-22] MEDS ORDERED: NS 0.9% 500 ml BAG 500 ML IV ONE (12:50)
[2020-11-23] MEDS: Heparin 5000 UNITS/ML 1 mL VIAL SUBCUT SCH ×3 (05:54→21:38)
[2020-11-23] MEDS: Carbidopa/Levodop 25/100 MG TAB PO SCH ×4 (09:37→20:18)
[2020-11-23] MEDS: Amantadine SOLN ORALSYR 10 mg/ml PO SCH ×2 (09:37→20:15)
[2020-11-23] MEDS: Meropenem 1 GM PREMIX(*) 1 GM/50 ML BAG IV SCH ×3 (09:37→23:45)
[2020-11-23] MEDS: Hydrocortisone INJ 100 MG/2ML 2 ML VIAL IV SCH (09:37)
[2020-11-24] MEDS: Heparin 5000 UNITS/ML 1 mL VIAL SUBCUT SCH ×3 (06:09→21:56)
[2020-11-24] MEDS: Meropenem 1 GM PREMIX(*) 1 GM/50 ML BAG IV SCH (08:22)
[2020-11-24] MEDS: Amantadine SOLN ORALSYR 10 mg/ml PO SCH ×2 (09:07→21:58)
[2020-11-24] MEDS: Carbidopa/Levodop 25/100 MG TAB PO SCH ×4 (09:15→21:59)
[2020-11-25] MEDS: Heparin 5000 UNITS/ML 1 mL VIAL SUBCUT SCH ×2 (06:00→13:04)
[2020-11-25] MEDS: Carbidopa/Levodop 25/100 MG TAB PO SCH ×2 (08:57→13:05)
[2020-11-25] MEDS: Amantadine SOLN ORALSYR 10 mg/ml PO SCH (08:57)
[2020-11-25 11:44] VITALS: BP 96/41
== END 2020-11-25 15:15 | DRG 871 ==
LOC: ED 10:15 → ICU 10:33 → MEDTELE 11-17 14:24
PROVIDERS: ADMIT Internal Medicine; ATTEND Internal Medicine

== ENCOUNTER 2020-12-04 20:34 | Inpatient (IN) ==
[~2020-12-04 20:34] MED LIST changes: +Etomidate 40 mg/20 ml (2 MG/ML) 20 ml VIAL (40 mg) ONE; -Iohexol 300* (CONTRAST) 10 ML SDV IV ONE; +Midazolam 10 mg/10 ml VIAL 1 mg/ml 10 ml VIAL (10 mg) ONE; -Midazolam* 1 MG/ML 10 ML VIAL (10 MG) ONE; -NS 0.9% 1000 ML* 2,000 ML IV ONE; +Succinylcholine 200 mg VIAL 20 mg/ml 10 ml VIAL (200 mg) ONE; -fentaNYL* 50 MCG/ML 2 ML VIAL (100 MCG VIAL) ONE
[2020-12-04] MEDS ORDERED: Rocuronium 50 mg VIAL 10 mg/ml 5 ml VIAL (50 mg) ONE (20:36)
[2020-12-04] MEDS ORDERED: Succinylcholine 200 mg VIAL 20 mg/ml 10 ml VIAL (200 mg) ONE (20:36)
[2020-12-04] MEDS ORDERED: Propofol 10 mg/ml 100 ML BTL ONE (20:36)
[2020-12-04] MEDS ORDERED: Levofloxacin 750 MG IVPREMIX 750 MG/150 ML BAG IVPB ONE (20:52)
[2020-12-04] MEDS ORDERED: Vancomycin 1,000 MG in NS 0.9% 250 ml 250 ML IVPB ONE (20:52)
[2020-12-04] MEDS ORDERED: Pantoprazole VIAL 40 MG VIAL IV ONE (20:54)
[2020-12-04] MEDS: Lactated Ringers 1000 ml BAG 1,000 ML IV ONE (21:00)
[2020-12-04] MEDS ORDERED: Octreotide Acetate 50 MCG in NS 0.9% 50 ML 50 ML IV ONE (21:08)
[2020-12-04] MEDS ORDERED: NS 0.9% 50 ML 50 ML ONE (21:26)
[2020-12-04] MEDS: Octreotide Acetate 500 MCG in NS 0.9% 100 ml BAG 100 ML IV ONE (21:55)
[2020-12-04 21:58] LABS: Hematocrit 31 % (42-52); Hemoglobin 9.7 g/dL (14.0-18.0); Mean Corpuscular HGB Conc 31 g/dL (31-36); Mean Corpuscular Hemoglobin 30 pg (27-31); Mean Corpuscular Volume 95 fL (80-94); Mean Platelet Volume 7.4 fL (7.4-10.4); Platelet Count 284 10^3/uL (150-450); Red Blood Count 3.29 10^6 /uL (4.18-5.48); Red Cell Distribution Width 15 % (10-15); White Blood Count 10.5 10^3/uL (3.5-10.8)
[2020-12-04] MEDS ORDERED: Propofol 10 mg/ml 100 ML BTL 100 ML IV ONE (21:59)
[2020-12-04] MEDS ORDERED: Vancomycin 1,000 MG - ED ONCE IVPB ONE (22:00)
[2020-12-04] MEDS ORDERED: Norepinephrine 16MCG/ML IVPRE 4,000 MCG/250 ML BAG IV ONE (22:05)
[2020-12-04 22:07] LABS: Activated Partial Thrombo Time 39.3 seconds (26.0-38.0); INR 1.45 (0.86-1.15)
[2020-12-04 22:15] LABS: ALT 4 U/L (7-52); AST 11 U/L (13-39); Albumin 2.7 g/dL (3.2-5.2); Alkaline Phosphatase 83 U/L (35-149); Anion Gap 16 mmol/L (2-11); Blood Urea Nitrogen 52 mg/dL (6-24); C Reactive Protein 201.69 mg/L (<8.01); CO2 Carbon Dioxide 16 mmol/L (22-32); Calcium 8.5 mg/dL (8.6-10.3); Chloride 107 mmol/L (101-111); EGFR African American 33.5 (>60); EGFR Non-African American 27.7 (>60); Globulin 2.7 g/dL (2-4); Glucose 206 mg/dL (70-100); Potassium 4.3 mmol/L (3.5-5.0); Sodium 139 mmol/L (135-145); Total Protein 5.4 g/dL (6.4-8.9)
[2020-12-04 22:18] LABS: Influenza A Molecular Negative (Negative); Influenza B Molecular Negative (Negative)
[2020-12-04 22:19] LABS: CKMB ng/mL 13.4 ng/mL (0.6-6.3)
[2020-12-04 22:24] LABS: ABS Basophils 0.1 10^3/ul (0-0.2); ABS Eosinophils 0.1 10^3/ul (0-0.6); ABS Lymphocytes 1.2 10^3/ul (1.0-4.8); ABS Monocytes 0.2 10^3/ul (0-0.8); ABS Neutrophils 9.1 10^3/ul (1.5-7.7); Eosinophil % 0.7 %; Lymphocyte % 11.1 %; Nucleated Red Blood Cells % 0.1
[2020-12-04 22:27] LABS: PCO2 Arterial 54 mmHg (35-45); PO2 Arterial 452 mmHg (80-100)
[2020-12-04] MEDS ORDERED: Pantoprazole 80 mg in NS BAG 80 MG/250 ML BAG IV ONE (22:29)
[2020-12-04 22:47] LABS: Troponin I 0.07 ng/mL (<0.03)
[2020-12-04] MEDS ORDERED: Norepinephrine 16MCG/ML IVPRE 4,000 MCG/250 ML BAG IV SCH (23:00)
[2020-12-04 23:36] LABS: Hematocrit 36 % (42-52); Hemoglobin 11.5 g/dL (14.0-18.0); Mean Corpuscular HGB Conc 32 g/dL (31-36); Mean Corpuscular Hemoglobin 30 pg (27-31); Mean Corpuscular Volume 93 fL (80-94); Mean Platelet Volume 7.2 fL (7.4-10.4); Platelet Count 292 10^3/uL (150-450); Red Blood Count 3.86 10^6 /uL (4.18-5.48); Red Cell Distribution Width 15 % (10-15); White Blood Count 4.1 10^3/uL (3.5-10.8)
[2020-12-05] LABS: ABS Monocytes 0.1 10^3/ul (0-0.8); Lymphocyte % 24.5 %; Nucleated Red Blood Cells % 0.3
[2020-12-05] MEDS: Octreotide Acetate 500 MCG in NS 0.9% 100 ml BAG 100 ML IV ONE (00:50)
[2020-12-05 00:58] LABS: Magnesium 2.2 mg/dL (1.9-2.7); Phosphorus 5.8 mg/dL (2.5-5.0)
[2020-12-05] MEDS ORDERED: Dexmedetomidine 1,000 MCG in NS 0.9% 250 ml 240 ML IV SCH (01:00)
[2020-12-05] MEDS ORDERED: Meropenem 1 GM PREMIX(*) 1 GM/50 ML BAG IV SCH (01:00)
[2020-12-05] MEDS: Phenylephrine IV 50 MG in NS 0.9% 250 ml 245 ML IV SCH ×5 (01:04→23:38)
[2020-12-05] MEDS ORDERED: Lactated Ringers 500 ml BAG 500 ML IV ONE ×3 (01:14→04:10)
[2020-12-05] MEDS: Lactated Ringers 1000 ml BAG 1,000 ML IV ONE ×2 (01:15→01:30)
[2020-12-05] MEDS ORDERED: Desmopressin Acetate 20 MCG in NS 0.9% 50 ML 50 ML IVPB ONE (02:00)
[2020-12-05] MEDS ORDERED: Octreotide Acetate 500 MCG in NS 0.9% 100 ml BAG 100 ML IV SCH (02:00)
[2020-12-05] MEDS: Chlorhexidine MOUTHWASH 0.12% 15 ML UDC SWISH SPIT SCH ×6 (02:24→23:07)
[2020-12-05 02:27] LABS: Acetaminophen < 15 mcg/mL; Salicylate < 2.50 mg/dL (<30)
[2020-12-05 02:28] LABS: ALT 4 U/L (7-52); AST 22 U/L (13-39); Albumin/Globulin Ratio 1.1 (1-3); Alkaline Phosphatase 95 U/L (35-149); Anion Gap 14 mmol/L (2-11); Blood Urea Nitrogen 55 mg/dL (6-24); CO2 Carbon Dioxide 17 mmol/L (22-32); Calcium 8.8 mg/dL (8.6-10.3); Chloride 107 mmol/L (101-111); EGFR Non-African American 27.3 (>60); Globulin 2.7 g/dL (2-4); Glucose 68 mg/dL (70-100); Hematocrit 39 % (42-52); Hemoglobin 12.4 g/dL (14.0-18.0); Mean Corpuscular HGB Conc 32 g/dL (31-36); Mean Corpuscular Hemoglobin 29 pg (27-31); Mean Corpuscular Volume 92 fL (80-94); Mean Platelet Volume 7.5 fL (7.4-10.4); Platelet Count 180 10^3/uL (150-450); Potassium 4.9 mmol/L (3.5-5.0); Red Blood Count 4.22 10^6 /uL (4.18-5.48); Red Cell Distribution Width 16 % (10-15); Sodium 138 mmol/L (135-145); Total Protein 5.7 g/dL (6.4-8.9); White Blood Count 2.4 10^3/uL (3.5-10.8)
[2020-12-05 02:34] LABS: Troponin I 0.53 ng/mL (<0.03)
[2020-12-05 02:55] LABS: Anisocytosis 1+; Polychromasia 1+
[2020-12-05 02:56] LABS: ABS Lymphocytes 0.5 10^3/ul (1.0-4.8); ABS Monocytes 0.1 10^3/ul (0-0.8); ABS Neutrophils 1.7 10^3/ul (1.5-7.7); Eosinophil % 0.8 %; Lymphocyte % 21.2 %; Nucleated Red Blood Cells % 1.3
[2020-12-05 03:27] LABS: Magnesium 2.2 mg/dL (1.9-2.7)
[2020-12-05] MEDS ORDERED: Lorazepam PYXIS KEY PRN (03:29)
[2020-12-05] MEDS ORDERED: LORazepam 2 mg VIAL 1 ml IV PUSH ONE (03:29)
[2020-12-05] MEDS ORDERED: LORazepam 2 mg VIAL 1 ml ONE (03:29)
[2020-12-05] MEDS ORDERED: Lorazepam PYXIS KEY ONE (03:29)
[2020-12-05 03:32] LABS: Phosphorus 6.4 mg/dL (2.5-5.0)
[2020-12-05] MEDS ORDERED: Lactated Ringers 1000 ml BAG 1,000 ML IV SCH (04:00)
[2020-12-05] MEDS ORDERED: Dextrose 50% Syringe 50 ml 25 GM/50 ML SYRINGE IV PUSH ONE ×4 (05:27→19:51)
[2020-12-05 05:37] LABS: PCO2 Arterial 54 mmHg (35-45); PO2 Arterial 405 mmHg (80-100)
[2020-12-05 05:48] LABS: Hematocrit 38 % (42-52); Hemoglobin 12.7 g/dL (14.0-18.0); Mean Corpuscular HGB Conc 33 g/dL (31-36); Mean Corpuscular Hemoglobin 30 pg (27-31); Mean Corpuscular Volume 90 fL (80-94); Mean Platelet Volume 7.6 fL (7.4-10.4); Platelet Count 123 10^3/uL (150-450); Red Blood Count 4.29 10^6 /uL (4.18-5.48); Red Cell Distribution Width 16 % (10-15); White Blood Count 2.5 10^3/uL (3.5-10.8)
[2020-12-05] MEDS ORDERED: D5LR 1000 ml BAG 1,000 ML IV SCH (06:00)
[2020-12-05 06:02] LABS: ALT 4 U/L (7-52); AST 43 U/L (13-39); Albumin 2.7 g/dL (3.2-5.2); Alkaline Phosphatase 105 U/L (35-149); Blood Urea Nitrogen 55 mg/dL (6-24); CO2 Carbon Dioxide 19 mmol/L (22-32); Calcium 8.6 mg/dL (8.6-10.3); Chloride 108 mmol/L (101-111); EGFR African American 34.6 (>60); EGFR Non-African American 28.6 (>60); Globulin 2.7 g/dL (2-4); Glucose 75 mg/dL (70-100); Magnesium 2.2 mg/dL (1.9-2.7); Phosphorus 5.8 mg/dL (2.5-5.0); Sodium 138 mmol/L (135-145); Total Protein 5.4 g/dL (6.4-8.9)
[2020-12-05 06:06] LABS: Anion Gap 11 mmol/L (2-11); Potassium 5.7 mmol/L (3.5-5.0)
[2020-12-05] MEDS ORDERED: Sodium Bicarb 8.4% Vial 50 ML 150 MEQ in D5W 1000 ml BAG 850 ML IV ONE (06:13)
[2020-12-05 06:28] LABS: Anisocytosis 1+; Polychromasia 1+
[2020-12-05 06:32] LABS: ABS Lymphocytes 0.6 10^3/ul (1.0-4.8); ABS Monocytes 0.1 10^3/ul (0-0.8); ABS Neutrophils 1.9 10^3/ul (1.5-7.7); Eosinophil % 0.3 %; Lymphocyte % 22.7 %; Nucleated Red Blood Cells % 1.1
[2020-12-05] MEDS ORDERED: Vancomycin per Pharmacy 1 EA NOTE FOLLOW UP SCH (08:00)
[2020-12-05] MEDS ORDERED: Dextrose 50% Syringe 50 ml 25 GM/50 ML SYRINGE IV PUSH PRN (08:43)
[2020-12-05] MEDS ORDERED: LORazepam 2 mg VIAL 1 ml IV PUSH PRN (08:57)
[2020-12-05] MEDS ORDERED: Vancomycin 1000 MG in NS 0.9% 250 ML IVPB ONE (09:00)
[2020-12-05] MEDS: Hydrocortisone INJ 100 MG/2ML 2 ML VIAL IV SCH ×2 (09:12→15:57)
[2020-12-05] MEDS: fentaNYL 100 mcg/2 ml 50 MCG/ML VIAL IV SLOW PU PRN ×2 (09:42→21:21)
[2020-12-05 11:18] LABS: Hematocrit 34 % (42-52); Hemoglobin 11.3 g/dL (14.0-18.0); Mean Corpuscular HGB Conc 33 g/dL (31-36); Mean Corpuscular Hemoglobin 30 pg (27-31); Mean Corpuscular Volume 89 fL (80-94); Red Blood Count 3.81 10^6 /uL (4.18-5.48); Red Cell Distribution Width 16 % (10-15)
[2020-12-05 11:23] LABS: PCO2 Arterial 58 mmHg (35-45); PO2 Arterial 211 mmHg (80-100)
[2020-12-05 11:35] LABS: RBC Morphology Normal (Normal)
[2020-12-05 11:36] LABS: Mean Platelet Volume 7.8 fL (7.4-10.4); Platelet Count 78 10^3/uL (150-450)
[2020-12-05 11:45] LABS: Troponin I 1.08 ng/mL (<0.03)
[2020-12-05 11:56] LABS: Blood Urea Nitrogen 55 mg/dL (6-24); CO2 Carbon Dioxide 22 mmol/L (22-32); Calcium 7.7 mg/dL (8.6-10.3); Chloride 105 mmol/L (101-111); EGFR African American 32.9 (>60); EGFR Non-African American 27.2 (>60); Glucose 153 mg/dL (70-100); Magnesium 2.1 mg/dL (1.9-2.7); Phosphorus 5.6 mg/dL (2.5-5.0); Sodium 140 mmol/L (135-145)
[2020-12-05] MEDS: Pantoprazole 80 mg IN NS 80 MG/250 ML BAG IV SCH ×2 (12:04→22:41)
[2020-12-05 12:08] LABS: Anion Gap 13 mmol/L (2-11); Potassium 5.1 mmol/L (3.5-5.0)
[2020-12-05] MEDS ORDERED: Norepinephrine 16MCG/ML IVPRE 4,000 MCG/250 ML BAG IV ONE (13:41)
[2020-12-05] MEDS: Norepinephrine 16MCG/ML IVPRE 4,000 MCG/250 ML BAG IV SCH ×2 (13:47→23:08)
[2020-12-05] MEDS ORDERED: Sodium Bicarbonate 8.4% SYR 50 ml SYRINGE IV ONE ×3 (13:50→19:55)
[2020-12-05] MEDS: Meropenem 1 GM PREMIX(*) 1 GM/50 ML BAG IV SCH (13:54)
[2020-12-05 18:46] LABS: Hematocrit 37 % (42-52); Mean Corpuscular HGB Conc 33 g/dL (31-36); Mean Corpuscular Hemoglobin 29 pg (27-31); Mean Corpuscular Volume 88 fL (80-94); Mean Platelet Volume 7.9 fL (7.4-10.4); Platelet Count 51 10^3/uL (150-450); Red Blood Count 4.18 10^6 /uL (4.18-5.48); Red Cell Distribution Width 16 % (10-15); White Blood Count 4.2 10^3/uL (3.5-10.8)
[2020-12-05 18:57] LABS: Fibrinogen 477.5 mg/dL (110.8-404.3); INR 1.17 (0.86-1.15)
[2020-12-05 18:59] LABS: Blood Urea Nitrogen 59 mg/dL (6-24); CO2 Carbon Dioxide 25 mmol/L (22-32); Calcium 8.1 mg/dL (8.6-10.3); Chloride 104 mmol/L (101-111); EGFR African American 29.6 (>60); EGFR Non-African American 24.5 (>60); Glucose 83 mg/dL (70-100); Sodium 141 mmol/L (135-145)
[2020-12-05 19:03] LABS: Anion Gap 12 mmol/L (2-11); Potassium 5.8 mmol/L (3.5-5.0)
[2020-12-05 19:04] LABS: Troponin I 1.52 ng/mL (<0.03)
[2020-12-05 20:34] LABS: ABS Eosinophils 0.1 10^3/ul (0-0.6); ABS Lymphocytes 0.3 10^3/ul (1.0-4.8); ABS Monocytes 0.1 10^3/ul (0-0.8); ABS Neutrophils 3.8 10^3/ul (1.5-7.7); Eosinophil % 1.9 %; Lymphocyte % 6.3 %; Nucleated Red Blood Cells % 0.5
[2020-12-05] MEDS: Acetaminophen IV 1 GM/100ML 100 ML IV PRN (21:22)
[2020-12-05] MEDS: Sodium Bicarb 8.4% Vial 50 ML 150 MEQ in D5W 1000 ml BAG 1,000 ML IV SCH (22:41)
[2020-12-06] MEDS: Hydrocortisone INJ 100 MG/2ML 2 ML VIAL IV SCH ×3 (00:41→16:44)
[2020-12-06] MEDS: fentaNYL 100 mcg/2 ml 50 MCG/ML VIAL IV SLOW PU PRN ×10 (00:41→23:47)
[2020-12-06 01:11] LABS: Blood Urea Nitrogen 63 mg/dL (6-24); CO2 Carbon Dioxide 27 mmol/L (22-32); Calcium 7.7 mg/dL (8.6-10.3); Chloride 103 mmol/L (101-111); EGFR African American 27.3 (>60); EGFR Non-African American 22.5 (>60); Glucose 104 mg/dL (70-100); Magnesium 2.2 mg/dL (1.9-2.7); Phosphorus 4.5 mg/dL (2.5-5.0); Sodium 142 mmol/L (135-145)
[2020-12-06 01:15] LABS: Anion Gap 12 mmol/L (2-11); Potassium 5.4 mmol/L (3.5-5.0)
[2020-12-06] MEDS: Meropenem 1 GM PREMIX(*) 1 GM/50 ML BAG IV SCH ×2 (02:43→14:00)
[2020-12-06] MEDS: Chlorhexidine MOUTHWASH 0.12% 15 ML UDC SWISH SPIT SCH ×6 (02:44→20:32)
[2020-12-06] MEDS: Acetaminophen IV 1 GM/100ML 100 ML IV PRN ×3 (06:07→23:48)
[2020-12-06 06:26] LABS: INR 1.27 (0.86-1.15)
[2020-12-06 06:27] LABS: Hematocrit 33 % (42-52); Hemoglobin 11.1 g/dL (14.0-18.0); Mean Corpuscular HGB Conc 34 g/dL (31-36); Mean Corpuscular Hemoglobin 29 pg (27-31); Mean Corpuscular Volume 87 fL (80-94); Mean Platelet Volume 8.3 fL (7.4-10.4); Platelet Count 20 10^3/uL (150-450); Red Blood Count 3.78 10^6 /uL (4.18-5.48); Red Cell Distribution Width 16 % (10-15); White Blood Count 4.5 10^3/uL (3.5-10.8)
[2020-12-06 06:35] LABS: PCO2 Arterial 45 mmHg (35-45); PO2 Arterial 132 mmHg (80-100)
[2020-12-06 06:38] LABS: Albumin 2.2 g/dL (3.2-5.2); Albumin/Globulin Ratio 0.9 (1-3); Calcium 7.4 mg/dL (8.6-10.3); EGFR African American 26.7 (>60); EGFR Non-African American 22.1 (>60); Globulin 2.4 g/dL (2-4); Phosphorus 4.3 mg/dL (2.5-5.0); Potassium 5.7 mmol/L (3.5-5.0); Total Bilirubin 0.8 mg/dL (0.2-1.0); Total Protein 4.6 g/dL (6.4-8.9)
[2020-12-06] MEDS: Norepinephrine 16MCG/ML IVPRE 4,000 MCG/250 ML BAG IV SCH (06:40)
[2020-12-06] MEDS: Sodium Bicarb 8.4% Vial 50 ML 150 MEQ in D5W 1000 ml BAG 1,000 ML IV SCH ×3 (06:41→20:33)
[2020-12-06 06:49] LABS: Vancomycin Random 19.5 mcg/mL
[2020-12-06] MEDS ORDERED: Dextrose 50% Syringe 50 ml 25 GM/50 ML SYRINGE IV PUSH ONE ×2 (07:16→16:01)
[2020-12-06] MEDS ORDERED: Calcium Gluconate 1 GM/10 ML VIAL (in Pyxis) IV PUSH ONE (08:43)
[2020-12-06] MEDS ORDERED: Amiodarone IV 150 mg/3 ml VIAL SLOW PUSH ONE (08:51)
[2020-12-06] MEDS ORDERED: Amiodarone 150 mg IVPREMIX 150 MG/100 ML BAG IV ONE (08:52)
[2020-12-06] MEDS ORDERED: Amiodarone IV 150 mg/3 ml VIAL ONE ×2 (08:58→08:59)
[2020-12-06 09:08] LABS: ABS Lymphocytes 0.6 10^3/ul (1.0-4.8); ABS Neutrophils 3.4 10^3/ul (1.5-7.7)
[2020-12-06] MEDS: Pantoprazole 80 mg IN NS 80 MG/250 ML BAG IV SCH (10:13)
[2020-12-06] MEDS: Pantoprazole VIAL 40 MG VIAL IV SCH ×2 (10:43→20:32)
[2020-12-06] MEDS ORDERED: Artificial Tear OPHTH.OINT 3.5 GM BOTH EYES PRN (11:04)
[2020-12-06] MEDS: Phenylephrine IV 50 MG in NS 0.9% 250 ml 245 ML IV SCH ×2 (13:10→20:13)
[2020-12-06 13:24] LABS: Hematocrit 30 % (42-52); Hemoglobin 9.9 g/dL (14.0-18.0); Mean Corpuscular HGB Conc 33 g/dL (31-36); Mean Corpuscular Hemoglobin 29 pg (27-31); Mean Corpuscular Volume 88 fL (80-94); Mean Platelet Volume 7.8 fL (7.4-10.4); Platelet Count 17 10^3/uL (150-450); Red Blood Count 3.41 10^6 /uL (4.18-5.48); Red Cell Distribution Width 16 % (10-15); White Blood Count 8.4 10^3/uL (3.5-10.8)
[2020-12-06 13:49] LABS: Calcium 7.3 mg/dL (8.6-10.3); EGFR Non-African American 21.5 (>60)
[2020-12-06 14:02] LABS: RBC Morphology Normal (Normal)
[2020-12-06 14:14] LABS: Potassium 5.4 mmol/L (3.5-5.0)
[2020-12-06] MEDS: Dexmedetomidine 1,000 MCG in NS 0.9% 250 ml 240 ML IV SCH (14:22)
[2020-12-06 21:40] LABS: Phosphorus 4.1 mg/dL (2.5-5.0)
[2020-12-06 22:09] LABS: EGFR African American 25.3 (>60); EGFR Non-African American 20.9 (>60)
[2020-12-06 22:10] LABS: Potassium 5.3 mmol/L (3.5-5.0)
[2020-12-06 22:33] LABS: Hematocrit 30 % (42-52); Hemoglobin 9.9 g/dL (14.0-18.0); Mean Corpuscular HGB Conc 33 g/dL (31-36); Mean Corpuscular Hemoglobin 29 pg (27-31); Mean Corpuscular Volume 87 fL (80-94); Mean Platelet Volume 8.7 fL (7.4-10.4); Platelet Count 12 10^3/uL (150-450); Red Blood Count 3.45 10^6 /uL (4.18-5.48); Red Cell Distribution Width 16 % (10-15); White Blood Count 10.6 10^3/uL (3.5-10.8)
[2020-12-06 23:04] LABS: RBC Morphology Normal (Normal)
[2020-12-06 23:06] LABS: ABS Eosinophils 0.1 10^3/ul (0-0.6); ABS Lymphocytes 0.3 10^3/ul (1.0-4.8); ABS Neutrophils 10.1 10^3/ul (1.5-7.7); ABS Nucleated RBC 0.1 10^3/ul; Eosinophil % 1.4 %; Nucleated Red Blood Cells % 0.5
[2020-12-07] MEDS: Chlorhexidine MOUTHWASH 0.12% 15 ML UDC SWISH SPIT SCH ×6 (00:54→23:17)
[2020-12-07] MEDS: Hydrocortisone INJ 100 MG/2ML 2 ML VIAL IV SCH ×4 (00:54→20:17)
[2020-12-07] MEDS: Meropenem 1 GM PREMIX(*) 1 GM/50 ML BAG IV SCH ×2 (00:54→13:27)
[2020-12-07] MEDS: fentaNYL 100 mcg/2 ml 50 MCG/ML VIAL IV SLOW PU PRN ×6 (02:41→23:29)
[2020-12-07 05:49] LABS: Hematocrit 29 % (42-52); Hemoglobin 9.3 g/dL (14.0-18.0); Mean Corpuscular HGB Conc 33 g/dL (31-36); Mean Corpuscular Hemoglobin 28 pg (27-31); Mean Corpuscular Volume 87 fL (80-94); Mean Platelet Volume 7.4 fL (7.4-10.4); Platelet Count 29 10^3/uL (150-450); Red Blood Count 3.29 10^6 /uL (4.18-5.48); Red Cell Distribution Width 16 % (10-15); White Blood Count 12.3 10^3/uL (3.5-10.8)
[2020-12-07] MEDS: Sodium Bicarb 8.4% Vial 50 ML 150 MEQ in D5W 1000 ml BAG 1,000 ML IV SCH ×3 (05:55→21:07)
[2020-12-07 05:56] LABS: Albumin 2.1 g/dL (3.2-5.2); Albumin/Globulin Ratio 0.9 (1-3); Calcium 6.6 mg/dL (8.6-10.3); EGFR African American 24.2 (>60); Globulin 2.3 g/dL (2-4); Magnesium 1.9 mg/dL (1.9-2.7); Phosphorus 4.1 mg/dL (2.5-5.0); Total Bilirubin 0.6 mg/dL (0.2-1.0); Total Protein 4.4 g/dL (6.4-8.9)
[2020-12-07] MEDS: Phenylephrine IV 50 MG in NS 0.9% 250 ml 245 ML IV SCH (05:56)
[2020-12-07 05:57] LABS: Potassium 5.1 mmol/L (3.5-5.0)
[2020-12-07] MEDS ORDERED: Vancomycin Random Level NOTE FOLLOW UP ONE (06:00)
[2020-12-07] MEDS ORDERED: Magnesium Sulfate IV 1GM/100ML 1 GM/100 ML BAG IV ONE (06:19)
[2020-12-07] MEDS: Pantoprazole VIAL 40 MG VIAL IV SCH ×2 (07:50→20:17)
[2020-12-07] MEDS: Acetaminophen IV 1 GM/100ML 100 ML IV PRN (07:50)
[2020-12-07 08:02] LABS: RBC Morphology Normal (Normal)
[2020-12-07 08:07] LABS: ABS Lymphocytes 1.1 10^3/ul (1.0-4.8); ABS Neutrophils 10.6 10^3/ul (1.5-7.7)
[2020-12-07] MEDS ORDERED: Vancomycin 1000 MG in NS 0.9% 250 ML IVPB ONE (18:00)
[2020-12-08] MEDS: Meropenem 1 GM PREMIX(*) 1 GM/50 ML BAG IV SCH ×2 (02:40→14:04)
[2020-12-08] MEDS: Chlorhexidine MOUTHWASH 0.12% 15 ML UDC SWISH SPIT SCH ×6 (02:41→20:44)
[2020-12-08] MEDS: fentaNYL 100 mcg/2 ml 50 MCG/ML VIAL IV SLOW PU PRN ×6 (04:08→14:16)
[2020-12-08 05:00] LABS: ABS Lymphocytes 0.4 10^3/ul (1.0-4.8); ABS Monocytes 0.1 10^3/ul (0-0.8); Eosinophil % 0.1 %; Hematocrit 29 % (42-52); Hemoglobin 9.7 g/dL (14.0-18.0); Mean Corpuscular HGB Conc 34 g/dL (31-36); Mean Corpuscular Hemoglobin 29 pg (27-31); Mean Corpuscular Volume 87 fL (80-94); Mean Platelet Volume 8.6 fL (7.4-10.4); Nucleated Red Blood Cells % 0.1; Platelet Count 15 10^3/uL (150-450); Red Blood Count 3.29 10^6 /uL (4.18-5.48); Red Cell Distribution Width 16 % (10-15); White Blood Count 10.5 10^3/uL (3.5-10.8)
[2020-12-08 05:12] LABS: Albumin/Globulin Ratio 0.9 (1-3); EGFR African American 24.2 (>60); Globulin 2.2 g/dL (2-4); Magnesium 2.1 mg/dL (1.9-2.7); Phosphorus 4.4 mg/dL (2.5-5.0); Potassium 4.6 mmol/L (3.5-5.0); Total Bilirubin 0.5 mg/dL (0.2-1.0); Total Protein 4.2 g/dL (6.4-8.9)
[2020-12-08 05:17] LABS: Calcium 5.9 mg/dL (8.6-10.3)
[2020-12-08] MEDS ORDERED: CALCIUM GLUCONATE 1GM/50ML NS 1 GM/50 ML BAG IV ONE ×2 (05:20→18:21)
[2020-12-08] MEDS: Dexmedetomidine 1,000 MCG in NS 0.9% 250 ml 240 ML IV SCH ×2 (05:36→11:58)
[2020-12-08 05:38] LABS: PCO2 Arterial 56 mmHg (35-45); PO2 Arterial 90 mmHg (80-100)
[2020-12-08] MEDS: Sodium Bicarb 8.4% Vial 50 ML 150 MEQ in D5W 1000 ml BAG 1,000 ML IV SCH (05:45)
[2020-12-08] MEDS ORDERED: Sodium Bicarb 8.4% Vial 50 ML 150 MEQ in D5W 1000 ml BAG 1,000 ML IV SCH (06:30)
[2020-12-08] MEDS: Pantoprazole VIAL 40 MG VIAL IV SCH ×2 (07:31→20:44)
[2020-12-08] MEDS: Hydrocortisone INJ 100 MG/2ML 2 ML VIAL IV SCH ×2 (07:31→20:44)
[2020-12-08 09:10] LABS: PCO2 Arterial 50 mmHg (35-45); PO2 Arterial 161 mmHg (80-100)
[2020-12-08] MEDS ORDERED: Phenylephrine IV 50 MG in NS 0.9% 250 ml 245 ML IV SCH (10:47)
[2020-12-08 14:35] LABS: EGFR African American 22.1 (>60); EGFR Non-African American 18.3 (>60); Potassium 4.7 mmol/L (3.5-5.0)
[2020-12-08 14:36] LABS: Calcium 6.3 mg/dL (8.6-10.3)
[2020-12-08 14:39] LABS: Hematocrit 30 % (42-52); Hemoglobin 9.9 g/dL (14.0-18.0); Mean Corpuscular HGB Conc 33 g/dL (31-36); Mean Corpuscular Hemoglobin 29 pg (27-31); Mean Corpuscular Volume 88 fL (80-94); Mean Platelet Volume 8.7 fL (7.4-10.4); Platelet Count 33 10^3/uL (150-450); Red Blood Count 3.43 10^6 /uL (4.18-5.48); Red Cell Distribution Width 16 % (10-15); White Blood Count 9.7 10^3/uL (3.5-10.8)
[2020-12-08] MEDS ORDERED: Heparin *DIALYSIS* ONLY 1,000 UNITS/ML VIAL DIALYSIS ONE (17:00)
[2020-12-08 17:25] LABS: Hepatitis B Surface Antigen Nonreactive (Nonreactive)
[2020-12-08 17:30] LABS: Hepatitis B Core IgM Nonreactive (Nonreactive)
[2020-12-08 17:42] LABS: Hepatitis B Surface Ab Not Immune (Immune)
[2020-12-08 17:43] LABS: Hepatitis C Antibody Negative (Negative)
[2020-12-08 18:38] LABS: Anisocytosis 1+; RBC Morphology Normal (Normal)
[2020-12-08 18:39] LABS: Nucleated Red Blood Cells % 0.3
[2020-12-08] MEDS ORDERED: CMCS: Methylnaltrexone SQ (NF) 12 MG/0.6 ML VIAL SUBCUT ONE (23:22)
[2020-12-09] MEDS: Chlorhexidine MOUTHWASH 0.12% 15 ML UDC SWISH SPIT SCH ×3 (02:08→15:35)
[2020-12-09] MEDS: Meropenem 1 GM PREMIX(*) 1 GM/50 ML BAG IV SCH (02:08)
[2020-12-09] MEDS ORDERED: Vancomycin Random Level NOTE FOLLOW UP ONE (06:00)
[2020-12-09 06:07] LABS: Hematocrit 29 % (42-52); Hemoglobin 9.8 g/dL (14.0-18.0); Mean Corpuscular HGB Conc 34 g/dL (31-36); Mean Corpuscular Hemoglobin 29 pg (27-31); Mean Corpuscular Volume 87 fL (80-94); Mean Platelet Volume 9.2 fL (7.4-10.4); Platelet Count 32 10^3/uL (150-450); Red Blood Count 3.35 10^6 /uL (4.18-5.48); Red Cell Distribution Width 15 % (10-15); White Blood Count 12.2 10^3/uL (3.5-10.8)
[2020-12-09] MEDS: Dexmedetomidine 1,000 MCG in NS 0.9% 250 ml 240 ML IV SCH (06:07)
[2020-12-09 06:17] LABS: ALT 17 U/L (7-52); AST 65 U/L (13-39); Albumin 2.1 g/dL (3.2-5.2); Alkaline Phosphatase 202 U/L (35-149); Anion Gap 10 mmol/L (2-11); Blood Urea Nitrogen 68 mg/dL (6-24); CO2 Carbon Dioxide 34 mmol/L (22-32); Chloride 92 mmol/L (101-111); EGFR African American 26.1 (>60); EGFR Non-African American 21.5 (>60); Globulin 2.2 g/dL (2-4); Glucose 73 mg/dL (70-100); Phosphorus 5.1 mg/dL (2.5-5.0); Potassium 4.3 mmol/L (3.5-5.0); Sodium 136 mmol/L (135-145); Total Protein 4.3 g/dL (6.4-8.9)
[2020-12-09 06:18] LABS: Calcium 6.4 mg/dL (8.6-10.3)
[2020-12-09] MEDS ORDERED: CALCIUM GLUCONATE 1GM/50ML NS 1 GM/50 ML BAG IV ONE (06:25)
[2020-12-09 06:42] LABS: ABS Lymphocytes 0.4 10^3/ul (1.0-4.8); ABS Monocytes 0.1 10^3/ul (0-0.8); ABS Neutrophils 11.7 10^3/ul (1.5-7.7); Lymphocyte % 2.9 %; Nucleated Red Blood Cells % 0.2
[2020-12-09 06:55] LABS: Vancomycin Random 17.8 mcg/mL
[2020-12-09] MEDS: fentaNYL 100 mcg/2 ml 50 MCG/ML VIAL IV SLOW PU PRN (09:34)
[2020-12-09] MEDS ORDERED: Heparin 1,000 UNIT/ML 10 ml (10,000 UNITS) CATHLAB/DIALYSIS DIALYSIS ONE (09:38)
[2020-12-09] MEDS ORDERED: Atropine 0.1 MG/ML 10 ml SYR (1 mg) ONE (11:42)
[2020-12-09] MEDS ORDERED: Sodium Bicarbonate 8.4% SYR 50 ml SYRINGE ONE (11:46)
[2020-12-09] MEDS ORDERED: EPINEPHrine SYR 0.1MG/ML 10 ml SYRINGE ONE (11:48)
[2020-12-09 12:08] LABS: Troponin I 0.16 ng/mL (<0.03)
[2020-12-09 15:00] VITALS: BP 63/40
[2020-12-09] MEDS ORDERED: Sodium Bicarbonate 8.4% VIAL 1 MEQ/ML 50 ml VIAL (50 meq) IV ONE (15:31)
[2020-12-09] MEDS ORDERED: Atropine 0.1 MG/ML 10 ml SYR (1 mg) IV PUSH ONE (15:31)
[2020-12-09] MEDS ORDERED: EPINEPHrine SYR 0.1MG/ML 10 ml SYRINGE IV ONE (15:31)
[2020-12-09] MEDS: Pantoprazole VIAL 40 MG VIAL IV SCH (15:35)
[2020-12-09] MEDS: Hydrocortisone INJ 100 MG/2ML 2 ML VIAL IV SCH (15:35)
== END 2020-12-09 14:30 | disposition expired | DRG 871 ==
LOC: EDUNIT# → EDBD → ED 20:34 → ICU 23:28
PROVIDERS: ADMIT Internal Medicine; ATTEND Internal Medicine